=== PATIENT | male | born 1975 | race Caucasian/White ===

== ENCOUNTER 2018-01-02 08:45 | Emergency (ER) | payer MEDICAID, SELFPAY ==
[2018-01-02 08:45] VITALS: BP 126/84; PULSE 80; RESP 12; TEMP 36.2; BMI 39.4
--- NOTE | 2018-01-02 08:56 | CT_ITS ---
STUDY: CT ABDOMEN AND PELVIS WITHOUT CONTRAST REASON FOR EXAM: Male, 42 years old. Left abdomen pain. Hematuria. History of kidney stones. Surgical umbilical hernia repair. Hypertension. RADIATION DOSAGE (If Supplied By Facility): CTDIvol = ( 14.8 ) mGy, DLP = ( 766.75 ) mGycm TECHNIQUE: Transaxial images were obtained from the dome of the diaphragm to the symphysis pubis without oral contrast, and without intravenous contrast. Sagittal and coronal images were reconstructed. Individualized dose optimization techniques were used for this CT. COMPARISON: August 13, 2017. FINDINGS: The visualized lung bases demonstrate minimal, scattered, small foci of subsegmental atelectasis only. The visualized portions of the heart are within normal limits. Normal liver. Normal gallbladder and extrahepatic biliary system. Normal spleen. Normal pancreas. Normal bilateral adrenal glands. Normal right kidney. There is a 4.3 x 3.0 mm partially obstructing calculi within the left UPJ seen best currently on sequence 1002, image 76. There is mild upstream/proximal hydroureter. There is no hydronephrosis. Normal visualized stomach. Normal small intestine. Normal colon. The appendix is visualized and appears normal. There is no free fluid. There is no free air. Normal abdominal aorta. Normal inferior vena cava. Normal retroperitoneum. Normal urinary bladder. Again seen is a ill-defined, intraperitoneal/mesenteric nodular density in the retroumbilical region. This finding may represent sequela from prior surgery/fibrosis. There is a stable 4.1 cm bony excrescence posterolaterally to the left iliac bone. This finding again most likely represents an osteochondroma. CT/Abdomen/Pelvis without Cont IMPRESSION: Partially obstructing, 4.3 mm x 3.0 mm calculi within the left UPJ. Additional stable findings as above. Electronically Signed: Dimitry Harrington MD at 11:14 EDT , Service support ,
[2018-01-02 09:14] LABS: Mucous, Urine 0 SEEN /hpf (<or=2+); White Blood Cells 0 SEEN /hpf (0-5)
[2018-01-02 09:22] LABS: Color, Urine Yellow (Yellow); Glucose, Dipstick Normal (Normal); Ketone-Dipstick Negative (Negative); Leukocyte Esterase-Dipstick Negative /ul (Negative); Nitrite-Dipstick Negative (Negative); Occult Blood-Urine 250 /ul (Negative); Protein-Dipstick 15 mg/dl (Negative); Specific Gravity, Urine 1.025 (1.002-1.030); Urine Bilirubin Dipstick Negative (Negative); Urine Clarity Sl. Cloudy (Clear); Urine Urobilinogen 1 mg/dl (Normal)
[2018-01-02 09:27] LABS: Bacteria 1+ /hpf (None Seen); Red Blood Cells-Urine 25-50 SEEN /hpf (0-5); Squamous Epithelial Cells - UA 0-5 SEEN /hpf (0-5)
[2018-01-02] MEDS: 0.9% Normal Saline 1,000 ML 125 ML IV (09:47)
[2018-01-02] MEDS: Morphine 4 MG/ML Syringe IV (09:47)
[2018-01-02] MEDS: Ketorolac 30 MG/ML Syringe IV (09:47)
[2018-01-02] MEDS: Ondansetron 4 MG/2 ML Vial IV (09:48)
[2018-01-02 09:52] LABS: Absolute Neutrophil Count 8.4 X10^3/uL (2.0-7.7); Basophil# 0.06 X10^3/uL; Basophil% 0.6 % (0-1); Eosinophil# 0.13 X10^3/uL; Eosinophils% 1.3 % (0-5); Hemoglobin 15.1 g/dl (13.0-16.5); Lymphocyte % 10.6 % (19-41); Mean Corp Hgb Conc 35.1 g/gl (32-36); Mean Corpuscular Hgb 30.4 pg (27.0-32.0); Mean Corpuscular Volume 86.7 fL (80-94); Mean Platelet Vol. 9.5 fl (6.2-12.0); Monocyte# 0.72 X10^3/uL; Monocyte% 6.9 % (0-10); Neutrophil # 8.35 X10^3/uL (2.7-7.7); Neutrophil % 80.3 % (47-70); Platelet Count 248 K/mm3 (150-450); RBC Distribution Width CV 13.5 % (11.6-14.6); RBC Distribution Width SD 41.3 fl (35.1-43.9); Red Blood Count 4.96 M/mm3 (4.6-6.2); White Blood Count 10.4 K/mm3 (4.4-11.0)
[2018-01-02 09:55] LABS: POSITIVE COUNT NO; POSITIVE DIFFERENTIAL NO; POSITIVE MORPHOLOGY NO
[2018-01-02 09:58] LABS: BUN 12 mg/dL (7-18); Creatinine, Serum 1.16 mg/dL (0.70-1.30); Glucose 103 mg/dL (74-106)
[2018-01-02 09:59] LABS: Anion Gap 3 (5-15); BUN/Creat Ratio 10.3 RATIO (10-20); Calcium,Total 8.7 mg/dL (8.5-10.1); Chloride 110 mmol/L (98-107); EST Glomerular Filtration Rate 74 mL/min (>60); Est Glom Filt Rate - Afr Amer 89 mL/min (>60); Estimated Creatinine Clearance 98.42 ml/min; Potassium 3.9 mmol/L (3.5-5.1); Sodium Level 140 mmol/L (136-145)
--- NOTE | 2018-01-02 11:24 | ED.VISSUMM ---
- ER Visit Summary Date of Service: 01/02/18 Chief Complaint: [Left flank pain] History of Present Illness: The patient is a 42 M [presents the emergency department with left flank pain that started suddenly around 7:30 AM. Patient rates his pain as a 6 out of 10 currently. Patient has had nausea but no vomiting. Patient states initially the pain started after urinating. Patient has had a history of kidney stones in the past. Patient denies any fever.] Physical Examination: [HEENT-PERRLA, EOMI. Cranial nerves II through XII grossly intact. TMs clear. Mucous membranes moist. No adenopathy. Cardiovascular-regular rate and rhythm without murmur or ectopy Lungs-clear to auscultation, chest wall stable without crepitus or subcu emphysema Abdomen-normoactive bowel sounds, soft. Patient has tenderness over left lower quadrant with some guarding. There is no rebound, rigidity, or perineal signs. Patient has no CVA tenderness on palpation. Extremities-intact ?4, normal range of motion, normal pulses, atraumatic] Test Results: [CBC with differential showed a white count of 10.4, hemoglobin 15, hematocrit 43, platelets 248. Chemistries unremarkable. BUN was 12 and creatinine was 1.16. Urinalysis showed 25-50 RBCs without signs of infection. CT flank showed a 4.3 mm left UVJ stone with proximal hydroureter ureter and hydronephrosis.] Emergency Department Course and Treatment: [Patient was medicated with Toradol, morphine, and Zofran and his pain resolved. Patient currently pain-free. Given the size of the stone he understands that he has an 8090% chance of passing the stone.] Treatment Plan: [Patient will be given urine strainers and [place] as well as Naprosyn for home.] Disposition: Discharged to home in stable condition. Patient advised to return if worsening pain, fever, or condition should worsen in any way. 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 [] Impression: [Kidney stone with colic] This note was generated with [employer] dictation software. It may contain incorrect words, spelling, and punctuation that were not noted in review of the chart prior to signing ED Disposition - Plan for ED Patient: Chief Complaint: Flank Pain Referrals: Stone Castillo DO [Primary Care Provider] -
--- NOTE | 2018-01-02 11:28 | DCINST.ED_ITS ---
ED Disposition - Plan for ED Patient: Chief Complaint: Flank Pain Instructions: ED Stone Renal W Colic Prescriptions: Hydrocodone Bitart/Apap 5-325 [[place] 5/325] 1 - 2 tab PO Q4H PRN PRN 5 Days #20 tab PRN Reason: Pain Naproxen [Naprosyn] 500 mg PO BID PRN #20 tab Referrals: Stone Castillo DO [Primary Care Provider] - Boris Venegas MD [STAFF PHYSICIAN] - 3-5 Days
[2018-01-02 11:47] VITALS: BP 134/70; PULSE 88; RESP 16; O2SAT 97
== END 2018-01-02 11:49 | disposition home or self-care (01) ==
PROVIDERS: Emergency Provider Emergency Medicine; Family Provider Student in an Organized Health Care Education/Training Program; PCP Student in an Organized Health Care Education/Training Program
DX: N13.2 Hydronephrosis with renal and ureteral calculous obstruction (principal); R10.84 Generalized abdominal pain; Z87.442 Personal history of urinary calculi
CPT/HCPCS: 36415; 74176; 80048; 81001; 85025; 96361; 96374; 96375; 99283; J7030; A4216

== ENCOUNTER 2019-04-18 17:22 | Emergency (ER) | payer MEDICAID, SELFPAY ==
[2019-04-18 17:24] VITALS: BP 132/76; PULSE 86; RESP 19; TEMP 37.2; O2SAT 99; BMI 39.5
--- NOTE | 2019-04-18 17:34 | CT_ITS ---
STUDY: CT ABDOMEN AND PELVIS WITHOUT CONTRAST REASON FOR EXAM: Male, 44 years old. Left lower quadrant pain. RADIATION DOSAGE (If Supplied By Facility): CTDIvol = ( 23.64 ) mGy, DLP = ( 1204.93 ) mGycm TECHNIQUE: Transaxial images were obtained from the dome of the diaphragm to the symphysis pubis without oral contrast, and without intravenous contrast. Sagittal and coronal images were reconstructed. Individualized dose optimization techniques were used for this CT. COMPARISON: 01/02/2018. FINDINGS: Lung bases are clear. Visualized heart is normal. Diffuse fatty infiltration of the liver. No focal lesion is seen. The gallbladder is unremarkable. The spleen and pancreas are unremarkable. The adrenal glands are normal. The kidneys are unremarkable. No stones or hydronephrosis. The aorta is normal in caliber. There is no free fluid, free air, or organized collection. There is mild stranding in the anterior mesentery, deep to the umbilicus. No bowel obstruction or inflammatory change. Normal appendix. Urinary bladder is unremarkable. Normal abdominal wall. No acute osseous abnormality. Old healed trauma versus large osteochondroma of the left iliac bone. CT/Abdomen/Pelvis without Cont IMPRESSION: 1. Mild mesenteric stranding at the umbilical level. Question panniculitis. 2. Hepatic steatosis. 3. Healed left iliac trauma versus large osteochondroma. Electronically Signed: Kierra Soriano MD at 18:39 EDT Tel , Service support ,
[2019-04-18 17:58] LABS: Absolute Lymphocyte Count 2.44 X10^3/uL (0.83-4.51); Absolute Neutrophil Count 8.3 X10^3/uL (2.0-7.7); Basophil# 0.08 X10^3/uL; Basophil% 0.7 % (0-1); Eosinophil# 0.37 X10^3/uL; Hematocrit 42.4 % (40-54); Hemoglobin 14.3 g/dL (13.0-16.5); Lymphocyte # 2.44 X10^3/ul (4.0); Mean Corp Hgb Conc 33.7 g/dL (32-36); Mean Corpuscular Hgb 30.6 pg (27.0-32.0); Mean Corpuscular Volume 90.8 fL (80-94); Mean Platelet Vol. 9.1 fl (6.2-12.0); Monocyte% 7.4 % (0-10); NRBC Flagged by Analyzer 0 % (0-5); Neutrophil # 8.34 X10^3/uL (2.7-7.7); Neutrophil % 68.5 % (47-70); Platelet Count 291 K/mm3 (150-450); RBC Distribution Width CV 13.3 % (11.6-14.6); RBC Distribution Width SD 44.3 fl (35.1-43.9); Red Blood Count 4.67 M/mm3 (4.6-6.2); White Blood Count 12.2 K/mm3 (4.4-11.0)
[2019-04-18 18:03] VITALS: BP 113/76; BP 124/86; BP 98/71; PULSE 78; PULSE 80; PULSE 86
[2019-04-18 18:19] LABS: Anion Gap 3 (5-15); BUN 12 mg/dL (7-18); BUN/Creat Ratio 11.8 RATIO (10-20); Calcium,Total 8.5 mg/dL (8.5-10.1); Chloride 110 mmol/L (98-107); Creatinine, Serum 1.02 mg/dL (0.70-1.30); EST Glomerular Filtration Rate 85 mL/min (>60); Est Glom Filt Rate - Afr Amer 103 mL/min (>60); Estimated Creatinine Clearance 109.69 ml/min; Glucose 93 mg/dL (74-106); Potassium 3.7 mmol/L (3.5-5.1); Sodium Level 142 mmol/L (136-145)
[2019-04-18] MEDS: 0.9% Normal Saline 1,000 ML 125 ML IV (18:30)
--- NOTE | 2019-04-18 18:52 | ED.VISSUMM ---
- ER Visit Summary Date of Service: 04/18/19 Chief Complaint: [Rectal bleeding] History of Present Illness: The patient is a 44 M [presents to the emergency department with complaint of rectal bleeding x1 today. Patient states that he had use the restroom had a normal bowel movement and when he looked down noticed blood in the toilet bowl. Patient had some mild nausea today and some mild lower abdominal discomfort since this morning. He denies any fevers. He denies any vomiting. Patient has not had problems with hemorrhoids or rectal bleeding in the past. There is no family history of inflammatory bowel disease. Patient is not on any blood thinners. He does have a history of hypertension.] Physical Examination: [HEENT-PERRLA, EOMI. Cranial nerves II through XII grossly intact. TMs clear. Mucous membranes moist. No adenopathy. Cardiovascular-regular rate and rhythm without murmur or ectopy Lungs-clear to auscultation, chest wall stable without crepitus or subcu emphysema Abdomen-normoactive bowel sounds, soft. Patient has some mild suprapubic tenderness to palpation as well as left lower quadrant tenderness on palpation. Rectal exam-patient has a small skin tear at approximately the 10 o'clock position on the rectum with small amount of blood oozing from it. Extremities-intact ?4, normal range of motion, normal pulses, atraumatic] Test Results: [Orthostatic vital signs were negative. CBC with differential is normal. Chemistries were unremarkable. CT scan of the abdomen pelvis without contrast showed mild mesenteric stranding umbilically which may be consistent with panniculitis. Nothing else acute otherwise.] Emergency Department Course and Treatment: [] Treatment Plan: Patient will be referred to general surgery for follow-up. If bleeding persists he may require further evaluation such as possibly colonoscopy although I suspect the bleeding is coming from skin tear.] Disposition: [Discharged home stable condition.] Impression: [Rectal fissure Rectal bleeding-stable] This note was generated with [employer] dictation software. It may contain incorrect words, spelling, and punctuation that were not noted in review of the chart prior to signing ED Disposition - Plan for ED Patient: Referrals: Stone Castillo DO [Primary Care Provider] -
--- NOTE | 2019-04-18 18:55 | ED.DEP ---
ED Disposition - Plan for ED Patient: Instructions: RECTAL BLEED, Stable Referrals: Stone Castillo DO [Primary Care Provider] - Patricio Connolly MD [STAFF PHYSICIAN] - 3-5 Days
[2019-04-18 19:11] VITALS: BP 115/77; PULSE 78; RESP 18; O2SAT 98
== END 2019-04-18 19:12 | disposition short-term general hospital (02) ==
LOC: ED 18:00
PROVIDERS: Emergency Provider Emergency Medicine; Family Provider Student in an Organized Health Care Education/Training Program; PCP Student in an Organized Health Care Education/Training Program
DX: K60.2 Anal fissure, unspecified (principal); K62.5 Hemorrhage of anus and rectum; R11.0 Nausea; I10 Essential (primary) hypertension; Z79.899 Other long term (current) drug therapy
CPT/HCPCS: 74176; 80048; 85025; 96360; 99284; J7030; A4216

== ENCOUNTER → 2020-01-06 08:51 | Outpatient (CLI) | payer MEDICAID, SELFPAY ==
[2019-12-31 15:32] VITALS: BMI 41.6
--- NOTE | 2020-01-06 08:53 | RAD_ITS ---
STUDY: X-RAY CHEST REASON FOR EXAM: Male, 44 years old. AV stenosis, thoracic aortic aneurysm, syncope TECHNIQUE: PA and lateral views of the chest. COMPARISON: Comparison is made with prior study dated October 09, 2016. FINDINGS: The lungs are clear and expanded. There is no demonstrated pleural abnormality. Normal size heart. A loop recording device is seen overlying the left heart border. Normal mediastinum and [place]. Normal visualized pulmonary arteries. There is atherosclerotic tortuosity of the aortic arch and descending thoracic aorta. Normal visualized thoracic spine. Normal visualized ribs, clavicles, and shoulders. There is no demonstrated abnormality of the visualized soft tissue structures of the upper abdomen. RAD/Chest PA and Lateral IMPRESSION: No acute abnormality is seen. Electronically Signed: Kalen Bess, at 12:44 EDT , Service support ,
--- NOTE | 2020-01-06 08:53 | ECHOCS_ITS ---
Reason For Study: SYNCOPE Procedure This was a 2D Doppler, Color Flow transthoracic echocardiogram. The study was technically difficult. Contrast injection was performed. Exam performed in department. Left Ventricle Normal LV size. Moderate concentric left ventricular hypertrophy. Left ventricular systolic function is normal. The estimated ejection fraction is 65 %. Diastolic function is indeterminate. No regional wall motion abnormalities noted. Right Ventricle Normal RV size. Normal systolic function. Atria Normal left atrium. Normal right atrium. No doppler evidence for ASD. Mitral Valve There is no mitral annular calcification. Normal mitral valve. Mild (1+) mitral valve insufficiency. Tricuspid Valve Normal tricuspid valve. Trivial tricuspid valve insufficiency. Right ventricular systolic pressure estimated to be 28 mmHg. Aortic Valve Bicuspid aortic valve. Severe focal aortic valve calcification. Severe aortic stenosis. Pulmonic Valve The pulmonic valve is not well visualized. Trivial pulmonic valve insufficiency. Great Vessels Moderately dilated aortic root. Pericardium/Pleural No pericardial effusion. Medication 22 gauge I.V. with prn adaptor inserted into right arm. Diluted definity 5.0ml given slow IV push to enhance endocardial definition. MMode/2D Measurements & Calculations LVIDd: 4.3 cm IVSd: 1.7 cm LVOT diam: 2.2 cm LVIDs: 3.0 cm LVPWd: 1.5 cm RVDd: 3.2 cm FS: 29.2 % LVOT area: 3.9 cm2 Ao root diam: 4.5 cm LAV(MOD-bp): 54.5 ml LA A4 area: 18.2 cm2 LAV(MOD-bp) Indexed: 20.2 ml/m2 LAV(MOD-sp2): 58.2 ml LAV(MOD-sp4): 50.2 ml LA dimension(2D): 4.1 cm RA A4 area: 11.3 cm2 Time Measurements MV dec time: 0.20 sec Doppler Measurements & Calculations MV E max hugh: 111.2 cm/sec Lat Peak E' Hugh: 9.7 cm/sec Med Peak E' Hugh: 6.3 cm/sec MV A max hugh: 73.9 cm/sec E/E' lat: 11.5 E/E' med: 17.8 MV E/A: 1.5 Ao V2 max: 464.6 cm/sec LV V1 max: 95.3 cm/sec SV(LVOT): 91.3 ml Ao max P.4 mmHg LV V1 max P.6 mmHg Ao V2 mean: 353.6 cm/sec LV V1 mean P.2 mmHg Ao mean P.8 mmHg LV V1 mean: 71.7 cm/sec Ao V2 VTI: 119.1 cm LV V1 VTI: 23.3 cm HEATHER(I,D): 0.77 cm2 HEATHER(V,D): 0.80 cm2 PA V2 max: 106.3 cm/sec PI end-d hugh: 135.1 cm/sec TR max hugh: 249.5 cm/sec TR max P.9 mmHg Interpretation Summary The study was technically difficult. Contrast injection was performed. Left ventricular systolic function is normal. The estimated ejection fraction is 65 %. Moderate concentric left ventricular hypertrophy. Mild (1+) mitral valve insufficiency. Trivial tricuspid valve insufficiency. Bicuspid aortic valve. Severe aortic stenosis. Trivial pulmonic valve insufficiency. Moderately dilated aortic root. Right ventricular systolic pressure estimated to be 28 mmHg. Diastolic function is indeterminate. Ordering Physician: Wilmer Rodríguez Referring Physician: AMADEO DO Performed By: Mary Hein, RDCS, RVT
[2020-01-06 11:23] LABS: Absolute Lymphocyte Count 1.79 X10^3/uL (0.83-4.51); Absolute Neutrophil Count 5.8 X10^3/uL (2.0-7.7); Basophil# 0.07 X10^3/uL; Basophil% 0.8 % (0-1); Eosinophil# 0.28 X10^3/uL; Eosinophils% 3.2 % (0-5); Hemoglobin 13.9 g/dL (13.0-16.5); Lymphocyte # 1.79 X10^3/ul (4.0); Lymphocyte % 20.6 % (19-41); Mean Corp Hgb Conc 33.1 g/dL (32-36); Mean Corpuscular Hgb 29.2 pg (27.0-32.0); Mean Corpuscular Volume 88.2 fL (80-94); Mean Platelet Vol. 9.4 fl (6.2-12.0); Monocyte# 0.63 X10^3/uL; Monocyte% 7.3 % (0-10); NRBC Flagged by Analyzer 0 % (0-5); Neutrophil # 5.84 X10^3/uL (2.7-7.7); Neutrophil % 67.3 % (47-70); Platelet Count 255 K/mm3 (150-450); RBC Distribution Width CV 13.4 % (11.6-14.6); RBC Distribution Width SD 43.1 fl (35.1-43.9); Red Blood Count 4.76 M/mm3 (4.6-6.2); White Blood Count 8.7 K/mm3 (4.4-11.0)
[2020-01-06 11:32] LABS: Partial Thromboplast Time 29.1 Seconds (24.1-36.2)
[2020-01-06 11:55] LABS: AST(SGOT) 35 U/L (15-37); Alanine Aminotransfer ALT/SGPT 47 U/L (16-61); Albumin, Serum 3.4 g/dL (3.2-5.0); Alkaline Phosphatase 63 U/L (45-117); Anion Gap 6 (5-15); BUN 12 mg/dL (7-18); BUN/Creat Ratio 13.1 RATIO (10-20); Calcium,Total 8.8 mg/dL (8.5-10.1); Chloride 109 mmol/L (98-107); Cholesterol 137 mg/dL (200); Creatinine, Serum 0.91 mg/dL (0.70-1.30); EST Glomerular Filtration Rate 96 mL/min (>60); Est Glom Filt Rate - Afr Amer 117 mL/min (>60); Globulin 3.9 g/dL (2.2-4.2); Glucose 88 mg/dL (74-106); High Density Lipoprotein 41 mg/dL; Potassium 3.8 mmol/L (3.5-5.1); Protein, Total 7.3 g/dL (6.4-8.2); Sodium Level 142 mmol/L (136-145); Triglycerides 74 mg/dL; Very Low Density Lipoprotein 15 mg/dL (5-40)
== END ==
PROVIDERS: PCP Student in an Organized Health Care Education/Training Program; Referring Provider Internal Medicine Cardiovascular Disease; Visit Provider Internal Medicine Cardiovascular Disease
DX: Q23.1 Congenital insufficiency of aortic valve (principal); I71.2 Thoracic aortic aneurysm, without rupture; R55 Syncope and collapse; Z95.818 Presence of other cardiac implants and grafts; E78.5 Hyperlipidemia, unspecified; I10 Essential (primary) hypertension
CPT/HCPCS: 36415; 71046; 80048; 80061; 80076; 85025; 85610; 85730; 93306; Q9957; A4216; C8929

== ENCOUNTER 2020-01-07 07:47 | Day surgery (SDC) | payer MEDICAID, SELFPAY ==
[2019-12-31 15:32] VITALS: BMI 41.6
[2020-01-06 10:10] VITALS: BMI 41.5
--- NOTE | 2020-01-07 07:50 | PCM.HP.BLA ---
Problem List (1) Syncope Status: Acute Qualifiers: (2) Status post placement of implantable loop recorder Status: Chronic Comment: Implant 10/23/16 (3) Bicuspid aortic valve Status: Chronic (4) Nonrheumatic aortic (valve) stenosis Status: Chronic (5) Thoracic aortic aneurysm without rupture Status: Chronic Comment: 4.4cm per Chest CT 12/27/16 (6) Dyslipidemia Status: Chronic (7) Essential hypertension Status: Chronic History and Physical Date of Admission: 01/07/20 [facility] [address] [place] [address] OFFICE VISIT Date of Service: 12/31/19 MR#: [id number] Acct: [id number] Patient: ERLINDA DE LEÓN Rep #: [id number] : 1975 Provider: Wilmer Rodríguez MD Age/Sex: 44/M [place] [facility] [place] Status: Signed Intake Vital Signs 12/31/19 Height 6 ft 2 in 12/31/19 Weight: 324 lb 6 oz 12/31/19 BMI 41.6 12/31/19 BP 108/74 12/31/19 Pulse 80 12/31/19 Comment Vital Signs obtained per patient Intake Visit Reasons: Establish care/Self ref. /PHONE Chief Complaint: Bicuspid AV; AV Stenosis; Ascending Aortic Anuerysm; Syncope Allergies adhesive Allergy (Severe, Verified 12/31/19 15:36) Rash sertraline [From Zoloft] Allergy (Severe, Verified 12/31/19 15:36) Itching fluoxetine [From Prozac] Adverse Reaction (Severe, Verified 12/31/19 15:36) Heart Racing, SOB Medications Metoprolol(XL)Succ [Toprol Xl (Beta Melany)] 25 mg PO DAILY 10/30/15 [History Confirmed 12/31/19] [place]-3 Fatty Acids/Fish Oil [Fish Oil 1,000 mg Capsule] 1 ea PO DAILY 01/02/18 [History Confirmed 12/31/19] Omeprazole 20 mg PO DAILY 01/02/18 [History Confirmed 12/31/19] ascorbic acid (vitamin C) 500 mg tablet 500 mg PO DAILY 12/29/19 [History Confirmed 12/31/19] cholecalciferol (vitamin D3) 50 mcg (2,000 unit) capsule 50 mcg PO DAILY 12/29/19 [History Confirmed 12/31/19] furosemide 20 mg tablet 20 mg PO DAILY 12/29/19 [History Confirmed 12/31/19] risperidone 2 mg tablet 2 mg PO DAILY 12/29/19 [History Confirmed 12/31/19] aspirin 81 mg tablet,delayed release 81 mg PO DAILY #1 tab 12/31/19 [Rx Confirmed 12/31/19] lamotrigine 25 mg tablet 50 mg PO DAILY tab 12/31/19 [History Confirmed 12/31/19] multivitamin 1 tab PO DAILY 12/31/19 [History Confirmed 12/31/19] [facility] Medical History (Updated 12/31/19 @ 16:[address] Wilmer Rodríguez MD) Status post placement of implantable loop recorder (Chronic ~10/23/16) Syncope (Acute) Essential hypertension (Chronic) Dyslipidemia (Chronic) LBBB (left bundle branch block) (Acute) Thoracic aortic aneurysm without rupture (Chronic) Nonrheumatic aortic (valve) stenosis (Chronic) Bicuspid aortic valve (Chronic) Cerebral edema (Acute) Surgical History (Updated 12/29/19 @ 09:09 by Gail Maier) History of carpal tunnel surgery (Chronic) Brain tumor (Resolved) History of umbilical hernia repair (Resolved) Family History (Updated 12/31/19 @ 15:42 by Gail Maier) Mother Hypertension Father Cardiac murmur Social History (Updated 12/31/19 @ 17:[address] Wilmer Rodríguez MD) Smoking Status: Former smoker alcohol intake: never substance use type: does not use caffeine: Yes Type: carbonated beverages Number of servings: 2 HPI HPI Chief Complaint: Bicuspid AV; AV Stenosis; Ascending Aortic Anuerysm; Syncope Details: Patient was informed that this visit will be billed to patient. This visit was conducted during COVID-19 pandemic. ERLINDA DE LEÓN, is a 44-year-old white male who presents via telephone visit, based upon the ongoing coronavirus pandemic for a new patient consult based upon concerns of a bicuspid aortic valve with severe aortic valve stenosis and thoracic aortic root dilatation and syncope. He has been previously followed by [facility] cardiology. He has undergone noninvasive and invasive evaluation in the past. Based upon medical records available for review it appears that he had a transthoracic echocardiogram performed in October 2016 through the [facility] system. At that time the left ventricle was thought to be normal with an LVEF of 55%. There was trivial MR and trivial TR and trivial to mild LA. The aortic valve was described as bicuspid and severely stenotic with a mean gradient of 42 mmHg and an aortic valve area of 0.7 cm?. The distal ascending aorta was reported at 3.9 cm. He also underwent in October 2016 a pharmacologic stress nuclear imaging study. Per the report the perfusion was considered normal. There was no evidence of scarred myocardium. There was no evidence of inducible myocardial ischemia. The patient underwent additional evaluation through the [facility] system. This included in November 2016 a diagnostic cardiac catheterization. At that time his coronary arteries were reported as angiographically normal. There was notation that his right coronary artery was best engaged with a JR 5 from the right radial access. There was recommendation at that time to proceed with aortic valve replacement based upon the history of severe aortic valve stenosis. It appears that he also underwent in December [address] scan through the [facility] system. Based upon the report it stated he had moderate ectasia of the mid and distal ascending aorta with dimensions of 4.4 cm. There was no acute aortic pathology. There was a comment he had at least a bicuspid if not a unicuspid aortic valve. There was report of moderate calcification of the leaflets extending into the LV outflow tract. He elected to postpone his surgery at the time. He stated he was anxious about waking up with a tube in my throat . He states that he has been having evidence of exertional shortness of breath and dyspnea. As he did in 2016 he still has episodes of syncope. He states these episodes occur without any warning. He states he has been evaluated for these episodes for any potential seizure activity. Apparently this is been a negative evaluation. He also has an implantable loop recorder in place based upon his syncopal events. It appears that he had a report in November of this year. According to the report there was 1 patient symptomatic activation although he does not recall having a symptomatic event. There were pauses reported although there was a comment that there was demonstration of under sensing. The recommendation was for continued 1 month remote transmission follow-up. He has been evaluated by his PCP. He has been referred for a second opinion. He denies ongoing chest discomfort. He has had no orthopnea or PND. He states he has chronic lower extremity peripheral pitting edema for which he takes diuretics. He states that this point in time he is ready to proceed with reevaluation for aortic valve replacement. He states he was told by his previous [facility] resident care spec in the fall 2018 that he would require repeat evaluation including repeat diagnostic cardiac catheterization as it has been quite some time since his last procedure as part of his preparation for aortic valve replacement. He is hopeful his aortic valve replacement could be performed percutaneously. However he is aware that he may not be a candidate for such and it may have to be performed surgically. He states he would like to be evaluated at [facility] for such a procedure if possible as opposed to returning to the [facility] Main campus. ROS Const Constitutional: Positive for fatigue (increased); no anorexia, body ache, chills, excessive sweating, fever(s), frequent falls, headache(s), decreased energy, malaise, night sweats, snoring, weakness, weight change, sleep problems, abnormal sleep pattern, change in appetite or other Eyes Eyes: No visual disturbances ENT ENT: No abnormal hearing, headache(s) or neck pain Resp Respiratory: Positive for cough (occasional) and shortness of breath sob: SOB with activity (increased), SOB at rest, orthopnea\SOB lying down (sleeps with 3 pillows propped); no change in phlegm color, chest congestion, excessive phlegm production, hemoptysis, pain on inspiration, pain with cough, snoring, stridor, wheezing or other Cardio Cardiology: Positive for chest pain with exertion (Lt side) Symptoms: Stabbing, Heaviness and generalized swelling (swelling to bilat LE, wears compression socks PRN); no chest pain at rest, leg pain with exertion, excessive sweating, shortness of breath, dyspnea on exertion, irregular heart rhythm, lightheadedness, orthopnea, radiating jaw, neck or arm pain, fast heart rate, slow heart rate, palpitations or other Musc Musculoskeletal: No abnormal walking, joint pain, back pain, deformity, joint swelling, limited range of motion, loss of height, muscle cramps, muscle weakness, decreased muscle mass, body aches, neck pain, numbness, radiating pain into limb, stiffness, tingling or other Neuro Neurology: Positive for unsteady gait/balance (slight with ambulation), dizziness (continues) and fainting; no abnormal walking, abnormal hearing, abnormal movements, abnormal speech, behavioral changes, confusion, weakness, frequent falls, headache(s), lack of coordination, loss of vision, memory loss, numbness, tingling, visual disturbances, restless legs, tremor(s) or other Psych Psychiatric: No abnormal sleep pattern, No behavioral changes, No change in appetite, No confusion, No memory loss Endo Endocrine: Positive for fatigue (increased); no excessive sweating Aller/Imm Allergy/Immunologic: No wheezing Exam Const Other: Examination not performed secondary to telephone visit secondary to COVID-19. [facility] Musculoskeletal: No muscle weakness Details: Details:: Exam was limited due to phone visit with no video. Quality Reporting Medication Reconciliation (CMS 68) ascorbic acid (vitamin C) 500 mg PO DAILY aspirin 81 mg PO DAILY cholecalciferol (vitamin D3) 50 mcg PO DAILY furosemide 20 mg PO DAILY lamotrigine (Lamictal) 50 mg PO DAILY metoprolol succinate ER 25 mg PO DAILY multivitamin 1 tab PO DAILY omega-3 fatty acids-fish oil 340-1,000 mg 1 ea PO DAILY omeprazole 20 mg PO DAILY risperidone 2 mg PO DAILY BMI Screening (CMS 69) Body Mass Index (BMI): 39.5 Tobacco Screening (CMS 138) Smoking Status: Former smoker Assessment & Plan 1. Syncope, unspecified syncope type R55 Plan His case was reviewed and discussed with him. There is concern, as there is been no other definitive etiology, that his syncope can be related to his report of severe aortic valve stenosis. He was informed that unfortunately his aortic valve issue, based upon the natural history, will only worsen and he will only become more symptomatic if he does not proceed with additional evaluation and care of his aortic valve. At the present time he is going to continue medical management. He does want a proceed with further evaluation and care. This would include reevaluation of his aortic valve, left ventricle, and his coronary anatomy. This would be a combination of a transthoracic echocardiogram and a diagnostic cardiac catheterization to reassess his coronary anatomy. The procedure and risks were discussed with him. He was agreeable to this approach. Orders Orders: 12 Lead EKG performed by [facility] Today Left Heart Cath/COR/LV Percut Today Echo Complete Today Basic Metabolic Profile (BMP) Today Partial Thromboplast Time Today Prothrombin Time w/INR Today CBC W/Diff, Automated Today Chest PA and Lateral Today 2. Bicuspid aortic valve Q23.1 Plan According to his [facility] reports there is a comment that he has a bicuspid aortic valve and potentially a unicuspid aortic valve. The report suggest it is severe as of 2017. At the present time he can be reassessed noninvasively. He is willing to proceed with further evaluation in anticipation of either a percutaneous or a surgical based aortic valve replacement. Orders Orders: 12 Lead EKG performed by [facility] Today Left Heart Cath/COR/LV Percut Today Echo Complete Today Basic Metabolic Profile (BMP) Today Partial Thromboplast Time Today Prothrombin Time w/INR Today CBC W/Diff, Automated Today Chest PA and Lateral Today 3. Nonrheumatic aortic (valve) stenosis I35.0 Plan Again he has a report of severe aortic valve stenosis. This is been discussed with him as noted above. He will continue evaluation and care as noted. Orders Orders: 12 Lead EKG performed by [facility] Today Left Heart Cath/COR/LV Percut Today Echo Complete Today Basic Metabolic Profile (BMP) Today Partial Thromboplast Time Today Prothrombin Time w/INR Today CBC W/Diff, Automated Today Chest PA and Lateral Today 4. Thoracic aortic aneurysm without rupture I71.2 4.[address] 12/27/16 Plan He has a history of a thoracic aortic root aneurysm. His previous [facility] CT scan was reviewed. He will proceed with his aforementioned studies. He may also need a follow-up chest CT scan as part of his evaluation. Orders Orders: 12 Lead EKG performed by [facility] Today Left Heart Cath/COR/LV Percut Today Echo Complete Today Basic Metabolic Profile (BMP) Today Partial Thromboplast Time Today Prothrombin Time w/INR Today CBC W/Diff, Automated Today Chest PA and Lateral Today Chest WITH Contrast Today 5. Status post placement of implantable loop recorder Z95.818 Implant 10/23/16 Plan He does have an implantable loop recorder in place. This is being followed at the present time by his [facility] resident care spec. If he elects to continue care locally then his loop recorder follow-ups can be transitioned to this office. Orders Orders: 12 Lead EKG performed by [facility] Today Left Heart Cath/COR/LV Percut Today Echo Complete Today Basic Metabolic Profile (BMP) Today Partial Thromboplast Time Today Prothrombin Time w/INR Today CBC W/Diff, Automated Today Chest PA and Lateral Today 6. LBBB (left bundle branch block) I44.7 Plan He has a report of a left bundle branch block. He will be in need of a future electrocardiogram in preparation for his upcoming studies. 7. Dyslipidemia E78.5 Plan There is a comment in his reports of a history of dyslipidemia. It would be reasonable to follow-up with his lipid labs to further assess his cardiovascular risks. Orders Orders: 12 Lead EKG performed by [facility] Today Left Heart Cath/COR/LV Percut Today Echo Complete Today Basic Metabolic Profile (BMP) Today Partial Thromboplast Time Today Prothrombin Time w/INR Today CBC W/Diff, Automated Today Chest PA and Lateral Today 8. Essential hypertension I10 Plan His blood pressure appears to be reasonably well controlled today. He will continue his current medical management. Orders Orders: 12 Lead EKG performed by [facility] Today Left Heart Cath/COR/LV Percut Today Echo Complete Today Basic Metabolic Profile (BMP) Today Partial Thromboplast Time Today Prothrombin Time w/INR Today CBC W/Diff, Automated Today Chest PA and Lateral Today Plan Detail Other Orders Orders: Lipid Profile Today E78.00 Liver Profile Today E78.00 Other Medications New: aspirin 81 mg PO DAILY 1 tab 0RF Additional Comments The above was discussed with the patient and his fianc?e via telephone at great length. They were agreeable to the aforementioned evaluation and care plan. Thank you for allowing me to participate in the care of your patient. Please don't hesitate to call if any issues arise. This note was generated using a voice recognition system and there may be incorrect words, spelling or punctuation that were not noted when reviewing the office note prior to saving. Time spent in the patients evaluation / care / medical decision making process: 23 minutes Follow Up 6 Weeks (with PFM) 12/31/19 [id number] <Electronically signed by Wilmer Rodríguez MD> Date Wilmer Rodríguez MD Cosigner Signature: Date (if applicable) CC: Stone Emery, DO ~ I have examined the patient the following changes are noted: The patient's initial outpatient cardiovascular visit was a telephone visit. The patient was evaluated and examined in person this day. On examination the patient appears to be awake and alert and in no acute distress. HEENT demonstrates pupils to be equal round and reactive to light and extraocular muscles appear to be intact Neck is supple with good range of motion Lungs are clear to auscultation and percussion bilaterally Cardiovascular exam demonstrates a regular rhythm with a normal S1, diminished S2, positive ejection click, and a +3/6 harsh systolic murmur at the lower left sternal border rating to the LV outflow tract, sternal notch, and the bilateral carotid artery distribution Abdomen demonstrates positive bowel sounds, soft, nontender Lower extremities demonstrate no obvious peripheral pitting edema Neurologic evaluation demonstrates no obvious focal motor or sensory defects The patient underwent further evaluation with transthoracic echocardiogram. The results are as noted below. Interpretation Summary The study was technically difficult. Contrast injection was performed. Left ventricular systolic function is normal. The estimated ejection fraction is 65 %. Moderate concentric left ventricular hypertrophy. Mild (1+) mitral valve insufficiency. Trivial tricuspid valve insufficiency. Bicuspid aortic valve. Severe aortic stenosis. Trivial pulmonic valve insufficiency. Moderately dilated aortic root. Right ventricular systolic pressure estimated to be 28 mmHg. Diastolic function is indeterminate. The patient is scheduled for further evaluation with diagnostic cardiac catheterization to be performed this day at [facility]. The procedure and risks have been discussed with the patient. He is agreeable to proceed with the aforementioned evaluation. This note was generated using a voice recognition system and there may be incorrect words, spelling or punctuation that were not noted when reviewing the office note prior to saving. Essential Procedure Criteria Procedure Essential: Yes Criteria Note: On 11/23/2019 the [place] Department of Health ([facility]) Public Order signed by [facility] Director Nena Jean M.D., regarding the Management of Non-Essential Surgeries and Procedures for the purpose of preserving Personal Protective Equipment (PPE) and critical hospital capacity and resources within [place] went into effect as of 11/24/2019 at 5:00PM. According to the [facility] Public Order: This action will remain in full force and effect until the State of Emergency declared by the Governor no longer exists or the Director of the [facility] rescinds or modifies this Order.. This [facility] order stated all non-essential or elective surgeries and procedures that utilize PPE should be delayed unless there is undue risk to the current or future health of a patient. After reviewing the aforementioned [facility] Public Order and the patients clinical case, I have determined that the scheduled procedure meets the criteria to go forward. Risk to Patient if Procedure Delayed: Risk of rapidly worsening to severe symptoms if delayed - Severe aortic valve stenosis
--- NOTE | 2020-01-07 10:04 | CL.D_ITS ---
Patient Name: ERLINDA DE LEÓN Study Date: 01/07/2020 Performing: Wilmer Rodríguez MD Ht: 74.01 inches 188 cm : 1975 Wt: 324.08 lbs 147 kg Age: 44 Gender: male BSA: 2.67 PROCEDURE(S) PERFORMED DC11-AO ROOT ANGIO WITH HEART CATH [id number] CLINICAL PROFILE AND INDICATIONS Indications: Syncope, Valvular Disease, Pre-Operative Evaluation Heart Failure: None Stress/Imaging Stress/Image Study Performed: No Angina Classification Anginal Classification w/in 2 Weeks: No symptoms CAD Presentations: Other: syncope CONCLUSIONS Normal coronary arteries Aortic Valve Calcification- Severe Aortic Root dilated RECOMMENDATIONS Risk factor modification Medical therapy Surgery consult for valvular disease DESCRIPTION OF PROCEDURE The patient arrived to the procedure lab. The risks and benefits of the procedure as well as a full d escription of our services here and current unavailability of surgical backup were fully explained to the patient and/or their significant other prior to the catheterization. The Timeout was completed, verifying the correct patient and procedure. The patient's procedural site was prepped and draped in the usual fashion. Local anesthetic was given subcutaneously to right radial region with Lidocaine 2% . Using a modified Seldinger technique, arterial access was obtained via the right radial artery, a 6 Fr sheath was inserted. Left Coronary Artery selective angiography was performed in multiple views u sing a 5 Fr. 4.0 [place] catheter. Right Coronary Artery selective angiography was then performed in mu ltiple views using a 5 Fr. JR 5 catheter. Ascending (root) aorta selective angiography was then perfo rmed in single view. Ascending (root) aorta selective angiography was then performed in single view.The arterial sheath was pulled and a TR Band was applied for hemostasis-11 [facility] CORONARY ANGIOGRAPHY DOMINANCE: Right Dominant LEFT HEART ASSESSMENT Left Ventricular Ejection Fraction: Not assessed LEFT MAIN: Angiographically normal LEFT ANTERIOR DESCENDING ARTERY: Angiographically normal CIRCUMFLEX ARTERY: Angiographically normal RIGHT CORONARY ARTERY: Angiographically normal VALVE FINDINGS: Aortic Valve Calcification - severe AORTIC ROOT: Dilated COMPLICATIONS No Complications PROCEDURE MEDICATIONS Fentanyl 50 mcg IV Versed 1 mg IV Baby Aspirin (81mg) 1 Tabs PO @ 01/07/2020 08:47:00 Heparin diluted in 23cc Heparinized saline. Patient given 10cc IA of this solution. 01/07/2020 09:20:4 0 Verapamil 2.5mg, Ntg 100mcgs, 2000 units of Heparin diluted in 23cc Heparinized saline. Patient give n 10cc IA of this solution. 01/07/2020 09:20:40 SUMMARY OF HEMODYNAMIC DATA Time AIR REST ECG 08:28:35 AO 91/77 (84) SA 09:24:38 Signed By Wilmer Rodríguez MD On 01/07/2020 10:03:16 AM Wilmer Rodríguez MD
== END 2020-01-07 11:20 | disposition home or self-care (01) ==
PROVIDERS: PCP Student in an Organized Health Care Education/Training Program; Referring Provider Internal Medicine Cardiovascular Disease; Visit Provider Internal Medicine Cardiovascular Disease
DX: I77.810 Thoracic aortic ectasia (principal); Q23.1 Congenital insufficiency of aortic valve; I10 Essential (primary) hypertension; I44.7 Left bundle-branch block, unspecified; E78.5 Hyperlipidemia, unspecified; Z95.818 Presence of other cardiac implants and grafts; Z79.82 Long term (current) use of aspirin; Z79.899 Other long term (current) drug therapy; Z87.891 Personal history of nicotine dependence
CPT/HCPCS: 93454; 93567; 99152; 99153; J7040; C1769; C1894; Q9967

== ENCOUNTER → 2020-03-01 10:53 | Outpatient (CLI) | payer MEDICAID, SELFPAY ==
[2020-01-06 10:10] VITALS: BMI 41.5
--- NOTE | 2020-03-01 11:15 | ECHOLCONC_ITS ---
Reason For Study: Cardiomyopathy Procedure This was a limited 2D transthoracic echocardiogram. Myocardial strain analysis was performed in this exam to aid in the assessment of cardiac function. Technically difficult study. STRAIN requested by ordering physician, two techs attempted and may not be accurate due to technical difficulty. The study was technically difficult. Limited views were obtained. Left Ventricle Normal LV size. Moderate concentric left ventricular hypertrophy. Left ventricular systolic function is normal. The estimated ejection fraction is 60 %. The global longitudinal strain = -16% (abnormal). Unable to assess diastolic dysfunction. No regional wall motion abnormalities noted. Right Ventricle Normal RV size. Normal systolic function. Atria Normal left atrium. Normal right atrium. Mitral Valve There is no mitral annular calcification. Normal mitral valve. Tricuspid Valve Normal tricuspid valve. Aortic Valve Bicuspid aortic valve. Severe focal aortic valve calcification. Moderate to severe aortic valve stenosis. Pulmonic Valve The pulmonic valve is not well visualized. Mild (1+) pulmonic valve insufficiency. Great Vessels Normal sized aortic root. The ascending aorta is not well visualized. Pericardium/Pleural No pericardial effusion. MMode/2D Measurements & Calculations LVIDd: 4.2 cm IVSd: 2.0 cm LVOT diam: 2.2 cm LVIDs: 3.2 cm LVPWd: 1.3 cm LVOT area: 3.8 cm2 FS: 24.9 % Ao root diam: 3.5 cm Doppler Measurements & Calculations Ao V2 max: 369.3 cm/sec LV V1 max: 77.5 cm/sec SV(LVOT): 61.5 ml Ao max P.6 mmHg LV V1 max P.4 mmHg Ao V2 mean: 218.8 cm/sec LV V1 mean P.3 mmHg Ao mean P.6 mmHg LV V1 mean: 52.5 cm/sec Ao V2 VTI: 78.5 cm LV V1 VTI: 16.2 cm HEATHER(I,D): 0.78 cm2 HEATHER(V,D): 0.80 cm2 Interpretation Summary The study was technically difficult. Limited views were obtained. Left ventricular systolic function is normal. The estimated ejection fraction is 60 %. Moderate concentric left ventricular hypertrophy. The global longitudinal strain = -16% (abnormal). Bicuspid aortic valve. Moderate to severe aortic valve stenosis. Mild (1+) pulmonic valve insufficiency. The ascending aorta is not well visualized. Unable to assess diastolic dysfunction. Ordering Physician: GLORIA ENCISO Referring Physician: Stone Castillo Performed By: Reynold Phelps RCS
== END ==
PROVIDERS: PCP Student in an Organized Health Care Education/Training Program
DX: Q23.1 Congenital insufficiency of aortic valve (principal); R55 Syncope and collapse; I51.7 Cardiomegaly
CPT/HCPCS: 93308; 93356; C8924

== ENCOUNTER → 2020-04-28 12:53 | Outpatient (CLI) | payer MEDICAID, SELFPAY ==
[2020-01-06 10:10] VITALS: BMI 41.5
--- NOTE | 2020-04-28 13:03 | PCM.CR.HP2 ---
CR - History & Physical - General Arrival date:: 04/28/20 Arrival time:: 13:04 Date of Referral:: 04/14/20 Date of CR Evaluation:: 04/28/20 Referring Physician: Dr. Gopal Bullard Primary Diagnosis: Z95.2 Arotic Valve Replacement - History of Present Cardiac Event Onset Date: Enter Onset Date of cardiac illnesses in Comment field below Heart valve replacement or repair:: Yes - 04/04/2020 Were there any complications?: allergic reaction to meds with swelling - Medications Home Medications: Ambulatory Orders Medication Instructions Recorded Omeprazole 20 mg PO DAILY 01/02/18 ascorbic acid (vitamin C) 500 mg 500 mg PO DAILY 12/29/19 tablet cholecalciferol (vitamin D3) 50 50 mcg PO DAILY 12/29/19 mcg (2,000 unit) capsule furosemide 20 mg tablet 20 mg PO DAILY 12/29/19 risperidone 2 mg tablet 2 mg PO DAILY 12/29/19 lamotrigine 25 mg tablet 50 mg PO DAILY tab 12/31/19 multivitamin 1 tab PO DAILY 12/31/19 acetaminophen 500 mg tablet 1,000 mg PO Q6H PRN tab 04/14/20 gabapentin 100 mg tablet 200 mg PO BID tab 04/14/20 magnesium oxide 400 mg (241.3 mg 400 mg PO DAILY 04/14/20 magnesium) tablet metoprolol tartrate 25 mg tablet 12.5 mg PO BID tab 04/14/20 oxycodone 5 mg tablet 5 mg PO Q6H PRN 04/14/20 polyethylene glycol 3350 17 17 g PO DAILY 04/14/20 gram/dose oral powder sennosides 8.6 mg capsule 8.6 mg PO BID PRN 04/14/20 aspirin 81 mg tablet,delayed 162 mg PO DAILY #1 tab 04/19/20 release - Allergies Allergies/Adverse Reactions: Allergies adhesive Allergy (Severe, Verified 12/31/19 15:36) Rash cefazolin [From Ancef] Allergy (Severe, Verified 04/14/20 11:43) Anaphylaxis, Angioedema sertraline [From Zoloft] Allergy (Severe, Verified 12/31/19 15:36) Itching fluoxetine [From Prozac] Adverse Reaction (Severe, Verified 12/31/19 15:36) Heart Racing, SOB - Sleep Disorder Evaluation Hx of Sleep Apnea: No Do you snore loudly (louder than talking or can be heard through closed doors)?: Yes Do you often feel tired/ fatigued/ sleepy during daytime?: Yes Has anyone observed you stop breathing during sleep?: No History of Hypertension (for STOP score): Yes STOP Results: Positive Advanced Directives - Advanced Directives Power of Short Piece Handler: No Living Will: No Advance Directives Information Provided: No Advance Directives on File: No DNR Order?:: No Past Medical History - Covid-19 Screening Fever: No Unexplained muscle aches: No Current respiratory symptoms: No Upper respiratory infections symptoms: No Gastro-intestinal symptoms: No Mob-[id number]-[id number] symptoms: No Has tested positive for COVID-19 in last 30 days: No Had contact w/person w/symptoms or Covid-19 (+) last 14 days: No Has High Risk Exposures ID'd by Health dept/Inf Control team: No 65 years or older:: No Lives in Assisted Living facility:: No Has a chronic lung disease or moderate to severe asthma:: No Has a serious heart condition:: Yes Immunocompromised:: No Severely obese (Body Mass Index of 40 or higher):: Yes Diabetic:: No Has chronic kidney disease undergoing dialysis:: No Has liver disease:: No - Past Medical Illness Medical History: Past Medical History (Last Updated 04/14/20 @ 11:42 by aGil Maier) AV block, 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 Presence of permanent cardiac pacemaker (Chronic) Onset Date: ~04/07/20 Z95.0 Status post placement of implantable loop recorder (Chronic) Onset Date: ~10/23/16 Z95.818 Implant 10/23/16 Syncope (Acute) R55 Essential hypertension (Chronic) I10 Dyslipidemia (Chronic) E78.5 LBBB (left bundle branch block) (Acute) I44.7 Thoracic aortic aneurysm without rupture (Chronic) I71.2 4.[address] per [address] CT 12/27/16 Nonrheumatic aortic (valve) stenosis (Chronic) I35.0 Bicuspid aortic valve (Chronic) Q23.1 Cerebral edema G93.6 - Past Surgical History Surgical History: Past Surgical History (Last Updated 04/14/20 @ 11:42 by Gail Maier) History of aortic valve replacement with bioprosthetic valve (Chronic) Onset Date: ~04/04/20 Z95.3 23mm Inspiris Bioprosthesis @ [facility] by Dr. Bullard 04/04/20 History of left heart catheterization (Chronic) Onset Date: 01/07/20 Z98.890 Normal coronary arteries. Aortic Valve Calcification- Severe. Aortic Root dilated. Risk factor modification. Surgery consult for valvular disease. 01/07/[address] @ [facility] History of carpal tunnel surgery Z98.890 Brain tumor D49.6 Excision of brain tumor History of umbilical hernia repair Z98.890, Z87.19 - Family History Summary Family History: Family History (Last Updated 12/31/19 @ 15:42 by Gail Maier) Mother Hypertension Father Cardiac murmur Social History - Smoking History Smoking Status: Former smoker Years Smokin Packs Smoked per Day: 1 Hx Smoking Cessation Date: 09/08/16 Hx Tobacco Use: Yes Hx Smoking Exposure: Yes - Alcohol Use Alcohol Usage: No - stopped - Substance Abuse Hx Substance Use: No - Occupation Occupation (List type of work in comments):: Unemployed - Hobbies, Recreation, Social Activities Hobbies: Other - Arrayent cars Recreational Activities: I am able to engage in all my recreational activities Social Environment - Status Marital Status: Single - engaged - Current Living Arrangements Living Environment:: Family - Children How many children do you have?: 2 Do any of your children live nearby?: Yes - Safety Do you feel safe in your surroundings?: Yes - Assistance Do you need any assistance at home?: none Review of Systems - Review of Systems Hints: Right click = Denies ([place]). Left click = Reports ([place]) Review of Present Symptoms: Reports: Shortness of Breath with Exertion, Operative Discomfort, Angina, Dizziness/Lightheadedness, Appetite - Normal, Appetite - Special Diet - low salt diet, Sleep - Normal. Denies: Shortness of Breath at Rest, PVD, Wound Healing, Fatigue, Heart Arrhythmia/Irregularities, Sexual Changes - Pain Is Patient Pain Free?: No Pain Location: chest - incisional pain Pain Level: 5/10 Risk Factor Assessment - Vital Signs Pulse Ox: 97 Blood Pressure: 96/70 - Pulse Pulse Rate: 87 Pulse Rhythm: Regular - Hypertension How long have you been treated?: 15 - Stress Stress: Home/Family - Diabetes Nutrition Referral for Diabetes: No - Obesity Height: 6 ft 2 in Weight:: 147.134 kg Weight in Pounds: 324.4 lbs Body Mass Index (BMI): 41.6 Nutritional Referral for Obesity: Yes - Physical Inactivity Physical Inactivity: Reg Exercise 30 min/day - walking - Risk Stratification Risk Guidelines: Moderate Risk: Risk Factor for Smoking, Risk Factor for Dyslipidemia, Risk Factor for Diabetes, Risk Factor for Obesity, Risk Factor for Hypertension, Risk Factor for Sedentary Lifestyle, Risk Factor for Depression - For Smoking Smoking Risk Guidelines: Smoking Low Risk: None or quit greater than 6 months ago. Smoking Moderate Risk: Smoker or quit 6 months or less ago. Smoking High Risk: Smoker - For Dyslipidemia Dyslipidemia Risk Guidelines: Low Risk: Moderate Risk: High Risk: 15-25% fat 25.1-29% fat >/= 30% fat. <7% sat fat 7-9% sat fat >9% sat fat. <150 mg chol 150-299 mg chol >/= 300 mg chol. LDL <100 LDL 100-129 LDL >/= 130. Chol/HDL ratio <5.0 Chol/HDL ratio 5.0-6.0 Chol/HDL ratio >6.0. Triglycerides <100 Triglycerides 100-149 Triglycerides >/= 150 - For Diabetes Mellitus Diabetes Risk Guidelines: Diabetes Low Risk: HgA1c <6.5% and/or FBG <120. Diabetes Moderate Risk: HgA1c 6.6-7.9% and/or FBG 120-180. Diabetes High Risk: HgA1c >/= 8% and/or FBG >180 - For Obesity/Overweight Obesity/Overweight Risk Guidelines: Obesity Low Risk: BMI <25.0. Obesity Moderate Risk: BMI 25-29.9. Obesity High Risk: BMI >/= 30.0 - For Hypertension Hypertension Risk Guidelines: Hypertension Low Risk: Systolic <120 and Diastolic <80. Hypertension Moderate Risk: Systolic 120-139 and Diastolic 80-89. Hypertension High Risk: Systolic >/= 140 and Diastolic >/= 90 - For Sedentary Lifestyle Sedentary Lifestyle Risk Guidelines: Sedentary Lifestyle Low Risk: >/= 1,500 kcal/week. Sedentary Lifestyle Moderate Risk: 700-1,499 kcal/week. Sedentary Lifestyle High Risk: < 700 kcal/week - For Depression Depression Risk Guidelines: Depression Low Risk: Not clinically depressed. Depression Moderate Risk: Mildly depressed. Depression High Risk: Clinically depressed - Family History Family History: Family History (Last Updated 12/31/19 @ 15:42 by Gail Maier) Mother Hypertension Father Cardiac murmur Motivation - Motivation to Participate On a scale of 1 to 10, how prepared are you to commit to attending program?: 10 What do you see as barriers to successfully being able to complete the program?: none What do you see as the benefits of succesfully completing the program? In other words, what do you hope to get out of participating in the program?: improved health Are there issues you are dealing with that will interfere with completing the program?: none Do you have a spouse or signficant other, family or friends who will help support you to complete the program?: family
--- NOTE | 2020-04-28 13:04 | PCM.CR.ITP ---
Diagnosis - General Information Admitting Diagnosis: Aortic valve replacement Personal Learning Style:: Audio/Visual Barriers to Learning: Low Literacy, Vision Impairment Stage of change r/t lifestyle modifications:: Contemplation Gave educational material for:: Treating Heart Disease, Emotions & Heart Disease, Stress Management & Relaxation, Sleep Disorders & Heart Disease, How The Heart Works, What it means to have Heart Disease, How Coronary Artery Disease is Diagnosed, Heart Procedures, What Heart Medications Do, Risk Factors & Modifications, Living an Active Life, Nutrition - Education/Goals Cardiac Rehabilitation Goals: 1. Maintain the individual as the primary focus of care. 2. To improve the patient's quality of life. 3. Identification of cardiac risk factors and provide cardiac risk factor management. 4. Enhance the psychosocial status of the patient. 5. Reconditioning enough to allow the patient to resume customary activities. 6. Control symptoms of cardiac disease Scale for measuring improvement of personal goals: Enter appropriate number in Comments. 2 = Unchanged. 3 = Slightly Better. 4 = Moderate Improvement. 5 = Met my Goal - Diagnosis & Disease Process 30 day Reassessments:: Not Met 30 day Reassessments:: Not Met 30 day Reassessments:: Not Met 30 day Reassessments:: Not Met Final Reassessments:: Not Met - Safety Referral to Physical Therapy: No Referral to [facility] Case Management: No Fall Risk Assessed:: Yes Assistive Devices:: None Exercise - Initial Assessment - Visit Date of Eval: 04/28/20 - initial eval Mets: Pre-: >7 METS for 30 minutes by discharge - Physician Prescribed Exercise Modalities: Treadmill, Airdyne, NuStep, SciFit Frequency: 3x/week for 12 weeks [36 sessions] Intensity: 60-80% of age predicted maximum heart rate reserve Current METSs:: 3.0 Target Heart Rate:: 115-150 Resting Blood Pressure: 96/70 - Outcomes & Goals Goals:: Verbalizes understanding of THR, RPE & goal METS by session 6, Documents in home exercise log/reports 30 min aerobic 5 day/wk by DC, Demonstrates accurate pulse taking by DC, Other additional outcome/goals: see below - Intervention & Plan Exercise Program Goals: Instruct on personal THR & RPE, Instruct on MET level & personal MET goal, Show patient to take own pulse /validate performance until accurate, Instruct on home exercise, Other additional plan/int - Physical Activity Home Exercise Physical Activity - Home Exercise: Safe Exercise, Warm-up, Self-monitoring, Cool-Down, Home Exercise > 30 min Daily, Sitting Time <3 hours/daily - Outcomes & Goals Outcomes/Goals: Demonstrates correct Warm-up/exercise Cool-Down (S3) if = 2.5 METs, Verbalizes symptoms of exercise intolerance by Session 3 (S3), Demonstrate safe equipment use (S3) & follows exercise prescrition (6), Other: See below - Intervention & Plan Plan/Intervention: Instruct warm-up & cool-down if exercising at > 2 METs, Instruct on symptoms of exercise intolerance & actions to take, Instruct & monitor on saf, Assess intial functional capacity & safety risk, Other See below Nutrition - Initial Assessment - Program Goals Nutrition Program Goals: LDL <100 optimal. 100 - 129 Near optimal. 130 - 159 Borderline High. 160 - 189 High. Total Cholesterol <200 desirable. 200 - 239 Borderline High. >/= 240 High. HDL < 40 Low >/=60 High. Triglycerides <150 desirable. <199 optimal. VlDL 5 - 40. HgbA1C <7%. BMI <25 Patient has diagnosis of Hyperlipidemia (ICD E78)?: Yes - Visit Date of Assessment:: 04/28/20 - initial eval - Cholesterol/Lipids Determine presence & major risk factors that modify LDL goal: Hypertension or hypertensive medication, Low HDL cholesterol <40 mg/dL*, Family history of premature CHD in Male < 55 years: female <65 yearsFa, Age men > 45 years; women >/= 55 years Outcomes/Goals: Pt IDs own risk factors & lifestyle modifications by Session 10, Verbalizes symptoms of angina & response by session 3., Pt independently manages, Other Additional Outcomes/Goals: Intervention/Plan: Advocate for lipid panel cholesterol medication if applicable, Instruct on personal lipid levels & lipid goals/NCEP guidelines, Instruct on cholesterol, Other additional plan/int - Diabetes (Other Core Measures) Diabetes Type: Not Applicable - Weight Mgt (Other Care) Height: 6 ft 2 in Weight:: 147.134 kg BMI: 41.6 Diagnosis High BMI/Morbid Obesity BMI> 35% ICD-10 Z68: Yes Outcomes/Goals: Pt sets, maintains & shows weight loss goal & trend during rehab, Other additional outcomes/goals Intervention/Plan: Instruct on ideal BMI & set weight loss goal w/patient, Assist pt to ID & incorporate diet changes for weight loss by S9, Refer to Structured Weight Loss program as appropriate, Encourage goal of using 250-300dcal per session for weight loss, Other additional plan/interventions - Healthy Eating Habits Will attend diet classes:: Yes Outcomes/Goals:: Consume diet rich in vegs,fruits,whole grain/high fiber,fish,lean meat, Limit sat/trans fats,cholesterol & added salts & sugars, Other additional outcome/goals: Intervention/Plan:: Assess current eating habits, Other Additional plan/interventions - Education Gave educational materials for:: Signs & symptoms of hypoglycemia, Signs & symptoms of hyperglycemia, Relate diabetes to coronary artery disease, Healthy eating Medical - Initial Assessment - Visit Date of Eval: 04/28/20 - initial eval - Medication Compliance Preventative Medication(s):: Aspirin, Beta radha, Warfarin/Coumadin Doesn?t believe in the benefits of treatment?: No Believes medications are unnecessary or harmful?: No Has a concern about medication side effects?: No Expresses concern over the cost of medications?: No Outcomes/Goals: Verbalizes medications,desired effect & common side effects @ DC, Pt self-reports following medication regimen, Keeps card in wallet w/medications listed by DC, Other additional outcome/goals: Interventions/plans: Instruct on medication effects & side effects, Review medication list w/patient every two weeks, Instruct importance of taking meds as ordered & assist problem solving, Other additional - Tobacco Use Tobacco Use: Non-smoker How long ago did you quit using tobacco products?: Greater than or equal to 6 months ago Do you use smokeless tobacco?: No - Hypertension Hypertension Diagnosis:: Hypertension ICD-10 I10 [place] [employer] Hypertension Guidelines: [place] [employer] Hypertension Guidelines. Normal BP Less than 120/80. Elevated BP 120/80. Hypertension Stage 1: BP 130-139/80-89. Hypertesnion Stage 2: BP 140 or higher/90 or higher. Hypertension Crisis: BP higher than 180/120 Outcomes/Goals: Able to verbalize/achieve optimal blood pressure <130/80, Incorporates diet changes & exercise for blood pressure control by DC, Other additional outcomes/goals Interventions/plan: Instruct on optimal blood pressure, hypertension & medications, Instruct on effects of sodium, alcohol, stress, exercise &hypertension, Other additional plan/interventions - Tobacco Cessation Referral Smoking Cessation Referral:: No Individual Education/Counseling:: No Education Schedule Given:: Yes Psychosocial - Initial Assess - VIsit Date of Eval: 04/28/20 - initial eval Self-reported stressors: Family - Target Goals Target Goals: Assess presence or absence of depression. Using a valid screening tool, maximizes coping skills. Positive support system - Psychosocial Test Tool Used:: Margie Call QOL Cardiac, PHQ-9 Questionnaire phq-9 Severity: Severity. 1-4 Minimal Depression. 5-9 Mild Depression. 10-14 Moderate Depression. 15-19 Moderately Sever Depression. 20-27 Severe Depression. Rule: - Referral to Behavioral Health PS - Interventions: Yes Referral to Behavioral Health if PHQ-9 score >9:, Yes Referral to Physician if PHQ-9 if score is 5-9:, Yes Attend Stress Management Classes, No Referral to [facility] - Outcomes/Goals: See list Psychosocial Outcomes/Goals:: ID's personal stressors & 2 strategies to manage stress by discharge, Other Additional outcome/goals: - Intervention/Plan: See List Interventions/Plan:: Assess stressors,coping strategies & signs of derpression on admission, Instruct/assist pt to develop coping & personal stress Mgt strategies, Refer to Behavioral Health if appropriate, Refer to Physician if appropriate, Instruct patient to recognize signs & symptoms of depression, Instruct patient to recog, Other additional plan/intervention Patient Health Questionnaire Initial Assessment 1. Little interest or pleasure in doing things: Not at all 2. Feeling down, depressed, or hopeless: Not at all 3. Trouble falling or staying asleep, or sleeping too much: Several days 4. Feeling tired or having little energy: Several days 5. Poor appetite or overeating: Nearly every day 6. Feeling bad about yourself -- or that you are a failure or have let yourself or your family down: Not at all 7. Trouble concentrating on things, such as reading the newspaper or watching television: Not at all 8. Moving or speaking so slowly that other people could have noticed. Or the opposite - being so fidgety or restless that you have been moving around a lot more than usual: Not at all 9. Thoughts that you would be better off , or of hurting yourself in some way: Not at all How difficult have these problems made it for you to do your work, take care of things at home, or get along with other people?: Not difficult at all Total Score: 5 JOSE-Q SV Test - Statements CAD is a disease of the arteries in the heart: I Don't Know Examples of risk factors for heart disease: I Don't Know Angina is chest pain or discomfort: I Don't Know The benefits of resistance training include: I Don't Know Eating more meat and dairy products: I Don't Know Anti-platelet medications such as aspirin are important: I Don't Know The only effective way to manage stress: I Don't Know An exercise warm-up slowly increases heart rate: I Don't Know Prepared, processed foods usually have high sodium: I Don't Know Depression is common after a heart attack: I Don't Know The statin medications lower cholesterol: I Don't Know To control blood pressure, lower the amount of sodium: I Don't Know If someone gets chest discomfort during walking: I Don't Know Transfats are partially hydrogenated vegetable oils: I Don't Know Sleep apnea that is not treated increases the risk: I Don't Know To control cholesterol, one should become a vegetarian: I Don't Know Someone knows if he/she is exercising at the right level: I Don't Know Diabetes cannot be prevented with exercise & health eating: I Don't Know Stress is a large risk for heart attack: I Don't Know A diet that can help lower blood pressure is rich in: I Don't Know - Total Score Total Correct Responses: 0 Self-Efficacy Initial Assessment We would like to know how confident you are in doing certain activities. Please select your confidence level for:: Select your confidence level for the following using the scale 1-10 where 1 is not at all confident and 10 is totally confident. Your score is the average of all 6 responses. Fatigue: How confident are you that you can keep the fatigue caused by your disease from interfering with the things you want to do? Select Number: 2 Physical Discomfort or Pain: How confident are you that you can keep the physical discomfort or pain of your disease from interfering with the things you want to do? Select Number: 2 Emotional Distress: How confident are you that you can keep the emotional distress caused by your disease from interfering with the things you want to do? Select Number: 2 Other Symptoms or Health Problems: How confident are you that you can keep other symptoms or health problems from interfering with the things you want to do? Select Number: 2 Different Tasks and Activities: How confident are you that you can do the different tasks and activities needed to manage your health condition so as to reduce your need to see a doctor? Select Number: 2 Medication: How confident are you that you can do things other than just taking medication to reduce how much your illness affects your everyday life? Select Number: 2 Total Score:: 2 Nutrition Survey - Nutrition Survey Instructions Scoring Instructions: Scoring is as follows: Yes = 1 points. No = 0 point. Patient score that is >/=12 is considered to be at potential nutritional risk and could benefit from a referral to a registered dietitian. - Nutrition Survey Initial Have you lost >10 lbs over the past 2 months without trying?: No Are you following a special diet at home for diabetes, low fat, or low salt?: No Are you interested in meeting with a dietitian for help understanding your diet?: Yes Do you eat less than 3 meals a day?: Yes Do you eat fatty meats (mooney, sausage, ribs, etc), fried foods, desserts, large amounts of salad dressings, margarine, butter, or cheese most days?: Yes Do you have food allergies? [Enter types in comment field]: No Do you eat in restaurants more than 3 times a week?: No Do you season food with salt, seasoning salt, or garlic salt?: Yes Do you used canned, boxed, frozen meals, or soups, seasoning packets?: Yes Total Score:: 5
[2020-04-28 13:56] VITALS: BP 96/70; PULSE 87; O2SAT 97; BMI 41.6
[2020-04-28 14:06] VITALS: BP 96/70; BMI 41.6
== END ==
PROVIDERS: PCP Student in an Organized Health Care Education/Training Program; Referring Provider Thoracic Surgery (Cardiothoracic Vascular Surgery); Visit Provider Thoracic Surgery (Cardiothoracic Vascular Surgery)
DX: I44.2 Atrioventricular block, complete (principal); Z95.818 Presence of other cardiac implants and grafts; I10 Essential (primary) hypertension; E78.5 Hyperlipidemia, unspecified; I44.7 Left bundle-branch block, unspecified; I71.2 Thoracic aortic aneurysm, without rupture; Q23.1 Congenital insufficiency of aortic valve; G93.6 Cerebral edema; Z95.2 Presence of prosthetic heart valve; Z79.82 Long term (current) use of aspirin; Z79.899 Other long term (current) drug therapy; Z87.891 Personal history of nicotine dependence

== ENCOUNTER → 2020-05-05 10:00 | Outpatient (CLI) | payer MEDICAID, SELFPAY ==
[2020-01-06 10:10] VITALS: BMI 41.5
[2020-04-28 13:56] VITALS: BMI 41.6
[2020-04-28 14:06] VITALS: BMI 41.6
--- NOTE | 2020-05-05 13:46 | STRESSREP_ITS ---
Stress Test Report Date: 05-05-2020 Procedure: Exercise tolerance test Indications: Status post TAVR; cardiac dysrhythmia; status post PPM Consent: Per the patient Procedure: The patient exercised on a Jj protocol for 3 minutes and 21 seconds completing Stage I and 21 seconds of Stage II achieving a peak heart rate of 131 bpm (74 % predicted maximal heart rate) with a peak blood pressure 160/72 mmHg and a peak MET capacity of approximately mET's. The baseline ECG demonstrated AV synchronous pacing. The peak exercise ECG demonstrated no obvious ECG changes. There were no cardiac dysrhythmias pretest, during exercise, or recovery. The functional capacity was considered decreased. The patient had no complaint of chest discomfort during exercise or recovery. The examination was discontinued secondary to dyspnea. Impression: 1. Technically adequate (percent predicted maximal heart rate greater than 85%) exercise tolerance test 2. Peak exercise ECG with continued AV synchronous pacing with no obvious ECG changes 3. There were no cardiac dysrhythmias during exercise or recovery This note was generated with [facility] software. It may contain incorrect words, spelling, and punctuation that were not noted in checking the note before signing.
== END ==
PROVIDERS: PCP Student in an Organized Health Care Education/Training Program
DX: I35.0 Nonrheumatic aortic (valve) stenosis (principal); I44.2 Atrioventricular block, complete; I77.810 Thoracic aortic ectasia
CPT/HCPCS: 93017

== ENCOUNTER 2020-05-22 13:55 | Outpatient (RCR) | payer MEDICAID, SELFPAY ==
[2020-04-28 13:56] VITALS: BMI 41.6
[2020-04-28 14:06] VITALS: BMI 41.6
[2020-05-17 09:22] VITALS: BMI 41.1
== END 2020-06-07 23:59 ==
LOC: NS 13:55
PROVIDERS: PCP Student in an Organized Health Care Education/Training Program; Visit Provider Student in an Organized Health Care Education/Training Program
DX: Z71.3 Dietary counseling and surveillance (principal); E66.01 Morbid (severe) obesity due to excess calories
CPT/HCPCS: 97802

== ENCOUNTER 2020-06-05 15:15 | Outpatient (RCR) | payer MEDICAID, SELFPAY ==
[2020-04-28 13:56] VITALS: BMI 41.6
[2020-04-28 14:06] VITALS: BMI 41.6
--- NOTE | 2020-05-29 06:36 | CR.ITP_ITS ---
Exercise - 30-day Assessment - Visit Date of Eval: 05/29/20 Session #:: 7 - Physician Prescribed Exercise Modalities: Treadmill, Airdyne, NuStep Frequency: 3x/week for 12 weeks [36 sessions] Intensity: 60-80% of age predicted maximum heart rate reserve Current METSs:: 3.0 Target Heart Rate:: 115-150 Current RPE:: 11 Maximum Excercise HR:: 125 Resting Blood Pressure: 104/60 Maximum Exercise Blood Pressure: 122/82 EKG Type: Pace rhythm. - Outcomes & Goals Goals:: Verbalizes understanding of THR, RPE & goal METS by session 6, Documents in home exercise log/reports 30 min aerobic 5 day/wk by DC, Demonstrates accurate pulse taking by DC - Intervention & Plan Exercise Program Goals: Instruct on personal THR & RPE, Instruct on MET level & personal MET goal, Show patient to take own pulse /validate performance until accurate - 30-day Reassessments 30 day Reassessments:: Progressing - Physical Activity Home Exercise Physical Activity - Home Exercise: Safe Exercise, Warm-up, Self-monitoring, Cool-Down, Home Exercise > 30 min Daily, Sitting Time <3 hours/daily - Outcomes & Goals Outcomes/Goals: Demonstrates correct Warm-up/exercise Cool-Down (S3) if = 2.5 METs, Verbalizes symptoms of exercise intolerance by Session 3 (S3), Demonstrate safe equipment use (S3) & follows exercise prescrition (6) - Intervention & Plan Plan/Intervention: Instruct warm-up & cool-down if exercising at > 2 METs, Instruct on symptoms of exercise intolerance & actions to take, Instruct & monitor on saf, Assess intial functional capacity & safety risk - 30-day Reassessments 30 day Reassessments:: Progressing Nutrition - 30-Day Assessment - Program Goals Nutrition Program Goals: LDL <100 optimal. 100 - 129 Near optimal. 130 - 159 Borderline High. 160 - 189 High. Total Cholesterol <200 desirable. 200 - 239 Borderline High. >/= 240 High. HDL < 40 Low >/=60 High. Triglycerides <150 desirable. <199 optimal. VlDL 5 - 40. HgbA1C <7%. BMI <25 Patient has diagnosis of Hyperlipidemia (ICD E78)?: Yes - Visit Date of Assessment:: 05/29/20 Session #:: 7 - no updated labs available - Cholesterol/Lipids Determine presence & major risk factors that modify LDL goal: Hypertension or hypertensive medication Outcomes/Goals: Pt IDs own risk factors & lifestyle modifications by Session 10, Verbalizes symptoms of angina & response by session 3., Pt independently manages Intervention/Plan: Instruct on personal lipid levels & lipid goals/NCEP guidelines, Instruct on cholesterol Referral to dietitian:: Yes 30-day Reassessments:: Progressing - Diabetes (Other Core Measures) Diabetes Type: Not Applicable - Weight Mgt (Other Care) Not Applicable: No Height: 6 ft 2 in Weight:: 321 lb BMI: 41.2 Diagnosis Overweight/Obesity BMI> 30% ICD-10 E66: Yes Diagnosis High BMI/Morbid Obesity BMI> 35% ICD-10 Z68: Yes Outcomes/Goals: Pt sets, maintains & shows weight loss goal & trend during rehab Intervention/Plan: Instruct on ideal BMI & set weight loss goal w/patient, Assist pt to ID & incorporate diet changes for weight loss by S9, Refer to Structured Weight Loss program as appropriate, Encourage goal of using 250- 300dcal per session for weight loss 30 day Reassessments:: Progressing - Healthy Eating Habits Will attend diet classes:: Yes Outcomes/Goals:: Consume diet rich in vegs,fruits,whole grain/high fiber,fish,lean meat, Limit sat/trans fats,cholesterol & added salts & sugars Intervention/Plan:: Assess current eating habits 30-day Reassessments:: Progressing - Education Gave educational materials for:: Healthy eating Medical- 30-Day Assessment - Visit Date of Eval: 05/29/20 - Medication Compliance Preventative Medication(s):: Aspirin, Statin/lipid, Beta radha H/O mental health issues: depression, anxiety, or addiction?: No Doesn?t believe in the benefits of treatment?: No Believes medications are unnecessary or harmful?: No Has a concern about medication side effects?: No Expresses concern over the cost of medications?: No Outcomes/Goals: Verbalizes medications,desired effect & common side effects @ DC, Pt self-reports following medication regimen, Keeps card in wallet w/medications listed by DC Interventions/plans: Instruct on medication effects & side effects, Review medication list w/patient every two weeks, Instruct importance of taking meds as ordered & assist problem solving 30-day Reassessments:: Progressing - Tobacco Use Tobacco Use: Non-smoker - Hypertension Hypertension Diagnosis:: Hypertension ICD-10 I10 Resting Blood Pressure:: 104/60 - controlled on medication [place] [employer] Hypertension Guidelines: [place] [employer] Hypertension Guidelines. Normal BP Less than 120/80. Elevated BP 120/80. Hypertension Stage 1: BP 130-139/80-89. Hypertesnion Stage 2: BP 140 or higher/90 or higher. Hypertension Crisis: BP higher than 180/120 Peak Exercise Blood Pressure:: 122/82 Outcomes/Goals: Able to verbalize/achieve optimal blood pressure <130/80, Incorporates diet changes & exercise for blood pressure control by DC Interventions/plan: Instruct on optimal blood pressure, hypertension & medications, Instruct on effects of sodium, alcohol, stress, exercise &hyperten bryan 30 day Reassessments:: Progressing - Tobacco Cessation Referral Smoking Cessation Referral:: No Individual Education/Counseling:: No Education Schedule Given:: Yes Psychosocial - 30-Day Assess - VIsit Date of Eval: 05/29/20 Session #:: 7 Not Applicable: Yes History of previous Mental disease:: No - Target Goals Target Goals: Assess presence or absence of depression. Using a valid screening tool, maximizes coping skills. Positive support system - Psychosocial Test Tool Used:: PHQ-9 Questionnaire phq-9 Severity: Severity. 1-4 Minimal Depression. 5-9 Mild Depression. 10-14 Moderate Depression. 15-19 Moderately Sever Depression. 20-27 Severe Depression. Rule: - Referral to Behavioral Health PS - Interventions: Yes Attend Stress Management Classes, No Referral to Behavioral Health if PHQ-9 score >9:, No Referral to [facility], No Referral to Physician if PHQ-9 if score is 5-9: - Outcomes/Goals: See list Psychosocial Outcomes/Goals:: ID's personal stressors & 2 strategies to manage stress by discharge - Intervention/Plan: See List Interventions/Plan:: Assess stressors,coping strategies & signs of derpression on admission, Instruct/assist pt to develop coping & personal stress Mgt strategies, Instruct patient to recognize signs & symptoms of depression, Instruct patient to recog - 30-day Reassessments: 30 day Reassessments:: Progressing Patient Health Questionnaire 30-Day Re-eval Assessment 1. Little interest or pleasure in doing things: Not at all 2. Feeling down, depressed, or hopeless: Not at all 3. Trouble falling or staying asleep, or sleeping too much: Several days 4. Feeling tired or having little energy: Not at all 5. Poor appetite or overeating: Several days 6. Feeling bad about yourself -- or that you are a failure or have let yourself or your family down: Not at all 7. Trouble concentrating on things, such as reading the newspaper or watching television: Not at all 8. Moving or speaking so slowly that other people could have noticed. Or the opposite - being so fidgety or restless that you have been moving around a lot more than usual: Not at all 9. Thoughts that you would be better off , or of hurting yourself in some way: Not at all How difficult have these problems made it for you to do your work, take care of things at home, or get along with other people?: Not difficult at all Total Score: 2 Self-Efficacy 30-Day Re-eval Assessment We would like to know how confident you are in doing certain activities. Please select your confidence level for:: Select your confidence level for the following using the scale 1-10 where 1 is not at all confident and 10 is totally confident. Your score is the average of all 6 responses. Fatigue: How confident are you that you can keep the fatigue caused by your disease from interfering with the things you want to do? Select Number: 6 Physical Discomfort or Pain: How confident are you that you can keep the physical discomfort or pain of your disease from interfering with the things you want to do? Select Number: 6 Emotional Distress: How confident are you that you can keep the emotional distress caused by your disease from interfering with the things you want to do? Select Number: 6 Other Symptoms or Health Problems: How confident are you that you can keep other symptoms or health problems from interfering with the things you want to do? Select Number: 6 Different Tasks and Activities: How confident are you that you can do the different tasks and activities needed to manage your health condition so as to reduce your need to see a doctor? Select Number: 6 Medication: How confident are you that you can do things other than just taking medication to reduce how much your illness affects your everyday life? Select Number: 6 Total Score:: 6
[2020-05-29 06:42] VITALS: BP 104/60; BP 122/82; BMI 41.2
== END 2020-06-07 23:59 ==
LOC: CR 15:15
PROVIDERS: PCP Student in an Organized Health Care Education/Training Program; Referring Provider Thoracic Surgery (Cardiothoracic Vascular Surgery); Visit Provider Thoracic Surgery (Cardiothoracic Vascular Surgery)
DX: I10 Essential (primary) hypertension (principal); Z95.3 Presence of xenogenic heart valve; E78.5 Hyperlipidemia, unspecified; Z68.41 Body mass index [BMI] 40.0-44.9, adult
CPT/HCPCS: 93798

== ENCOUNTER 2020-06-20 13:56 | Emergency (ER) | payer MEDICAID, SELFPAY ==
[2020-05-17 09:22] VITALS: BMI 41.1
[2020-05-29 06:42] VITALS: BMI 41.2
[2020-06-20 13:57] VITALS: BP 138/94; PULSE 87; RESP 16; TEMP 36.5; O2SAT 98; BMI 41.1
--- NOTE | 2020-06-20 14:04 | EKG12_ITS ---
Test Reason : Blood Pressure : / mmHG Vent. Rate : 081 BPM Atrial Rate : 081 BPM P-R Int : 154 ms QRS Dur : 176 ms QT Int : 430 ms P-R-T Axes : 056 -73 094 degrees QTc Int : 499 ms Atrial-sensed ventricular-paced rhythm Abnormal ECG Confirmed by LIDIA ZABALA, LESLY ([id number]), digital editor MARCELINA ARIZA ([id number]) on 06/26/2020 8:48:30 A M Referred By: Confirmed By:JUNI MURILLO MD
--- NOTE | 2020-06-20 14:20 | ED.DCSUM_ITS ---
History of Present Illness Chief Complaint: Chest Pain Informant: Patient Onset: Today Context: Gradual Onset Timing: Continuous Current Severity: Moderate Maximum Severity: Moderate Narrative: The patient is a 45-year-old male with medical history significant for hypertension and aortic valve replacement who presents to the emergency department chest pain. The patient states his symptoms began today. Describes a dull ache over his chest. Does not radiate. He denies any cough. He does admit to some mild shortness of breath and abdominal swelling. He is also had some mild nausea. He does not have history of coronary vascular disease. He does have cardiomyopathy from underlying aortic valve disease and is status post pacemaker defibrillator placement. He states he is otherwise been in his normal state of health. He does follow with Dr. Rodríguez. Prior similar symptoms: Yes Recent Illness/Hospitalization: Yes Past Medical History - Allergies and Home Meds Allergies/Adverse Reactions: Allergies adhesive Allergy (Severe, Verified 06/20/20 13:59) Rash cefazolin [From Ancef] Allergy (Severe, Verified 06/20/20 13:59) Anaphylaxis, Angioedema sertraline [From Zoloft] Allergy (Severe, Verified 06/20/20 13:59) Itching fluoxetine [From Prozac] Adverse Reaction (Severe, Verified 06/20/20 13:59) Heart Racing, SOB Primary Care Physician: Stone Castillo DO [Primary Care Provider] - Prior records reviewed: Yes Past Medical History: - - Hypertension, GERD, anxiety Surgical History: - - Aortic valve replacement Smoking Status: Former smoker Review of Systems General: Denies: Chills, Fever, Sweats Eyes: Denies: Visual changes - bilaterally, Diplopia ENT: Denies: Rhinorrhea, Sore throat Cardiovascular: Reports: Chest pain. Denies: Palpitations Respiratory: Reports: Dyspnea on exertion. Denies: Dyspnea, Cough Gastrointestinal: Denies: Abdominal pain, Nausea, Vomiting, Diarrhea, Melena, Hematochezia Genitourinary: Denies: Dysuria, Hematuria, Frequency Musculoskeletal: Denies: Back pain, Extremity Pain Skin: Denies: Rash, Wounds Neurological: Denies: Headache, Weakness, Numbness Physical Exam Vital Signs/Narrative: Vital Signs Temp Pulse Resp BP Pulse Ox 06/20/20 13:57 97.7 F L 87 16 138/94 H 98 Inital Vital Signs reviewed: Yes General: Well nourished, Well developed, No Acute Distress Head: Normocephalic, Atraumatic Eyes: Perrl, EOMI ENT: Moist mucous membranes, No rhinorrhea Neck: Supple, Nontender Cardiovascular: Regular rate, Regular rhythm, No murmurs Respiratory: No distress, CTA bilaterally, Chest nontender Abdomen: Soft, Nontender, Nondistended, Normal bowel sounds Back: Nontender, Normal Inspection Extremities: Nontender, No edema Skin: Normal color, No rash Neurological: Alert, Oriented x3, Cranial nerves II-XII grossly intact, Normal Strength, Normal Sensation Psychological: Normal affect, Normal Mood Diagnostic/Tx/Re-eval Clinical Impression(s) from Imaging Studies Chest X-Ray 06/20/20 15:10 IMPRESSION: Status post aortic valve replacement. The lungs are clear. Electronically Signed: Kalen Bess, at 15:47 EDT , Service support , Chest CTA 06/20/20 15:25 IMPRESSION: No evidence of abdominal aortic aneurysm or dissection. Electronically Signed: Kalen Bess, at 15:56 EDT , Service support , Abdomen CTA 06/20/20 15:26 IMPRESSION: No evidence of abdominal aortic aneurysm or dissection. Electronically Signed: Kalen Bess, at 15:56 EDT , Service support , Abnormal Lab Results 06/20/20 06/20/20 06/20/20 14:20 14:20 14:20 WBC 8.6 RBC 5.09 Hgb 14.4 Hct 45.1 MCV 88.6 MCH 28.3 MCHC 31.9 L RDW Std Deviation 41.6 RDW Coeff of Christopher 12.9 Plt Count 289 MPV 8.6 Immature Gran % (Auto) 0.600 Neut % (Auto) 71.5 H Lymph % (Auto) 18.3 L [place] % (Auto) 5.8 Eos % (Auto) 3.1 Baso % (Auto) 0.7 Absolute Neuts (auto) 6.1 Absolute Lymphs (auto) 1.57 Nucleated RBC % 0 Sodium 142 Potassium 3.6 Chloride 109 H Carbon Dioxide 32.0 Anion Gap 1 L BUN 14 Creatinine 1.08 Estim Creat Clear Calc 102.54 Est GFR (MDRD) Af Amer 96 Est GFR (MDRD) Non-Af 79 BUN/Creatinine Ratio 13.0 Glucose 109 H Calcium 9.3 Troponin I < 0.015 B-Natriuretic Peptide 48.7 - Rhythm Strip Rhythm Strip: Paced Rate: 70 - EKG Initial EKG Interpretation: Paced Prior: Unchanged - Medical Decision Making The patient presents with chest pain. He does have history of aortic valve disease and underlying atrial conduction disorder. He is status post aortic valve replacement with bioprosthetic valve 3 months ago and AICD pacemaker placement. EKG was obtained which demonstrates a paced rhythm. It was unchanged from prior. IV was established. Screening labs were obtained. Labs are unremarkable. Cardiac enzymes were negative. The patient does have history of thoracic aortic aneurysm. With his chest pain, I did want to rule out dissection, pulmonary embolus, or other dangerous process. Patient underwent CTA of the chest and abdomen. This is unremarkable for acute process. I did discuss his case with Dr. 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 He did agree with plan for 3-hour troponin as his EKG is unable to be definitively processed. The patient has had negative heart cath 5 months ago. He had a negative stress test 2 months ago. I do feel as long as this is negative, the patient could be discharged. He and his are comfortable with this plan of care . Impression 1. Chest pain 2. History of aortic valve replacement ED Disposition - Plan for ED Patient: Instructions: ED Chest Pain Atypical Unkn Cause Referrals: Stone Castillo DO [Primary Care Provider] -
[2020-06-20 14:30] LABS: Absolute Lymphocyte Count 1.57 X10^3/uL (0.83-4.51); Absolute Neutrophil Count 6.1 X10^3/uL (2.0-7.7); Basophil# 0.06 X10^3/uL; Basophil% 0.7 % (0-1); Eosinophil# 0.27 X10^3/uL; Eosinophils% 3.1 % (0-5); Hematocrit 45.1 % (40-54); Hemoglobin 14.4 g/dL (13.0-16.5); Lymphocyte # 1.57 X10^3/ul (4.0); Lymphocyte % 18.3 % (19-41); Mean Corp Hgb Conc 31.9 g/dL (32-36); Mean Corpuscular Hgb 28.3 pg (27.0-32.0); Mean Corpuscular Volume 88.6 fL (80-94); Mean Platelet Vol. 8.6 fl (6.2-12.0); Monocyte% 5.8 % (0-10); NRBC Flagged by Analyzer 0 % (0-5); Neutrophil # 6.13 X10^3/uL (2.7-7.7); Neutrophil % 71.5 % (47-70); Platelet Count 289 K/mm3 (150-450); RBC Distribution Width CV 12.9 % (11.6-14.6); RBC Distribution Width SD 41.6 fl (35.1-43.9); Red Blood Count 5.09 M/mm3 (4.6-6.2); White Blood Count 8.6 K/mm3 (4.4-11.0)
[2020-06-20 14:48] LABS: Anion Gap 1 (5-15); BUN 14 mg/dL (7-18); Calcium,Total 9.3 mg/dL (8.5-10.1); Chloride 109 mmol/L (98-107); Creatinine, Serum 1.08 mg/dL (0.70-1.30); EST Glomerular Filtration Rate 79 mL/min (>60); Est Glom Filt Rate - Afr Amer 96 mL/min (>60); Estimated Creatinine Clearance 102.54 ml/min; Glucose 109 mg/dL (74-106); Potassium 3.6 mmol/L (3.5-5.1); Sodium Level 142 mmol/L (136-145)
--- NOTE | 2020-06-20 15:10 | RAD_ITS ---
STUDY: X-RAY CHEST REASON FOR EXAM: Male, 45 years old. CP TODAY. AORTIC VALVE REPLACED 03/2020 TECHNIQUE: Single AP portable view of the chest. COMPARISON: Comparison is made with prior study dated 01/06/2020. FINDINGS: EKG electrodes are seen. The lungs are clear and expanded. There is no demonstrated pleural abnormality. Sternal cerclage wires are present from a prior sternotomy. Prior aortic valve replacement. A left-sided dual-chamber pacemaker is seen. Normal mediastinum and siomara. Normal visualized pulmonary arteries. Normal visualized aortic arch and descending thoracic aorta. Normal visualized thoracic spine. Normal visualized ribs, clavicles, and shoulders. There is no demonstrated abnormality of the visualized soft tissue structures of the upper abdomen. RAD/Chest 1 View (Portable) IMPRESSION: Status post aortic valve replacement. The lungs are clear. Electronically Signed: Kalen Bess, at 15:47 EDT , Service support ,
--- NOTE | 2020-06-20 15:25 | CT_ITS ---
STUDY: CTA CHEST REASON FOR EXAM: Male, 45 years old. CHEST PAIN SINCE THIS MORNING. HX OF TAA, AORTIC VALVE REPLACEMENT, UMBILICAL HERNIA REPAIR, LOOP RECORDER AND HTN. RADIATION DOSAGE (If Supplied By Facility): CTDIvol = ( 15.95 ) mGy, DLP = ( 1235.71 ) mGycm TECHNIQUE: The examination was performed with the intravenous administration of IV 100mL Isovue-370. Post-processing of the angiographic images was performed, with multiplanar reformation and 3D reconstruction. Individualized dose optimization techniques were used for this CT. COMPARISON: None. FINDINGS: A left-sided dual-chamber pacemaker is seen. Small bilateral axillary lymph nodes. Normal enhancement of the main pulmonary artery and right and left pulmonary arteries. Normal enhancement of the bilateral peripheral pulmonary arteries. There is no demonstrated pulmonary embolism. Normal thoracic aorta and visualized great vessels. There is no demonstrated aortic dissection. Sternal cerclage wires are present from a prior sternotomy. Status post aortic valve replacement. Normal mediastinum. Normal hilar regions. Normal visualized trachea and bronchi. The lungs are well expanded. Small bilateral pleural effusions with mild increased markings at the lung bases. Normal chest wall structures. Normal osseous structures. Diffuse fatty infiltration of the liver. IMPRESSION: Status post aortic valve replacement. Small bilateral pleural effusions with mild bibasilar atelectasis. Electronically Signed: Kalen Bess, at 15:53 EDT , Service support , STUDY: CTA OF THE ABDOMINAL AORTA. EXTREMITIES REASON FOR EXAM: Male, 45 years old. CHEST PAIN SINCE THIS MORNING. HX OF TAA, AORTIC VALVE REPLACEMENT, UMBILICAL HERNIA REPAIR, LOOP RECORDER AND HTN. RADIATION DOSAGE (If Supplied By Facility): CTDIvol = ( 20.51 ) mGy, DLP = ( 1235.71 ) mGycm TECHNIQUE: Axial CT angiography multi-detector data acquisition was obtained from the dome of the liver to the iliac crests following intravenous administration of IV 100mL Isovue-370. Axial images and MIP images were reconstructed from the axial data set. Post-processing of the angiographic images was performed, with multiplanar reformation and 3D reconstruction. Individualized dose optimization techniques were used for this CT. TECHNICAL QUALITY: Good COMPARISON: None. Descriptors of Narrowing: None (0%) Mild (< 50%) Moderate (50-70%) Severe (70-90%) Subtotal/Total Occlusion (90-100%) Non-Evaluable (technically non-diagnostic FINDINGS: Fatty infiltration of the liver. History of prior umbilical hernia repair with postoperative scarring. Scattered sigmoid diverticula. 2.2 cm x 3.7 cm bony protrusion along the posterior left iliac Abdominal aorta: No demonstrated narrowing. Celiac and superior mesenteric arteries: No demonstrated narrowing. Inferior mesenteric artery: No demonstrated narrowing. Right renal artery(arteries): No demonstrated narrowing. Left renal artery(arteries): No demonstrated narrowing. Right common iliac artery: No demonstrated narrowing. Right external iliac artery: No demonstrated narrowing. Right internal iliac artery: No demonstrated narrowing. Left common iliac artery: No demonstrated narrowing. Left external iliac artery: No demonstrated narrowing. Left internal iliac artery: No demonstrated narrowing. CT/CTA Chest W/WO Contrast IMPRESSION: No evidence of abdominal aortic aneurysm or dissection. Electronically Signed: Kalen Bess, at 15:56 EDT , Service support ,
[2020-06-20 15:26] LABS: BNP,B-Type NATRIURETIC PEPTIDE 48.7 pg/mL (0-100)
--- NOTE | 2020-06-20 15:26 | CT_ITS ---
STUDY: CTA CHEST REASON FOR EXAM: Male, 45 years old. CHEST PAIN SINCE THIS MORNING. HX OF TAA, AORTIC VALVE REPLACEMENT, UMBILICAL HERNIA REPAIR, LOOP RECORDER AND HTN. RADIATION DOSAGE (If Supplied By Facility): CTDIvol = ( 15.95 ) mGy, DLP = ( 1235.71 ) mGycm TECHNIQUE: The examination was performed with the intravenous administration of IV 100mL Isovue-370. Post-processing of the angiographic images was performed, with multiplanar reformation and 3D reconstruction. Individualized dose optimization techniques were used for this CT. COMPARISON: None. FINDINGS: A left-sided dual-chamber pacemaker is seen. Small bilateral axillary lymph nodes. Normal enhancement of the main pulmonary artery and right and left pulmonary arteries. Normal enhancement of the bilateral peripheral pulmonary arteries. There is no demonstrated pulmonary embolism. Normal thoracic aorta and visualized great vessels. There is no demonstrated aortic dissection. Sternal cerclage wires are present from a prior sternotomy. Status post aortic valve replacement. Normal mediastinum. Normal hilar regions. Normal visualized trachea and bronchi. The lungs are well expanded. Small bilateral pleural effusions with mild increased markings at the lung bases. Normal chest wall structures. Normal osseous structures. Diffuse fatty infiltration of the liver. IMPRESSION: Status post aortic valve replacement. Small bilateral pleural effusions with mild bibasilar atelectasis. Electronically Signed: Kalen Bess, at 15:53 EDT , Service support , STUDY: CTA OF THE ABDOMINAL AORTA. EXTREMITIES REASON FOR EXAM: Male, 45 years old. CHEST PAIN SINCE THIS MORNING. HX OF TAA, AORTIC VALVE REPLACEMENT, UMBILICAL HERNIA REPAIR, LOOP RECORDER AND HTN. RADIATION DOSAGE (If Supplied By Facility): CTDIvol = ( 20.51 ) mGy, DLP = ( 1235.71 ) mGycm TECHNIQUE: Axial CT angiography multi-detector data acquisition was obtained from the dome of the liver to the iliac crests following intravenous administration of IV 100mL Isovue-370. Axial images and MIP images were reconstructed from the axial data set. Post-processing of the angiographic images was performed, with multiplanar reformation and 3D reconstruction. Individualized dose optimization techniques were used for this CT. TECHNICAL QUALITY: Good COMPARISON: None. Descriptors of Narrowing: None (0%) Mild (< 50%) Moderate (50-70%) Severe (70-90%) Subtotal/Total Occlusion (90-100%) Non-Evaluable (technically non-diagnostic FINDINGS: Fatty infiltration of the liver. History of prior umbilical hernia repair with postoperative scarring. Scattered sigmoid diverticula. 2.2 cm x 3.7 cm bony protrusion along the posterior left iliac Abdominal aorta: No demonstrated narrowing. Celiac and superior mesenteric arteries: No demonstrated narrowing. Inferior mesenteric artery: No demonstrated narrowing. Right renal artery(arteries): No demonstrated narrowing. Left renal artery(arteries): No demonstrated narrowing. Right common iliac artery: No demonstrated narrowing. Right external iliac artery: No demonstrated narrowing. Right internal iliac artery: No demonstrated narrowing. Left common iliac artery: No demonstrated narrowing. Left external iliac artery: No demonstrated narrowing. Left internal iliac artery: No demonstrated narrowing. CT/CTA Abdomen W/WO Contrast IMPRESSION: No evidence of abdominal aortic aneurysm or dissection. Electronically Signed: Kalen Bess, at 15:56 EDT , Service support ,
--- NOTE | 2020-06-20 15:51 | NURSING ---
DR CARDONA PAGED
[2020-06-20 16:08] VITALS: BP 124/81; PULSE 74; RESP 18; O2SAT 96; O2SAT 97
[2020-06-20 18:09] VITALS: BP 124/81; PULSE 75; RESP 16; O2SAT 96
== END 2020-06-20 18:17 | disposition home or self-care (01) ==
LOC: ED 14:36
PROVIDERS: Emergency Provider Emergency Medicine; PCP Student in an Organized Health Care Education/Training Program
DX: R07.89 Other chest pain (principal); R06.09 Other forms of dyspnea; Z95.2 Presence of prosthetic heart valve; Z95.3 Presence of xenogenic heart valve; I10 Essential (primary) hypertension; I71.2 Thoracic aortic aneurysm, without rupture; I42.9 Cardiomyopathy, unspecified; I45.9 Conduction disorder, unspecified; F41.9 Anxiety disorder, unspecified; K21.9 Gastro-esophageal reflux disease without esophagitis; Z95.810 Presence of automatic (implantable) cardiac defibrillator; Z79.82 Long term (current) use of aspirin; Z79.899 Other long term (current) drug therapy; Z87.891 Personal history of nicotine dependence
CPT/HCPCS: 71045; 71275; 74175; 80048; 83880; 84484; 85025; 93005; 99281; Q9967; A4216

== ENCOUNTER 2020-06-23 15:15 | Outpatient (RCR) | payer MEDICAID, SELFPAY ==
[2020-05-17 09:22] VITALS: BMI 41.1
[2020-05-29 06:42] VITALS: BMI 41.2
[2020-06-08 00:16] VITALS: BP 104/60; BP 122/82
--- NOTE | 2020-06-26 07:18 | CR.ITP_ITS ---
Exercise - 60-day Assessment - Visit Date of Eval: 06/26/20 Session #:: 20 - Physician Prescribed Exercise Modalities: Treadmill, Airdyne, NuStep Frequency: 3x/week for 12 weeks [36 sessions] Intensity: 60-80% of age predicted maximum heart rate reserve Current METSs:: 4.0 Target Heart Rate:: 131-150 Current RPE:: 11-12 Maximum Excercise HR:: 143 Resting Blood Pressure: 112/72 Maximum Exercise Blood Pressure: 150/80 EKG Type: PACED WITH RARE PVC. 06/23 RUNS OF V-TACH REPORTED TO DR. CARDONA - Outcomes & Goals Goals:: Verbalizes understanding of THR, RPE & goal METS by session 6, Documents in home exercise log/reports 30 min aerobic 5 day/wk by DC, Demonstrates accurate pulse taking by DC - Intervention & Plan Exercise Program Goals: Instruct on personal THR & RPE, Instruct on MET level & personal MET goal, Show patient to take own pulse /validate performance until accurate, Instruct on home exercise - 30-day Reassessments 30 day Reassessments:: Progressing - Physical Activity Home Exercise Physical Activity - Home Exercise: Safe Exercise, Warm-up, Self-monitoring, Cool-Down, Home Exercise > 30 min Daily, Sitting Time <3 hours/daily - Outcomes & Goals Outcomes/Goals: Demonstrates correct Warm-up/exercise Cool-Down (S3) if = 2.5 METs, Verbalizes symptoms of exercise intolerance by Session 3 (S3), Demonstrate safe equipment use (S3) & follows exercise prescrition (6) - Intervention & Plan Plan/Intervention: Instruct warm-up & cool-down if exercising at > 2 METs, Instruct on symptoms of exercise intolerance & actions to take, Instruct & monitor on saf, Assess intial functional capacity & safety risk - 30-day Reassessments 30 day Reassessments:: Progressing - pT PLACED ON 48-HOUR HOLTER MONITOR, LABS ORDERED, STARTED ON POTASSIUM CHLORIDE PER DR. CARDONA Nutrition - 60-Day Assessment - Program Goals Nutrition Program Goals: LDL <100 optimal. 100 - 129 Near optimal. 130 - 159 Borderline High. 160 - 189 High. Total Cholesterol <200 desirable. 200 - 239 Borderline High. >/= 240 High. HDL < 40 Low >/=60 High. Triglycerides <150 desirable. <199 optimal. VlDL 5 - 40. HgbA1C <7%. BMI <25 Patient has diagnosis of Hyperlipidemia (ICD E78)?: Yes - Visit Date of Assessment:: 06/26/20 Session #:: 20 - PENDING - Cholesterol/Lipids Determine presence & major risk factors that modify LDL goal: Hypertension or hypertensive medication, Age men > 45 years; women >/= 55 years Outcomes/Goals: Pt IDs own risk factors & lifestyle modifications by Session 10, Verbalizes symptoms of angina & response by session 3., Pt independently manages Intervention/Plan: Instruct on personal lipid levels & lipid goals/NCEP guidelines, Instruct on cholesterol Referral to dietitian:: Yes - SCHEDULED FOR 05/22/2020 2:00 PM 30-day Reassessments:: Progressing - Diabetes (Other Core Measures) Diabetes Type: Not Applicable - Weight Mgt (Other Care) Not Applicable: No Height: 6 ft 2 in Weight:: 320 lb BMI: 41.1 Diagnosis Overweight/Obesity BMI> 30% ICD-10 E66: Yes Diagnosis High BMI/Morbid Obesity BMI> 35% ICD-10 Z68: Yes Outcomes/Goals: Pt sets, maintains & shows weight loss goal & trend during rehab Intervention/Plan: Instruct on ideal BMI & set weight loss goal w/patient, Assist pt to ID & incorporate diet changes for weight loss by S9, Encourage goal of using 250-300dcal per session for weight loss 30 day Reassessments:: Progressing Reassessment Notes & Comments:: 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 - Healthy Eating Habits Will attend diet classes:: Yes Outcomes/Goals:: Consume diet rich in vegs,fruits,whole grain/high fiber,fish,lean meat, Limit sat/trans fats,cholesterol & added salts & sugars Intervention/Plan:: Assess current eating habits 30-day Reassessments:: Progressing - Education Gave educational materials for:: Healthy eating Medical- 60-Day Assessment - Visit Date of Eval: 06/26/20 Session #:: 20 - Medication Compliance Preventative Medication(s):: Aspirin, Statin/lipid, Beta radha H/O mental health issues: depression, anxiety, or addiction?: No Doesn?t believe in the benefits of treatment?: No Believes medications are unnecessary or harmful?: No Has a concern about medication side effects?: No Expresses concern over the cost of medications?: No Outcomes/Goals: Verbalizes medications,desired effect & common side effects @ DC, Pt self-reports following medication regimen, Keeps card in wallet w/medications listed by DC Interventions/plans: Instruct on medication effects & side effects, Review medication list w/patient every two weeks, Instruct importance of taking meds as ordered & assist problem solving 30-day Reassessments:: Progressing - Tobacco Use Tobacco Use: Non-smoker - Hypertension Hypertension Diagnosis:: Hypertension ICD-10 I10 Resting Blood Pressure:: 112/72 [place] [employer] Hypertension Guidelines: [place] [employer] Hypertension Guidelines. Normal BP Less than 120/80. Elevated BP 120/80. H ypertension Stage 1: BP 130-139/80-89. Hypertesnion Stage 2: BP 140 or higher/90 or higher. Hypertension Crisis: BP higher than 180/120 Peak Exercise Blood Pressure:: 150/80 Outcomes/Goals: Able to verbalize/achieve optimal blood pressure <130/80, Incorporates diet changes & exercise for blood pressure control by DC Interventions/plan: Instruct on optimal blood pressure, hypertension & medications, Instruct on effects of sodium, alcohol, stress, exercise &hypertension 30 day Reassessments:: Progressing - Tobacco Cessation Referral Smoking Cessation Referral:: No Individual Education/Counseling:: No Education Schedule Given:: Yes Psychosocial - 60-Day Assess - VIsit Date of Eval: 06/26/20 Session #:: 20 Not Applicable: Yes History of previous Mental disease:: No - Target Goals Target Goals: Assess presence or absence of depression. Using a valid screening tool, maximizes coping skills. Positive support system - Psychosocial Test Tool Used:: PHQ-9 Questionnaire phq-9 Severity: Severity. 1-4 Minimal Depression. 5-9 Mild Depression. 10-14 Moderate Depression. 15-19 Moderately Sever Depression. 20-27 Severe Depression. Rule: - Referral to Behavioral Health PS - Interventions: Yes Attend Stress Management Classes, No Referral to Behavioral Health if PHQ-9 score >9:, No Referral to [facility], No Referral to Physician if PHQ-9 if score is 5-9: - Outcomes/Goals: See list Psychosocial Outcomes/Goals:: ID's personal stressors & 2 strategies to manage stress by discharge - Intervention/Plan: See List Interventions/Plan:: Assess stressors,coping strategies & signs of derpression on admission, Instruct/assist pt to develop coping & personal stress Mgt strategies, Instruct patient to recognize signs & symptoms of depression, Instruct patient to recog - 30-day Reassessments: 30 day Reassessments:: Progressing Patient Health Questionnaire 60-Day Re-eval Assessment 1. Little interest or pleasure in doing things: Not at all 2. Feeling down, depressed, or hopeless: Not at all 3. Trouble falling or staying asleep, or sleeping too much: Not at all 4. Feeling tired or having little energy: Several days 5. Poor appetite or overeating: Several days 6. Feeling bad about yourself -- or that you are a failure or have let yourself or your family down: Not at all 7. Trouble concentrating on things, such as reading the newspaper or watching television: Not at all 8. Moving or speaking so slowly that other people could have noticed. Or the opposite - being so fidgety or restless that you have been moving around a lot more than usual: Not at all 9. Thoughts that you would be better off , or of hurting yourself in some way: Not at all How difficult have these problems made it for you to do your work, take care of things at home, or get along with other people?: Not difficult at all Total Score: 2 Self-Efficacy 60-Day Re-eval Assessment We would like to know how confident you are in doing certain activities. Please select your confidence level for:: Select your confidence level for the following using the scale 1-10 where 1 is not at all confident and 10 is totally confident. Your score is the average of all 6 responses. Fatigue: How confident are you that you can keep the fatigue caused by your disease from interfering with the things you want to do? Select Number: 7 Physical Discomfort or Pain: How confident are you that you can keep the physical discomfort or pain of your disease from interfering with the things you want to do? Select Number: 7 Emotional Distress: How confident are you that you can keep the emotional distress caused by your disease from interfering with the things you want to do? Select Number: 8 Other Symptoms or Health Problems: How confident are you that you can keep other symptoms or health problems from interfering with the things you want to do? Select Number: 7 Different Tasks and Activities: How confident are you that you can do the different tasks and activities needed to manage your health condition so as to reduce your need to see a doctor? Select Number: 8 Medication: How confident are you that you can do things other than just taking medication to reduce how much your illness affects your everyday life? Select Number: 9 Total Score:: 7
[2020-06-26 07:28] VITALS: BP 112/72; BP 150/80; BMI 41.1
== END 2020-07-08 23:59 ==
LOC: CR 15:15
PROVIDERS: PCP Student in an Organized Health Care Education/Training Program; Referring Provider Thoracic Surgery (Cardiothoracic Vascular Surgery); Visit Provider Thoracic Surgery (Cardiothoracic Vascular Surgery)
DX: Z95.2 Presence of prosthetic heart valve (principal)
CPT/HCPCS: 93798

== ENCOUNTER → 2020-06-26 14:05 | Outpatient (CLI) | payer MEDICAID, SELFPAY ==
[2020-06-20 13:57] VITALS: BMI 41.1
[2020-06-26 07:28] VITALS: BMI 41.1
[2020-06-26 15:05] LABS: Anion Gap 6 (5-15); BUN 11 mg/dL (7-18); BUN/Creat Ratio 10.9 RATIO (10-20); Calcium,Total 9.1 mg/dL (8.5-10.1); Chloride 104 mmol/L (98-107); Creatinine, Serum 1.01 mg/dL (0.70-1.30); EST Glomerular Filtration Rate 86 mL/min (>60); Est Glom Filt Rate - Afr Amer 104 mL/min (>60); Glucose 102 mg/dL (74-106); Potassium 3.8 mmol/L (3.5-5.1); Sodium Level 140 mmol/L (136-145)
[2020-06-27 13:38] LABS: T4 Total, Thyroxin 9.5 ug/dL (4.5-12.1); Thyroid Stim Hormone (TSH) 2.79 uIU/mL (0.358-3.74)
== END ==
PROVIDERS: PCP Student in an Organized Health Care Education/Training Program; Referring Provider Internal Medicine Cardiovascular Disease; Visit Provider Internal Medicine Cardiovascular Disease
DX: I44.2 Atrioventricular block, complete (principal); Z95.0 Presence of cardiac pacemaker; Z95.3 Presence of xenogenic heart valve; I10 Essential (primary) hypertension; I35.0 Nonrheumatic aortic (valve) stenosis; I44.7 Left bundle-branch block, unspecified; Z71.3 Dietary counseling and surveillance; E66.01 Morbid (severe) obesity due to excess calories
CPT/HCPCS: 36415; 80048; 84436; 84443; 97803

== ENCOUNTER 2020-06-26 14:30 | Outpatient (RCR) | payer MEDICAID, SELFPAY ==
[2020-05-17 09:22] VITALS: BMI 41.1
[2020-05-29 06:42] VITALS: BMI 41.2
== END 2020-07-10 23:59 | disposition home or self-care (01) ==
LOC: NS 14:30
PROVIDERS: PCP Student in an Organized Health Care Education/Training Program; Visit Provider Student in an Organized Health Care Education/Training Program
DX: Z71.3 Dietary counseling and surveillance (principal); E66.01 Morbid (severe) obesity due to excess calories
CPT/HCPCS: 97803

== ENCOUNTER 2020-07-10 06:20 | Outpatient (RCR) | payer MEDICAID, SELFPAY ==
[2020-07-09 00:10] VITALS: BP 112/72; BP 150/80
== END 2020-08-07 23:59 ==
LOC: CR 06:20
PROVIDERS: PCP Student in an Organized Health Care Education/Training Program; Referring Provider Thoracic Surgery (Cardiothoracic Vascular Surgery); Visit Provider Thoracic Surgery (Cardiothoracic Vascular Surgery)
DX: Z95.2 Presence of prosthetic heart valve (principal)
CPT/HCPCS: 93798

== ENCOUNTER 2020-07-10 14:01 | Outpatient (RCR) | payer MEDICAID, SELFPAY | END 2020-08-07 23:59 | LOC: NS 14:01 | PROVIDERS: PCP Student in an Organized Health Care Education/Training Program; Visit Provider Student in an Organized Health Care Education/Training Program | DX: Z71.3 Dietary counseling and surveillance (principal); E66.01 Morbid (severe) obesity due to excess calories | CPT/HCPCS: 97803 ==

== ENCOUNTER 2020-10-04 15:15 | Outpatient (RCR) | payer MEDICAID, SELFPAY ==
[2020-08-17 15:45] VITALS: BMI 41.4
== END 2020-10-08 23:59 ==
LOC: CR 15:15
PROVIDERS: PCP Student in an Organized Health Care Education/Training Program; Referring Provider Internal Medicine Cardiovascular Disease; Visit Provider Internal Medicine Cardiovascular Disease
DX: Z95.2 Presence of prosthetic heart valve (principal)
CPT/HCPCS: 93798

== ENCOUNTER 2020-11-03 15:15 | Outpatient (RCR) | payer MEDICAID, SELFPAY ==
[2020-08-17 15:45] VITALS: BMI 41.4
[2020-09-22 08:22] VITALS: BMI 41.1
--- NOTE | 2020-10-25 13:54 | PCM.CR.ITP ---
Exercise - 90-day Assessment - Visit Date of Eval: 10/25/20 Session #:: 28 - Physician Prescribed Exercise Modalities: Treadmill, Airdyne, NuStep Frequency: 3x/week for 12 weeks [36 sessions] Intensity: 60-80% of age predicted maximum heart rate reserve Current METSs:: 5 Target Heart Rate:: 131-150 Current RPE:: 12-13 Maximum Excercise HR:: 99 Resting Blood Pressure: 122/78 Maximum Exercise Blood Pressure: 130/70 EKG Type: Vemtricular paced rhythm with rare PASC's - Outcomes & Goals Goals:: Verbalizes understanding of THR, RPE & goal METS by session 6, Documents in home exercise log/reports 30 min aerobic 5 day/wk by DC, Demonstrates accurate pulse taking by DC, Other additional outcome/goals: see below - Intervention & Plan Exercise Program Goals: Instruct on personal THR & RPE, Instruct on MET level & personal MET goal, Show patient to take own pulse /validate performance until accurate, Instruct on home exercise, Other additional plan/int - 30-day Reassessments 30 day Reassessments:: Progressing - Physical Activity Home Exercise Physical Activity - Home Exercise: Safe Exercise, Warm-up, Self-monitoring, Cool-Down, Home Exercise > 30 min Daily, Sitting Time <3 hours/daily - Outcomes & Goals Outcomes/Goals: Demonstrates correct Warm-up/exercise Cool-Down (S3) if = 2.5 METs, Verbalizes symptoms of exercise intolerance by Session 3 (S3), Demonstrate safe equipment use (S3) & follows exercise prescrition (6), Other: See below - Intervention & Plan Plan/Intervention: Instruct warm-up & cool-down if exercising at > 2 METs, Instruct on symptoms of exercise intolerance & actions to take, Instruct & monitor on saf, Assess intial functional capacity & safety risk, Other See below - 30-day Reassessments 30 day Reassessments:: Progressing Nutrition - 90-Day Assessment - Program Goals Nutrition Program Goals: LDL <100 optimal. 100 - 129 Near optimal. 130 - 159 Borderline High. 160 - 189 High. Total Cholesterol <200 desirable. 200 - 239 Borderline High. >/= 240 High. HDL < 40 Low >/=60 High. Triglycerides <150 desirable. <199 optimal. VlDL 5 - 40. HgbA1C <7%. BMI <25 Patient has diagnosis of Hyperlipidemia (ICD E78)?: Yes - Visit Date of Assessment:: 10/25/20 Session #:: 28 - Cholesterol/Lipids Determine presence & major risk factors that modify LDL goal: Hypertension or hypertensive medication, Low HDL cholesterol <40 mg/dL*, Family history of premature CHD in Male < 55 years: female <65 yearsFa, Age men > 45 years; women >/= 55 years Outcomes/Goals: Pt IDs own risk factors & lifestyle modifications by Session 10, Verbalizes symptoms of angina & response by session 3., Pt independently manages, Other Additional Outcomes/Goals: Intervention/Plan: Advocate for lipid panel cholesterol medication if applicable, Instruct on personal lipid levels & lipid goals/NCEP guidelines, Instruct on cholesterol, Other additional plan/int Referral to dietitian:: Yes 30-day Reassessments:: Progressing - Diabetes (Other Core Measures) Diabetes Type: Not Applicable - Weight Mgt (Other Care) Height: 6 ft 2 in Weight:: 148.778 kg BMI: 42.0 Diagnosis Overweight/Obesity BMI> 30% ICD-10 E66: Yes Diagnosis High BMI/Morbid Obesity BMI> 35% ICD-10 Z68: Yes Outcomes/Goals: Pt sets, maintains & shows weight loss goal & trend during rehab, Other additional outcomes/goals Intervention/Plan: Instruct on ideal BMI & set weight loss goal w/patient, Assist pt to ID & incorporate diet changes for weight loss by S9, Refer to Structured Weight Loss program as appropriate, Encourage goal of using 250-300dcal per session for weight loss, Other additional plan/interventions 30 day Reassessments:: Progressing - Healthy Eating Habits Will attend diet classes:: Yes Outcomes/Goals:: Consume diet rich in vegs,fruits,whole grain/high fiber,fish,lean meat, Limit sat/trans fats,cholesterol & added salts & sugars, Other additional outcome/goals: Intervention/Plan:: Assess current eating habits, Other Additional plan/interventions 30-day Reassessments:: Progressing - Education Gave educational materials for:: Signs & symptoms of hypoglycemia, Signs & symptoms of hyperglycemia, Relate diabetes to coronary artery disease, Healthy eating Medical- 90-Day Assessment - Visit Date of Eval: 10/25/20 Session #:: 28 - Medication Compliance Preventative Medication(s):: Aspirin, CHRIST inhibitor, Statin/lipid, Beta radha H/O mental health issues: depression, anxiety, or addiction?: No Doesn?t believe in the benefits of treatment?: No Believes medications are unnecessary or harmful?: No Has a concern about medication side effects?: No Expresses concern over the cost of medications?: No Outcomes/Goals: Verbalizes medications,desired effect & common side effects @ DC, Pt self-reports following medication regimen, Keeps card in wallet w/medications listed by DC, Other additional outcome/goals: Interventions/plans: Instruct on medication effects & side effects, Review medication list w/patient every two weeks, Instruct importance of taking meds as ordered & assist problem solving, Other additional 30-day Reassessments:: Progressing - Tobacco Use Tobacco Use: Non-smoker - Hypertension Hypertension Diagnosis:: Hypertension ICD-10 I10 Resting Blood Pressure:: 122/78 [place] [employer] Hypertension Guidelines: [place] [employer] Hypertension Guidelines. Normal BP Less than 120/80. Elevated BP 120/80. Hypertension Stage 1: BP 130-139/80-89. Hypertesnion Stage 2: BP 140 or higher/90 or higher. Hypertension Crisis: BP higher than 180/120 Peak Exercise Blood Pressure:: 130/70 Outcomes/Goals: Able to verbalize/achieve optimal blood pressure <130/80, Incorporates diet changes & exercise for blood pressure control by DC, Other additional outcomes/goals Interventions/plan: Instruct on optimal blood pressure, hypertension & medications, Instruct on effects of sodium, alcohol, stress, exercise &hypertension, Other additional plan/interventions 30 day Reassessments:: Progressing - Tobacco Cessation Referral Smoking Cessation Referral:: No Individual Education/Counseling:: No Education Schedule Given:: Yes Psychosocial - 90-Day Assess - VIsit Date of Eval: 10/25/20 Session #:: 28 History of previous Mental disease:: No - Target Goals Target Goals: Assess presence or absence of depression. Using a valid screening tool, maximizes coping skills. Positive support system - Psychosocial Test phq-9 Severity: Severity. 1-4 Minimal Depression. 5-9 Mild Depression. 10-14 Moderate Depression. 15-19 Moderately Sever Depression. 20-27 Severe Depression. Rule: - Outcomes/Goals: See list Psychosocial Outcomes/Goals:: ID's personal stressors & 2 strategies to manage stress by discharge, Other Additional outcome/goals: - Intervention/Plan: See List Interventions/Plan:: Assess stressors,coping strategies & signs of derpression on admission, Instruct/assist pt to develop coping & personal stress Mgt strategies, Refer to Behavioral Health if appropriate, Refer to Physician if appropriate, Instruct patient to recognize signs & symptoms of depression, Instruct patient to recog, Other additional plan/intervention - 30-day Reassessments: 30 day Reassessments:: Progressing Patient Health Questionnaire 90-Day Re-eval Assessment 1. Little interest or pleasure in doing things: Several days 2. Feeling down, depressed, or hopeless: More than half the days 3. Trouble falling or staying asleep, or sleeping too much: Several days 4. Feeling tired or having little energy: Several days 5. Poor appetite or overeating: Nearly every day 6. Feeling bad about yourself -- or that you are a failure or have let yourself or your family down: Not at all 7. Trouble concentrating on things, such as reading the newspaper or watching television: Not at all 8. Moving or speaking so slowly that other people could have noticed. Or the opposite - being so fidgety or restless that you have been moving around a lot more than usual: Not at all 9. Thoughts that you would be better off , or of hurting yourself in some way: Not at all How difficult have these problems made it for you to do your work, take care of things at home, or get along with other people?: Somewhat difficult Total Score: 8 Self-Efficacy 90-Day Re-eval Assessment We would like to know how confident you are in doing certain activities. Please select your confidence level for:: Select your confidence level for the following using the scale 1-10 where 1 is not at all confident and 10 is totally confident. Your score is the average of all 6 responses. Fatigue: How confident are you that you can keep the fatigue caused by your disease from interfering with the things you want to do? Select Number: 2 Physical Discomfort or Pain: How confident are you that you can keep the physical discomfort or pain of your disease from interfering with the things you want to do? Select Number: 2 Emotional Distress: How confident are you that you can keep the emotional distress caused by your disease from interfering with the things you want to do? Select Number: 2 Other Symptoms or Health Problems: How confident are you that you can keep other symptoms or health problems from interfering with the things you want to do? Select Number: 2 Different Tasks and Activities: How confident are you that you can do the different tasks and activities needed to manage your health condition so as to reduce your need to see a doctor? Select Number: 2 Medication: How confident are you that you can do things other than just taking medication to reduce how much your illness affects your everyday life? Select Number: 2 Total Score:: 2
[2020-10-25 14:04] VITALS: BP 122/78; BP 130/70; BMI 42.0
== END 2020-11-05 23:59 ==
LOC: CR 15:15
PROVIDERS: PCP Student in an Organized Health Care Education/Training Program; Referring Provider Internal Medicine Cardiovascular Disease; Visit Provider Internal Medicine Cardiovascular Disease
DX: Z95.3 Presence of xenogenic heart valve (principal); Z95.0 Presence of cardiac pacemaker
CPT/HCPCS: 93798

== ENCOUNTER 2020-11-13 15:15 | Outpatient (RCR) | payer MEDICAID, SELFPAY ==
[2020-08-17 15:45] VITALS: BMI 41.4
[2020-10-25 14:04] VITALS: BMI 42.0
[2020-11-06 00:32] VITALS: BP 122/78; BP 130/70
--- NOTE | 2020-11-22 13:04 | CR.ITP_ITS ---
Exercise - Final/Discharge - Visit Date of Eval: 11/22/20 Session #:: 36 - Physician Prescribed Exercise Modalities: Treadmill, Airdyne, NuStep Frequency: 3x/week for 12 weeks [36 sessions] Intensity: 60-80% of age predicted maximum heart rate reserve Current METSs:: 6 Target Heart Rate:: 131-150 Current RPE:: 12-13 Maximum Excercise HR:: 131 Resting Blood Pressure: 120/76 Maximum Exercise Blood Pressure: 120/80 EKG Type: Paced rhythm - Outcomes & Goals Goals:: Verbalizes understanding of THR, RPE & goal METS by session 6, Documents in home exercise log/reports 30 min aerobic 5 day/wk by DC, Demonstrates accurate pulse taking by DC, Other additional outcome/goals: see below - Intervention & Plan Exercise Program Goals: Instruct on personal THR & RPE, Instruct on MET level & personal MET goal, Show patient to take own pulse /validate performance until accurate, Instruct on home exercise, Other additional plan/int - 30-day Reassessments 30 day Reassessments:: Met - Physical Activity Home Exercise Physical Activity - Home Exercise: Safe Exercise, Warm-up, Self-monitoring, Cool-Down, Home Exercise > 30 min Daily, Sitting Time <3 hours/daily - Outcomes & Goals Outcomes/Goals: Demonstrates correct Warm-up/exercise Cool-Down (S3) if = 2.5 METs, Verbalizes symptoms of exercise intolerance by Session 3 (S3), Demonstrate safe equipment use (S3) & follows exercise prescrition (6), Other: See below - Intervention & Plan Plan/Intervention: Instruct warm-up & cool-down if exercising at > 2 METs, Instruct on symptoms of exercise intolerance & actions to take, Instruct & monitor on saf, Assess intial functional capacity & safety risk, Other See below - 30-day Reassessments 30 day Reassessments:: Met Nutrition - Final Assessment - Program Goals Nutrition Program Goals: LDL <100 optimal. 100 - 129 Near optimal. 130 - 159 Borderline High. 160 - 189 High. Total Cholesterol <200 desirable. 200 - 239 Borderline High. >/= 240 High. HDL < 40 Low >/=60 High. Triglycerides <150 desirable. <199 optimal. VlDL 5 - 40. HgbA1C <7%. BMI <25 Patient has diagnosis of Hyperlipidemia (ICD E78)?: Yes - Visit Date of Assessment:: 11/22/20 Session #:: 36 - Cholesterol/Lipids Determine presence & major risk factors that modify LDL goal: Hypertension or hypertensive medication, Low HDL cholesterol <40 mg/dL*, Family history of premature CHD in Male < 55 years: female <65 yearsFa, Age men > 45 years; women >/= 55 years Outcomes/Goals: Pt IDs own risk factors & lifestyle modifications by Session 10, Verbalizes symptoms of angina & response by session 3., Pt independently manages, Other Additional Outcomes/Goals: Intervention/Plan: Advocate for lipid panel cholesterol medication if applicable, Instruct on personal lipid levels & lipid goals/NCEP guidelines, Instruct on cholesterol, Other additional plan/int 30-day Reassessments:: Met - Weight Mgt (Other Care) Height: 6 ft 2 in Weight:: 148.552 kg BMI: 42.0 Diagnosis Overweight/Obesity BMI> 30% ICD-10 E66: Yes Diagnosis High BMI/Morbid Obesity BMI> 35% ICD-10 Z68: Yes Outcomes/Goals: Pt sets, maintains & shows weight loss goal & trend during rehab, Other additional outcomes/goals Intervention/Plan: Instruct on ideal BMI & set weight loss goal w/patient, Assist pt to ID & incorporate diet changes for weight loss by S9, Refer to Structured Weight Loss program as appropriate, Encourage goal of using 250- 300dcal per session for weight loss, Other additional plan/interventions 30 day Reassessments:: Progressing - Healthy Eating Habits Will attend diet classes:: Yes Outcomes/Goals:: Consume diet rich in vegs,fruits,whole grain/high fiber,fish,lean meat, Limit sat/trans fats,cholesterol & added salts & sugars, Other additional outcome/goals: Intervention/Plan:: Assess current eating habits, Other Additional plan/interventions 30-day Reassessments:: Progressing - Education Gave educational materials for:: Signs & symptoms of hypoglycemia, Signs & symptoms of hyperglycemia, Relate diabetes to coronary artery disease, Healthy eating Medical - Final Assessment - Visit Date of Eval: 11/22/20 Session #:: 36 - Medication Compliance Preventative Medication(s):: Aspirin, CHRIST inhibitor, Statin/lipid, Beta radha H/O mental health issues: depression, anxiety, or addiction?: No Doesn?t believe in the benefits of treatment?: No Believes medications are unnecessary or harmful?: No Has a concern about medication side effects?: No Expresses concern over the cost of medications?: No Outcomes/Goals: Verbalizes medications,desired effect & common side effects @ DC, Pt self-reports following medication regimen, Keeps card in wallet w/medications listed by DC, Other additional outcome/goals: Interventions/plans: Instruct on medication effects & side effects, Review medication list w/patient every two weeks, Instruct importance of taking meds as ordered & assist problem solving, Other additional 30-day Reassessments:: Met - Tobacco Use Tobacco Use: Non-smoker Do you use smokeless tobacco?: No 30-day Reassessments:: Met - Hypertension Hypertension Diagnosis:: Hypertension ICD-10 I10 Resting Blood Pressure:: 120/76 [place] [employer] Hypertension Guidelines: [place] [employer] Hypertension Guidelines. Normal BP Less than 120/80. Elevated BP 120/80. Hypertension Stage 1: BP 130-139/80-89. Hypertesnion Stage 2: BP 140 or higher/90 or higher. Hypertension Crisis: BP higher than 180/120 Peak Exercise Blood Pressure:: 120/80 Outcomes/Goals: Able to verbalize/achieve optimal blood pressure <130/80, Incorporates diet changes & exercise for blood pressure control by DC, Other additional outcomes/goals Interventions/plan: Instruct on optimal blood pressure, hypertension & medications, Instruct on effects of sodium, alcohol, stress, exercise &hypertension, Other additional plan/interventions 30 day Reassessments:: Met - Tobacco Cessation Referral Smoking Cessation Referral:: No Individual Education/Counseling:: No Education Schedule Given:: Yes Psychosocial - Final Assessmen - VIsit Date of Eval: 11/22/20 Session #:: 36 History of previous Mental disease:: No - Target Goals Target Goals: Assess presence or absence of depression. Using a valid screening tool, maximizes coping skills. Positive support system - Psychosocial Test phq-9 Severity: Severity. 1-4 Minimal Depression. 5-9 Mild Depression. 10-14 Moderate Depression. 15-19 Moderately Sever Depression. 20-27 Severe Depression. Rule: - Outcomes/Goals: See list Psychosocial Outcomes/Goals:: ID's personal stressors & 2 strategies to manage stress by discharge, Other Additional outcome/goals: - Intervention/Plan: See List Interventions/Plan:: Assess stressors,coping strategies & signs of derpression on admission, Instruct/assist pt to develop coping & personal stress Mgt strategies, Refer to Behavioral Health if appropriate, Refer to Physician if appropriate, Instruct patient to recognize signs & symptoms of depression, Instruct patient to recog, Other additional plan/intervention - 30-day Reassessments: 30 day Reassessments:: Met Patient Health Questionnaire Discharge Assessment 1. Little interest or pleasure in doing things: Several days 2. Feeling down, depressed, or hopeless: More than half the days 3. Trouble falling or staying asleep, or sleeping too much: Nearly every day 4. Feeling tired or having little energy: More than half the days 5. Poor appetite or overeating: More than half the days 6. Feeling bad about yourself -- or that you are a failure or have let yourself or your family down: Not at all 7. Trouble concentrating on things, such as reading the newspaper or watching television: More than half the days 8. Moving or speaking so slowly that other people could have noticed. Or the opposite - being so fidgety or restless that you have been moving around a lot more than usual: More than half the days 9. Thoughts that you would be better off , or of hurting yourself in some way: Not at all How difficult have these problems made it for you to do your work, take care of things at home, or get along with other people?: Not difficult at all Total Score: 14 JOSE-Q SV Test - Statements CAD is a disease of the arteries in the heart: False Examples of risk factors for heart disease: True Angina is chest pain or discomfort: I Don't Know The benefits of resistance training include: True Eating more meat and dairy products: I Don't Know Anti-platelet medications such as aspirin are important: True The only effective way to manage stress: False An exercise warm-up slowly increases heart rate: True Prepared, processed foods usually have high sodium: I Don't Know Depression is common after a heart attack: I Don't Know The statin medications lower cholesterol: True To control blood pressure, lower the amount of sodium: True If someone gets chest discomfort during walking: False Transfats are partially hydrogenated vegetable oils: I Don't Know Sleep apnea that is not treated increases the risk: I Don't Know To control cholesterol, one should become a vegetarian: False Someone knows if he/she is exercising at the right level: True Diabetes cannot be prevented with exercise & health eating: I Don't Know Stress is a large risk for heart attack: True A diet that can help lower blood pressure is rich in: I Don't Know - Total Score Total Correct Responses: 12 Self-Efficacy Discharge Assessment We would like to know how confident you are in doing certain activities. Please select your confidence level for:: Select your confidence level for the following using the scale 1-10 where 1 is not at all confident and 10 is totally confident. Your score is the average of all 6 responses. Fatigue: How confident are you that you can keep the fatigue caused by your disease from interfering with the things you want to do? Select Number: 6 Physical Discomfort or Pain: How confident are you that you can keep the physical discomfort or pain of your disease from interfering with the things you want to do? Select Number: 4 Emotional Distress: How confident are you that you can keep the emotional distress caused by your disease from interfering with the things you want to do? Select Number: 6 Other Symptoms or Health Problems: How confident are you that you can keep other symptoms or health problems from interfering with the things you want to do? Select Number: 5 Different Tasks and Activities: How confident are you that you can do the different tasks and activities needed to manage your health condition so as to reduce your need to see a doctor? Select Number: 5 Medication: How confident are you that you can do things other than just taking medication to reduce how much your illness affects your everyday life? Select Number: 6 Total Score:: 5 Nutrition Survey - Nutrition Survey Instructions Scoring Instructions: Scoring is as follows: Yes = 1 points. No = 0 point. Patient score that is >/=12 is considered to be at potential nutritional risk and could benefit from a referral to a registered dietitian. - Nutrition Survey Discharge Have you lost >10 lbs over the past 2 months without trying?: No Are you following a special diet at home for diabetes, low fat, or low salt?: No Are you interested in meeting with a dietitian for help understanding your diet?: No Do you eat less than 3 meals a day?: Yes Do you eat fatty meats (mooney, sausage, ribs, etc), fried foods, desserts, large amounts of salad dressings, margarine, butter, or cheese most days?: Yes Do you have food allergies? [Enter types in comment field]: No Do you eat in restaurants more than 3 times a week?: No Do you season food with salt, seasoning salt, or garlic salt?: No Do you used canned, boxed, frozen meals, or soups, seasoning packets?: Yes Total Score:: 3
[2020-11-22 13:18] VITALS: BP 120/76; BP 120/80; BMI 42.0
== END 2020-12-06 23:59 ==
LOC: CR 15:15
PROVIDERS: PCP Student in an Organized Health Care Education/Training Program; Referring Provider Internal Medicine Cardiovascular Disease; Visit Provider Internal Medicine Cardiovascular Disease
DX: Z95.2 Presence of prosthetic heart valve (principal)
CPT/HCPCS: 93798

== ENCOUNTER → 2020-11-28 12:56 | Outpatient (CLI) | payer MEDICAID, SELFPAY ==
[2020-11-16 15:50] VITALS: BMI 42.2
[2020-11-22 13:18] VITALS: BMI 42.0
--- NOTE | 2020-11-28 13:00 | ECHOCS_ITS ---
Reason For Study: Arrhythmia Procedure This was a 2D Doppler, Color Flow transthoracic echocardiogram. The study was technically difficult. Contrast injection was performed. Exam performed in department. Left Ventricle Normal LV size. Left ventricular systolic function is normal. The estimated ejection fraction is 60 %. Post operative septal motion. No evidence for diastolic dysfunction. Mid-inferoseptal : Hypokinetic. Mid-anteroseptal : Hypokinetic. Septal [place] : Hypokinetic. Apical wall motion abnormality may reflect pacemaker activation. Right Ventricle Normal RV size. ICD or pacer leads identified within the right ventricle. Normal systolic function. Atria Normal left atrium. Normal right atrium. ICD or pacer leads identified within the right atrium. No doppler evidence for ASD. Mitral Valve There is no mitral annular calcification. Normal mitral valve. Trivial mitral valve insufficiency. Tricuspid Valve Normal tricuspid valve. Mild tricuspid valve insufficiency. Unable to estimate RV systolic pressure/pulmonary artery pressure due to technically difficult study. Aortic Valve Stable appearing bioprosthetic aortic valve apparatus. Pulmonic Valve The pulmonic valve is not well visualized. Mild (1+) pulmonic valve insufficiency. Great Vessels Normal sized aortic root. Pericardium/Pleural No pericardial effusion. Medication 22 gauge I.V. with prn adaptor inserted into right arm. Diluted definity 3ml given slow IV push to enhance endocardial definition. MMode/2D Measurements & Calculations LVIDd: 4.7 cm IVSd: 1.6 cm LVOT diam: 2.2 cm LVIDs: 2.8 cm LVPWd: 1.1 cm FS: 40.6 % LVOT area: 3.8 cm2 Ao root diam: 3.4 cm LAV(MOD-sp4): 51.8 ml LA A4 area: 18.4 cm2 LA dimension: 4.2 cm RA A4 area: 16.8 cm2 Time Measurements MV dec time: 0.21 sec Doppler Measurements & Calculations MV E max hugh: 85.1 cm/sec Lat Peak E' Hugh: 10.2 cm/sec Med Peak E' Hugh: 8.2 cm/sec MV A max hugh: 64.7 cm/sec E/E' lat: 8.3 E/E' med: 10.4 MV E/A: 1.3 MV V2 max: 133.9 cm/sec MV P1/2t max hugh: 132.9 cm/sec Ao V2 max: 243.5 cm/sec MV max P.2 mmHg MV P1/2t: 70.7 msec Ao max P.2 mmHg MV V2 mean: 62.4 cm/sec MV dec slope: 550.7 cm/sec2 Ao V2 mean: 156.7 cm/sec MV mean P.9 mmHg MVA(P1/2t): 3.1 cm2 Ao mean P.7 mmHg MV V2 VTI: 34.2 cm Ao V2 VTI: 54.0 cm MVA(VTI): 2.0 cm2 HEATHER(I,D): 1.3 cm2 HEATHER(V,D): 1.4 cm2 LV V1 max: 89.0 cm/sec SV(LVOT): 69.8 ml PA V2 max: 112.7 cm/sec LV V1 max P.2 mmHg LV V1 mean P.6 mmHg LV V1 mean: 57.0 cm/sec LV V1 VTI: 18.4 cm ECHO/Echo Complete W/ Contrast Interpretation Summary The study was technically difficult. Contrast injection was performed. Left ventricular systolic function is normal. The estimated ejection fraction is 60 %. Post operative septal motion. Apical wall motion abnormality may reflect pacemaker activation. Trivial mitral valve insufficiency. Mild tricuspid valve insufficiency. Stable appearing bioprosthetic aortic valve apparatus. Mild (1+) pulmonic valve insufficiency. Unable to estimate RV systolic pressure/pulmonary artery pressure due to techn[place] difficult study. No evidence for diastolic dysfunction. ICD or pacer leads identified within the right atrium ICD or pacer leads identified within the right ventricle. Ordering Physician: Gail Jameson Referring Physician: Stone Castillo Performed By: Reynold Phelps RCS
== END ==
PROVIDERS: PCP Student in an Organized Health Care Education/Training Program; Visit Provider Physician Assistant Medical
DX: I47.2 Ventricular tachycardia (principal); Z95.3 Presence of xenogenic heart valve; I49.9 Cardiac arrhythmia, unspecified
CPT/HCPCS: 93306; Q9957; A4216; C8929

== ENCOUNTER → 2021-03-20 12:15 | Outpatient (CLI) | payer MEDICAID, SELFPAY ==
[2021-03-20 11:35] VITALS: BMI 44.4
[2021-03-20 12:55] LABS: BNP,B-Type NATRIURETIC PEPTIDE 49.8 pg/mL (0-100)
[2021-03-20 12:57] LABS: Anion Gap 0 (5-15); BUN 9 mg/dL (7-18); BUN/Creat Ratio 8.1 RATIO (10-20); Calcium,Total 9.5 mg/dL (8.5-10.1); Chloride 104 mmol/L (98-107); Creatinine, Serum 1.11 mg/dL (0.70-1.30); EST Glomerular Filtration Rate 77 mL/min (>60); Est Glom Filt Rate - Afr Amer 93 mL/min (>60); Glucose 80 mg/dL (74-106); Potassium 3.8 mmol/L (3.5-5.1); Sodium Level 138 mmol/L (136-145)
== END ==
PROVIDERS: PCP Student in an Organized Health Care Education/Training Program; Referring Provider Nurse Practitioner Family; Visit Provider Nurse Practitioner Family
DX: R06.00 Dyspnea, unspecified (principal); Z95.3 Presence of xenogenic heart valve; Z95.0 Presence of cardiac pacemaker; I44.7 Left bundle-branch block, unspecified; I35.0 Nonrheumatic aortic (valve) stenosis
CPT/HCPCS: 36415; 80048; 83880

== ENCOUNTER 2021-03-28 14:10 | Emergency (ER) | payer MEDICAID, SELFPAY ==
[2021-03-20 11:35] VITALS: BMI 44.4
[2021-03-28 14:11] VITALS: BP 125/74; PULSE 69; RESP 16; TEMP 36.3; O2SAT 98; BMI 44.9
--- NOTE | 2021-03-28 14:32 | EKG12_ITS ---
Test Reason : CP Blood Pressure : / mmHG Vent. Rate : 070 BPM Atrial Rate : 070 BPM P-R Int : 184 ms QRS Dur : 178 ms QT Int : 454 ms P-R-T Axes : 041 -72 087 degrees QTc Int : 490 ms Atrial-sensed ventricular-paced rhythm Abnormal ECG Confirmed by DULCE ZABALA, RAMBO ([id number]), mapping editor MARCELINA ARIZA ([id number]) on 03/30/2021 10:10:35 AM Referred By: UMAIR/ARMEN Confirmed By:RAMBO CARDONA MD
--- NOTE | 2021-03-28 14:42 | ED.VIS.CHEST ---
HPI History of Present Illness Chief Complaint: Chest Pain Informant: patient and spouse/S.O. Onset/Context/Timing Onset: Days (2-3) Activity at onset: - (awoke w/ discomfort) Timing: Continuous Quality: Positive for Stabbing Location: - (mid-low sternum w/o radiation) Current Severity: Moderate Maximum Severity: Moderate Worsened By: Movement of Torso (and sitting up from lying position) and Palpation; Not Worsened By Exertion Relieved By: Remaining Still Associated Symptoms: Negative for Nausea, Vomiting, Diaphoresis, Dyspnea, Cough, Fever, Lightheadedness and Palpitations Narrative Narrative: Patient has chronic minor cough and chronic mild dyspnea with exertion, though symptoms are no different since he has had this chest discomfort for the past 2 to 3 days, constant. Feels like it is in the front of his chest and he can push on it and make it worse. Denies any other associated symptoms. About 1 year ago he had an aortic valve replacement because of a bicuspid aortic valve, and then ended up needing a pacemaker he is not exactly sure why. He had some swelling in his feet a week ago and saw cardiology here, had some blood test and was put on a diuretic which helped and now his edema is gone. He cannot remember any injury or significant heavy lifting, exertion, or other obvious reason to have overused the muscles in his chest before the pain started. [facility] Medical History (Updated 03/28/21 @ 16:[address] David Joe MD) Arrhythmia AV block, complete Bicuspid aortic valve Cerebral edema Dyslipidemia Essential hypertension LBBB (left bundle branch block) Nonrheumatic aortic (valve) stenosis Presence of permanent cardiac pacemaker (~04/07/20) Status post placement of implantable loop recorder (~10/23/16) Syncope Thoracic aortic aneurysm without rupture Home Medications omeprazole 20 mg PO DAILY 01/02/18 [History Last Taken Unknown] cholecalciferol (vitamin D3) 50 mcg (2,000 unit) capsule 50 mcg PO DAILY 12/29/19 [History Last Taken Unknown] risperidone 2 mg tablet 2 mg PO DAILY 12/29/19 [History Last Taken Unknown] multivitamin 1 tab PO DAILY 12/31/19 [History Last Taken Unknown] lamotrigine 200 mg tablet 200 mg PO DAILY 05/17/20 [History Last Taken Unknown] aspirin 81 mg tablet,delayed release 81 mg PO DAILY #90 tab 02/20/21 [Rx Last Taken Unknown] metoprolol tartrate 50 mg tablet 50 mg PO BID #180 tab 02/20/21 [Rx Last Taken Unknown] furosemide 40 mg tablet 40 mg PO DAILY #90 tab 03/19/21 [Rx Last Taken Unknown] potassium chloride 20 mEq tablet,extended release 20 meq PO DAILY #90 tab 03/19/21 [Rx Last Taken Unknown] ascorbic acid (vitamin C) 500 mg tablet 1 g PO DAILY tab 03/20/21 [History Last Taken Unknown] hydroxyzine pamoate 25 mg capsule 25 mg PO QHS PRN cap 03/20/21 [History Last Taken Unknown] omega-3 fatty acids 1,000 mg capsule 1,000 mg PO DAILY 03/20/21 [History Last Taken Unknown] Allergy/AdvReac Type Severity Reaction Status Date / Time adhesive Allergy Severe Rash Verified 03/28/21 14:14 cefazolin [From Ancef] Allergy Severe Anaphylaxis, Verified 03/28/21 14:14 Angioedema sertraline [From Zoloft] Allergy Severe Itching Verified 03/28/21 14:14 fluoxetine [From Prozac] AdvReac Severe Heart Verified 03/28/21 14:14 Racing, SOB Family History Mother Hypertension Father Cardiac murmur Surgical History Brain tumor History of aortic valve replacement with bioprosthetic valve (~04/04/20) History of carpal tunnel surgery History of left heart catheterization (01/07/20) History of umbilical hernia repair Social History Smoking Status: Former smoker how long ago did patient quit smokin + years ago alcohol intake: never substance use type: does not use caffeine: Yes Type: carbonated beverages Number of servings: 2 ROS ROS ED Constitutional Constitutional ED: Denies chills or fever(s) Eyes Eyes: Denies change in vision or diplopia ENT ENT ED: Denies rhinorrhea or sore throat Cardiovascular Cardiovascular: Reports chest pain; Denies palpitations Respiratory/Chest Respiratory/Chest: Reports as per HPI, cough and dyspnea on exertion; Denies dyspnea Gastrointestinal Gastrointestinal: Denies abdominal pain, diarrhea, nausea or vomiting Genitourinary Genitourinary ED: Denies dysuria or hematuria Musculoskeletal Musculoskeletal: Denies back pain or neck pain Integumentary Denies abscess or rash Neurologic Neurologic: Denies headache(s), paresthesias or weakness Psychiatric Psychiatric: Denies anxiety or suicidal thoughts EXAM Physical Exam Const Vital Signs: 03/28/21 14:11 03/28/21 15:10 03/28/21 15:11 Temperature 97.4 F L Temperature Source Temporal Pulse Rate 69 69 Respiratory Rate 16 16 Respiratory Effort Normal Blood Pressure 125/74 H Blood Pressure Mean 91 Pulse Ox 98 94 Oxygen Delivery Method Room Air Room Air Room Air Positive well nourished, well developed and obese General Appearance ED: well developed and NAD Nutritional Appearance: obese HEENT Reports moist mucous membranes normocephalic and atraumatic Eyes PERRL and EOMs intact bilaterally Neck full ROM and supple Chest Wall inspection of chest normal Chest: tenderness sternum (Which reproduces the patient's pain. No crepitance or deformity. Well-healed midline sternal surgical scar without any discoloration or obvious abnormality.) Resp normal respiratory effort and clear to auscultation bilaterally Cardio regular rate, regular rhythm and no murmurs GI non-tender and non-distended Auscultation: normoactive bowel sounds Palpation: soft Back/Spine no CVA tenderness General Back: other FROM Extremity normal to inspection General Extremety ED: Negative for edema, pulses abnormal or tenderness General Extremity: Negative for edema or pulses abnormal Neuro oriented x3, CN's II-XII intact bilaterally and no sensory deficits noted Sensorium / Orientation: awake and alert Motor Exam: strength 5/5 throughout Skin no rashes or lesions noted and no wounds Heart Score History: Slightly/Non-Suspicious ECG: Normal Age: </= 45 years Risk Factors: 1 or 2 Risk Factors Troponin: </= Normal Limit Score: 1 MDM MDM MDM Narrative Medical decision making narrative: Patient's labs are normal, 1 view chest x-ray my interpretation is normal radiology is in agreement. Patient was given a small dose of Toradol and had improvement afterwards. I reassured him, his exam, history, and response to anti-inflammatories all consistent with chest wall pain. I think this is unlikely to be cardiac especially with a high-sensitivity troponin of 5.8 w/ 3 days of constant pain. Advised to follow-up with his doctor if symptoms persist longer than several days to a week. Lab Data Attestation: I reviewed the patient's lab results. Labs: Laboratory Results - last 24 hr 03/28/21 03/28/21 14:30 15:05 WBC 8.9 RBC 4.83 Hgb 14.4 Hct 43.9 MCV 90.9 MCH 29.8 MCHC 32.8 RDW Std Deviation 40.9 RDW Coeff of Christopher 12.4 Plt Count 263 MPV 8.9 Immature Gran % (Auto) 0.600 Neut % (Auto) 60.8 Lymph % (Auto) 24.6 [place] % (Auto) 9.4 Eos % (Auto) 3.7 Baso % (Auto) 0.9 Absolute Neuts (auto) 5.4 Absolute Lymphs (auto) 2.18 Nucleated RBC % 0 Sodium 138 Potassium 4.2 Chloride 107 Carbon Dioxide 29.0 Anion Gap 2 L BUN 11 Creatinine 1.01 Estim Creat Clear Calc 109.65 Est GFR (MDRD) Af Amer 103 Est GFR (MDRD) Non-Af 85 BUN/Creatinine Ratio 10.9 Glucose 118 H Calcium 8.6 Troponin I High Sens 5.8 Radiography Diagnostic Testing: Radiology Impression Chest X-Ray 03/28/21 15:18 IMPRESSION: Stable examination. No acute abnormality is seen. Electronically Signed: Kalen Bess MD at 15:30 EDT , Service support , EKG Initial EKG: Attestation: I personally reviewed and interpreted this EKG as follows: Interpretation: Sinus Rhythm, No Acute Injury Pattern and Paced (vent pace & capture) Discharge Plan Triage Chief Complaint: Chest Pain ED Provider: David Joe Dx/Rx/DC Orders Clinical Impression: Acute chest wall pain Instructions: Costochondritis Prescriptions: No Action multivitamin Tablet 1 tab PO DAILY RF: 0 risperidone 2 mg tablet 2 mg PO DAILY RF: 0 cholecalciferol (vitamin D3) 50 mcg (2,000 unit) capsule 50 mcg PO DAILY RF: 0 ascorbic acid (vitamin C) 500 mg tablet 1 g PO DAILY RF: 0 lamotrigine 200 mg tablet 200 mg PO DAILY RF: 0 aspirin 81 mg tablet,delayed release (DR/EC) 81 mg PO DAILY Qty: 90 RF: 3 metoprolol tartrate 50 mg tablet 50 mg PO BID Qty: 180 RF: 3 omega-3 fatty acids [Fish Oil Concentrate] 1,000 mg capsule 1,000 mg PO DAILY RF: 0 hydroxyzine pamoate 25 mg capsule 25 mg PO QHS PRN (Reason: Anxiety) RF: 0 omeprazole 20 capsule,delayed release(DR/EC) 20 mg PO DAILY RF: 0 furosemide 40 mg tablet 40 mg PO DAILY Qty: 90 RF: 3 potassium chloride 20 mEq tablet extended release 20 meq PO DAILY Qty: 90 RF: 3 Primary Care Provider: Stone Castillo Referrals: Stone Castillo DO [Primary Care Provider] - 1 Week if not improving Activity Restrictions/Additional Instructions: Continue to take your baby aspirin daily. Taking an occasional ibuprofen is okay but do not take it regularly. Disposition Disposition: Home, Self Care
[2021-03-28 15:06] LABS: Anion Gap 2 (5-15); BUN 11 mg/dL (7-18); BUN/Creat Ratio 10.9 RATIO (10-20); Calcium,Total 8.6 mg/dL (8.5-10.1); Chloride 107 mmol/L (98-107); Creatinine, Serum 1.01 mg/dL (0.70-1.30); EST Glomerular Filtration Rate 85 mL/min (>60); Est Glom Filt Rate - Afr Amer 103 mL/min (>60); Estimated Creatinine Clearance 109.65 ml/min; Glucose 118 mg/dL (74-106); Potassium 4.2 mmol/L (3.5-5.1); Sodium Level 138 mmol/L (136-145); Troponin-I HS 5.8 pg/mL (3.0-78.5)
[2021-03-28] MEDS: Ketorolac 15 MG/ML Vial IV (15:07)
[2021-03-28 15:10] VITALS: PULSE 69; RESP 16; O2SAT 94
[2021-03-28 15:15] LABS: Absolute Lymphocyte Count 2.18 X10^3/uL (0.83-4.51); Absolute Neutrophil Count 5.4 X10^3/uL (2.0-7.7); Basophil# 0.08 X10^3/uL; Basophil% 0.9 % (0-1); Eosinophil# 0.33 X10^3/uL; Eosinophils% 3.7 % (0-5); Hematocrit 43.9 % (40-54); Hemoglobin 14.4 g/dL (13.0-16.5); Lymphocyte # 2.18 X10^3/ul (0.83-4.51); Lymphocyte % 24.6 % (19-41); Mean Corp Hgb Conc 32.8 g/dL (32-36); Mean Corpuscular Hgb 29.8 pg (27.0-32.0); Mean Corpuscular Volume 90.9 fL (80-94); Mean Platelet Vol. 8.9 fl (6.2-12.0); Monocyte# 0.83 X10^3/uL; Monocyte% 9.4 % (0-10); NRBC Flagged by Analyzer 0 % (0-5); Neutrophil # 5.38 X10^3/uL (2.7-7.7); Neutrophil % 60.8 % (47-70); Platelet Count 263 K/mm3 (150-450); RBC Distribution Width CV 12.4 % (11.6-14.6); RBC Distribution Width SD 40.9 fl (35.1-43.9); Red Blood Count 4.83 M/mm3 (4.6-6.2); White Blood Count 8.9 K/mm3 (4.4-11.0)
--- NOTE | 2021-03-28 15:18 | RAD_ITS ---
STUDY: X-RAY CHEST REASON FOR EXAM: Male, 45 years old. Chest pain TECHNIQUE: Single AP portable view of the chest. COMPARISON: Comparison is made with prior study dated 06/20/2020. FINDINGS: EKG electrodes are seen. The lungs are clear and expanded. There is no demonstrated pleural abnormality. Sternal cerclage wires and vascular clips are present from a prior sternotomy and coronary artery bypass graft procedure (CABG). A left-sided dual-chamber pacemaker is seen. Normal mediastinum and [place]. Normal visualized pulmonary arteries. Normal visualized aortic arch and descending thoracic aorta. Normal visualized thoracic spine. Normal visualized ribs, clavicles, and shoulders. There is no demonstrated abnormality of the visualized soft tissue structures of the upper abdomen. RAD/Chest 1 View (Portable) IMPRESSION: Stable examination. No acute abnormality is seen. Electronically Signed: Kalen Bess MD at 15:30 EDT , Service support ,
[2021-03-28 16:42] VITALS: PULSE 65; RESP 16; TEMP 35
== END 2021-03-28 16:48 | disposition home or self-care (01) ==
PROVIDERS: Emergency Provider Emergency Medicine; PCP Student in an Organized Health Care Education/Training Program
DX: R07.89 Other chest pain (principal); I10 Essential (primary) hypertension; E78.5 Hyperlipidemia, unspecified; I35.0 Nonrheumatic aortic (valve) stenosis; I71.2 Thoracic aortic aneurysm, without rupture; Z95.2 Presence of prosthetic heart valve; Z95.0 Presence of cardiac pacemaker; Z79.82 Long term (current) use of aspirin; Z79.899 Other long term (current) drug therapy; Z87.891 Personal history of nicotine dependence
CPT/HCPCS: 71045; 80048; 84484; 85025; 93005; 96374; 99285; J7030; A4216

== ENCOUNTER → 2021-04-04 20:00 | Outpatient (CLI) | payer MEDICAID, SELFPAY ==
[2021-03-20 11:35] VITALS: BMI 44.4
[2021-03-28 14:11] VITALS: BMI 44.9
== END ==
PROVIDERS: PCP Student in an Organized Health Care Education/Training Program; Referring Provider Nurse Practitioner Family; Visit Provider Nurse Practitioner Family
DX: G47.10 Hypersomnia, unspecified (principal)
CPT/HCPCS: 95810

== ENCOUNTER → 2021-04-25 20:00 | Outpatient (CLI) | payer MEDICAID, SELFPAY ==
[2021-04-18 07:53] VITALS: BMI 44.1
== END ==
PROVIDERS: PCP Student in an Organized Health Care Education/Training Program; Visit Provider Nurse Practitioner Acute Care
DX: G47.33 Obstructive sleep apnea (adult) (pediatric) (principal)
CPT/HCPCS: 95811

== ENCOUNTER → 2021-05-07 12:33 | Outpatient (CLI) | payer MEDICAID, SELFPAY | PROVIDERS: PCP Student in an Organized Health Care Education/Training Program; Visit Provider Nurse Practitioner Acute Care | DX: Z46.89 Encounter for fitting and adjustment of other specified devices (principal) ==

== ENCOUNTER 2021-10-09 11:18 | Outpatient (CLI) | payer MEDICAID, SELFPAY ==
[2021-10-09 13:51] LABS: AST(SGOT) 41 U/L (15-37); Alanine Aminotransfer ALT/SGPT 69 U/L (16-61); Albumin, Serum 3.5 g/dL (3.2-5.0); Alkaline Phosphatase 69 U/L (45-117); Bilirubin, Direct 0.17 mg/dL (0.00-0.30); Cholesterol 159 mg/dL (200); Globulin 4.5 g/dL (2.2-4.2); High Density Lipoprotein 36 mg/dL; Triglycerides 143 mg/dL; Very Low Density Lipoprotein 29 mg/dL (5-40)
== END 2021-10-09 23:59 | disposition short-term general hospital (02) ==
LOC: LAB 11:20
PROVIDERS: PCP Student in an Organized Health Care Education/Training Program; Referring Provider Internal Medicine Cardiovascular Disease; Visit Provider Internal Medicine Cardiovascular Disease
DX: E78.00 Pure hypercholesterolemia, unspecified (principal)
CPT/HCPCS: 36415; 80061; 80076

== ENCOUNTER 2021-11-30 12:15 | Outpatient (CLI) | payer MEDICAID, SELFPAY ==
[2021-11-30 13:53] LABS: AST(SGOT) 31 U/L (15-37); Alanine Aminotransfer ALT/SGPT 56 U/L (16-61); Albumin, Serum 3.4 g/dL (3.2-5.0); Alkaline Phosphatase 68 U/L (45-117); Bilirubin, Direct 0.18 mg/dL (0.00-0.30); Globulin 4.3 g/dL (2.2-4.2); Protein, Total 7.7 g/dL (6.4-8.2)
== END 2021-11-30 23:59 | disposition home or self-care (01) ==
LOC: LAB 12:16
PROVIDERS: PCP Student in an Organized Health Care Education/Training Program; Referring Provider Internal Medicine Cardiovascular Disease; Visit Provider Internal Medicine Cardiovascular Disease
DX: R79.89 Other specified abnormal findings of blood chemistry (principal); E78.5 Hyperlipidemia, unspecified
CPT/HCPCS: 36415; 80076

== ENCOUNTER → 2022-01-01 | Outpatient (CLI) | payer MEDICARE, MEDICAID, SELFPAY ==
--- NOTE | 2022-01-01 13:03 | ECHOCS_ITS ---
Reason For Study: valve replacement eval Procedure This was a 2D Doppler, Color Flow transthoracic echocardiogram. The study was technically difficult. Contrast injection was performed. Exam performed in department. Left Ventricle Normal LV size. Mild concentric left ventricular hypertrophy. Segmental dysfunction with preserved ejection fraction (see wall motion). The estimated ejection fraction is 65 %. Post operative septal motion. No evidence for diastolic dysfunction. Apical wall motion abnormality may reflect pacemaker activation. Right Ventricle Normal RV size. ICD or pacer leads identified within the right ventricle. Normal systolic function. Atria Normal left atrium. Normal right atrium. ICD or pacer leads identified within the right atrium. No doppler evidence for ASD. Mitral Valve There is no mitral annular calcification. Normal mitral valve. Trivial mitral valve insufficiency. Tricuspid Valve Normal tricuspid valve. Mild tricuspid valve insufficiency. Right ventricular systolic pressure estimated to be 25 mmHg. Aortic Valve Stable appearing bioprosthetic aortic valve apparatus. Pulmonic Valve The pulmonic valve is not well visualized. Mild (1+) pulmonic valve insufficiency. Great Vessels Normal sized aortic root. Pericardium/Pleural No pericardial effusion. Medication 22 gauge I.V. with prn adaptor inserted into right arm. Diluted definity 2ml given slow IV push to enhance endocardial definition. MMode/2D Measurements & Calculations LVIDd: 4.9 cm IVSd: 1.3 cm LVOT diam: 2.0 cm LVIDs: 2.4 cm LVPWd: 1.3 cm FS: 50.6 % LVOT area: 3.3 cm2 Ao root diam: 3.6 cm LVAd ap4: 34.5 cm2 SV(MOD-sp4): 89.2 ml LVLd ap4: 8.3 cm EDV(MOD-sp4): 115.8 ml EDV(sp4-el): 121.6 ml LVAs ap4: 14.7 cm2 LVLs ap4: 6.6 cm ESV(MOD-sp4): 26.7 ml ESV(sp4-el): 27.9 ml EF(MOD-sp4): 77.0 % EF(sp4-el): 77.0 % SV(sp4-el): 93.6 ml Doppler Measurements & Calculations MV E max hugh: 105.4 cm/sec Lat Peak E' Hugh: 9.9 cm/sec Med Peak E' Hugh: 8.2 cm/sec MV A max hugh: 54.0 cm/sec E/E' lat: 10.7 E/E' med: 12.9 MV E/A: 2.0 Ao V2 max: 226.7 cm/sec LV V1 max: 88.5 cm/sec SV(LVOT): 69.6 ml Ao max P.6 mmHg LV V1 max P.1 mmHg Ao V2 mean: 150.5 cm/sec LV V1 mean P.6 mmHg Ao mean P.4 mmHg LV V1 mean: 59.0 cm/sec Ao V2 VTI: 45.5 cm LV V1 VTI: 21.3 cm HEATHER(I,D): 1.5 cm2 HEATHER(V,D): 1.3 cm2 PA V2 max: 98.9 cm/sec TR max hugh: 236.4 cm/sec TR max P.3 mmHg ECHO/Echo Complete W/ Contrast Interpretation Summary The study was technically difficult. Contrast injection was performed. Segmental dysfunction with preserved ejection fraction (see wall motion). The estimated ejection fraction is 65 %. Mild concentric left ventricular hypertrophy. Post operative septal motion. Apical wall motion abnormality may reflect pacemaker activation. Trivial mitral valve insufficiency. Mild tricuspid valve insufficiency. Stable appearing bioprosthetic aortic valve apparatus. Mild (1+) pulmonic valve insufficiency. Right ventricular systolic pressure estimated to be 25 mmHg. No evidence for diastolic dysfunction. ICD or pacer leads identified within the right atrium ICD or pacer leads identified within the right ventricle. Ordering Physician: Wilmer Rodríguez Referring Physician: Wilmer Rodríguez Performed By: Michelle Rosenberg RCS
== END | disposition home or self-care (01) ==
LOC: CVS 13:02
PROVIDERS: PCP Student in an Organized Health Care Education/Training Program; Referring Provider Internal Medicine Cardiovascular Disease; Visit Provider Internal Medicine Cardiovascular Disease
DX: Z95.3 Presence of xenogenic heart valve (principal)
CPT/HCPCS: 93306; Q9957; A4216; C8929

== ENCOUNTER 2022-04-24 14:31 | Emergency (ER) | payer MEDICARE, MEDICAID, SELFPAY ==
[2022-04-24 14:31] VITALS: BP 132/79; PULSE 81; RESP 18; TEMP 37.4; O2SAT 100; BMI 45.0
--- NOTE | 2022-04-24 14:43 | ED.VIS.DYS ---
HPI History of Present Illness Chief Complaint: Shortness of Breath Informant: patient Onset/Context/Timing Onset: Yesterday Context: sudden Timing: Continuous Quality: Positive for - (Throbbing) Worsened by: Nothing Relieved by: Nothing Associated Symptoms cough, fever and chills; Negative for rhinorrhea, post nasal drip, ear pain, sore throat, clear sputum, white sputum, yellow sputum or green sputum Narrative Narrative: Patient presents with shortness of breath that began yesterday. Patient states it began rather suddenly. Patient describes his breathing as a throbbing in his chest. Patient admits to a cough. Patient states he was exposed to someone who tested positive for COVID-19 recently. Patient admits to a fever of 100.6 at home. Patient also admits to some chills. Patient admits to some pain in his chest. Patient describes it as sharp. Patient states it is worse with breathing. Patient denies any nausea or vomiting. PE Risk Factors: Negative for Cancer, OCP + Smoking + > 35, Prior DVT or PE, Recent immobilization, Recent surgery or Recent travel [facility] Medical History Arrhythmia AV block, complete Bicuspid aortic valve Cerebral edema Dyslipidemia Elevated liver function tests Essential hypertension LBBB (left bundle branch block) Nonrheumatic aortic (valve) stenosis JUANIS on CPAP Presence of permanent cardiac pacemaker (~04/07/20) Status post placement of implantable loop recorder (~10/23/16) Syncope Thoracic aortic aneurysm without rupture Home Medications omeprazole 20 mg capsule,delayed release 20 mg PO DAILY 01/02/18 [History Last Taken Unknown] cholecalciferol (vitamin D3) 50 mcg (2,000 unit) capsule 50 mcg PO DAILY 12/29/19 [History Last Taken Unknown] risperidone 2 mg tablet 2 mg PO DAILY 12/29/19 [History Last Taken Unknown] multivitamin 1 tab PO DAILY 12/31/19 [History Last Taken Unknown] lamotrigine 200 mg tablet 200 mg PO DAILY 05/17/20 [History Last Taken Unknown] aspirin 81 mg tablet,delayed release 81 mg PO DAILY #90 tabs 02/20/21 [Rx Last Taken Unknown] ascorbic acid (vitamin C) 500 mg tablet 1 g PO DAILY 03/20/21 [History Last Taken Unknown] omega-3 fatty acids 1,000 mg capsule (Fish Oil Concentrate) 1,000 mg PO DAILY 03/20/21 [History Last Taken Unknown] metoprolol tartrate 50 mg tablet 50 mg PO BID #180 tabs 04/01/22 [Rx Last Taken Unknown] furosemide 40 mg tablet 40 mg PO DAILY edema #90 tabs 04/04/22 [Rx Last Taken Unknown] hydroxyzine pamoate 25 mg capsule 50 mg PO QHS PRN Anxiety 04/04/22 [History Last Taken Unknown] potassium chloride 20 mEq tablet,extended release 20 meq PO DAILY #90 tabs 04/24/22 [Rx Last Taken Unknown] Allergy/AdvReac Type Severity Reaction Status Date / Time adhesive Allergy Severe Rash Verified 04/24/22 14:31 cefazolin [From Ancef] Allergy Severe Anaphylaxis, Verified 04/24/22 14:31 Angioedema sertraline [From Zoloft] Allergy Severe Itching Verified 04/24/22 14:31 fluoxetine [From Prozac] AdvReac Severe Heart Verified 04/24/22 14:31 Racing, SOB Family History Mother Hypertension Father Cardiac murmur Surgical History Brain tumor History of aortic valve replacement with bioprosthetic valve (~04/04/20) History of carpal tunnel surgery History of left heart catheterization (01/07/20) History of umbilical hernia repair Social History Smoking Status: Former smoker Tobacco: How many years used: 1 how long ago did patient quit smokin + years ago alcohol intake: never substance use type: does not use caffeine: Yes Type: carbonated beverages Number of servings: 2 ROS ROS ED Constitutional Constitutional ED: Reports chills and fever(s) Eyes Eyes: Reports blurry vision; Denies diplopia ENT ENT ED: Denies rhinorrhea or sore throat Cardiovascular Cardiovascular: Reports chest pain; Denies palpitations Respiratory/Chest Respiratory/Chest: Reports cough and dyspnea Gastrointestinal Gastrointestinal: Denies nausea or vomiting Genitourinary Genitourinary ED: Denies dysuria or hematuria Musculoskeletal Musculoskeletal: Denies back pain or neck pain Integumentary Denies abscess or rash Neurologic Neurologic: Denies headache(s) or weakness Allergic/Immunologic Allergic/Immunologic ED: Denies mouth swelling or urticaria EXAM Physical Exam Const Vital Signs: 04/24/22 14:31 04/24/22 15:02 04/24/22 15:20 Temperature 99.4 F H Temperature Source Temporal Pulse Rate 81 86 Respiratory Rate 18 18 Respiratory Effort Normal Respiratory Depth Normal Respiratory Pattern Normal Normal Blood Pressure 132/79 H Blood Pressure Mean 96 Pulse Ox 100 Oxygen Delivery Method Room Air Room Air 04/24/22 15:38 Temperature 99.4 F H Temperature Source Temporal Pulse Rate 86 Respiratory Rate 18 Respiratory Effort Respiratory Depth Respiratory Pattern Blood Pressure 132/79 H Blood Pressure Mean 96 Pulse Ox 100 Oxygen Delivery Method Room Air Positive well nourished, well developed and obese General Appearance ED: well developed and NAD Nutritional Appearance: obese HEENT Reports moist mucous membranes Neck supple and no JVD Resp normal respiratory effort and clear to auscultation bilaterally Cardio regular rate and regular rhythm Heart Sounds: murmur systolic II/ GI normal to inspection, nondistended, normoactive bowel sounds and non-tender Palpation: soft Extremity normal to inspection General Extremety ED: Negative for edema or tenderness General Extremity: Negative for edema Neuro oriented x3, CN's II-XII intact bilaterally and no sensory deficits noted Sensorium / Orientation: alert Motor Exam: strength 5/5 throughout Psych mental status grossly normal Skin no rashes or lesions noted MDM MDM MDM Narrative Medical decision making narrative: EKG was obtained. On my interpretation, it shows a paced rhythm with a rate of 84. There is left axis deviation at -73. QRS interval was slightly prolonged at 140. QTc interval was normal. FL interval was normal. There is a left bundle branch block pattern noted. There are no acute ST or T wave changes. COVID-19 rapid antigen was obtained and was positive. Influenza A and influenza B swabs were obtained and were negative. Portable 1 view chest x-ray was obtained. On my interpretation, lung stark show peribronchial cuffing and bilateral hilar prominence consistent with viral bronchitis. There is normal cardiac silhouette. Bony thorax is normal. Radiologist also interpreted the x-ray and agrees. CBC shows a slight anemia with a hemoglobin of 10.2 and hematocrit 32.0. Comprehensive metabolic profile was within normal limits. Patient was given a DuoNeb aerosol here. Patient is feeling better on reevaluation. Patient was advised of his findings. Patient was instructed to take Tylenol or ibuprofen as needed for fevers or aches. Patient was instructed drink plenty of fluids. Patient was instructed to follow-up with his primary care physician in 5 to 7 days. Patient understood and was agreeable with the plan. All questions were answered. Lab Data Attestation: I reviewed the patient's lab results. Labs: Laboratory Results - last 24 hr 04/24/22 04/24/22 05:03 05:03 WBC 9.8 RBC 3.74 L Hgb 10.2 L Hct 32.0 L MCV 85.6 MCH 27.3 MCHC 31.9 L RDW Std Deviation 39.5 RDW Coeff of Christopher 12.7 Plt Count 334 MPV 8.5 Immature Gran % (Auto) 0.500 Neut % (Auto) 79.8 H Lymph % (Auto) 7.5 L Bartholomew % (Auto) 7.7 Eos % (Auto) 3.8 Baso % (Auto) 0.7 Absolute Neuts (auto) 7.8 H Absolute Lymphs (auto) 0.73 L Nucleated RBC % 0 Sodium 142 Potassium 3.7 Chloride 109 H Carbon Dioxide 27.0 Anion Gap 6 BUN 10 Creatinine 1.09 Estim Creat Clear Calc 99.50 Est GFR (MDRD) Af Amer 94 Est GFR (MDRD) Non-Af 78 BUN/Creatinine Ratio 9.2 L Glucose 117 H Calcium 8.6 Total Bilirubin 0.50 AST 16 ALT 27 Alkaline Phosphatase 61 Total Protein 7.2 Albumin 3.0 L Globulin 4.2 Albumin/Globulin Ratio 0.7 L Radiography Chest X-Ray - ED: 1 View, Read by ED Physician, Read by Radiologist and - (Peribronchial cuffing and bilateral hilar prominence) Diagnostic Testing: Clinical Impression(s) from Imaging Studies Chest X-Ray 04/24/22 14:50 IMPRESSION: Peribronchial cuffing bilateral hilar prominence, recommend clinical correlation for acute bronchitis or airway disease. Electronically Signed: Paul Whitlock MD at 15:07 EDT , EKG Initial EKG: Attestation: I personally reviewed and interpreted this EKG as follows: Interpretation: Paced, LBBB and Non-Specific ST Changes Prior EKG tracings: available for review Prior: Unchanged (03/28/2021) Discharge Plan Triage Chief Complaint: Shortness of Breath ED Provider: Tulio Kemp Dx/Rx/DC Orders Clinical Impression: COVID-19, BMI greater than 40, Essential hypertension Instructions: Coronavirus Disease 2019 (COVID-19): Caring for Yourself or Others Prescriptions: No Action multivitamin Tablet 1 tab PO DAILY risperidone 2 mg tablet 2 mg PO DAILY cholecalciferol (vitamin D3) 50 mcg (2,000 unit) capsule 50 mcg PO DAILY ascorbic acid (vitamin C) 500 mg tablet 1 g PO DAILY lamotrigine 200 mg tablet 200 mg PO DAILY aspirin 81 mg tablet,delayed release (DR/EC) 81 mg PO DAILY Qty: 90 3RF omega-3 fatty acids [Fish Oil Concentrate] 1,000 mg capsule 1,000 mg PO DAILY hydroxyzine pamoate 25 mg capsule 50 mg PO QHS PRN (Reason: Anxiety) furosemide 40 mg tablet 40 mg PO DAILY Qty: 90 3RF Rx Instructions: May take 1 tab PRN for edema and SOB; omeprazole 20 capsule,delayed release(DR/EC) 20 mg PO DAILY Label Comments: metoprolol tartrate 50 mg tablet 50 mg PO BID Qty: 180 3RF potassium chloride 20 mEq tablet extended release 20 meq PO DAILY Qty: 90 3RF Primary Care Provider: Stone Castillo Referrals: Stone Castillo DO [Primary Care Provider] - 5-7 Days Disposition Disposition: Home, Self Care
--- NOTE | 2022-04-24 14:46 | EKG12_ITS ---
Test Reason : sob/chest tightness Blood Pressure : / mmHG Vent. Rate : 084 BPM Atrial Rate : 084 BPM P-R Int : 192 ms QRS Dur : 140 ms QT Int : 384 ms P-R-T Axes : 036 -73 099 degrees QTc Int : 453 ms Atrial-sensed ventricular-paced rhythm Abnormal ECG Confirmed by DULCE ZABALA, RAMBO ([id number]), editorial project manager MARCELINA ARIZA ([id number]) on 04/26/2022 9:36:52 AM Referred By: Eva Confirmed By:RAMBO CARDONA MD
--- NOTE | 2022-04-24 14:50 | RAD_ITS ---
INDICATION: Cough EXAMINATION/TECHNIQUE: X-RAY - XR Chest 1 View COMPARISON: 03/28/2021. FINDINGS: Poor inspiratory effort limits evaluation. LINES/DEVICES: AICD visualized in the left chest with 2 leads in the heart Sternal wires are seen in position. LUNGS: Peribronchial cuffing bilateral hilar prominence, mild bronchovascular prominence and trace no significant change in comparison to the prior studies. The costophrenic angles are clear bilaterally. No consolidation, edema or effusion. No pneumothorax. MEDIASTINUM AND CARDIOVASCULAR STRUCTURES: Cardiac silhouette not enlarged. BONES AND SOFT TISSUES: Unremarkable. RAD/Chest 1 View (Portable) IMPRESSION: Peribronchial cuffing bilateral hilar prominence, recommend clinical correlation for acute bronchitis or airway disease. Electronically Signed: Paul Whitlock MD at 15:07 EDT ,
[2022-04-24] MEDS: Ipratropium/Albuterol Sulfate 3 ML AMPUL.NEB INHALATION (15:00)
[2022-04-24 15:02] VITALS: PULSE 86; RESP 18
[2022-04-24 15:10] LABS: Absolute Lymphocyte Count 0.73 X10^3/uL (0.83-4.51); Absolute Neutrophil Count 7.8 X10^3/uL (2.0-7.7); Basophil# 0.07 X10^3/uL; Basophil% 0.7 % (0-1); Eosinophil# 0.37 X10^3/uL; Eosinophils% 3.8 % (0-5); Hemoglobin 10.2 g/dL (13.0-16.5); Lymphocyte # 0.73 X10^3/ul (0.83-4.51); Lymphocyte % 7.5 % (19-41); Mean Corp Hgb Conc 31.9 g/dL (32-36); Mean Corpuscular Hgb 27.3 pg (27.0-32.0); Mean Corpuscular Volume 85.6 fL (80-94); Mean Platelet Vol. 8.5 fl (6.2-12.0); Monocyte# 0.75 X10^3/uL; Monocyte% 7.7 % (0-10); NRBC Flagged by Analyzer 0 % (0-5); Neutrophil # 7.79 X10^3/uL (2.7-7.7); Neutrophil % 79.8 % (47-70); Platelet Count 334 K/mm3 (150-450); RBC Distribution Width CV 12.7 % (11.6-14.6); RBC Distribution Width SD 39.5 fl (35.1-43.9); Red Blood Count 3.74 M/mm3 (4.6-6.2); White Blood Count 9.8 K/mm3 (4.4-11.0)
[2022-04-24 15:20] VITALS: O2SAT 99
[2022-04-24 15:25] LABS: ALB/GLOB Ratio 0.7 RATIO (0.9-2.4); AST(SGOT) 16 U/L (15-37); Alanine Aminotransfer ALT/SGPT 27 U/L (16-61); Alkaline Phosphatase 61 U/L (45-117); Anion Gap 6 (5-15); BUN 10 mg/dL (7-18); BUN/Creat Ratio 9.2 RATIO (10-20); Calcium,Total 8.6 mg/dL (8.5-10.1); Chloride 109 mmol/L (98-107); Creatinine, Serum 1.09 mg/dL (0.70-1.30); EST Glomerular Filtration Rate 78 mL/min (>60); Est Glom Filt Rate - Afr Amer 94 mL/min (>60); Globulin 4.2 g/dL (2.2-4.2); Glucose 117 mg/dL (74-106); Potassium 3.7 mmol/L (3.5-5.1); Protein, Total 7.2 g/dL (6.4-8.2); Sodium Level 142 mmol/L (136-145)
[2022-04-24 15:38] VITALS: BP 132/79; PULSE 86; RESP 18; TEMP 37.4; O2SAT 100
[2022-04-24 16:14] VITALS: PULSE 98; O2SAT 99
== END 2022-04-24 16:20 | disposition home or self-care (01) ==
PROVIDERS: Emergency Provider Emergency Medicine; PCP Student in an Organized Health Care Education/Training Program; Visit Provider Emergency Medicine
DX: U07.1 COVID-19 (principal); I71.2 Thoracic aortic aneurysm, without rupture; Z68.42 Body mass index [BMI] 45.0-49.9, adult; Z87.891 Personal history of nicotine dependence; E78.5 Hyperlipidemia, unspecified; I44.7 Left bundle-branch block, unspecified; I10 Essential (primary) hypertension; D64.9 Anemia, unspecified; G47.33 Obstructive sleep apnea (adult) (pediatric); Z95.818 Presence of other cardiac implants and grafts; Z79.82 Long term (current) use of aspirin; Z79.899 Other long term (current) drug therapy; Z95.2 Presence of prosthetic heart valve; E66.9 Obesity, unspecified; Q23.1 Congenital insufficiency of aortic valve
CPT/HCPCS: 71045; 80053; 85025; 87428; 93005; 94640; 99283; A4216

== ENCOUNTER → 2022-05-16 | Outpatient (CLI) | payer MEDICARE, MEDICAID, SELFPAY ==
[2022-05-16 12:38] LABS: Ferritin 19 ng/mL (26-388); Iron 18 ug/dL (65-175); Iron Binding Capacity,Total 372 ug/dL (250-450)
== END | disposition home or self-care (01) ==
PROVIDERS: PCP Student in an Organized Health Care Education/Training Program; Referring Provider Student in an Organized Health Care Education/Training Program; Visit Provider Student in an Organized Health Care Education/Training Program
DX: D64.9 Anemia, unspecified (principal)
CPT/HCPCS: 82728; 83540; 83550

== ENCOUNTER → 2022-06-07 | Outpatient (CLI) | payer MEDICARE, MEDICAID, SELFPAY ==
[2022-06-07] VITALS (7 sets, daily range): BP systolic 99–122; BP diastolic 46–73; PULSE 68–80; RESP 16; TEMP 36.1–36.4; O2SAT 97–100; BMI 41.1
== END | disposition home or self-care (01) ==
LOC: MEDOUTP 08:34
PROVIDERS: PCP Student in an Organized Health Care Education/Training Program; Referring Provider Student in an Organized Health Care Education/Training Program; Visit Provider Student in an Organized Health Care Education/Training Program
DX: D64.9 Anemia, unspecified (principal); R42 Dizziness and giddiness; R53.83 Other fatigue
CPT/HCPCS: 36415; 36430; 86850; 86900; 86901; 86920; 86922; J7040; P9016; A4216

== ENCOUNTER → 2024-05-03 | Outpatient (CLI) | payer MEDICARE, MEDICAID, SELFPAY ==
--- NOTE | 2024-05-03 10:56 | ECHOD_ITS ---
Reason For Study: ENSURE AORTA IS STABLE Procedure This was a 2D Doppler, Color Flow transthoracic echocardiogram. The study was technically difficult. Definity deferred due to patient allergy. Exam performed in department. Left Ventricle Normal LV size. Moderate to severe LV concentric hypertrophy. The left ventricular ejection fraction is 65 %. Unable to assess diastolic function based on available data. Right Ventricle The right ventricle is not well visualized. Atria Normal left atrium. The right atrium is not well visualized. Mitral Valve Normal mitral valve. Tricuspid Valve The tricuspid valve is not well visualized. Aortic Valve The aortic valve is not well visualized in the short axis view. Bioprosthetic aortic valve mean peak gradient 13 mmHg which is only minimally elevated from previous study on 01/01/2022 when it was noted to be 10 mmHg. Pulmonic Valve The pulmonic valve is not well visualized. Great Vessels Aortic root normal in size. Ascending aorta not well-visualized. Recommend CT chest for further evaluation if clinically indicated. Pericardium/Pleural No pericardial effusion. MMode/2D Measurements & Calculations LVIDd: 3.9 cm IVSd: 1.6 cm LVOT diam: 1.7 cm LVPWd: 1.7 cm LVOT area: 2.1 cm2 Ao root diam: 3.6 cm LAV(MOD-sp4): 36.2 ml LA A4 area: 15.5 cm2 LA dimension(2D): 3.1 cm Time Measurements MV dec time: 0.10 sec Doppler Measurements & Calculations MV E max mickey: 73.6 cm/sec MV V2 max: 82.4 cm/sec MV dec slope: 710.8 cm/sec2 MV A max mickey: 85.1 cm/sec MV max P.7 mmHg MV E/A: 0.86 MV V2 mean: 58.9 cm/sec MV mean P.5 mmHg MV V2 VTI: 19.5 cm MVA(VTI): 3.0 cm2 Ao V2 max: 276.6 cm/sec LV V1 max: 136.9 cm/sec SV(LVOT): 57.7 ml Ao max P.6 mmHg LV V1 max P.5 mmHg Ao V2 mean: 161.7 cm/sec LV V1 mean P.1 mmHg Ao mean P.1 mmHg LV V1 mean: 92.0 cm/sec Ao V2 VTI: 57.2 cm LV V1 VTI: 27.0 cm AV (velocity ratio): 0.47 HEATHER(I,D): 1.0 cm2 HEATHER(V,D): 1.1 cm2 ECHO/Echo Complete Interpretation Summary The study was technically difficult. Moderate to severe LV concentric hypertrophy. The left ventricular ejection fraction is 65 %. Bioprosthetic aortic valve mean peak gradient 13 mmHg which is only minimally e levated from previous study on 01/01/2022 when it was noted to be 10 mmHg. Aortic root normal in size. Ascending aorta not well-visualized. Recommend CT c hest for further evaluation if clinically indicated. Ordering Physician: Vin Cazares Referring Physician: Vin Cazares Performed By: Michelle Rosenberg RCS
== END | disposition home or self-care (01) ==
PROVIDERS: PCP Student in an Organized Health Care Education/Training Program; Referring Provider Nurse Practitioner Family; Visit Provider Nurse Practitioner Family
DX: Z95.3 Presence of xenogenic heart valve (principal); Z95.0 Presence of cardiac pacemaker; I71.20 Thoracic aortic aneurysm, without rupture, unspecified; E78.5 Hyperlipidemia, unspecified; I44.7 Left bundle-branch block, unspecified
CPT/HCPCS: 93306

== ENCOUNTER → 2024-05-26 | Outpatient (CLI) | payer MEDICARE, MEDICAID, SELFPAY ==
--- NOTE | 2024-05-26 12:44 | CT_ITS ---
STUDY: CTA CHEST REASON FOR EXAM: Male, 49 years old. Dilated Aorta RADIATION DOSAGE (If Supplied By Facility): CTDIvol = ( 20.97 ) mGy, DLP = ( 575.47 ) mGycm TECHNIQUE: The examination was performed with the intravenous administration of 100 CC ISOVUE 370. Post-processing of the angiographic images was performed, with multiplanar reformation and 3D reconstruction. Individualized dose optimization techniques were used for this CT. COMPARISON: Comparison is made with prior study June 20, 2020. FINDINGS: Normal enhancement of the main pulmonary artery and right and left pulmonary arteries. Normal enhancement of the bilateral peripheral pulmonary arteries. There is no demonstrated pulmonary embolism. Normal thoracic aorta and visualized great vessels. The root of the ascending thoracic aorta measures 30.7 mm. The ascending aorta at the junction with the aortic arch measures 3.9 cm. There is no demonstrated aortic dissection. Sternal cerclage wires and vascular clips are present from a prior sternotomy and coronary artery bypass graft procedure (CABG). Prior aortic valve replacement. Normal mediastinum. Normal hilar regions. Normal visualized trachea and bronchi. The lungs are well expanded. Normal pulmonary parenchyma. Normal pleura. Normal chest wall structures. Normal osseous structures. Normal visualized upper abdomen. CT/CTA Chest W/WO Contrast IMPRESSION: Stable examination. Electronically Signed: Kalen Bess MD at 14:15 EDT ,
== END | disposition home or self-care (01) ==
LOC: CT 12:44
PROVIDERS: PCP Student in an Organized Health Care Education/Training Program; Referring Provider Nurse Practitioner Family; Visit Provider Nurse Practitioner Family
DX: I71.20 Thoracic aortic aneurysm, without rupture, unspecified (principal); Z95.3 Presence of xenogenic heart valve; Z95.0 Presence of cardiac pacemaker; Z98.890 Other specified postprocedural states
CPT/HCPCS: 71275; Q9967

== ENCOUNTER → 2025-04-05 | Outpatient (CLI) | payer MEDICARE, MEDICAID, SELFPAY ==
--- OUTSIDE RECORDS SUMMARY | 2025-04-05 06:50 | XMS RPT_ITS | CCD ---
Author Organization [facility] Care Team Providers Care Glass Driller Name Role Phone DAVID LESTER Unavailable Unavailable DAVID LESTER Unavailable Unavailable Stone Castillo Unavailable Stone Castillo Primary Care Provider MIGUEL ANGEL WATT Attending Unavailable MIGUEL ANGEL WATT Referring Unavailable MIGUEL ANGEL WATT Attending Unavailable MIGUEL ANGEL WATT Referring Unavailable MIGUEL ANGEL WATT Attending Unavailable SELF, SELF Referring Unavailable Stone Castillo Primary Care Provider Dr. Stone Castillo Primary Care Provider Dr. Stone Castillo Referring Provider Dr. Jj Zabala Attending Provider Dr. Wilmer Rodríguez Attending Provider Dr. Wilmer Rodríguez Referring Provider Stone Castillo DO Primary Care Provider Wilmer Rodríguez Unavailable Gopal Bullard MD Unavailable Kasey MAHANN.PRADIP, Weina Unavailable Dr. Stone Castillo Primary Care Provider Dr. Stone Castillo Referring Provider Katerine Whelan Attending Provider Unavailable Stone Castillo DO Primary Care Provider Wilmer Rodríguez Unavailable Gopal Bullard MD Unavailable Kasey MAHANN.PIPE FITTINGS MOLDER, Weina Unavailable Dr. Stone Castillo Primary Care Provider Dr. Stone Castillo Referring Provider Dr. Wilmer Rodríguez Attending Provider Sage ADDING MACHINE OPERATOR, NATALIYA-Pauline Manrique Attending Provider Stone Castilol DO Primary Care Provider Wilmer Rodríguez Unavailable Gopal Bullard MD Unavailable Stone Castillo DO Primary Care Provider Wilmer Rodríguez Unavailable Gopal Bullard MD Unavailable Kasey BONE COOKING OPERATOR.PIPE FITTINGS MOLDER, Weina Unavailable YANNA GONZAELZ Attending Unavailable STONE CASTILLO Primary Care Unavailable Wilmer Rodríguez Unavailable Wilmer Rodríguez MD Unavailable Stone Castillo DO Primary Care Provider Wilmer Rodríguez MD Unavailable Thanh BONE COOKING OPERATOR.PIPE FITTINGS MOLDERAntonella Unavailable Marga BONE COOKING OPERATOR.Reece MOSELEY Unavailable Kasey BONE COOKING OPERATOR.Christine MOSELEY Unavailable REECE MENDEZ Attending Unavailable SELF Referring Unavailable STONE CASTILLO Primary Care Unavailable Dr. Stone Castillo DO Primary Care Provider Dr. Manny Kemp MD Attending Provider Dr. Stone Castillo DO Referring Provider Katerine Whelan Attending Provider Unavailable Lester Denny Attending Provider Manny Kemp Attending Unavailable Stone Castillo Primary Care Unavailable Ross Kenney Attending Unavailable Stone Castillo Primary Care Unavailable Vin Cazares NP Attending Unavailable Stone Castillo Primary Care Unavailable Lester Larios Attending Unavailable Castillo, Stone Referring Unavailable Castillo, Stone Primary Care Unavailable Roof ADDING MACHINE OPERATOR, Vin H Attending Unavailable Roof ADDING MACHINE OPERATOR, Vin H Referring Unavailable Castillo, Stone Primary Care Unavailable Demiter, Lester Attending Unavailable Demiter, Lester Referring Unavailable Castillo, Stone Primary Care Unavailable Roof ADDING MACHINE OPERATOR, Vin H Attending Unavailable Roof ADDING MACHINE OPERATOR, Vin H Referring Unavailable Castillo, Stone Primary Care Unavailable Mak ADDING MACHINE OPERATOR, Julee Attending Unavailable Castillo, Stone Referring Unavailable Castillo, Stone Primary Care Unavailable Ross Kenney Attending Unavailable Castillo, Stone Referring Unavailable Castillo, Stone Primary Care Unavailable Viridiana, Cleveland Attending Unavailable Castillo, Stone Primary Care Unavailable Castillo, Stone Referring Unavailable Castillo, Stone Primary Care Unavailable Viridiana, Manny Attending Unavailable Demiter, Lester Attending Unavailable Castillo, Stone Referring Unavailable Castillo, Stone Primary Care Unavailable Viridiana, Cleveland Attending Unavailable Castillo, Stone Primary Care Unavailable Allergies Allergy Classification Reported Allergen(s) Allergy Type Date of Onset Reaction(s) Facility (20 sources) Adhesive agent; Translations: [ADHESIVE] Propensity to adverse reactions to drug (disorder) 6 Rash, Itching [facility] Other [facility] (8 sources) *ADHESIVE TAPE Propensity to adverse reactions 6 Itching, Rash [facility] Work Phone: (20 sources) ceFAZolin; Translations: [CEFAZOLIN] Drug Allergy 0 Anaphylaxis, Angioedema [facility] Work Phone: (20 sources) FLUoxetine; Translations: [FLUOXETINE] Drug Allergy 9 Other: See Comments [facility] Work Phone: (20 sources) Sertraline; Translations: [SERTRALINE] Drug Allergy 9 Rash [facility] Work Phone: (1 source) ceFAZolin Drug Allergy 5 [facility] Repository (1 source) FLUoxetine Drug Allergy 5 [facility] Repository (1 source) Sertraline Drug Allergy 5 [facility] Repository Medications Current Medications Medication Drug Class(es) Dates Sig (Normalized) Sig (Original) ascorbic acid 500 mg oral tablet (20 sources) Vitamin C Start: 03-20-2021 take 1 g by mouth once daily Ascorbic Acid (Vitamin C) Active 1 GM PO DAILY March 20, 2021 11:39am Start: 12-29-2019 End: 03-20-2021 take 1 g by mouth once daily Ascorbic Acid (Vitamin C) 500 mg tablet Active 1 g PO DAILY March 20, 2021 11:39am take 1 tablet by mouth once darian y Ascorbic Acid 1,000 mg tablet Take 1,000 mg by mouth once daily. Active Comment on above: Take 1,000 mg by dunia th once daily. docosahexaenoic acid 1000 mg / omega-3 acid ethyl esters (mcfp) 300 mg delayed release oral capsule (6 sources) Fish Oil [address] (2 sources) furosemide 20 mg oral tablet (20 sources) Loop Diuretic Start: take 1 tablet by mouth once daily as needed for edema Furosemide 20 mg tablet Active 20 mg PO DAILY 90 March 23, 2025 2:14pm edema May take addition 20mg PRN for edema and SOB; Start: 03-19-2021 End: 03-23-2025 take 1 tablet by mouth once daily as needed for edema Furosemide 40 mg tablet Discontinued 40 mg PO DAILY 90 October 22, 2024 4:49pm March 23, 2025 2:15pm edema May take 1 tab PRN for edema and SOB; Comment on above: Take 40 mg by mouth once daily. for swelling or SOB as needed hydrOXYzine hydrochloride 50 mg oral tablet (20 sources) Antihistamine Start: 05-07-20 take 1 tablet by mouth once daily hydrOXYzine HCl (ATARAX) 50 mg tablet Take 1 tablet by mouth once daily. 05/07/2023 Active Start: 04-04-2022 Hydroxyzine Pa moate 25 mg capsule Active 50 mg PO AT BEDTIME as needed for Anxiety April 04, 2022 2:28pm Start: 04-04-2022 take 50 mg by mouth at bedtime Hydroxyzine Pamoate Active 50 MG PO AT BEDTIME April 04, 2022 2:28pm Start: 03-20-2021 End: 04-04-2022 take 1 capsule by mouth at bedtime as needed for anxiety Hydroxyzine Pamoate 25 mg capsule Discontinued 25 mg PO AT BEDTIME as needed for Anxiety March 20, 2021 12:00am April 04, 2022 2:28pm Comment on above: Take 25 mg by mouth three times daily as needed. Take 50 mg by mouth three times daily as needed. Take 1 tablet by dunia th once daily. lamoTRIgine 200 mg oral tablet (20 sources) Mood Stabilizer, Anti-epileptic Agent Start: 05-17-2020 take 1 tablet by mouth once daily Lamotrigine 200 mg tablet Active 200 mg PO DAILY May 17, 2020 12:00am Start: 12-31-2019 End: 05-17-2020 take 2 tablets by mouth once daily Lamotrigine (Lamictal) 25 mg tablet Discontinued 50 mg PO DAILY December 31, 2019 12:00am May 17, 2020 9:28am Comment on above: Take 200 mg by mouth daily at bedtime. meloxicam 15 mg oral tablet (1 source) Nonsteroidal Anti-inflammatory Drug Start: 3 End: 3 take 1 tablet by mouth once daily meloxicam (MOBIC) 15 mg tablet Take 1 tablet by mouth once daily. 30 tablet 0 06/02/2023 07/02/2023 Active Comment on above: Take 1 tablet by dunia th once daily. Multivitamin preparation (4 sources) Start: 0 take 1 tablet by mouth once daily Multivitamin Active 1 TABLET PO DAILY December 31, 2019 3:39pm Start: 12-31-2019 take 1 tablet by dunia th once daily Multivitamin Active 1 TABLET PO DAILY December 31, 2019 12:00am Multivitamin tablet (3 sources) Start: 12-31-2019 Multivitamin tablet Active 1 {tbl} PO DAILY December 31, 2019 12:00am nirmatrelvir tablet 300 mg (150 mg x 2) and ritonavir tablet 100 mg in a dose pack (PAXLOVID) (1 source) Start: 04-25-2022 End: 04-30-2022 nirmatrelvir tablet 300 mg (150 mg x 2) and ritonavir tablet 100 mg in a dose pack (PAXLOVID) Indications: COVID Administer TWO pink nirmatrelvir 150 mg tablets and ONE white ritonavir 100 mg tablet for a total of three tablets twice daily. 30 tablet 0 04/25/2022 04/30/2022 Active Comment on above: Administer TWO pink nirmatrelvir 150 mg tablets and ONE white ritonavir 100 mg tablet for a total of three tablets twice daily. [place]-3 Fatty Acids (Fish Oil Concentrate) 1,000 mg capsule (7 sources) Start: 03-20-2021 take 1 capsule by mouth once daily [place]-3 Fatty Acids (Fish Oil Concentrate) 1,000 mg capsule Active 1000 MG PO DAILY March 20, 2021 11:40am Start: 03-20-2021 take 1 capsule by [facility] once daily [place]-3 Fatty Acids (Fish Oil Concentrate) 1,000 mg capsule Active 1000 mg PO DAILY March 20, 2021 12:00am Start: 03-20-2021 take 1 capsule by [facility] once daily [place]-3 Fatty Acids (Fish Oil Concentrate) 1,000 mg capsule Active 1000 MG PO DAILY March 20, 2021 12:00am Gwmwn-1-YLY-EPA-Fish Oil 1,0 00 mg (120 mg-180 mg) cap (20 sources) take 1 capsule by mouth twice daily Gbzmh-3-YIU-EPA-Fish Oil 1,000 mg (120 mg-180 mg) cap Take 2 g by mouth twice daily. Active take 1 capsule by mouth twice da alex Bjkbs-4-EOO-EPA-Fish Oil 1,000 mg (120 mg- 180 mg) cap Take 2 g by mouth twice daily. 0 Active Comment on above: Take 2 g by mouth tw ice daily. omeprazole 20 mg delayed release oral capsule (20 sources) Proton Pump Inhibitor Start: 8 End: 5 take 1 capsule by mouth once daily Omeprazole 20 capsule,delayed release(DR/EC) Active 20 mg PO DAILY January 02, 2018 12:00am Comment on above: Take 1 capsule by [facility] daily before breakfast. 1/2 hr before meal. traMADol hydrochloride 50 mg oral tablet (3 sources) Opioid Agonist Start: 5 take 1 tablet by mouth at bedtime Tramadol 50 mg tablet Active 50 mg PO AT BEDTIME October 06, 2024 1:00am Completed/Discontinued Medications Medication Drug Class(es) Dates Sig (Normalized) Sig (Original) amiodarone hydrochloride 200 mg oral tablet (20 sources) Antiarrhythmic Start: 03-20-2021 End: 03-20-2021 take 1 tablet by mouth once daily Amiodarone 200 mg tablet Discontinued 200 mg PO DAILY March 20, 2021 12:00am March 20, 2021 11:43am Start: 08-17-2020 End: 11-16-2020 take 1 tablet by mouth once daily Amiodarone 200 mg tablet Discontinued 200 mg PO DAILY 30 August 17, 2020 5:25pm November 16, 2020 5:06pm Start: 06-27-2020 End: 08-17-2020 take 1 tablet by mouth three times daily Amiodarone 200 mg tablet Discontinued 200 mg PO THREE TIMES A DAY 90 June 27, 2020 9:09am August 17, 2020 5:25pm Comment on above: Take by mouth once d aily. aspirin 81 mg delayed release oral tablet (20 sources) Platelet Aggregation Inhibitor, Nonsteroidal Anti-inflammatory Drug Start: 05-16-2020 End: 02-20-2021 take 1 tablet by mouth once daily Aspirin 81 MG tablet,delayed release (DR/EC) Discontinued 81 mg PO DAILY June 20, 2020 4:08pm February 20, 2021 2:40pm Start: 04-19-2020 End: 06-20-2020 take 2 tablets by mouth once daily Aspirin 81 mg tablet,delayed release (DR/EC) Discontinued 162 mg PO DAILY 1 April 19, 2020 8:33am June 20, 2020 4:08pm Start: 04-19-2020 End: 06-20-2020 take 162 mg by mouth once daily Aspirin Discontinued 162 MG PO DAILY April 19, 2020 8:33am June 20, 2020 4:08pm Start: 12-31-2019 End: 04-19-2020 take 1 tablet by mouth once daily Aspirin 81 mg tablet,delayed release (DR/EC) Discontinued 81 mg PO DAILY 1 December 31, 2019 12:00am April 19, 2020 8:34am Comment on above: Take 1 tablet by dunia once daily. cholecalciferol 1.25 mg oral capsule (20 sources) Vitamin D Start: End: take 1 capsule by mouth every week cholecalciferol, Vitamin D3, (VITAMIN D3) 1,250 mcg (50,000 unit) cap capsule Take 1 capsule by mouth one time a week. 12 capsule 3 10/04/2020 12/08/2024 Discontinued Start: 07-20-2020 take 1 capsule by mo uth once daily Cholecalciferol, Vitamin D3, 50 mcg (2,000 unit) cap Indications: Vitamin D deficiency Take 1 capsule by mouth once daily. 90 capsule 3 07/20/2020 Active Start: 12-29-2019 take 1 capsule by mo uth once daily Cholecalciferol (Vitamin D3) 50 mcg (2,000 unit) capsule Active 50 ug PO DAILY December 29, 2019 12:00am Start: 08-13-2017 End: 12-29-2019 take 1 tablet by mouth once daily Cholecalciferol (Vitamin D3) 1,000 UNIT tablet Discontinued 1000 U PO DAILY August 13, 2017 1:00am December 29, 2019 9:13am Start: 12-30-2016 Vitamin D3 200 0 units Cap Take by mouth. 0 12/30/2016 Active Comment on above: Take 1 capsule by mo uth once daily. Take 1 capsule by mo uth one time a week. gabapentin 100 mg oral capsule (7 sources) Anti-epileptic Agent Start: 04-14-2020 End: 05-17-2020 take 2 tablets by mouth twice daily Gabapentin 100 mg tablet Discontinued 200 mg PO TWICE A DAY April 14, 2020 12:00am May 17, 2020 9:29am magnesium oxide 400 mg oral tablet (7 sources) Start: 04-14-2020 End: 05-17-2020 take 1 tablet by mouth once daily Magnesium Oxide 400 mg (241.3 mg magnesium) tablet Discontinued 400 mg PO DAILY April 14, 2020 12:00am May 17, 2020 9:29am metoprolol tartrate 50 mg oral tablet (20 sources) beta-Adrenergic Radha Start: 06-27-2020 End: 04-02-2024 take 1 tablet by mouth twice daily Metoprolol Tartrate 50 mg tablet Discontinued 50 mg PO TWICE A DAY 180 3 March 09, 2024 2:41pm April 02, 2024 4:20pm Start: 06-13-2020 End: 06-27-2020 take 1 tablet by mouth twice daily Metoprolol Tartrate 25 mg tablet Discontinued 25 mg PO TWICE A DAY 60 June 13, 2020 10:15am June 27, 2020 9:02am Start: 04-14-2020 End: 06-13-2020 Metoprolol Tartrate 25 mg ta blet Discontinued 12.5 mg PO TWICE A DAY April 14, 2020 12:00am June 13, 2020 10:15am Start: 04-14-2020 End: 06-13-2020 take 12.5 mg by mouth twice daily Metoprolol Tartrate Discontinued 12.5 MG PO TWICE A DAY April 14, 2020 12:00am June 13, 2020 10:15am Start: 05-13-2019 metoprolol suc cinate 50 MG tablet XL Indications: SVT (supraventricular tachycardia) 1/2 tab daily 15 tablet 11 05/13/2019 Active Start: 11-11-2018 End: 05-13-2019 take 1 tablet by mouth once daily metoprolol succinate 25 MG tablet XL Take 1 tablet by mouth daily. 30 tablet 11 11/11/2018 05/13/2019 Discontinued (Reorder) Start: 05-15-2018 End: 11-11-2018 take 0.5 tablet by mouth once daily metoprolol succinate 50 MG tablet XL Take 0.5 tablets by mouth daily. 15 tablet 11 05/15/2018 11/11/2018 Discontinued Start: 10-30-2015 End: 04-14-2020 Metoprolol Succinate 50 MG t ablet Discontinued 25 mg PO DAILY October 30, 2015 1:00am April 14, 2020 11:45am Start: 10-30-2015 End: 04-14-2020 take 25 mg by mouth once daily Metoprolol Succinate Di scontinued 25 MG PO DAILY October 30, 2015 1:00am April 14, 2020 11:45am Comment on above: Take 50 mg by mouth twice daily. MULTI-VITAMIN ORAL (20 sources) Start: 04-11-2020 End: 12-08-2024 take 1 tablet by mouth once daily MULTI-VITAMIN ORAL Take 1 tablet by mouth once daily. 04/11/2020 12/08/2024 Discontinued Start: 04-11-2020 take 1 tablet by dunia th once daily MULTI-VITAMIN ORAL Take 1 tablet by mouth once daily. 04/11/2020 Active Start: 04-11-2020 take 1 tablet by dunia th once daily MULTI-VITAMIN ORAL Take 1 tablet by mouth once daily. 0 04/11/2020 Active Comment on above: Take 1 tablet by dunia th once daily. [place]-3 Fatty Acids-Fish Oil (4 sources) Start: 01-02-2018 End: 04-14-2020 [place]-3 Fatty Acids-Fish Oil Discontinued 1 EACH PO DAILY January 02, 2018 8:47am April 14, 2020 11:47am Start: 01-02-2018 End: 04-14-2020 [place]-3 Fatty Acids-Fish Oil Discontinued 1 EACH PO DAILY January 02, 2018 12:00am April 14, 2020 11:47am [place]-3 Fatty Acids-Fish Oil 1 EACH capsule (3 sources) Start: 01-02-2018 End: 04-14-2020 [place]-3 Fatty Acids-Fish Oil 1 EACH capsule Discontinued 1 NMA PO DAILY January 02, 2018 12:00am April 14, 2020 11:47am Kunzt-7-RBI-EPA-Fish Oil (FISH OIL) 1,000 mg (120 mg-180 mg) cap (5 sources) take 1 capsule by mouth twice daily Vfohn-5-PTW-EPA-Fis h Oil (FISH OIL) 1,000 mg (120 mg-180 mg) cap Take 2 g by mouth twice daily. 0 Active Comment on above: Take 2 g by mouth tw ice daily. oxyCODONE hydrochloride 5 mg oral tablet (7 sources) Opioid Agonist Start: 04-14-2020 End: 05-17-2020 take 1 tablet by mouth every six hours as needed Oxycodone 5 mg tablet Discontinued 5 mg PO EVERY 6 HOURS as needed 0 April 14, 2020 12:00am May 17, 2020 9:29am polyethylene glycol 3350 76178 mg powder for oral solution (7 sources) Osmotic Laxative Start: 04-14-2020 End: 05-17-2020 Polyethylene Glycol 3350 (Miralax) 17 gram/dose powder Discontinued 17 g PO DAILY April 14, 2020 12:00am May 17, 2020 9:29am potassium chloride 20 meq extended release oral tablet (20 sources) Start: 06-23-2020 End: 04-02-2024 take 1 tablet by mouth once daily Potassium Chloride 20 mEq tablet extended release Discontinued 20 meq PO DAILY 90 3 May 27, 2023 10:40am April 02, 2024 4:20pm potassium chlori de (KLOR-CON) 20 mEq packet Take by mouth twice daily. Active Comment on above: Take by mouth twice daily. risperiDONE 2 mg oral tablet (20 sources) Atypical Antipsychotic Start: 12-29-19 End: 12-09-19 take 1 tablet by mouth at bedtime Risperidone 2 mg tablet Discontinued 2 mg PO AT BEDTIME October 08, 2022 1:00am October 06, 2024 2:56pm Comment on above: Take 2 mg by mouth d aily at bedtime. triamcinolone acetonide 1 mg/ml topical cream (19 sources) Corticosteroid Start: 05-06-20 End: 11-05-19 23 triamcinolone acetonide (KENALOG) 0.1 % cream Indications: Psoriasis Apply 1 application to affected area three times daily. For psoriasis skin patch, Apply sparingly to area for rash/itching. 453 g 0 05/06/2022 11/05/2022 Discontinued Comment on above: Apply 1 application to affected area three times daily. For psoriasis skin patch, Apply sparingly to area for rash/itching. Problems Active Problems Problem Classification Problem Date Documented Da te Episodic/Chronic Abdominal hernia (20 sources) Umbilical hernia; Translations: [Umbilical hernia without obstruction or gangrene] Onset: 4 07-23-2017 Episodic Acquired foot deformities (1 source) Talipes planus; Translations: [Flat foot [pes planus] (acquired), right foot] 06-02-2023 Episodic Adjustment disorders (20 sources) Reactive depression (situational); Translations: [Adjustment disorder with depressed mood] Onset: 1 01-03-2021 Chronic Aortic; peripheral; and visceral artery aneurysms (20 sources) Thoracic aortic ectasia; Translations: [Ascending aorta dilatation] Onset: 4 07-23-2017 Chronic Comment on above: 3.9 cm on recent [facility] [facility] done in May 2024. Cardiac and circulatory congenital anomalies (20 sources) Bicuspid aortic valve; Translations: [Congenital insufficiency of aortic valve] Onset: 4 07-23-2017 Chronic Cardiac dysrhythmias (20 sources) Supraventricular tachycardia; Translations: [Cardiac arrhythmia] Onset: 6 07-23-2017 Chronic Conduction disorders (20 sources) Left bundle branch block; Translations: [Heart block ] Onset: 6 Resolved: 0 07-23-2017 Chronic Deficiency and other anemia (4 sources) Iron deficiency anemia; Translations: [Other iron deficiency anemias] Episodic Disorders of lipid metabolism (20 sources) Dyslipidemia; Translations: [Hyperlipidemia, unspecified] Onset: 1 Chronic Esophageal disorders (20 sources) Gastroesophageal reflux disease without esophagitis; Translations: [Gastro-esophageal reflux disease without esophagitis] Onset: 1 01-03-2021 Chronic Essential hypertension (16 sources) Essential hypertension; Translations: [Essential (primary) hypertension] Onset: 9 05-13-2019 Chronic Heart valve disorders (20 sources) Aortic valve stenosis; Translations: [Aortic stenosis, non-rheumatic ] Onset: 4 05-15-2018 Chronic Comment on above: 23mm Inspiris Biopro sthesis @ [facility] by Dr. Bullard 04/04/20 Immunizations and screening for infectious disease (3 sources) Viral screening status; Translations: [Encounter for screening for other viral diseases] Episodic Nonspecific chest pain (15 sources) Atypical chest pain; Translations: [Chest pain] Onset: 9 11-11-2018 Episodic Nutritional deficiencies (20 sources) Vitamin D deficiency; Translations: [Vitamin D deficiency, unspecified] Onset: 7 07-23-2017 Chronic Osteoarthritis (1 source) Bilateral arthritis of subtalar joint; Translations: [Primary osteoarthritis, right ankle and foot] 06-02-2023 Chronic Other and ill-defined heart disease (2 sources) Cardiomegaly; Translations: [Cardiomegaly] Onset: 5 Chronic Other circulatory disease (20 sources) History of cardiovascular surgery; Translations: [Presence of other cardiac implants and grafts] Onset: 7 10-30-2016 Chronic Comment on above: Implant 10/23/16 Other connective tissue disease (1 source) Calcaneal spur; Translations: [Calcaneal spur, unspecified foot] 05-08-2023 Episodic Other connective tissue disease (1 source) Bilateral bone spur of calcaneum; Translations: [Calcaneal spur, right foot] 06-02-2023 Episodic Other gastrointestinal disorders (20 sources) Malabsorption - iron; Translations: [Intestinal malabsorption, unspecified] Onset: 2 Chronic Other inflammatory condition of skin (20 sources) Psoriasis; Translations: [Psoriasis, unspecified] Onset: 2 Chronic Other lower respiratory disease (9 sources) Dyspnea on exertion; Translations: [Dyspnea, unspecified] Onset: 8 03-20-2021 Episodic Other nervous system disorders (1 source) Carpal tunnel syndrome, right upper limb; Translations: [Carpal tunnel syndrome, right upper limb] Onset: 8 Chronic Other nervous system disorders (20 sources) Cerebral edema; Translations: [Cerebral edema] Onset: 6 07-23-2017 Chronic Other nervous system disorders (20 sources) Cerebral cysts; 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] Onset: 6 07-23-2017 Chronic Other nervous system disorders (20 sources) Bilateral carpal tunnel syndrome; Translations: [Carpal tunnel syndrome, bilateral upper limbs] Onset: 7 11-07-2016 Chronic Other nervous system disorders (20 sources) Carpal tunnel syndrome of right wrist; Translations: [Carpal tunnel syndrome, right upper limb] Onset: 8 04-15-2018 Chronic Other nervous system disorders (8 sources) Carpal tunnel syndrome, bilateral upper limbs; Translations: [Bilateral carpal tunnel syndrome] Onset: 7 07-23-2017 Other nutritional; endocrine; and metabolic disorders (8 sources) Body mass index 30+ - obesity; Translations: [Obesity (BMI 35.0-39.9 without comorbidity)] Onset: 6 07-23-2017 Chronic Other nutritional; endocrine; and metabolic disorders (20 sources) Morbid obesity; Translations: [Morbid (severe) obesity due to excess calories] Onset: 8 05-13-2019 Chronic Other nutritional; endocrine; and metabolic disorders (20 sources) Body mass index 40+ - severely obese; Translations: [Morbid (severe) obesity due to excess calories] Onset: 0 04-10-2020 Chronic Other screening for suspected conditions (not mental disorders or infectious disease) (10 sources) Other specified abnormal findings of blood chemistry; Translations: [Elevated liver function tests] Episodic Residual codes; unclassified (20 sources) Obstructive sleep apnea syndrome; Translations: [Obstructive sleep apnea (adult) (pediatric)] 04-13-2021 Chronic Residual codes; unclassified (7 sources) Hypersomnia; Translations: [Hypersomnia, unspecified] 03-20-2021 Chronic Residual codes; unclassified (1 source) Obstructive sleep apnea (adult) (pediatric); Translations: [Obstructive sleep apnea (adult)(pediatric)] Chronic Screening and history of mental health and substance abuse codes (1 source) Patient encounter status; Translations: [Encounter for screening examination for other mental health and behavioral disorders] 12-08-2024 Episodic Syncope (20 sources) Syncope and collapse; Translations: [Near syncope] Onset: 6 11-13-2017 Episodic Unclassified (2 sources) Breathing Problem; Translations: [Breathing Problem] Onset: 9 Unclassified (5 sources) Body mass index 40+ - severely obese; Translations: [Body mass index (BMI) greater than 40] Unclassified (1 source) Thoracic aortic aneurysm, without rupture, unspecified; Translations: [Thoracic aortic aneurysm, without rupture, unspecified] Onset: 4 Viral infection (6 sources) Disease caused by 2019-nCoV; Translations: [COVID-19] Episodic Past or Other Problems Problem Classification Problem Date Documented Date Episodic/Chronic Administrative/social admission (14 sources) Encounter for administrative examinations, unspecified; Translations: [Discharge status] Onset: 12-27-2016 Resolved: 05-20-2018 07-23-2017 Episodic Allergic reactions (6 sources) Anaphylaxis; Translations: [Anaphylactic shock, unspecified, initial encounter] Onset: 04-04-2020 Resolved: 04-10-2020 04-10-2020 Episodic Cardiac dysrhythmias (8 sources) Palpitations; Translations: [Bradycardia] Onset: 11-11-2018 Resolved: 04-10-2020 04-10-2020 Episodic Deficiency and other anemia (14 sources) Anemia; Translations: [Anemia, unspecified] Onset: 11-05-2022 Episodic Deficiency and other anemia (20 sources) Iron deficiency anemia secondary to inadequate dietary iron intake; Translations: [Other iron deficiency anemias] Onset: 06-12-2022 Episodic Deficiency and other anemia (1 source) Iron deficiency anemia, unspecified; Translations: [Iron deficiency anemia, unspecified iron deficiency anemia type] Onset: 06-20-2022 Episodic Diabetes mellitus without complication (20 sources) Hyperglycemia; Translations: [Hyperglycemia, unspecified] Onset: 05-07-2022 Episodic Diseases of white blood cells (6 sources) Leukocytosis; Translations: [Elevated white blood cell count, unspecified] Onset: 04-07-2020 Resolved: 04-10-2020 04-10-2020 Chronic Heart valve disorders (20 sources) Heart murmur; Translations: [Cardiac murmur, unspecified] Onset: 09-14-2013 07-23-2017 Episodic Malaise and fatigue (20 sources) Fatigue; Translations: [Other fatigue] Onset: 01-03-2021 01-03-2021 Episodic Other injuries and conditions due to external causes (6 sources) Angioedema; Translations: [Angioneurotic edema, initial encounter] Onset: 04-04-2020 Resolved: 04-10-2020 04-10-2020 Episodic Other lower respiratory disease (7 sources) Dyspnea; Translations: [Shortness of breath] Onset: 11-11-2018 11-11-2018 Episodic Other non-traumatic joint disorders (12 sources) Pain in right knee; Translations: [Pain in joint, lower leg] Onset: 05-05-2023 05-05-2023 Episodic Other non-traumatic joint disorders (12 sources) Ankle pain; Translations: [Pain in right ankle and joints of right foot] Onset: 05-05-2023 05-05-2023 Episodic Residual codes; unclassified (8 sources) History of cardiovascular surgery; Translations: [Status post placement of implantable loop recorder] Onset: 10-30-2016 07-23-2017 Episodic Residual codes; unclassified (6 sources) Personal history of other specified conditions; Translations: [History of syncope] Onset: 11-11-2018 11-11-2018 Episodic Residual codes; unclassified (6 sources) Noncompliance with treatment; Translations: [Noncompliance] Onset: 11-11-2018 11-11-2018 Episodic Residual codes; unclassified (2 sources) Edema; Translations: [Edema] Onset: 05-14-2018 Episodic Residual codes; unclassified (7 sources) History of cardiac catheterization; Translations: [Other specified postprocedural states] Onset: 01-07-2020 01-07-2020 Episodic Comment on above: Normal coronary lizett jessica. Aortic Valve Calcification- Severe. Aortic Root dilated. Risk factor modification. Surgery consult for valvular disease. 01/07/2020 per PFM @ [facility] Results Test Name Value Interpretation Reference Range Facility Pacemaker Checkon 03-23-2025 Pacemaker Check [facility] [address] [place] [address] Pacemaker Check Date of Service: 03/23/25 1630 MR#: [id number] Acct: [id number] Name: ERLINDA DE LEÓN Rep #: [id number] : 1975 From: Katerine Whelan Age/Sex: 49/M [place] [facility] [place]: Signed Billing Codes PM Device Codes: 20035 PM Dev Prog Eval, Dual Assessment and Plan Assessment and Plan (1) AV block, complete: Status: Acute (2) Presence of permanent cardiac pacemaker: Status: Chronic 03/23/25 163 Date Katerine Whelan Cosigner Signature: Date (if applicable) CC: Normal [facility] Pacemaker Check [facility] [place] [address] Pacemaker Check Date of Service: 03/23/25 1629 MR#: [id number] Acct: [id number] Name: ERLINDA DE LEÓNN Rep #: [id number] : 1975 From: Katerine Whelan Age/Sex: 49/M [place] [facility] [place] Status: Signed Billing Codes PM Device Codes: 67373 PM Dev Prog Eval, Dual Assessment and Plan Assessment and Plan (1) AV block, complete: Status: Acute (2) Presence of permanent cardiac pacemaker: Status: Chronic 03/23/25 1630 Date Katerine Whelan Cosigner Signature: Date (if applicable) CC: Normal [facility] CNOVon 12-08-2024 CNOV Office Visit (FAMPWS ) -- ERLINDA DE LEÓN ([id number]) 1975 M Date Time Provider Department 12/08/24 1:40 PM REECE MENDEZ During your visit today, we recorded the following information about you: Pulse Blood pressure Weight Height 73/minute 116/77 162.7 kg 1.83 m Reece Mendez APRN.PIPE FITTINGS MOLDER 12/08/2024 6:22 PM Signed Chief Complaint Patient presents with: Yearly Exam HPI Erlinda De León is a 49 year old male who presents here today for Above Complaints.. Heart history- well managed, Sees inside meter tester regularly Weight- Patient states that his inside meter tester recommended him to start taking a weight loss medication, patient asking if he can start taking Adipex Diet- eats whatever he can afford to eat Exercise- plans to start walking when the weather gets nicer Sleep apnea- Uses CPAP every night, benefiting from this GERD- Prolosec 20mg once daily- tolerating well, symptoms well-managed. Mood- States mood is good overall Past medical history, appointments, medications, allergies reviewed. Previous Medical History PAST MEDICAL HISTORY Diagnosis Date Aortic valve stenosis, severe Ascending aorta dilatation Bicuspid aortic valve Cerebral edema (HCC) CHB (complete heart block) (HCC) COVID-19 04/24/2022 Left bundle branch block Murmur JUANIS (obstructive sleep apnea) 04/2021 Sleep apnea Previous Surgical History PAST SURGICAL HISTORY Procedure Laterality Date CARDIAC CATH 01/07/2020 severe aortic valve calcification-Dr. Rodríguez EXCISION OF BRAIN TUMOR Left 2015 NEUROPLASTY AND/TRANSPOS MEDIAN NRV CARPAL TUNNE Right 05/27/2018 Right CTR PACEMAKER IMPLANT Left 04/07/2020 [employer] dual chamber pacemaker for CHB following AVR; Dr. Dewey at [facility] REMOVAL; CARDIAC LOOP RECORDER Left 04/07/2020 ILR removed at time of pacemaker implantation; Dr. Dewey at [facility] REPAIR UMBILICAL HERNIA 02/27/15 RPLCMT PROST AORTIC VALVE OPEN XCP HOMOGRF/STENT 04/04/2020 Aortic valve replacement with 23 mm Inspiris bioprosthesis. SHX AORTIC VALVE REPLACEMENT 04/04/2020 Family History FAMILY HISTORY Problem Relation Age of Onset Hypertension Mother Diabetes Mother other (heart murmur) Father other (Other) Son aortic stenosis Patient Allergies ALLERGIES Allergen Reactions Ancef [Cefazolin] Anaphylaxis, Angioedema Adhesive Rash, Itching Patient states when he wore Holter electrodes, he broke out in rash and itching Prozac [Fluoxetine] Other: See Comments Heart racing, shortness of breath Zoloft [Sertraline] Rash itching Current Medications Current Outpatient Medications on File Prior to Visit Medication Sig omeprazole (PRILOSEC) 20 mg capsule TAKE 1 CAPSULE BY MOUTH ONCE DAILY, 1/2 HOUR BEFORE BREAKFAST hydrOXYzine HCl (ATARAX) 50 mg tablet Take 1 tablet by mouth once daily. furosemide (LASIX) 40 mg tablet Take 40 mg by mouth once daily. for swelling or SOB as needed amiodarone (PACERONE) 200 mg tablet Take by mouth once daily. hydrOXYzine pamoate (VISTARIL) 25 mg capsule Take 50 mg by mouth three times daily as needed. potassium chloride (KLOR-CON) 20 mEq packet Take by mouth twice daily. Lvlpu-5-WKN-EPA-Fish Oil 1,000 mg (120 mg-180 mg) cap Take 2 g by mouth twice daily. Ascorbic Acid 1,000 mg tablet Take 1,000 mg by mouth once daily. Cholecalciferol, Vitamin D3, 50 mcg (2,000 unit) cap Take 1 capsule by mouth once daily. metoprolol tartrate, short acting, (LOPRESSOR) 50 mg tablet Take 50 mg by mouth twice daily. aspirin, enteric coated (ECOTRIN LOW STRENGTH) 81 mg EC tablet Take 1 tablet by mouth once daily. lamoTRIgine (LAMICTAL) 200 mg tablet Take 200 mg by mouth daily at bedtime. risperiDONE (RISPERDAL) 2 mg tablet Take 2 mg by mouth daily at bedtime. (Patient not taking: Reported on 06/02/2023) No current facility-administered medications on file prior to visit. Social History Social History Tobacco Use Smoking status: Never Smokeless tobacco: Never Vaping Use Vaping status: Never Used Substance Use Topics Alcohol use: No Drug use: No Review of Symptoms REVIEW OF SYSTEMS See HPI, otherwise negative EXAM: BP 116/77 (BP Site: Left Arm, BP Position: Sitting, BP Cuff Size: Large Adult) Pulse 73 Ht 183 cm (6' 0.05) Wt (!) 162.7 kg (358 lb 9.6 oz) SpO2 97% BMI 48.57 kg/m? General Appearance: Well appearing, alert, in no acute distress, well-hydrated, well nourished.. Ears: External ears normal, canals intact, moderate amount cerumen bilateral ear canals Oropharynx: Lips, mucosa, and tongue normal, teeth and gums normal, oropharynx normal. Neck: Supple, no adenopathy; thyroid symmetric, normal size, no bruits. Lungs: Lungs clear to auscultation. No wheezing, rhonchi, rales.. Heart: RRR without murmur, gallop, or rubs. No ectopy. Abdomen: Normal abdominal exam, Abdomen soft, non-tende (more content not included)... Normal [facility] 12-08-2024 [facility] Tele[facility] ([facility]) -- ERLINDA DE LEÓN ([id number]) 1975 M Date Time Provider Department 12/08/24 REECE MENDEZ During your visit today, we recorded the following information about you: Reece Mendez APRN.PIPE FITTINGS MOLDER 12/08/2024 6:09 PM Signed Patient sees Vin Cazares with [facility], states he was told to ask me for a weight loss pill, he states is Adipex. I suspect Vin does not want him to be on this with his extensive cardiac hx? Please check with him for me. Reece Mendez APRN.Earlene Melissa RN 12/09/2024 10:04 AM Signed Called and had to leave a msg for nurse Sloane at [facility]. Left detailed msg asking if provider there has recommended pt to take a weight loss medication. If provider has mentioned that to the patient and inside meter tester is okay with this, we would need documentation stating this from them. Priti Ignacio RN 12/09/2024 10:51 AM Signed Sloane with [facility] calls to report that there is no documentation in Dr. Kenney's recent notes that mentions weight loss medication and with patient's extensive cardiac history it would not be recommended. KAY Maciel Rebekah, APRN.PRADIP 12/09/2024 11:19 AM Signed Please let patient know this. Reece Mendez APRN.Peg Alarcon MA 12/09/2024 11:24 AM Signed Pt informed via [employer] message since active Peg Greene MA Allergies As of Date: 12/08/2024 Noted Allergy Reaction ANCEF (CEFAZOLIN) 04/04/2020 10 - Anaphylaxis 18 - Angioedema ADHESIVE 09/19/2015 2 - Rash 9 - Itching Comments: Patient states when he wore Holter electrodes, he broke out in rash and itching PROZAC (FLUOXETINE) 03/10/2019 14 - Other: See Comments Comments: Heart racing, shortness of breath ZOLOFT (SERTRALINE) 03/03/2019 2 - Rash Comments: itching Date Reviewed: 12/08/2024 Reviewed by: Peg Greene MA - Fully Assessed Reason for Visit: contact outside provider [Other] Cmt: re: weight loss med Prescriptions as of 12/09/2024 - omeprazole (PRILOSEC) 20 mg capsule TAKE 1 CAPSULE BY MOUTH ONCE DAILY, 1/2 HOUR BEFORE BREAKFAST - hydrOXYzine HCl (ATARAX) 50 mg tablet Take 1 tablet by mouth once daily. - furosemide (LASIX) 40 mg tablet Take 40 mg by mouth once daily. for swelling or SOB as needed - amiodarone (PACERONE) 200 mg tablet Take by mouth once daily. - hydrOXYzine pamoate (VISTARIL) 25 mg capsule Take 50 mg by mouth three times daily as needed. - potassium chloride (KLOR-CON) 20 mEq packet Take by mouth twice daily. - Tggid-7-BRH-EPA-Fish Oil 1,000 mg (120 mg-180 mg) cap Take 2 g by mouth twice daily. - Ascorbic Acid 1,000 mg tablet Take 1,000 mg by mouth once daily. - Cholecalciferol, Vitamin D3, 50 mcg (2,000 unit) cap Take 1 capsule by mouth once daily. - metoprolol tartrate, short acting, (LOPRESSOR) 50 mg tablet Take 50 mg by mouth twice daily. - aspirin, enteric coated (ECOTRIN LOW STRENGTH) 81 mg EC tablet Take 1 tablet by mouth once daily. - lamoTRIgine (LAMICTAL) 200 mg tablet Take 200 mg by mouth daily at bedtime. 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] 10/25/2015 Cerebral edema (HCC) [G93.6] 10/26/2015 Other specified heart block [I45.5] 11/21/2015 SVT (supraventricular tachycardia) (HCC) [I47.1*04/22/2016 Near syncope [R55] 04/22/2016 Status post placement of implantable loop recor*10/30/2016 Carpal tunnel syndrome, bilateral [G56.03] 11/07/2016 Discharge planning issues [Z75.8] 12/27/2016 05/20/2018 Preop testing [Z01.818] 12/27/2016 05/20/2018 Vitamin D deficiency [E55.9] 12/30/2016 Right carpal tunnel syndrome [G56.01] 04/15/2018 Morbid obesity (HCC) [E66.01] 05/20/2018 Angioedema [T78.3XXA] 04/04/2020 04/10/2020 Anaphylaxis [T78.2XXA] 04/04/2020 04/10/2020 Obesity, Class III, BMI >= 40 [E66.01] 04/05/2020 S/P AVR (aortic valve replacement) [Z95.2] 04/07/2020 Complete heart block (HCC) [I44.2] 04/07/2020 04/10/2020 Presence of cardiac pacemaker [Z95.0] 04/07/2020 Leukocytosis [D72.829] 04/07/2020 04/10/2020 Bradycardia [R00.1] 04/08/2020 04/10/2020 Aortic valve replaced [Z95.2] 05/09/2020 AV block, complete (HCC) [I44.2] 08/18/2020 Cardiac arrhythmia [I49.9] 08/20/2020 Situational depression [F43.21] 01/03/2021 GERD without esophagitis [K21.9] 01/03/2021 Fatigue [R53.83] 01/03/2021 Dyslipidemia [E78.5] 01/03/2021 JUANIS (obstructive sleep apnea) [G47.33] Psoriasis [L40.9] 05/07/2022 Hyperglycemia [R73.9] 05/07/2022 Iron deficiency anemia secondary to inadequate *06/12/2022 Iron malabso (more content not included)... Normal [facility] Cardiology Visit Reporton Cardiology Visit Report [facility] [address] [place] [address] OFFICE VISIT Date of Service: 10/06/24 MR#: [id number] Acct: [id number] Name: ERLINDA DE LEÓN Rep #: [id number] : 1975 Provider: Dr. Ross Kenney MD Age/Sex: 49/M Location: [facility] [place] Status: Signed HPI HPI History of Present Illness Details: This gentleman with history of bicuspid aortic valve status post aortic valve replacement with bioprosthetic valve, AV conduction block status post permanent pacemaker placement, hypertension and seizure disorder is here for follow-up visit. Denies any chest pains or shortness of breath. Denies orthopnea or PND. No ankle edema. Intake Vital Signs 04/02/24 15:50 10/06/24 08:32 Height 6 ft 2 in 6 ft 2 in Weight: 359 lb BMI 46.0 BP 122/78 H Blood Pressure Location Lt brachial Position Sitting Respiration 18 Pulse 79 Pulse Source NIBP Intake Visit Reasons: 6 M FU File Conversion Operator Required: No Accompanied by: Friend Is patient in pain?: No Allergies adhesive Allergy (Severe, Verified 10/06/24 13:52) Rash cefazolin (From Ancef) Allergy (Severe, Verified 10/06/24 13:52) Anaphylaxis, Angioedema sertraline (From Zoloft) Allergy (Severe, Verified 10/06/24 13:52) Itching fluoxetine (From Prozac) Adverse Reaction (Severe, Verified 10/06/24 13:52) Heart Racing, SOB Medications ???Medication ???Instructions ???Recorded ???Confirmed ???Type omeprazole 20 mg capsule,delayed 20 mg PO DAILY 01/02/18 10/06/24 History release cholecalciferol (vitamin D3) 50 50 mcg PO DAILY 12/29/19 10/06/24 History mcg (2,000 unit) capsule multivitamin 1 tab PO DAILY 12/31/19 10/06/24 History lamotrigine 200 mg tablet 200 mg PO DAILY 05/17/20 10/06/24 History aspirin 81 mg tablet,delayed 81 mg PO DAILY #90 tabs 02/20/21 10/06/24 Rx release ascorbic acid (vitamin C) 500 mg 1 g PO DAILY 03/20/21 04/02/24 History tablet omega-3 fatty acids 1,000 mg 1,000 mg PO DAILY 03/20/21 10/06/24 History capsule (Fish Oil Concentrate) hydroxyzine pamoate 25 mg capsule 50 mg PO QHS PRN Anxiety 04/04/22 10/06/24 History furosemide 40 mg tablet 40 mg PO DAILY edema #90 tabs 09/22/23 10/06/24 Rx metoprolol tartrate 50 mg tablet 50 mg PO BID #180 tabs 04/02/24 10/06/24 Rx potassium chloride 20 mEq 20 meq PO DAILY #90 tabs 04/02/24 10/06/24 Rx tablet,extended release tramadol 50 mg tablet 50 mg PO QHS 10/06/24 10/06/24 History Ejection fraction %: 65 Have you fallen in the past year?: Yes (none with major injury; related to snow/ice) [facility] Medical History Arrhythmia AV block, complete Bicuspid aortic valve Cerebral edema Dyslipidemia Elevated liver function tests Essential hypertension LBBB (left bundle branch block) Nonrheumatic aortic (valve) stenosis JUANIS on CPAP Presence of permanent cardiac pacemaker ( 04/07/20) Status post placement of implantable loop recorder ( 10/23/16) Syncope Thoracic aortic aneurysm without rupture Surgical History Brain tumor History of aortic valve replacement with bioprosthetic valve ( 04/04/20) History of carpal tunnel surgery History of left heart catheterization (01/07/20) History of umbilical hernia repair Family History Mother Hypertension Father Cardiac murmur Social History Smoking Status: Former smoker Tobacco: How many years used: 1 how long ago did patient quit smokin + years ago alcohol intake: never substance use type: does not use caffeine: Yes Type: carbonated beverages Number of servings: 2 ROS Const Const: Positive for fatigue; Negative for weakness, headache(s) or weight gain ENT ENT: Positive for dizziness (unsure if related to personal history of brain tumor per pt); Negative for headache(s), Nosebleed/epistaxis or balance problems Cardio Chest Pain: Yes (rare) Frequency: other (seldom) Character: sharp and dull Onset: at rest Location: left chest Duration: brief Palpitations: No Edema: Bilateral Muscle aches with walking: None Resp Respiratory: Positive for SOB with activity (chronic per pt); Negative for SOB at rest or SOB orthopnea SOB lying down GI GI: Negative nausea, vomiting or heartburn Musc Musc: Negative for muscle aches/ myalgia, muscle weakness, joint pain or balance problems Neuro Neuro: Positive for dizziness (unsure if related to personal history of brain tumor per pt) and lightheadedness (unsure if related to history of brain tumor); Negative for near syncope, syncope, headache(s) or weakness Endo Endo: Positive for fatigue Cardiology Exam Const Appea (more content not included)... Normal [facility] CTA Chest W/WO Contraston CTA Chest W/WO Contrast [facility] Imaging Services [address] [place] [address] CTA Chest W/WO Contrast MR#: [id number] Acct: [id number] Name: ERLINDA DE LEÓN Rep #: [id number] : 1975 M 49 From: Kalen lomas MD PCP: Dr. Stone Castillo, DO Status: REG CLI Study: CTA Chest W/WO Contrast Date of Exam: 05/26/24 Exam# [id number] Ordering Dr: Vin Cazares NP ADDING MACHINE OPERATOR-C [id number] STUDY: CTA CHEST REASON FOR EXAM: Male, 49 years old. Dilated Aorta RADIATION DOSAGE (If Supplied By Facility): CTDIvol = ( 20.97 ) mGy, DLP = ( 575.47 ) mGycm TECHNIQUE: The examination was performed with the intravenous administration of 100 CC ISOVUE 370. Post-processing of the angiographic images was performed, with multiplanar reformation and 3D reconstruction. Individualized dose optimization techniques were used for this CT. COMPARISON: Comparison is made with prior study June 20, 2020. FINDINGS: Normal enhancement of the main pulmonary artery and right and left pulmonary arteries. Normal enhancement of the bilateral peripheral pulmonary arteries. There is no demonstrated pulmonary embolism. Normal thoracic aorta and visualized great vessels. The root of the ascending thoracic aorta measures 30.7 mm. The ascending aorta at the junction with the aortic arch measures 3.9 cm. There is no demonstrated aortic dissection. Sternal cerclage wires and vascular clips are present from a prior sternotomy and coronary artery bypass graft procedure (CABG). Prior aortic valve replacement. Normal mediastinum. Normal hilar regions. Normal visualized trachea and bronchi. The lungs are well expanded. Normal pulmonary parenchyma. Normal pleura. Normal chest wall structures. Normal osseous structures. Normal visualized upper abdomen. CT/CTA Chest W/WO Contrast IMPRESSION: Stable examination. Electronically Signed: Kalen Bess MD at 14:15 EDT , CC: NEELA Cazares; Dr. Stone Castillo DO Payroll Analyst: Signed Normal [facility] Echo Completeon 05-03-2024 Echo Complete [facility] [address] [place] [address] Echo Complete 05/03/24 1116 MR#: [id number] Acct: [id number] Name: ERLINDA DE LEÓN Rep #: [id number] : 1975 49 From: Ross Kenney MD Attending Dr: Vin Cazares, NATALIYA-C Status: REG CLI Ordering Dr: Vin Cazares NP ADDING MACHINE OPERATOR-C Date: 05/03/24 Location: [facility] Sex: M C Admitted: Reason For Study: ENSURE AORTA IS STABLE Procedure This was a 2D Doppler, Color Flow transthoracic echocardiogram. The study was technically difficult. Definity deferred due to patient allergy. Exam performed in department. Left Ventricle Normal LV size. Moderate to severe LV concentric hypertrophy. The left ventricular ejection fraction is 65 %. Unable to assess diastolic function based on available data. Right Ventricle The right ventricle is not well visualized. Atria Normal left atrium. The right atrium is not well visualized. Mitral Valve Normal mitral valve. Tricuspid Valve The tricuspid valve is not well visualized. Aortic Valve The aortic valve is not well visualized in the short axis view. Bioprosthetic aortic valve mean peak gradient 13 mmHg which is only minimally elevated from previous study on 01/01/2022 when it was noted to be 10 mmHg. Pulmonic Valve The pulmonic valve is not well visualized. Great Vessels Aortic root normal in size. Ascending aorta not well-visualized. Recommend CT chest for further evaluation if clinically indicated. Pericardium/Pleural No pericardial effusion. MMode/2D Measurements Calculations LVIDd: 3.9 cm IVSd: 1.6 cm LVOT diam: 1.7 cm LVPWd: 1.7 cm LVOT area: 2.1 cm2 ___ Ao root diam: 3.6 cm LAV(MOD-sp4): 36.2 ml LA A4 area: 15.5 cm2 ___ LA dimension(2D): 3.1 cm Time Measurements MV dec time: 0.10 sec Doppler Measurements Calculations MV E max mickey: 73.6 cm/sec MV V2 max: 82.4 cm/sec MV dec slope: 710.8 cm/sec2 MV A max mickey: 85.1 cm/sec MV max P.7 mmHg MV E/A: 0.86 MV V2 mean: 58.9 cm/sec MV mean P.5 mmHg MV V2 VTI: 19.5 cm MVA(VTI): 3.0 cm2 ___ Ao V2 max: 276.6 cm/sec LV V1 max: 136.9 cm/sec SV(LVOT): 57.7 ml Ao max P.6 mmHg LV V1 max P.5 mmHg Ao V2 mean: 161.7 cm/sec LV V1 mean P.1 mmHg Ao mean P.1 mmHg LV V1 mean: 92.0 cm/sec Ao V2 VTI: 57.2 cm LV V1 VTI: 27.0 cm AV (velocity ratio): 0.47 HEATHER(I,D): 1.0 cm2 HEATHER(V,D): 1.1 cm2 ECHO/Echo Complete Interpretation Summary The study was technically difficult. Moderate to severe LV concentric hypertrophy. The left ventricular ejection fraction is 65 %. Bioprosthetic aortic valve mean peak gradient 13 mmHg which is only minimally elevated from previous study on 01/01/2022 when it was noted to be 10 mmHg. Aortic root normal in size. Ascending aorta not well-visualized. Recommend CT chest for further evaluation if clinically indicated. Ordering Physician: Vin Cazares Referring Physician: Vin Cazares Performed By: Michelle Rosenberg RCS 05/04/24 1000 Date Ross Kenney MD CC: NEELA Cazares; Dr. Stone Castillo, Date Dictated: 05/03/24 1116 Date Transcribed: 05/04/24 1000 Payroll Analyst: Signed [facility] XR Ankle - bilateral AP and Lateral and obliqueon 05-07-2023 IMPRESSION: No acute abnormalities seen in the bilateral ankles. Other findings as described above. Payroll Analyst: PSCB Transcribe Date/Time: May 07 2023 3:56P Dictated by : SELIN HUERTAS MD This examination was interpreted and the report reviewed and electronically signed by: SELIN HUERTAS MD on May 07 2023 3:59PM [facility] DIVISION OF RADIOLOGY * * *Final Report* * * DATE OF EXAM: May 05 2023 1:26PM WOX 5553 - XR ANKLE 3V AP/LAT/OBL NAEL / PROCEDURE REASON: multiple diagnoses * * * * Physician Interpretation * * * * EXAM TITLE: XR ANKLE 3V AP/LAT/OBL NAEL EXAM DATE/TIME: 05/05/2023 1:26 PM COMPARISON: None. CLINICAL INDICATION/HISTORY: Chronic ankle pain. TECHNIQUE: AP, mortise and lateral views of both ankles are presented. FINDINGS: No acute fractures or subluxations are noted. The mortise joint spaces are well preserved. No obvious osteophyte formation. Right-sided os trigonum is noted. Bilateral Achilles/calcaneal enthesopathy is visualized. No ankle joint effusion. The mineralization of the bones is normal. There is no significant soft tissue swelling. DIVISION OF RADIOLOGY Provider, [facility] - 05/07/2023 * * *Final Report* * * DATE OF EXAM: May 05 2023 1:26PM WOX 5553 - XR ANKLE 3V AP/LAT/OBL NAEL / PROCEDURE REASON: multiple diagnoses * * * * Physician Interpretation * * * * EXAM TITLE: XR ANKLE 3V AP/LAT/OBL NAEL EXAM DATE/TIME: 05/05/2023 1:26 PM COMPARISON: None. CLINICAL INDICATION/HISTORY: Chronic ankle pain. TECHNIQUE: AP, mortise and lateral views of both ankles are presented. FINDINGS: No acute fractures or subluxations are noted. The mortise joint spaces are well preserved. No obvious osteophyte formation. Right-sided os trigonum is noted. Bilateral Achilles/calcaneal enthesopathy is visualized. No ankle joint effusion. The mineralization of the bones is normal. There is no significant soft tissue swelling. IMPRESSION IMPRESSION: No acute abnormalities seen in the bilateral ankles. Other findings as described above. Payroll Analyst: NILDA Transcribe Date/Time: May 07 2023 3:56P Dictated by : SELIN HUERTAS MD This examination was interpreted and the report reviewed and electronically signed by: SELIN HUERTAS MD on May 07 2023 3:59PM [facility] XR Knee - bilateral 4 Viewso n 05-07-2023 IMPRESSION: Mild osteoarthritis. Payroll Analyst: NILDA Transcribe Date/Time: May 07 2023 8:30P Dictated by : TONI SCHAFFER MD This examination was interpreted and the report reviewed and electronically signed by: TONI SCHAFFER MD on May 07 2023 8:31PM EST DIVISION OF RADIOLOGY * * *Final Report* * * DATE OF EXAM: May 05 2023 1:26PM WOX 5618 - XR KNEE 4V AP/PA/LAT/MERCH NAEL / PROCEDURE REASON: multiple diagnoses * * * * Physician Interpretation * * * * XR KNEE 4V AP/PA/LAT/MERCH NAEL INDICATION: Chronic pain of both knees Chronic pain of both knees Chronic pain of both knees COMPARISON: No available comparisons. TECHNIQUE: XR KNEE 4V AP/PA/LAT/MERCH NAEL RESULT: Mild bilateral medial compartment joint space narrowing. No acute fracture or dislocation. Mild marginal osteophyte formation. No joint effusions. DIVISION OF RADIOLOGY Provider, [facility] - 05/07/2023 * * *Final Report* * * DATE OF EXAM: May 05 2023 1:26PM WOX 5618 - XR KNEE 4V AP/PA/LAT/MERCH NAEL / PROCEDURE REASON: multiple diagnoses * * * * Physician Interpretation * * * * XR KNEE 4V AP/PA/LAT/MERCH NAEL INDICATION: Chronic pain of both knees Chronic pain of both knees Chronic pain of both knees COMPARISON: No available comparisons. TECHNIQUE: XR KNEE 4V AP/PA/LAT/MERCH NAEL RESULT: Mild bilateral medial compartment joint space narrowing. No acute fracture or dislocation. Mild marginal osteophyte formation. No joint effusions. IMPRESSION IMPRESSION: Mild osteoarthritis. Payroll Analyst: PSCB Transcribe Date/Time: May 07 2023 8:30P Dictated by : TONI SCHAFFER MD This examination was interpreted and the report reviewed and electronically signed by: TONI SCHAFFER MD on May 07 2023 8:31PM EST [facility] XR Knee - bilateral 4 ViewsO rdered By: [facility] Provider on 05-07-2023 [facility] No Panel Informationon 05-05 Radiology Study observation (narrative) [facility] CNPElke 10-23-2022 [facility] Telephone ([facility] ) -- GENETERLINDA ([id number]) 1975 M Date Time Provider Department 10/23/22 YANNA GONZALEZ AGGASTACC During your visit today, we recorded the following information about you: Karely Pantoja 10/23/2022 10:31 AM Signed Spoke to the patient and he is aware that his procedure on 11/04/22 has been moved per his request to 06/16/23 09:30 am [facility] with . Karely Pantoja Allergies As of Date: 10/23/2022 Noted Allergy Reaction ANCEF (CEFAZOLIN) 04/04/2020 10 - Anaphylaxis 18 - Angioedema ADHESIVE 09/19/2015 2 - Rash 9 - Itching Comments: Patient states when he wore Holter electrodes, he broke out in rash and itching PROZAC (FLUOXETINE) 03/10/2019 14 - Other: See Comments Comments: Heart racing, shortness of breath ZOLOFT (SERTRALINE) 03/03/2019 2 - Rash Comments: itching Date Reviewed: 08/26/2022 Reviewed by: Corinne Fitzpatrick RN - Fully Assessed Reason for Visit: Procedure Changes [Other] Prescriptions as of 10/23/2022 - furosemide (LASIX) 40 mg tablet Take 40 mg by mouth once daily. for swelling or SOB as needed - triamcinolone acetonide (KENALOG) 0.1 % cream Apply 1 application to affected area three times daily. For psoriasis skin patch, Apply sparingly to area for rash/itching. - omeprazole (PRILOSEC) 20 mg capsule Take 1 capsule by mouth daily before breakfast. 1/2 hr before meal. - amiodarone (PACERONE) 200 mg tablet Take by mouth once daily. - hydrOXYzine pamoate (VISTARIL) 25 mg capsule Take 50 mg by mouth three times daily as needed. - potassium chloride (KLOR-CON) 20 mEq packet Take by mouth twice daily. - cholecalciferol, Vitamin D3, (VITAMIN D3) 1,250 mcg (50,000 unit) cap capsule Take 1 capsule by mouth one time a week. - Qqcsx-0-LTR-EPA-Fish Oil 1,000 mg (120 mg-180 mg) cap Take 2 g by mouth twice daily. - Ascorbic Acid 1,000 mg tablet Take 1,000 mg by mouth once daily. - Cholecalciferol, Vitamin D3, 50 mcg (2,000 unit) cap Take 1 capsule by mouth once daily. - metoprolol tartrate, short acting, (LOPRESSOR) 50 mg tablet Take 50 mg by mouth twice daily. - aspirin, enteric coated (ECOTRIN LOW STRENGTH) 81 mg EC tablet Take 1 tablet by mouth once daily. - lamoTRIgine (LAMICTAL) 200 mg tablet Take 200 mg by mouth daily at bedtime. - risperiDONE (RISPERDAL) 2 mg tablet Take 2 mg by mouth daily at bedtime. - MULTI-VITAMIN ORAL Take 1 tablet by mouth once daily. 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] 10/25/2015 Cerebral edema (HCC) [G93.6] 10/26/2015 Other specified heart block [I45.5] 11/21/2015 SVT (supraventricular tachycardia) (HCC) [I47.1]04/22/2016 Near syncope [R55] 04/22/2016 Status post placement of implantable loop recor*10/30/2016 Carpal tunnel syndrome, bilateral [G56.03] 11/07/2016 Discharge planning issues [Z02.9] 12/27/2016 05/20/2018 Preop testing [Z01.818] 12/27/2016 05/20/2018 Vitamin D deficiency [E55.9] 12/30/2016 Right carpal tunnel syndrome [G56.01] 04/15/2018 Morbid obesity (HCC) [E66.01] 05/20/2018 Angioedema [T78.3XXA] 04/04/2020 04/10/2020 Anaphylaxis [T78.2XXA] 04/04/2020 04/10/2020 Obesity, Class III, BMI >= 40 [E66.01] 04/05/2020 S/P AVR (aortic valve replacement) [Z95.2] 04/07/2020 Complete heart block (HCC) [I44.2] 04/07/2020 04/10/2020 Presence of cardiac pacemaker [Z95.0] 04/07/2020 Leukocytosis [D72.829] 04/07/2020 04/10/2020 Bradycardia [R00.1] 04/08/2020 04/10/2020 Aortic valve replaced [Z95.2] 05/09/2020 AV block, complete (HCC) [I44.2] 08/18/2020 Cardiac arrhythmia [I49.9] 08/20/2020 Situational depression [F43.21] 01/03/2021 GERD without esophagitis [K21.9] 01/03/2021 Fatigue [R53.83] 01/03/2021 Dyslipidemia [E78.5] 01/03/2021 JUANIS (obstructive sleep apnea) [G47.33] Psoriasis [L40.9] 05/07/2022 Hyperglycemia [R73.9] 05/07/2022 Iron deficiency anemia secondary to inadequate *06/12/2022 Iron malabsorption [K90.9] 06/12/2022 Encounter Status:Closed by KARELY PANTOJA on 10/23/22 [facility] CBC W Auto Differential pane l (Bld)on 07-08-2022 Basophils (Bld) [#/Vol] 0.08 10*3/uL <0.11 k/uL [facility] Basophils/100 WBC (Bld) 0.9 % [facility] Differential cell count method Nom (Bld) Auto [facility] Eosinophils (Bld) [#/Vol] 0.39 10*3/uL <0.46 k/uL [facility] Eosinophils/100 WBC (Bld) 4.5 % [facility] Erythrocyte distribution width (RBC) [Ratio] 22.2 % High 11.5 - 15.0 % [facility] Hematocrit (Bld) [Volume fraction] 36.8 % Low 39.0 - 51.0 % [facility] Hemoglobin (Bld) [Mass/Vol] 10.7 g/dL Low 13.0 - 17.0 g/dL [facility] Immature granulocytes (Bld) [#/Vol] 0.06 10*3/uL <0.10 k/uL [facility] Immature granulocytes/100 WBC (Bld) 0.7 % [facility] Lymphocytes (Bld) [#/Vol] 1.44 10*3/uL 1.00 - 4.00 k/uL [facility] Lymphocytes/100 WBC (Bld) 16.4 % [facility] MCH (RBC) [Entitic mass] 23.0 pg Low 26.0 - 34.0 pg [facility] MCHC (RBC) [Mass/Vol] 29.1 g/dL Low 30.5 - 36.0 g/dL [facility] MCV (RBC) [Entitic vol] 79.1 fL Low 80.0 - 100.0 fL [facility] Monocytes (Bld) [#/Vol] 0.56 10*3/uL <0.87 k/uL [facility] Monocytes/100 WBC (Bld) 6.4 % [facility] Neutrophils (Bld) [#/Vol] 6.23 10*3/uL 1.45 - 7.50 k/uL [facility] Neutrophils/100 WBC (Bld) 71.1 % [facility] Nucleated RBC (Bld) [#/Vol] <0.01 k/uL [facility] Nucleated RBC/100 WBC (Bld) [Ratio] 0.0 /100 WBC [facility] Platelet mean volume (Bld) [Entitic vol] 8.8 fL Low 9.0 - 12.7 fL [facility] Platelets (Bld) [#/Vol] 346 10*3/uL 150 - 400 k/uL [facility] RBC (Bld) [#/Vol] 4.65 10*6/uL 4.20 - 6.0 0 m/uL [facility] WBC (Bld) [#/Vol] 8.76 10*3/uL 3.70 - 11. 00 k/uL [facility] CNOVon 06-20-2022 CNOV Office Visit ([facility]) -- ERLINDA DE LEÓN ([id number]) 1975 M Date Time Provider Department 06/20/22 10:00 AM YANNA GONZALEZ During your visit today, we recorded the following information about you: Pulse Blood pressure Weight Height 79/minute 123/78 155.1 kg 1.88 m Yanna Gonzalez PA-C 06/20/2022 11:08 AM Signed GASTROENTEROLOGY OUTPATIENT NEW OFFICE VISIT CC: Patient presents with: Consult HPI: Erlinda De León is a 47 year old male who presents for Consult for anemia. He was coincidentally found to be anemic. He denies symptoms for anemia. He denies GI symptom as well. He has not had a colonoscopy. He is scheduled for an iron infusion next week. NSAID use: not permitted Unexplained weight loss: stable Take Blood thinners: aspirin, open heart surgery 04/04/20 pacemaker 04/06/20 Bowel Habits: regular bowel movements Fam Hx: negative for colon cancer Current Outpatient Medications Medication Sig furosemide (LASIX) 40 mg tablet Take 40 mg by mouth once daily. for swelling or SOB as needed triamcinolone acetonide (KENALOG) 0.1 % cream Apply 1 application to affected area three times daily. For psoriasis skin patch, Apply sparingly to area for rash/itching. omeprazole (PRILOSEC) 20 mg capsule Take 1 capsule by mouth daily before breakfast. 1/2 hr before meal. amiodarone (PACERONE) 200 mg tablet Take by mouth once daily. hydrOXYzine pamoate (VISTARIL) 25 mg capsule Take 50 mg by mouth three times daily as needed. potassium chloride (KLOR-CON) 20 mEq packet Take by mouth twice daily. cholecalciferol, Vitamin D3, (VITAMIN D3) 1,250 mcg (50,000 unit) cap capsule Take 1 capsule by mouth one time a week. Gtghw-2-UII-EPA-Fish Oil 1,000 mg (120 mg-180 mg) cap Take 2 g by mouth twice daily. Ascorbic Acid 1,000 mg tablet Take 1,000 mg by mouth once daily. Cholecalciferol, Vitamin D3, 50 mcg (2,000 unit) cap Take 1 capsule by mouth once daily. metoprolol tartrate, short acting, (LOPRESSOR) 50 mg tablet Take 50 mg by mouth twice daily. aspirin, enteric coated (ECOTRIN LOW STRENGTH) 81 mg EC tablet Take 1 tablet by mouth once daily. lamoTRIgine (LAMICTAL) 200 mg tablet Take 200 mg by mouth daily at bedtime. risperiDONE (RISPERDAL) 2 mg tablet Take 2 mg by mouth daily at bedtime. MULTI-VITAMIN ORAL Take 1 tablet by mouth once daily. No current facility-administered medications for this visit. PAST MEDICAL HISTORY Diagnosis Date Aortic valve stenosis, severe Ascending aorta dilatation (HCC) Bicuspid aortic valve Cerebral edema (HCC) CHB (complete heart block) (HCC) COVID-19 04/24/2022 Left bundle branch block Murmur JUANIS (obstructive sleep apnea) 04/2021 Sleep apnea PAST SURGICAL HISTORY Procedure Laterality Date CARDIAC CATH 01/07/2020 severe aortic valve calcification-Dr. Rodríguez EXCISION OF BRAIN TUMOR Left 2016 NEUROPLASTY AND/TRANSPOS MEDIAN NRV CARPAL TUNNE Right 05/27/2018 Right CTR PACEMAKER IMPLANT Left 04/07/2020 [employer] dual chamber pacemaker for CHB following AVR; Dr. Dewey at [facility] REMOVAL; CARDIAC LOOP RECORDER Left 04/07/2020 ILR removed at time of pacemaker implantation; Dr. Dewey at [facility] REPAIR UMBILICAL HERNIA 02/27/15 RPLCMT PROST AORTIC VALVE OPEN XCP HOMOGRF/STENT 04/04/2020 Aortic valve replacement with 23 mm Inspiris bioprosthesis. SHX AORTIC VALVE REPLACEMENT 04/04/2020 FAMILY HISTORY Problem Relation Age of Onset Hypertension Mother Diabetes Mother other (heart murmur) Father other (Other) Son aortic stenosis Social History Tobacco Use Smoking status: Never Smokeless tobacco: Never Vaping Use Vaping Use: Never used Substance Use Topics Alcohol use: No Drug use: No ALLERGIES Allergen Reactions Ancef [Cefazolin] Anaphylaxis, Angioedema Adhesive Rash, Itching Patient states when he wore Holter electrodes, he broke out in rash and itching Prozac [Fluoxetine] Other: See Comments Heart racing, shortness of breath Zoloft [Sertraline] Rash itching GI SPECIFIC ROS: Difficulty swallowing / foods sticking in throat: No Heartburn: No Hoarseness: No Chronic cough: No Regurgitation: No Chest pain: No Filling up quickly at meals: No Loss of appetite: No Nausea: No Vomiting: No Abdominal pain: No Recent change in bowel movements: No Bloody or black, bowel movements: No Constipation: No Diarrhea: No Loss of control of bowel movements: No Night sweats, fever, chills: No Vomiting blood: No Recent change in weight: No Review of Systems: PAIN ASSESSMENT: Negative for pain, history of chronic pain, or current treatment for a chronic pain condition. GENERAL: fatigue RESPIRATORY: Negative for cough, hemoptysis, wheezing, COPD, dyspnea or shortness of breath CARDIOVASCULAR: Shortness of breath, Chest pain GI: No nausea, vomiting, or diarrhea MUSCULO (more content not included)... Normal [facility] 06-20-2022 [facility] Telephone ([facility] ) -- ERLINDA DE LEÓN ([id number]) 1975 M Date Time Provider Department 06/20/22 CESAR FARLEY AGGCLARAACC During your visit today, we recorded the following information about you: Skye Devlin 06/20/2022 11:36 AM Signed Surgery Checklist Type: colon/egd Admission Type: outpatient Anesthesia: MAC Date: 11/04/2022 Arrival Time: 7:00am Surgery Time: 8:30am Location: [facility] Given colon/egd prep instruction at the time of appointment Skye Devlin Allergies As of Date: 06/20/2022 Noted Allergy Reaction ANCEF (CEFAZOLIN) 04/04/2020 10 - Anaphylaxis 18 - Angioedema ADHESIVE 09/19/2015 2 - Rash 9 - Itching Comments: Patient states when he wore Holter electrodes, he broke out in rash and itching PROZAC (FLUOXETINE) 03/10/2019 14 - Other: See Comments Comments: Heart racing, shortness of breath ZOLOFT (SERTRALINE) 03/03/2019 2 - Rash Comments: itching Date Reviewed: 06/20/2022 Reviewed by: Asiya Mejia MA - Fully Assessed Reason for Visit: Appointment [186] Prescriptions as of 06/20/2022 - furosemide (LASIX) 40 mg tablet Take 40 mg by mouth once daily. for swelling or SOB as needed - triamcinolone acetonide (KENALOG) 0.1 % cream Apply 1 application to affected area three times daily. For psoriasis skin patch, Apply sparingly to area for rash/itching. - omeprazole (PRILOSEC) 20 mg capsule Take 1 capsule by mouth daily before breakfast. 1/2 hr before meal. - amiodarone (PACERONE) 200 mg tablet Take by mouth once daily. - hydrOXYzine pamoate (VISTARIL) 25 mg capsule Take 50 mg by mouth three times daily as needed. - potassium chloride (KLOR-CON) 20 mEq packet Take by mouth twice daily. - cholecalciferol, Vitamin D3, (VITAMIN D3) 1,250 mcg (50,000 unit) cap capsule Take 1 capsule by mouth one time a week. - Qbesm-4-RJI-EPA-Fish Oil 1,000 mg (120 mg-180 mg) cap Take 2 g by mouth twice daily. - Ascorbic Acid 1,000 mg tablet Take 1,000 mg by mouth once daily. - Cholecalciferol, Vitamin D3, 50 mcg (2,000 unit) cap Take 1 capsule by mouth once daily. - metoprolol tartrate, short acting, (LOPRESSOR) 50 mg tablet Take 50 mg by mouth twice daily. - aspirin, enteric coated (ECOTRIN LOW STRENGTH) 81 mg EC tablet Take 1 tablet by mouth once daily. - lamoTRIgine (LAMICTAL) 200 mg tablet Take 200 mg by mouth daily at bedtime. - risperiDONE (RISPERDAL) 2 mg tablet Take 2 mg by mouth daily at bedtime. - MULTI-VITAMIN ORAL Take 1 tablet by mouth once daily. 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] 10/25/2015 Cerebral edema (HCC) [G93.6] 10/26/2015 Other specified heart block [I45.5] 11/21/2015 SVT (supraventricular tachycardia) (HCC) [I47.1]04/22/2016 Near syncope [R55] 04/22/2016 Status post placement of implantable loop recor*10/30/2016 Carpal tunnel syndrome, bilateral [G56.03] 11/07/2016 Discharge planning issues [Z02.9] 12/27/2016 05/20/2018 Preop testing [Z01.818] 12/27/2016 05/20/2018 Vitamin D deficiency [E55.9] 12/30/2016 Right carpal tunnel syndrome [G56.01] 04/15/2018 Morbid obesity (HCC) [E66.01] 05/20/2018 Angioedema [T78.3XXA] 04/04/2020 04/10/2020 Anaphylaxis [T78.2XXA] 04/04/2020 04/10/2020 Obesity, Class III, BMI >= 40 [E66.01] 04/05/2020 S/P AVR (aortic valve replacement) [Z95.2] 04/07/2020 Complete heart block (HCC) [I44.2] 04/07/2020 04/10/2020 Presence of cardiac pacemaker [Z95.0] 04/07/2020 Leukocytosis [D72.829] 04/07/2020 04/10/2020 Bradycardia [R00.1] 04/08/2020 04/10/2020 Aortic valve replaced [Z95.2] 05/09/2020 AV block, complete (HCC) [I44.2] 08/18/2020 Cardiac arrhythmia [I49.9] 08/20/2020 Situational depression [F43.21] 01/03/2021 GERD without esophagitis [K21.9] 01/03/2021 Fatigue [R53.83] 01/03/2021 Dyslipidemia [E78.5] 01/03/2021 JUANIS (obstructive sleep apnea) [G47.33] Psoriasis [L40.9] 05/07/2022 Hyperglycemia [R73.9] 05/07/2022 Iron deficiency anemia secondary to inadequate *06/12/2022 Iron malabsorption [K90.9] 06/12/2022 Encounter Status:Closed by SKYE DEVLIN on 06/20/22 Normal [facility] CBC W Auto Differential pane l (Bld)on 05-16-2022 Abs Immature Gran 0.12 k/uL High <0.10 k/uL [facility] Basophils (Bld) [#/Vol] 0.06 10*3/uL <0.11 k/uL [facility] Basophils/100 WBC (Bld) 0.6 % [facility] Differential cell count method Nom (Bld) Auto [facility] Eosinophils (Bld) [#/Vol] 0.41 10*3/uL <0.46 k/uL [facility] Eosinophils/100 WBC (Bld) 4.2 % [facility] Erythrocyte distribution width (RBC) [Ratio] 14.6 % 11.5 - 15.0 % [facility] Hematocrit (Bld) [Volume fraction] 30.6 % Low 39.0 - 51.0 % [facility] Hemoglobin (Bld) [Mass/Vol] 9.1 g/dL Low 13.0 - 17.0 g/dL [facility] Immature Gran % 1.2 % [facility] Lymphocytes (Bld) [#/Vol] 1.71 10*3/uL 1.00 - 4.00 k/uL [facility] Lymphocytes/100 WBC (Bld) 17.4 % [facility] MCH (RBC) [Entitic mass] 24.9 pg Low 26.0 - 34.0 pg [facility] MCHC (RBC) [Mass/Vol] 29.7 g/dL Low 30.5 - 36.0 g/dL [facility] MCV (RBC) [Entitic vol] 83.8 fL 80.0 - 100.0 fL [facility] Monocytes (Bld) [#/Vol] 0.61 10*3/uL <0.87 k/uL [facility] Monocytes/100 WBC (Bld) 6.2 % [facility] Neutrophils (Bld) [#/Vol] 6.91 10*3/uL 1.45 - 7.50 k/uL [facility] Neutrophils/100 WBC (Bld) 70.4 % [facility] Nucleated RBC (Bld) [#/Vol] 0.02 10*3/uL High <0.01 k/uL [facility] Nucleated RBC/100 WBC (Bld) [Ratio] 0.2 /100 WBC [facility] Platelet mean volume (Bld) [Entitic vol] 8.8 fL Low 9.0 - 12.7 fL [facility] Platelets (Bld) [#/Vol] 362 10*3/uL 150 - 400 k/uL [facility] RBC (Bld) [#/Vol] 3.65 10*6/uL Low 4.20 - 6.0 0 m/uL [facility] WBC (Bld) [#/Vol] 9.82 10*3/uL 3.70 - 11. 00 k/uL [facility] Iron measurement (mass/mass) on 05-16-2022 Iron (Unsp spec) [Mass/Mass] 18 ug/dL 65-175 [facility] Work Phone: No Panel Informationon 05-16 Total Iron Binding Capacity 372 ug/dL 250-450 [facility] Work Phone: Serum or plasma ferritin steven surement (mass/volume)on 05-16-2022 Ferritin [Mass/Vol] 19 ng/mL 26-388 [facility] Work Phone: Absolute lymphocyte counton 04-24-2022 Lymphocytes Auto (Unsp spec) [#/Vol] 0.73 10*3/uL 0.83-4.51 [facility] Work Phone: Basophil percentageon 2021 Basophils/100 WBC (Bld) 0.7 % 0-1 [facility] Work Phone: Bilirubin [Mass/Vol] 0.50 mg/dL 0.20-1.00 [facility] Work Phone: Comment on above: For patients on eltr ombopag therapy, use of Dimension [place] TBIL is not recommended. Chloride [Moles/Vol] 109 mmol/L 98-107 [facility] Work Phone: Eosinophils/100 WBC (Bld) 3.8 % 0-5 [facility] Work Phone: [phone] Glucose [Mass/Vol] 117 mg/dL 74-106 [facility] Work Phone: Comment on above: Fasting Glucose resu lt from 100 to 125 mg/dL suggests IMPAIRED HOMEOSTASIS per A.D.A. criteria. Neutrophils (Bld) [#/Vol] 7.8 10*3/uL 2.0-7.7 [facility] Work Phone: [phone] Neutrophils/100 WBC (Bld) 79.8 % 47-70 [facility] Work Phone: [phone] Potassium [Moles/Vol] 3.7 mmol/L 3.5-5.1 [facility] Work Phone: [phone] Protein [Mass/Vol] 7.2 g/dL 6.4-8.2 [facility] Work Phone: [phone] Sodium [Moles/Vol] 142 mmol/L 136-145 [facility] Work Phone: [phone] WBC (Bld) [#/Vol] 9.8 10*3/uL 4.4-11.0 [facility] Work Phone: [phone] Blood erythrocytes count (nu mber/volume)on 04-24-2022 RBC (Bld) [#/Vol] 3.74 10*6/uL 4.6-6.2 [facility] Work Phone: Blood hemoglobin measurement (mass/volume)on 04-24-2022 Hemoglobin (Bld) [Mass/Vol] 10.2 g/dL 13.0-16.5 [facility] Work Phone: [phone] Blood lymphocytes/100 leukoc yteson 04-24-2022 Lymphocytes/100 WBC (Bld) 7.5 % 19-41 [facility] Work Phone: Blood monocytes/100 leukocyt eson 04-24-2022 Monocytes/100 WBC (Bld) 7.7 % 0-10 [facility] Work Phone: Blood platelet mean volumeon 04-24-2022 Platelet mean volume (Bld) [Entitic vol] 8.5 fL 6.2-12.0 [facility] Work Phone: Determination of erythrocyte mean corpuscular volume (MCV)on 04-24-2022 MCV (RBC) [Entitic vol] 85.6 fL 80-94 [facility] Work Phone: Hematocrit Auto (Bld) [Volum e fraction]on 04-24-2022 Hematocrit (Bld) [Volume fraction] 32.0 % 40-54 [facility] Work Phone: Laboratory - Chemistry and C hemistry - challengeon 04-24-2022 ALP [Catalytic activity/Vol] 61 U/L 45-117 [facility] Work Phone: ALT [Catalytic activity/Vol] 27 U/L 16-61 [facility] Work Phone: CO2 [Moles/Vol] 27.0 mmol/L 21.0-32.0 [facility] Work Phone: Globulin (S) [Mass/Vol] 4.2 g/dL 2.2-4.2 [facility] Work Phone: Urea nitrogen/Creatinin e [Mass ratio] 9.2 mg/mg 10-20 [facility] Work Phone: Laboratory - Hematology and Cell countson 04-24-2022 Erythrocyte distribution width (RBC) [Entitic vol] 39.5 fL 35.1-43.9 [facility] Work Phone: Erythrocyte distribution width (RBC) [Ratio] 12.7 % 11.6-14.6 [facility] Work Phone: Immature granulocytes/100 WBC (Bld) 0.500 % 0.0-0.9 [facility] Work Phone: Comment on above: IG% - Immature Granu locytes (promyelocytes, myelocytes and metamyelocytes) > 1% indicates that a LEFT SHIFT is Present. MCH (RBC) [Entitic mass] 27.3 pg 27.0-32.0 [facility] Work Phone: Nucleated RBC/100 WBC (Bld) [Ratio] 0 % 0-5 [facility] Work Phone: MCHC Auto (RBC) [Mass/Vol]on 04-24-2022 MCHC (RBC) [Mass/Vol] 31.9 g/dL 32-36 [facility] Work Phone: No Panel Informationon 04-24 Estimated Creatinine Clearance Calc 99.50 ml/min [facility] Work Phone: Estimated GFR (MDRD) Amer 94 mL/min >60 [facility] Work Phone: Comment on above: GFR Calc Estimated GFR (MDRD) Non-Af Amer 78 mL/min >60 [facility] Work Phone: Comment on above: Non- GFR Calc Platelets bldon 04-24-2022 Platelets (Bld) [#/Vol] 334 10*3/uL 150-450 [facility] Work Phone: Serum or plasma albumin cate urement (mass/volume)on 04-24-2022 Albumin [Mass/Vol] 3.0 g/dL 3.2-5.0 [facility] Work Phone: Serum or plasma albumin/glob ulin mass ratioon 04-24-2022 Albumin/Globulin [Mass ratio] 0.7 {ratio} 0.9-2.4 [facility] Work Phone: Serum or plasma calcium cate urement (mass/volume)on 04-24-2022 Calcium [Mass/Vol] 8.6 mg/dL 8.5-10.1 [facility] Work Phone: Serum or plasma creatinine m easurement (mass/volume)on 04-24-2022 Creatinine [Mass/Vol] 1.09 mg/dL 0.70-1.30 [facility] Work Phone: Comment on above: The validity of the calculated GFR & GFRAA in patients over 70 years has not been determined. Clinical correlation is essential. Serum or plasma urea nitroge n measurement (mass/volume)on 04-24-2022 Urea nitrogen [Mass/Vol] 10 mg/dL 7-18 [facility] Work Phone: Thin prep Papanicolaou smear with manual screeningon 04-24-2022 Thin prep Papanicolaou smear with manual screening 16 U/L 15-37 [facility] Work Phone: Thin prep Papanicolaou smear with manual screening 6 5-15 [facility] Work Phone: Basophil percentageon 2021 Bilirubin [Mass/Vol] 0.50 mg/dL 0.20-1.00 [facility] Work Phone: Comment on above: For patients on eltr ombopag therapy, use of Dimension [place] TBIL is not recommended. Protein [Mass/Vol] 7.7 g/dL 6.4-8.2 [facility] Work Phone: Direct bilirubinon Bilirubin.direct [Mass/Vol] 0.18 mg/dL 0.00-0.30 [facility] Work Phone: Laboratory - Chemistry and C hemistry - challengeon 11-30-2021 ALP [Catalytic activity/Vol] 68 U/L 45-117 [facility] Work Phone: ALT [Catalytic activity/Vol] 56 U/L 16-61 [facility] Work Phone: Globulin (S) [Mass/Vol] 4.3 g/dL 2.2-4.2 [facility] Work Phone: Serum or plasma albumin cate urement (mass/volume)on 11-30-2021 Albumin [Mass/Vol] 3.4 g/dL 3.2-5.0 [facility] Work Phone: Thin prep Papanicolaou smear with manual screeningon 11-30-2021 Thin prep Papanicolaou smear with manual screening 31 U/L 15-37 [facility] Work Phone: Basophil percentageon 2021 Bilirubin [Mass/Vol] 0.60 mg/dL 0.20-1.00 [facility] Work Phone: Comment on above: For patients on eltr ombopag therapy, use of Dimension [place] TBIL is not recommended. Cholesterol [Mass/Vol] 159 mg/dL <200 [facility] Work Phone: Comment on above: <200 mg/dL Desirable 200-240 mg/dL Borderline >240 mg/dL High Risk Protein [Mass/Vol] 8.0 g/dL 6.4-8.2 [facility] Work Phone: Triglyceride [Mass/Vol] 143 mg/dL [facility] Work Phone: Comment on above: The drugs N-Acetylcy steine and Metamizole may falsely depress this assay.Serum Triglycerides Reference Interval Normal <150 mg/dL Borderline high 150 - 199 mg/dL High 200 - 499 mg/dL Very High > or = 500 mg/dL Direct bilirubinon 2 Bilirubin.direct [Mass/Vol] 0.17 mg/dL 0.00-0.30 [facility] Work Phone: Laboratory - Chemistry and C hemistry - challengeon 10-09-2021 ALP [Catalytic activity/Vol] 69 U/L 45-117 [facility] Work Phone: ALT [Catalytic activity/Vol] 69 U/L 16-61 [facility] Work Phone: Globulin (S) [Mass/Vol] 4.5 g/dL 2.2-4.2 [facility] Work Phone: Serum or plasma albumin cate urement (mass/volume)on 10-09-2021 Albumin [Mass/Vol] 3.5 g/dL 3.2-5.0 [facility] Work Phone: Serum or plasma cholesterol in HDL measurement (mass/volume)on 10-09-2021 Cholesterol in HDL [Mass/Vol] 36 mg/dL [facility] Work Phone: Comment on above: The drugs N-Acetylcy steine and Metamizole may falsely depress this assay. Reference Range HDL <40 mg/dL Low HDL Cholesterol HDL >or= 60 mg/dL High HDL Cholesterol Serum or plasma cholesterol in VLDL measurement (mass/volume)on 10-09-2021 Cholesterol in VLDL [Mass/Vol] 29 mg/dL 5-40 [facility] Work Phone: Serum or plasma low density lipoprotein (LDL) cholesterol measurement (mass/volume)on 10-09-2021 Cholesterol in LDL [Mass/Vol] 94 mg/dL 0-130 [facility] Work Phone: Thin prep Papanicolaou smear with manual screeningon 10-09-2021 Thin prep Papanicolaou smear with manual screening 41 U/L 15-37 [facility] Work Phone: XR Chest PA and Lateralon IMPRESSION: There is a patchy infiltrate in the right mid and lower lung suggesting infectious or inflammatory pneumonia. Recommend follow-up to clearing. Payroll Analyst: NILDA Transcribe Date/Time: May 25 2021 5:06P Dictated by : JEY PENNINGTON MD This examination was interpreted and the report reviewed and electronically signed by: JEY PENNINGTON MD on May 25 2021 5:08PM [facility] DIVISION OF RADIOLOGY * * *Final Report* * * DATE OF EXAM: May 25 2021 5:04PM WOX [id number] - XR CHEST 2V FRONTAL/LAT / PROCEDURE REASON: SOB (shortness of breath) * * * * Physician Interpretation * * * * EXAMINATION: CHEST RADIOGRAPH (2 VIEW FRONTAL & LATERAL) CLINICAL HISTORY: SOB (shortness of breath) MQ: XC2_6 EXAM DATE/TIME: 05/25/2021 5:04 PM COMPARISON: 05/16/2020 RESULT: Lines, tubes, and devices: Bipolar pacer remains in place and unchanged in position. Median sternotomy wires and plate and screw fixation is identified. Prosthetic heart valve. Lungs and pleura: There are patchy airspace opacities in the right mid and lower lung. Finding is nonspecific but may represent infectious or inflammatory pneumonia. Small focus of subsegmental atelectasis in the left lung base. No consolidation. No lung mass. No pleural effusion. No pneumothorax. Cardiomediastinal silhouette: Stable cardiomediastinal silhouette. Bones and soft tissues: Visualized portions of the bony thorax appear intact. DIVISION OF RADIOLOGY Provider, [facility] - 05/25/2021 * * *Final Report* * * DATE OF EXAM: May 25 2021 5:04PM WOX [id number] - XR CHEST 2V FRONTAL/LAT / PROCEDURE REASON: SOB (shortness of breath) * * * * Physician Interpretation * * * * EXAMINATION: CHEST RADIOGRAPH (2 VIEW FRONTAL & LATERAL) CLINICAL HISTORY: SOB (shortness of breath) MQ: XC2_6 EXAM DATE/TIME: 05/25/2021 5:04 PM COMPARISON: 05/16/2020 RESULT: Lines, tubes, and devices: Bipolar pacer remains in place and unchanged in position. Median sternotomy wires and plate and screw fixation is identified. Prosthetic heart valve. Lungs and pleura: There are patchy airspace opacities in the right mid and lower lung. Finding is nonspecific but may represent infectious or inflammatory pneumonia. Small focus of subsegmental atelectasis in the left lung base. No consolidation. No lung mass. No pleural effusion. No pneumothorax. Cardiomediastinal silhouette: Stable cardiomediastinal silhouette. Bones and soft tissues: Visualized portions of the bony thorax appear intact. IMPRESSION IMPRESSION: There is a patchy infiltrate in the right mid and lower lung suggesting infectious or inflammatory pneumonia. Recommend follow-up to clearing. Payroll Analyst: MADELAINEB Transcribe Date/Time: May 25 2021 5:06P Dictated by : JEY PENNINGTON MD This examination was interpreted and the report reviewed and electronically signed by: JEY PENNINGTON MD on May 25 2021 5:08PM [facility] Radiology Study observation (narrative) [facility] XR Chest PA and LateralOrder ed By: [facility] Provider on 05-25-2021 [facility] XR CHEST 2V FRONTAL/LATon XR CHEST 2V FRONTAL/LAT Final Report DATE OF EXAM: May 16 2020 11:57AM AKX [id number] - XR CHEST 2V FRONTAL/LAT / PROCEDURE REASON: multiple diagnoses Physician Interpretation EXAMINATION: CHEST RADIOGRAPH (2 VIEW FRONTAL & LATERAL) CLINICAL HISTORY: Aortic valve stenosis, severe Complete AV block (HCC) MQ: XC2_6 EXAM DATE/TIME: 05/16/2020 11:57 AM COMPARISON: 04/09/2020 RESULT: Lines, tubes, and devices: There is a stable appearing pacemaker. Sternotomy wires and prosthetic heart valve are noted. Lungs and pleura: There is continued asymmetric density at the left base suggesting a small pleural effusion. The lungs are otherwise clear of active infiltrates. Cardiomediastinal silhouette: Heart is not enlarged. Bones and soft tissues: Unremarkable. IMPRESSION: Small left pleural effusion. Payroll Analyst: NILDA Transcribe Date/Time: May 16 2020 12:51P Dictated by : LEV BURNETT MD This examination was interpreted and the report reviewed and electronically signed by: LEV BURNETT MD on May 16 2020 12:52PM EST Normal [facility] ANES Anup 05-27-2018 ANES POST HNO ID: [id number] thor: Mahsa Stephenservice: AnesthesiologyAuthor Type: AnesthesiologistType: Anesthesia PostOpFiled: 05/27/2018 11:22 AMNote Text:POST ANESTHESIA EVALUATION NOTESERVICE DATE: 05/27/2018SERVICE TIME: 11:22 AMDOB: 1975Vitals: 05/27/1809Temp: 36.8 ?C (98.2 ?F) 36.6 ?C (97.9 ?F) 05/27/1809BP: 124/83 104/62 104/52 103/55 05/27/1809Pulse: 86 92 88 84 05/27/1809Resp: 16 16 16 18 [id number]: 98% 94% 94% 96%Validated Vital Signs: YesPOST ANES STATUS: No apparent anesthetic complications. The patient isappropriately hydrated with stable respiratory and cardiovascular status.Patient has safe and adequate airway control. The patient has appropriatepain relief and no significant post operative nausea or vomiting. Thepatient has achieved baseline mental status.Intra-Operative Events: No Significant Anesthesia EventsFurther assessment by Anesthesia Service: NoneOther Remarks:SIGNATURE: Mahsa Palumbo MD PATIENT NAME: Erlinda MatthewsitDATE: May 27, 2018 : 11:22 AM PAGER/CONTACT #: [phone] [facility] ANES PREOPon 05-27-2018 ANES PREOP HNO ID: [id number] thor: Mahsa Stephenservice: AnesthesiologyAuthor Type: AnesthesiologistType: Anesthesia PreOpFiled: 05/27/2018 8:32 AMNote Text: ANESTHESIOLOGY DAY OF SURGERY NOTESERVICE DATE: 05/27/2018SERVICE TIME: 8:29 AMDOB: 1975Procedure(s) (LRB):DECOMPRESSION NERVE MEDIAN CARPAL TUNNEL (Right)Surgeon(s):David LesterEstimated body mass index is 41.21 kg/m? as calculated from the following: Height as of this encounter: 188 cm (6' 2). Weight as of this encounter: 145.6 kg (321 lb).Most recent hematocrit and potassium results:Hematocrit 44.9 10/28/2017Potassium 3.8 02/04/2018ANES DOS/PREOP NOTE:Vitals: 823BP: 124/83Pulse: 86Resp: 16Temp: 36.8 ?C (98.2 ?F)TempSrc: Temporal ArterySpO2: 98%Weight: (!) 145.6 kg (321 lb)Height: 188 cm (6' 2)ACTIVE PROBLEM LISTUmbilical HerniaUndiagnosed Cardiac MurmursAortic Valve Stenosis, SevereAscending Aorta Dilatation (Hcc)Bicuspid Aortic ValveLbbb (Left Bundle Branch Block)SyncopeEpidermoid Cyst of BrainCerebral Edema (Hcc)Other Specified Heart BlockSvt (Supraventricular Tachycardia) (Hcc)Near SyncopeStatus Post Placement of Implantable Loop RecorderCarpal Tunnel Syndrome, BilateralVitamin D DeficiencyRight Carpal Tunnel SyndromeMorbid Obesity (Hcc)PAST MEDICAL HISTORYDiagnosis Date- Aortic valve stenosis, severe- Ascending aorta dilatation (HCC)- Bicuspid aortic valve- Cerebral edema (HCC)- Left bundle branch blockPAST SURGICAL HISTORYProcedure Laterality Date- EXCISION OF BRAIN TUMOR- REPAIR UMBILICAL HERNIA 02/27/15FAMILY HISTORYProblem Relation Age of Onset- Hypertension Mother- Diabetes Mother- other (heart murmur) FatherSocial History:Social HistorySubstance Use Topics- Smoking status: Never Smoker- Smokeless tobacco: Never Used- Alcohol use NoNo current facility-administered medications on file prior to encounter.Current Outpatient Prescriptions on File Prior to Encounter:compr.stocking,k nee,long,large (COMP STOCKING,KNEE,LONG,LARGE) misc 1application once daily. Dispense 1 pairOmega-3 Fatty Acids (FISH OIL) 500 mg cap Take 1 capsule by mouth oncedaily.omeprazole (PRILOSEC) 20 mg capsule Take 1 capsule by mouth daily beforebreakfast. 1/2 hr before meal.Cholecalciferol, Vitamin D3, 2,000 unit cap Take 1 capsule by mouth oncedaily.metoprolol succinate ER (TOPROL XL) 50 mg 24 hr tablet Take 0.5 tablets bymouth once daily.Current Facility-Administered Medications:lactated ringers infusion 5-30 mL/hr INTRAVENOUS CONTINUOUS Yany (Pa)VetovitzceFAZolin 3 g in D5W 100 mL (ANCEF) 3 g INTRAVENOUS Pre-Op Once Yany(Pa) VetovitzAllergies:LUISANA Knight Reactions- Adhesive Rash, Itching Patient states when he wore Holter electrodes, he broke out in rash anditchingDOS EXAM: Adequate NPO Status: YesAnesthetic Risks, Benefits, Alternatives, Personnel and Consent Discussed:YesPatient agrees to proceed: YesPrevious Anesthesia: No history of adverse eventAirway Assessment: MP 3; Neck ROM: Full ROM without neurologic symptoms;Airway Evaluation: Short Neck, Thick neck and Small Mouth OpeningSymptoms of Sleep Apnea: Snoring, Hypertension, BMI > 35, Neckcircumference > 15.75 inches and Male genderDentition: Teeth intactAdditional Physical Exam:Lungs: Patient health status unchanged since recent history and physical.See history and physical for exam findings.Cardiac: Patient health status unchanged since recent history andphysical. See history and physical for exam findings.Additional Pertinent Findings: N/ABlood Products: Not anticipated for this procedureAnesthetic Plan: MAC with general as back upAnesthetic Monitoring: Standard ASA MonitorsPain Management Plan: Parenteral or OralASA Class: 4Other Medical Problems: Echo in 2016 shows aortic dilation of 4.2 cm ,being followed with CardiologyChronic Beta Radha medication administered within 24 hours: Yessy have interviewed and examined the patient. I have reviewed the medicalrecord and/or the pre-anesthesia evaluation, pertinent labs, and testresults.Significant changes in the patient's condition since the History andPhysical, not otherwise documented in primary service progress notes: NoThis contains updated information obtained within 48 hours ofSurgery/Procedure.SIGNAT URE: Mahsa Palumbo MD PATIENT NAME: Erlinda De LeónDATE: May 27, 2018 : 8:29 AM CSN: [id number] [facility] OPERATIVE NOon 05-27-2018 OPERATIVE NO HNO ID: [id number] thor: David LesterSerdenise: Orthopaedic SurgeryAuthor Type: PhysicianType: Operative ReportFiled: 05/27/2018 9:43 AMNote Text:[id number] [id number] [place]OPERATIVE REPORTNAME:Erlinda De León [id number]: May 27, 2018 AGE: 43 year oldSURGEON 1: David Lester M.D.OPERATION: Right carpal tunnel release, open.ANESTHESIA: MAC with local.PREOPERATIVE DIAGNOSIS: Right carpal tunnel syndrome.POSTOPERATIVE DIAGNOSIS: Right carpal tunnel syndrome.OPERATIVE INDICATIONS: This is a pleasant 43 year old male who hadworsening, numbness, and tingling. His electrodiagnostic showed Severecarpal tunnel syndrome. He exhausted conservative management and in theoffice, we discussed the risks, benefits, alternatives, and potentialcomplications involving carpal tunnel release and he wished to pursuesurgical intervention.OPERATIVE FINDINGS: Consistent with postoperative diagnosis.OPERATIVE PROCEDURE: On May 27, 2018, the patient was clearlyidentified in the preoperative area and marked accordingly on the Rightpalm by myself. He was taken to the operative suite and placed in thesupine position with an armboard on the Right. He received 3 g of Ancef inthe IV within 1 hour of incision or tourniquet. Anesthesia assumed care ofthe head and neck for the remainder of the case and began a MACanesthetic. All other bony landmarks were appropriately padded in standardfashion. The upper extremity had a well-padded upper brachium tourniquetapplied with Webril padding and set at 250 mmHg, but not yet inflated. Thearm was then sterilely prepped and draped in standard fashion. Anappropriate time-out was conducted and all in the room were in agreement,signed consent form was on the chart. The upper extremity wasexsanguinated with an Esmarch bandage and the tourniquet was applied at250 mmHg. Local anesthetic was provided at the palm and wrist with 1%lidocaine plain and 0.25% Marcaine plain in a 1:1 ratio for total of 4 mL.A longitudinal incision was made with in line with the third web spacefrom 1 cm distal of the wrist crease to Swann's cardinal line. I usedSenn Rakes to retract the soft tissues. Bipolar electrocautery was usedfor hemostasis. I bluntly dissected down with Littler scissors to distaledge of the transverse carpal ligament until a flash of fat was noted. Idirectly divided distal edge of the transverse carpal ligament with a #15blade. Attention was then focused on the proximal portion and I usedLittler scissors to bluntly dissect off the volar surface of thetransverse carpal ligament. A carpal tunnel and median nerve protectionguide was slid directly under the ligament for dilation and a second timefor appropriate positioning, this was passed freely without anyresistance. Subsequently, I selected a mini meniscotome [place] blade andslid this in the protective guide, completely dividing the transversecarpal ligament. Sulema rakes were used to view up the wound to visualizefor complete release and a Harper elevator was used to palpate for completerelease. At this point, the tourniquet was taken down and hemostasis wasobserved. The wound was copiously irrigated with normal saline and Iclosed with 3-0 nylons in horizontal mattress fashion for a total of 3.Xeroform gauze, sterile 4 x 4 gauze, Webril padding, and a Bias roll wasused for final bandage. There were no complications during the procedure.The patient was safely awoken and transferred to the Postanesthetic CareUnit in stable condition.Incision/Procedu re Start Time: 8:56 AMIncision Close/Procedure End Time: 9:20 AMESTIMATED BLOOD LOSS: None.DRAINS: NoneSPECIMENS: None.David Lester M.D. [facility] PT EDon 05-27-2018 PT ED HNO ID: [id number] thor: Becky PeñalozaRn) Sheldon Preciadoice: (none)Author Type: Registered NurseType: Patient EducationFiled: 05/27/2018 10:32 AMNote Text:POST OP LEARNING RESPONSEINSTRUCTION PROVIDED TO: Patient and family memberMETHOD OF INSTRUCTION: Written instruction - handoutsVerbal instructionPATIENT / FAMILY RESPONSE: Verbalizes understanding of: POST-OPERATIVEINSTRUCTIONS -Correct actions to take to reduce postoperative complicationsFOLLOW-UP PLAN: Complete - No need for follow-upPatient instructed to call with any further issuesSUPPLEMENTAL MATERIAL: NoneREFERRAL (RECOMMENDATION): NoneElectronically Signed By: Becky Preciado RN In Department[facility] PT ED HNO ID: [id number] thor: GABRIEL Velez Rnervice: NursingAuthor Type: Registered NurseType: Patient EducationFiled: 05/27/2018 8:32 AMNote Text:PRE OP LEARNING ASSESSMENTPROCEDURE/SURGER Y: SURGERY:READINESS TO LEARNCOGNITIVE ABILITY: Alert and orientedMOTIVATION TO LEARN: InterestedFAMILY SUPPORT: High - Very involved in pt carePATIENT LEARNS BEST BY: Verbal InstructionFACTORS AFFECTING LEARNING: NonePHYSICAL LIMITATIONS AFFECTING LEARNING: NoneElectronically Signed By: Avtar Patel RN In Department: [facility] NURSING PROGon 05-19-2018 Protein mass conc HNO ID: [id number] thor: GABRIEL Raphael Rnervice: NursingAuthor Type: Registered NurseType: Nursing Progress NoteFiled: 05/26/2018 10:12 AMNote Text:PACC Nurse Progress NoteHistory AND Physical:PACC Visit Date: 05/15/[id number] HANDP Date: 05/15/2018ED visit Date: N/AOutside HANDP Scanned Date: N/ALabs Within Last 6 Months:BMP/CMP: Date 02/04/2018 WNLImaging Within Last 12 Months:N/ACardiac Testing:EKG in last 12 Months: Yes: Date: 05/15/2018, Comment: results pendingStress Test Date: 10/28/2016 , Comment: normalHeart Cath Date: 11/28/2016, Comment: results in epicLOOP recorder/evaluation 03/17/2018 in epicLast Menstrual Period:LMP Date: N/APostmenopausal >1yr: N/A,S/P Hysterectomy: N/ABMI Percentile (PEDS):Weight 321#Risk Assessment:Cardiac Date: 05/14/[address] Watt- see OV under care everywhere(note from OV copied below)Assessment AND PlanKnown severe aortic stenosis with unremarkable coronary arteries more thanone and half years post cath. Exertional chest discomfort likely due tohis severe aortic stenosis. He will need repeat cardiac catheterizationprior to aortic valve replacement. He does not have overt left or rightheart failure today and may proceed with his carpal tunnel surgery with anelevated but not prohibitive risk. Continued emphasis on caloricrestriction and weight loss.Miguel Angel Watt, DO 05/14/2018 2:43 PMAnesthesia Review:N/ANarrative:N/APre -op Considerations:Dr. Watt's OV 05/14/2018 ( found under care everywhere ) for cardiacrisk assessmentAortic valve stenosis, severeAscending aorta dilatationLbbb (left bundle branch block)Bicuspid aortic valveLoop recorderHistory of SVTSyncope, unspecifiedStatus post placement of implantable loop recorderGERDs/p craniotomy for epidermoid cyst in 2016Obesity- weight 321#Chart Check:Completed- Final EKG 05/15/2018 results pending.GABRIEL Tobineptember 2017 10:49 AM05/26/18 10 am Final ekg result from 05/15/18, NSR, complete LBBB-pt withHX. Chart check complete KAY Horta [facility] HOSPon 04-15-2018 HOSP Patient:Rohit De León LMRN: Height:6' 2(1.88 m)Weight:321 lb (145.605 kg)Outpatient Medications as of 05/27/18:compr.stocking,kne e,long,large (COMP STOCKING,KNEE,LONG,LARGE) miscOmega-3 Fatty Acids (FISH OIL) 500 mg capomeprazole (PRILOSEC) 20 mg capsuleCholecalciferol, Vitamin D3, 2,000 unit capmetoprolol succinate ER (TOPROL XL) 50 mg 24 hr tabletAdmission/Clinic Administered Medications as of 05/27/18:lactated ringers infusionceFAZolin 3 g in D5W 100 mL (ANCEF)Problem List:Umbilical hernia [K42.9]Undiagnosed cardiac murmurs [R01.1]Aortic valve stenosis, severe [I35.0]Ascending aorta dilatation (HCC) [I77.810]Bicuspid aortic valve [Q23.1]LBBB (left bundle branch block) [I44.7]Syncope [R55]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]Cerebral edema (HCC) [G93.6]Other specified heart block [I45.5]SVT (supraventricular tachycardia) (HCC) [I47.1]Near syncope [R55]Status post placement of implantable loop recorder [Z95.818]Carpal tunnel syndrome, bilateral [G56.03]Vitamin D deficiency [E55.9]Right carpal tunnel syndrome [G56.01]Morbid obesity (HCC) [E66.01]Allergies:Adhesive Date Verified: 05/27/18Lab ValuesNo results within the last 30 days for the following basenames: K,HCTNo progress notes entered within the past 30 days [facility] No Panel Information SARS-CoV-2 & FLU Antigen (Rapid) SARS-CoV-2 (COVID 19) [facility] Work Phone: Vital Signs Date Time Vital Sign Value Performing Clinician Facility 03-23-2025 13:41-0400 Body height 187.[address] Stone Castillo DO Work Phone: [facility] 03-23-2025 13:41-0400 Body mass index (BMI) [Ratio] 45.1 kg/m2 Dr. Stone Castillo DO Work Phone: [facility] 03-23-2025 13:41-0400 Body weight 159.[address] Stone Castillo DO Work Phone: [facility] 03-23-2025 13:41-0400 Diastolic blood pressure 45 mm[Hg] Dr. Stone Castillo DO Work Phone: [facility] 03-23-2025 13:41-0400 Heart rate 72 /min Dr. Stone Castillo DO Work Phone: [facility] 03-23-2025 13:41-0400 Respiratory rate 18 /min Dr. Stone Castillo DO Work Phone: [facility] 03-23-2025 13:41-0400 Systolic blood pressure 109 mm[Hg] Dr. Stone Castillo DO Work Phone: [facility] 12-08-2024 13:34-0400 Body height 183 cm Reece Marga BONE COOKING OPERATOR.PIPE FITTINGS MOLDER Work Phone: [facility] 12-08-2024 13:34-0400 Body mass index (BMI) [Ratio] 48.57 kg/m2 Reececaity Mendez BONE COOKING OPERATOR.PIPE FITTINGS MOLDER Work Phone: [facility] 12-08-2024 13:34-0400 Body weight 162.66 kg Reece Mendez BONE COOKING OPERATOR.PIPE FITTINGS MOLDER Work Phone: [facility] 12-08-2024 13:34-0400 Diastolic blood pressure 77 mm[Hg] Reece Marga BONE COOKING OPERATOR.PIPE FITTINGS MOLDER Work Phone: [facility] Comment on above: bp machine 12-08-2024 13:34-0400 Heart rate 73 /min Reece Mendez BONE COOKING OPERATOR.PIPE FITTINGS MOLDER Work Phone: [facility] 12-08-2024 13:34-0400 SaO2% (BldA) [Mass fraction] 97 % Reece Mendez BONE COOKING OPERATOR.PIPE FITTINGS MOLDER Work Phone: [facility] 12-08-2024 13:34-0400 Systolic blood pressure 116 mm[Hg] Reece Mendez BONE COOKING OPERATOR.PIPE FITTINGS MOLDER Work Phone: [facility] Comment on above: bp machine 05-05-2023 12:24-0400 Body height 188 cm Stone Castillo DO Work Phone: [facility] 05-05-2023 12:24-0400 Body temperature 97 [degF] Stone Castillo DO Work Phone: [facility] 05-05-2023 12:24-0400 Body weight 155.58 kg Stone Castillo DO Work Phone: [facility] 05-05-2023 12:24-0400 Diastolic blood pressure 82 mm[Hg] Stone Castillo DO Work Phone: [facility] 05-05-2023 12:24-0400 Heart rate 64 /min Stone Castillo DO Work Phone: [facility] 05-05-2023 12:24-0400 Respiratory rate 20 /min Stone Castillo DO Work Phone: [facility] 05-05-2023 12:24-0400 Systolic blood pressure 126 mm[Hg] Stone Castillo DO Work Phone: [facility] 11-05-2022 13:34-0500 Body weight 157.85 kg Stone Castillo DO Work Phone: [facility] 11-05-2022 13:34-0500 Diastolic blood pressure 78 mm[Hg] Stone Castillo DO Work Phone: [facility] 11-05-2022 13:34-0500 Heart rate 89 /min Stone Castillo DO Work Phone: [facility] 11-05-2022 13:34-0500 Respiratory rate 18 /min Stone Castillo DO Work Phone: [facility] 11-05-2022 13:34-0500 SaO2% (BldA) [Mass fraction] 99 % Stone Castillo DO Work Phone: [facility] 11-05-2022 13:34-0500 Systolic blood pressure 112 mm[Hg] Stone Castillo DO Work Phone: [facility] 08-26-2022 15:28-0500 Body temperature 97 [degF] Treatment Wstr Work Phone: [facility] 08-26-2022 15:28-0500 Diastolic blood pressure 82 mm[Hg] Treatment Wstr Work Phone: [facility] 08-26-2022 15:28-0500 Respiratory rate 16 /min Treatment Wstr Work Phone: [facility] 08-26-2022 15:28-0500 Systolic blood pressure 124 mm[Hg] Treatment Wstr Work Phone: [facility] 08-20-2022 14:35-0500 Body temperature 97.5 [degF] Treatment Wstr Work Phone: [facility] 08-20-2022 14:35-0500 Diastolic blood pressure 72 mm[Hg] Treatment Wstr Work Phone: [facility] 08-20-2022 14:35-0500 Heart rate 88 /min Treatment Wstr Work Phone: [facility] 08-20-2022 14:35-0500 Systolic blood pressure 138 mm[Hg] Treatment Wstr Work Phone: [facility] 08-15-2022 14:38-0500 Body temperature 97.2 [degF] Treatment Wstr Work Phone: [facility] 08-15-2022 14:38-0500 Diastolic blood pressure 72 mm[Hg] Treatment Wstr Work Phone: [facility] 08-15-2022 14:38-0500 Heart rate 84 /min Treatment Wstr Work Phone: [facility] 08-15-2022 14:38-0500 Systolic blood pressure 136 mm[Hg] Treatment Wstr Work Phone: [facility] 07-01-2022 14:36-0400 Body temperature 97.7 [degF] Treatment Wstr Work Phone: [facility] 07-01-2022 14:36-0400 Diastolic blood pressure 61 mm[Hg] Treatment Wstr Work Phone: [facility] 07-01-2022 14:36-0400 Heart rate 71 /min Treatment Wstr Work Phone: [facility] 07-01-2022 14:36-0400 Respiratory rate 16 /min Treatment Wstr Work Phone: [facility] 07-01-2022 14:36-0400 Systolic blood pressure 125 mm[Hg] Treatment Wstr Work Phone: [facility] 06-27-2022 15:20-0400 Diastolic blood pressure 64 mm[Hg] Treatment Wstr Work Phone: [facility] 06-27-2022 15:20-0400 Heart rate 70 /min Treatment Wstr Work Phone: [facility] 06-27-2022 15:20-0400 Systolic blood pressure 109 mm[Hg] Treatment Wstr Work Phone: [facility] 06-27-2022 14:26-0400 Body temperature 97.3 [degF] Treatment Wstr Work Phone: [facility] 06-20-2022 10:17-0400 Body height 188 cm Yanna Talamantesis PA-C Work Phone: [facility] 06-20-2022 10:17-0400 Body weight 155.13 kg Yanna Talamantesis PA-C Work Phone: [facility] 06-20-2022 10:17-0400 Diastolic blood pressure 78 mm[Hg] Yanna Talamantesis PA-C Work Phone: [facility] 06-20-2022 10:17-0400 Heart rate 79 /min Yanna Gonzalez PA-C Work Phone: [facility] 06-20-2022 10:17-0400 Systolic blood pressure 123 mm[Hg] Yanna Gonzalez PA-C Work Phone: [facility] 06-07-2022 13:54-0400 Body temperature 97.5 [degF] Dr. Stone Castillo Work Phone: [facility] Work Phone: 06-07-2022 13:54-0400 Diastolic blood pressure 62 mm[Hg] Dr. Stone Castillo Work Phone: [facility] Work Phone: 06-07-2022 13:54-0400 Heart rate 76 /min Dr. Stone Castillo Work Phone: [facility] Work Phone: 06-07-2022 13:54-0400 Respiratory rate 16 /min Dr. tSone Castillo Work Phone: [facility] Work Phone: 06-07-2022 13:54-0400 SaO2% (BldA) [Mass fraction] 99 % Dr. Stone Castillo Work Phone: [facility] Work Phone: 06-07-2022 13:54-0400 Systolic blood pressure 105 mm[Hg] Dr. Stone Castillo Work Phone: [facility] Work Phone: 06-07-2022 09:12-0400 Body height 187.[address] Stone Castillo Work Phone: [facility] Work Phone: 06-07-2022 09:12-0400 Body mass index (BMI) [Ratio] 41.1 kg/m2 Dr. Stone Castillo Work Phone: [facility] Work Phone: 06-07-2022 09:12-0400 Body weight 145.[address] Stone Castillo Work Phone: [facility] Work Phone: 05-06-2022 12:00-0400 Body temperature 98.2 [degF] Stone Castillo DO Work Phone: [facility] 05-06-2022 12:00-0400 Body weight 151.5 kg Stone Castillo DO Work Phone: [facility] 05-06-2022 12:00-0400 Diastolic blood pressure 60 mm[Hg] Stone Castillo DO Work Phone: [facility] 05-06-2022 12:00-0400 Heart rate 76 /min Stone Castillo DO Work Phone: [facility] 05-06-2022 12:00-0400 Respiratory rate 24 /min Stone Chicasrison DO Work Phone: [facility] 05-06-2022 12:00-0400 Systolic blood pressure 116 mm[Hg] Stone Castillo DO Work Phone: [facility] 04-24-2022 16:14-0400 Heart rate 98 /min Dr. Stone Castillo Work Phone: [facility] Work Phone: 04-24-2022 16:14-0400 SaO2% (BldA) [Mass fraction] 99 % Dr. Stone Castillo Work Phone: [facility] Work Phone: 04-24-2022 15:38-0400 Body temperature 99.4 [degF] Dr. Stone Castillo Work Phone: [facility] Work Phone: 04-24-2022 15:38-0400 Diastolic blood pressure 79 mm[Hg] Dr. Stone Castillo Work Phone: [facility] Work Phone: 04-24-2022 15:38-0400 Respiratory rate 18 /min Dr. Stone Castillo Work Phone: [facility] Work Phone: 04-24-2022 15:38-0400 Systolic blood pressure 132 mm[Hg] Dr. Stone Castillo Work Phone: [facility] Work Phone: 04-24-2022 14:31-0400 Body height 187.[address] Stone Castillo Work Phone: [facility] Work Phone: 04-24-2022 14:31-0400 Body mass index (BMI) [Ratio] 45 kg/m2 Dr. Stone Castillo Work Phone: [facility] Work Phone: 04-24-2022 14:31-0400 Body weight 159.[address] Stone Castillo Work Phone: [facility] Work Phone: 04-04-2022 14:23-0400 Body mass index (BMI) [Ratio] 43.1 kg/m2 Dr. Stone Castillo Work Phone: [facility] Work Phone: 04-04-2022 14:23-0400 Body weight 152.[address] Stone Castillo Work Phone: [facility] Work Phone: 04-04-2022 14:23-0400 Diastolic blood pressure 68 mm[Hg] Dr. Stone Castillo Work Phone: [facility] Work Phone: 04-04-2022 14:23-0400 Heart rate 68 /min Dr. Stone Castillo Work Phone: [facility] Work Phone: 04-04-2022 14:23-0400 Respiratory rate 20 /min Dr. Stone Castillo Work Phone: [facility] Work Phone: 04-04-2022 14:23-0400 SaO2% (BldA) [Mass fraction] 97 % Dr. Stone Castillo Work Phone: [facility] Work Phone: 04-04-2022 14:23-0400 Systolic blood pressure 103 mm[Hg] Dr. Stone Castillo Work Phone: [facility] Work Phone: 10-03-2021 12:59-0500 Body height 187.[address] Stone Castillo Work Phone: [facility] Work Phone: 10-03-2021 12:59-0500 Body weight 153.[address] Stone Castillo Work Phone: [facility] Work Phone: 10-03-2021 12:59-0500 Diastolic blood pressure 68 mm[Hg] Dr. Stone Castillo Work Phone: [facility] Work Phone: 10-03-2021 12:59-0500 Heart rate 72 /min Dr. Stone Castillo Work Phone: [facility] Work Phone: 10-03-2021 12:59-0500 Respiratory rate 16 /min Dr. Stone Castillo Work Phone: [facility] Work Phone: 10-03-2021 12:59-0500 Systolic blood pressure 100 mm[Hg] Dr. Stoen Castillo Work Phone: [facility] Work Phone: 08-22-2021 04:47-0500 Body mass index (BMI) [Ratio] 43.6 kg/m2 Dr. Stone Castillo Work Phone: [facility] Work Phone: 08-22-2021 04:47-0500 Body temperature 97.3 [degF] Dr. Stone Castillo Work Phone: [facility] Work Phone: 08-22-2021 04:47-0500 Body weight 154.[address] Stone Castillo Work Phone: [facility] Work Phone: 08-22-2021 04:47-0500 Diastolic blood pressure 66 mm[Hg] Dr. Stone Castillo Work Phone: [facility] Work Phone: 08-22-2021 04:47-0500 Heart rate 66 /min Dr. Stone Castillo Work Phone: [facility] Work Phone: 08-22-2021 04:47-0500 Respiratory rate 18 /min Dr. Stone Castillo Work Phone: [facility] Work Phone: 08-22-2021 04:47-0500 SaO2% (BldA) [Mass fraction] 96 % Dr. Stone Castillo Work Phone: [facility] Work Phone: 08-22-2021 04:47-0500 Systolic blood pressure 98 mm[Hg] Dr. Stone Castillo Work Phone: [facility] Work Phone: 11-16-2020 14:50-0500 Body mass index (BMI) [Ratio] 42.2 kg/m2 Dr. Stone Castillo Work Phone: [facility] Work Phone: 05-13-2019 13:04-0400 BMI (Body Mass Index) 41.78 kg/m2 [facility] [employer] 05-13-2019 13:04-0400 Body weight 143.65 kg [facility] [employer] 05-13-2019 13:04-0400 BP Diastolic 80 mm[Hg] [facility] [employer] 05-13-2019 13:04-0400 BP Systolic 152 mm[Hg] [facility] [employer] 05-13-2019 13:04-0400 Height 185.4 cm [facility] [employer] 05-13-2019 13:04-0400 Pulse (Heart Rate) 81 /min [facility] 05-13-2019 13:04-0400 Pulse Oximetry 98 % [facility] 05-13-2019 13:04-0400 Respiratory Rate 16 /min [facility] 11-11-2018 13:13-0500 BP Diastolic 82 mm[Hg] [facility] 11-11-2018 13:13-0500 BP Systolic 110 mm[Hg] [facility] 11-11-2018 13:08-0500 BMI (Body Mass Index) 43.27 kg/m2 [facility] 11-11-2018 13:08-0500 Height 185.4 cm [facility] 11-11-2018 13:08-0500 Pulse (Heart Rate) 81 /min [facility] 11-11-2018 13:08-0500 Pulse Oximetry 98 % [facility] 11-11-2018 13:08-0500 Respiratory Rate 16 /min [facility] 11-11-2018 13:08-0500 Weight 148.78 kg [facility] Encounters Encounter Date Encounter Type Care Provider Facility Start: 04-06-2025 ambulatory [facility] Facility :[facility] Start: 04-05-2025 ambulatory [facility] Facility :[facility] Start: 03-23-2025 End: 03-23-[address] Stone Castillo DO Work Phone: -[facility] Start: 03-23-2025 End: 03-23-2025 Patient encounter procedure [facility] Work Phone: Start: 12-28-2024 End: 12-28-2024 ambulatory Manny Kemp Facility:[facility] Start: 12-28-2024 End: 12-28-[address] [facility] Work Phone: Start: 12-08-2024 End: 12-09-2024 Telephone encounter Reece Mendez APRN.CNP Work Phone: [facility] Comment on above: contact outside prov ider (re: weight loss med) Start: 12-08-2024 End: 12-08-2024 ambulatory REECE MENDEZ Facility:[facility] Start: 12-08-2024 End: 12-08-2024 Office outpatient visit 40 minutes Reece Marga BERG Work Phone: [facility] Comment on above: Well adult exam (Emerald bradford Dx); Dyslipidemia; Hyperglycemia; Obesity, Class III, BMI 40-49.9 (morbid obesity) ([facility]); Vitamin D deficiency; Screening for diabetes mellitus; Encounter for vitamin deficiency screening; Encounter for screening examination for other mental health and behavioral disorders Start: 12-08-2024 End: 12-08-2024 Patient encounter status Reece Mondragonutzman PIPE FITTINGS MOLDER Work Phone: [facility] Work Phone: Start: 11-14-2024 End: 11-15-2024 Refill Antonella Law APRN.PIPE FITTINGS MOLDER Work Phone: [facility] Comment on above: Refill Request Start: 10-06-2024 End: 10-06-2024 ambulatory Ross Pablito Facility:[facility] Start: 09-28-2024 End: 09-28-2024 ambulatory Manny Kemp Facility:[facility] Start: 08-25-2024 End: 08-25-2024 ambulatory Catarina Persaud MA [facility] Start: 08-25-2024 End: 08-25-2024 Patient encounter procedure Catarina Persaud [facility] Comment on above: Population Health [facility] Start: 08-18-2024 ambulatory Julee Mak ADDING MACHINE OPERATOR Fac ility:[facility] Start: 05-26-2024 ambulatory Vin Cazares ADDING MACHINE OPERATOR Facility :[facility] Start: 05-26-2024 End: 05-26-2024 ambulatory Vin H Sage ADDING MACHINE OPERATOR Facility:[facility] Start: 05-03-2024 ambulatory Ross Pablito Facility:[facility] Start: 05-03-2024 End: 05-03-2024 ambulatory Vin Cazares ADDING MACHINE OPERATOR Facility:[facility] Start: 11-27-2023 Refill Antonella Law APRN.PIPE FITTINGS MOLDER Work Phone: [facility] Comment on above: Refill Request Start: 06-02-2023 End: 06-02-2023 Patient encounter procedure Rajiv Ribeiro Work Phone: Podiatry Comment on above: Pes planus of both f eet (Primary Dx); Arthritis of both subtalar joints; Calcaneal spur of both feet Start: 05-07-2023 Telephone encounter Stone christensen DO Work Phone: [facility] Comment on above: Results Start: 05-05-2023 End: 05-05-2023 Subsequent hospital visit by physician Kin [facility] Work Phone: Radiology Comment on above: Chronic pain of both knees [M25.561, M25.562, G89.29] Start: 05-05-2023 End: 05-05-2023 Patient encounter procedure Stone Castillo DO Work Phone: [facility] Comment on above: Iron deficiency anem ia secondary to inadequate dietary iron intake (Primary Dx); Vitamin D deficiency; Other iron deficiency anemia; Dyslipidemia; Presence of cardiac pacemaker; Hyperglycemia; Fatigue, unspecified type; Chronic pain of both knees; Chronic pain of both ankles; Obesity, Class III, BMI 40-49.9 (morbid obesity) (HCC); Aortic valve replaced; JUANIS (obstructive sleep apnea); Psoriasis Start: 11-20-2022 Refill Antonella Law APRN.CNP Work Phone: [facility] Comment on above: Refill Request Start: 11-06-2022 Telephone encounter Stone christensen DO Work Phone: [facility] Comment on above: Results Start: 11-05-2022 End: 11-05-2022 Patient encounter procedure Stone Castillo DO Work Phone: [facility] Comment on above: Other iron deficienc y anemia (Primary Dx); Vitamin D deficiency; Dyslipidemia; Fatigue, unspecified type; Aortic valve replaced; Ascending aorta dilatation (HCC); Presence of cardiac pacemaker; JUANIS (obstructive sleep apnea) Start: 10-23-2022 Telephone encounter Yanna Gonzalez PA-C Work Phone: [facility] Comment on above: Procedure Changes Start: 10-08-2022 Orders Only Wilmer Oden Work Phone: Hematology/Oncology Comment on above: Iron deficiency anem ia secondary to inadequate dietary iron intake (Primary Dx); Iron malabsorption Start: 08-26-2022 End: 08-26-2022 ambulatory Treatment Rm 9 [facility] Work Phone: Hematology/Oncology Comment on above: Iron deficiency anem ia secondary to inadequate dietary iron intake (Primary Dx); Iron malabsorption Start: 08-20-2022 End: 08-20-2022 ambulatory Treatment Rm 2 Pac[facility] Work Phone: Hematology/Oncology Comment on above: Iron deficiency anem ia secondary to inadequate dietary iron intake (Primary Dx); Iron malabsorption Start: 08-15-2022 End: 08-15-2022 ambulatory Treatment Rm 4 [facility] Work Phone: Hematology/Oncology Comment on above: Iron deficiency anem ia secondary to inadequate dietary iron intake (Primary Dx); Iron malabsorption Start: 08-11-2022 Telephone encounter Wilmer daniel DO Work Phone: Hematology/Oncology Comment on above: Results (CBC and iro n results) Start: 08-08-2022 Orders Only Wilmer Oden Work Phone: Hematology/Oncology Comment on above: Iron deficiency anem ia secondary to inadequate dietary iron intake (Primary Dx); Iron malabsorption Start: 07-08-2022 End: 07-08-2022 ambulatory Treatment Rm 9 Pac[facility] Work Phone: Hematology/Oncology Comment on above: Iron deficiency anem ia secondary to inadequate dietary iron intake (Primary Dx); Iron malabsorption Start: 07-05-2022 Orders Only Wilmer Oden Work Phone: Hematology/Oncology Comment on above: Iron deficiency anem ia secondary to inadequate dietary iron intake (Primary Dx); Iron malabsorption Start: 07-01-2022 End: 07-01-2022 ambulatory Treatment Rm 3 Paco [facility] Work Phone: Hematology/Oncology Comment on above: Iron deficiency anem ia secondary to inadequate dietary iron intake (Primary Dx); Iron malabsorption Start: 06-27-2022 End: 06-27-2022 ambulatory Treatment Rm 6 Paco [facility] Work Phone: Hematology/Oncology Comment on above: Iron deficiency anem ia secondary to inadequate dietary iron intake (Primary Dx); Iron malabsorption Start: 06-20-2022 Telephone encounter Cesar gutierrez MD Work Phone: [facility] Comment on above: Appointment Start: 06-20-2022 End: 06-20-2022 ambulatory YANNA GONZALEZ Facility:[facility] Start: 06-20-2022 End: 06-20-2022 Patient encounter procedure Yanna Gonzalez PA-C Work Phone: [facility] Comment on above: Iron deficiency anem ia, unspecified iron deficiency anemia type (Primary Dx) Start: 06-17-2022 Telephone encounter Financial Navigator Paco Work Phone: Financial Services Comment on above: Benefits Investigati on Start: 06-12-2022 Telephone encounter Stone christensen DO Work Phone: [facility] Comment on above: Results Start: 06-07-2022 End: 06-07-[address] Stone Castillo Work Phone: [facility] Work Phone: Start: 06-07-2022 End: 06-07-[address] Stone Castillo Work Phone: [facility] Start: 06-05-2022 Telephone encounter Stone christensen DO Work Phone: [facility] Comment on above: Results Start: 05-16-2022 End: 05-16-[address] Stone Castillo Work Phone: [facility] Work Phone: Start: 05-16-2022 End: 05-16-[address] Stone Castillo Work Phone: [facility]-Laboratory, Specimen Start: 05-15-2022 Telephone encounter Stone christensen DO Work Phone: [facility] Comment on above: Orders Start: 05-06-2022 End: 05-06-2022 Patient encounter procedure Stone Castillo DO Work Phone: [facility] Comment on above: Dyslipidemia (Primar y Dx); Screening for colon cancer; Aortic valve replaced; Ascending aorta dilatation (HCC); Vitamin D deficiency; Obesity, Class III, BMI 40-49.9 (morbid obesity) (HCC); Fatigue, unspecified type; Hyperglycemia; Need for hepatitis C screening test; Need for hepatitis B screening test; Psoriasis; Screening for HIV (human immunodeficiency virus) Start: 04-25-2022 End: 04-25-2022 ambulatory Reece Mendez MORENA Work Phone: [facility] Comment on above: COVID (Primary Dx) Start: 04-25-2022 End: 04-25-2022 Telemedicine consultation with patient Reece Mednez APRDAVE Work Phone: [facility] Start: 04-24-2022 End: 04-24-2022 Emergency department patient visit Dr. Stone Castillo Work Phone: [facility]Emer[facility] Start: 04-04-2022 End: 04-04-[address] Stone Castillo Work Phone: [facility] Start: 03-27-2022 End: 03-27-[address] Stone Castillo Work Phone: [facility] Start: 01-04-2022 Telephone encounter Stone christensen DO Work Phone: [facility] Comment on above: Patient Update Start: 01-01-2022 Non-patient / Non-visit Dr. Tanya Castillo Work Phone: [facility] Start: 01-01-2022 End: 01-01-[address] Stone Castillo Work Phone: [facility]Cardi[facility]asc[facility] Services Start: 12-19-2021 End: 12-19-[address] Stone Castillo Work Phone: [facility] Start: 11-30-2021 End: 11-30-[address] Stone Castillo Work Phone: [facility]Laboratory Start: 10-09-2021 End: 10-09-[address] [facility] Start: 10-03-2021 End: 10-03-[address] Stone Castillo Work Phone: [facility] Start: 09-14-2021 End: 09-14-[address] Stone Castillo Work Phone: [facility] Start: 08-22-2021 End: 08-22-[address] [facility] Medicine [facility] Start: 05-25-2021 End: 05-25-2021 Subsequent hospital visit by physician [facility] Work Phone: Radiology Comment on above: Community acquired p neumonia, unspecified laterality [J18.9] Start: 05-13-2019 End: 05-13-2019 David Robles [facility] Cardiology Comment on above: SVT (supraventricula r tachycardia) (Primary Dx) Start: 05-13-2019 End: 05-13-2019 Office outpatient visit 15 minutes Miguel Angel Watt Work Phone: [facility] Cardiology Comment on above: Severe aortic stenos is (Primary Dx); Bicuspid aortic valve; Ascending aorta dilatation; Essential hypertension; Shortness of breath; Morbid obesity Start: 04-19-2019 End: 04-19-2019 Telephone encounter Alexus Anthony [facility] Cardiology Comment on above: Error Start: 11-16-2018 End: 11-16-2018 Telephone encounter Tiffanie Robles [facility] Cardiology Comment on above: Other Start: 11-11-2018 Patient encounter procedure MIGUEL ANGEL Alice WATT [facility] Start: 11-11-2018 End: 11-11-2018 Letter encounter Provider Alexey [facility] Start: 11-11-2018 End: 11-11-2018 Office outpatient visit 15 minutes Miguel Angel Watt Work Phone: [facility] Cardiology Comment on above: Severe aortic stenos is (Primary Dx); Shortness of breath; Atypical chest pain; Bicuspid aortic valve; Left bundle-branch block; History of syncope; Noncompliance Start: 10-12-2018 End: 10-12-2018 Telephone encounter Shital Bhaktatle [facility] Cardiology Comment on above: Other Start: 09-14-2018 End: 09-14-2018 Patient encounter procedure Unique [facility] Cardiology Comment on above: Other (Work excuse) Start: 05-27-2018 End: 05-27-2018 [facility] Start: 05-14-2018 Patient encounter [facility] Start: 11-13-2017 Patient encounter procedure MIGUEL ANGEL WATT [facility] Start: 12-27-2016 End: 05-20-2018 Patient encounter status Xr Lukas Work Phone: [facility] Procedures Date Procedure Procedure Detail Performing Clinician Start: 06-09-2023 Lipid 1996 panel - S kit or Plasma Antonella Law BONE COOKING OPERATOR.PIPE FITTINGS MOLDER Work Phone: Start: 05-05-2023 Radex ankle complete minimum 3 views Stone Castillo DO Work Phone: Start: 07-08-2022 Blood count complete auto&auto difrntl wbc Wilmer Puente DO Work Phone: Start: 05-10-2022 Lipid 1996 panel - S kit or Plasma Rajiv Ribeiro Work Phone: Start: 04-24-2022 Plain chest X-ray Dr. Alice Castillo Work Phone: Start: 05-25-2021 Radiologic exam ches t 2 views Bart Cerda BONE COOKING OPERATOR.PIPE FITTINGS MOLDER Work Phone: Start: 11-11-2018 Follow-up visit Follow-up MIGUEL ANGEL WATT SARS-CoV-2 & FLU Ant igen (Rapid) Dr. Stoen Castillo Work Phone: Plan of Treatment Date Care Activity Detail Author Start: 05-04-2029 Urine microalbumin profile [facility] Start: 06-09-2028 Lipid panel Lipid Screening [facility] Start: 05-10-2027 Lipid 1996 panel - Serum or Plasma Lipid Screening [facility] Start: 05-10-2027 LIPID SCREEN LIPID SCREEN [facility] Start: 06-09-2026 Diabetes Screening Diabetes Screening [facility] Start: 12-08-2025 Anxiety Screening Anxiety Screening [facility] Start: 11-05-2025 DIABETES SCREEN DIABETES SCREEN [facility] Start: 11-05-2025 Diabetes Screening Diabetes Screening [facility] Start: 05-22-2025 COLOGUARD (FIT-DNA) COLOGUARD (FIT-DNA) [facility] Start: 05-22-2025 COLORECTAL CANCER SCREENING COLORECTAL CANCER SCREENING [facility] Start: 05-22-2025 Screening for malignant neoplasm of colon [facility] Start: 05-10-2025 DIABETES SCREEN DIABETES SCREEN [facility] Start: 12-08-2024 End: 03-09-2025 25-hydroxyvitamin D3 [Mass/volume] in Serum or Plasma VITAMIN D 25 HYDROXY Lab Routine Well adult exam Obesity, Class III, BMI 40-49.9 (morbid obesity) (HCC) Vitamin D deficiency Expected: 12/08/2024, Expires: 03/09/2025 [facility] Comment on above: Expected: 12/08/2024, Expires: Start: 12-08-2024 End: 03-09-2025 CBC panel - Blood by Automated count COMPLETE BLOOD COUNT Lab Routine Well adult exam Obesity, Class III, BMI 40-49.9 (morbid obesity) (HCC) Expected: 12/08/2024, Expires: 03/09/2025 [facility] Comment on above: Expected: 12/08/2024, Expires: Start: 12-08-2024 End: 03-09-2025 Cobalamin (Vitamin B12) [Mass/volume] in Serum or Plasma VITAMIN B12 Lab Routine Well adult exam Obesity, Class III, BMI 40-49.9 (morbid obesity) ([facility]) Encounter for vitamin deficiency screening Expected: 12/08/2024, Expires: 03/09/2025 [facility] Comment on above: Expected: 12/08/2024, Expires: Start: 12-08-2024 End: 03-09-2025 Comprehensive metabolic 2000 panel - Serum or Plasma COMPREHENSIVE METABOLIC PANEL Lab Routine Well adult exam Hyperglycemia Obesity, Class III, BMI 40-49.9 (morbid obesity) ([facility]) Screening for diabetes mellitus Expected: 12/08/2024, Expires: 03/09/2025 [facility] Comment on above: Expected: 12/08/2024, Expires: Start: 12-08-2024 End: 03-09-2025 Hemoglobin A1c in Blood HEMOGLOBIN A1C Lab Routine Well adult exam Hyperglycemia Obesity, Class III, BMI 40-49.9 (morbid obesity) ([facility]) Screening for diabetes mellitus Expected: 12/08/2024, Expires: 03/09/2025 [facility] Work Phone: Comment on above: Expected: 12/08/2024, Expires: Start: 12-08-2024 End: 03-09-2025 Lipid 1996 panel - Serum or Plasma LIPID PANEL, FASTING Lab Routine Well adult exam Dyslipidemia Obesity, Class III, BMI 40-49.9 (morbid obesity) ([facility]) Expected: 12/08/2024, Expires: 03/09/2025 [facility] Comment on above: Expected: 12/08/2024, Expires: Start: 12-01-2024 End: 12-01-2024 Patient encounter procedure 12/01/2024 1:20 PM EDT Office Visit Family [facility] [address] [place] [address] Stone Castillo DO [address] [place] [address] [facility] Comment on above: [facility] Start: 11-05-2024 LIPID SCREEN LIPID SCREEN [facility] Start: 05-09-2024 Covid-19 Vaccine ( season) Covid-19 Vaccine ( season) [facility] Start: 05-09-2024 Covid-19 Vaccine () Covid-19 Vaccine () [facility] Start: 05-09-2024 Influenza vaccination Influenza Vaccine (#1) [facility] Start: 06-30-2023 DIABETES SCREEN DIABETES SCREEN [facility] Start: 05-22-2023 FECAL OCCULT BLOOD FECAL OCCULT BLOOD [facility] Start: 05-22-2023 Screening for malignant neoplasm of colon Fecal Occult Blood [facility] Start: 05-09-2023 Covid-19 Vaccine ( season) Covid-19 Vaccine () [facility] Start: 05-09-2023 Influenza vaccination [facility] Start: 05-06-2023 COVID-19 VACCINE (#1) COVID-19 VACCINE (#1) [facility] Comment on above: Postponed from 1977 (Declined at t his time) Start: 05-05-2023 End: 07-05-2023 25-hydroxyvitamin D3 [Mass/volume] in Serum or Plasma VITAMIN D 25 HYDROXY Lab Routine Vitamin D deficiency Expected: 05/05/2023, Expires: 07/05/2023 [facility] Work Phone: Comment on above: Expected: 05/05/2023, Expires: 3 Start: 05-05-2023 End: 07-05-2023 CBC W Auto Differential panel - Blood CBC + DIFF Lab Routine Iron deficiency anemia secondary to inadequate dietary iron intake Other iron deficiency anemia Dyslipidemia Expected: 05/05/2023, Expires: 07/05/2023 [facility] Work Phone: Comment on above: Expected: 05/05/2023, Expires: 3 Start: 05-05-2023 End: 10-28-2023 Cobalamin (Vitamin B12) [Mass/volume] in Serum or Plasma VITAMIN B12 BLOOD Lab Routine Other iron deficiency anemia Hyperglycemia Fatigue, unspecified type Expected: 05/05/2023, Expires: 07/05/2023 [facility] Work Phone: Comment on above: Expected: 05/05/2023, Expires: 3 Start: 05-05-2023 End: 07-05-2023 Comprehensive metabolic 2000 panel - Serum or Plasma COMP METABOLIC PANEL Lab Routine Dyslipidemia Expected: 05/05/2023, Expires: 07/05/2023 [facility] Work Phone: Comment on above: Expected: 05/05/2023, Expires: Start: 05-05-2023 End: 07-05-2023 Hemoglobin A1c in Blood HGB A1C Lab Routine Other iron deficiency anemia Hyperglycemia Expected: 05/05/2023, Expires: 07/05/2023 [facility] Work Phone: Comment on above: Expected: 05/05/2023, Expires: 3 Start: 05-05-2023 End: 07-05-2023 Iron and Iron binding capacity panel - Serum or Plasma IRON + TIBC Lab Routine Iron deficiency anemia secondary to inadequate dietary iron intake Other iron deficiency anemia Expected: 05/05/2023, Expires: 07/05/2023 [facility] Work Phone: Comment on above: Expected: 05/05/2023, Expires: 3 Start: 05-05-2023 End: 07-05-2023 Lipid 1996 panel - Serum or Plasma LIPID PANEL BASIC Lab Routine Dyslipidemia Expected: 05/05/2023, Expires: 07/05/2023 [facility] Work Phone: Comment on above: Expected: 05/05/2023, Expires: Start: 05-05-2023 End: 07-05-2023 Thyrotropin [Units/volume] in Serum or Plasma TSH BLD Lab Routine Other iron deficiency anemia Hyperglycemia Fatigue, unspecified type Expected: 05/05/2023, Expires: 07/05/2023 [facility] Work Phone: Comment on above: Expected: 05/05/2023, Expires: 3 Start: 05-05-2023 End: 07-05-2023 Thyroxine (T4) free [Mass/volume] in Serum or Plasma T4 FREE/FREE THYROX Lab Routine Hyperglycemia Fatigue, unspecified type Expected: 05/05/2023, Expires: 07/05/2023 [facility] Work Phone: Comment on above: Expected: 05/05/2023, Expires: 3 Start: 11-05-2022 End: 01-05-2023 25-hydroxyvitamin D3 [Mass/volume] in Serum or Plasma [facility] Work Phone: Comment on above: Expected: 11/05/2022, Expires: 3 Start: 11-05-2022 End: 01-05-2023 Cobalamin (Vitamin B12) [Mass/volume] in Serum or Plasma [facility] Work Phone: Comment on above: Expected: 11/05/2022, Expires: 3 Start: 11-05-2022 End: 01-05-2023 Comprehensive metabolic 2000 panel - Serum or Plasma [facility] Work Phone: Comment on above: Expected: 11/05/2022, Expires: 3 Start: 11-05-2022 End: 01-05-2023 Thyrotropin [Units/volume] in Serum or Plasma [facility] Work Phone: Comment on above: Expected: 11/05/2022, Expires: 3 Start: 11-05-2022 End: 01-05-2023 Thyroxine (T4) free [Mass/volume] in Serum or Plasma [facility] Work Phone: Comment on above: Expected: 11/05/2022, Expires: 3 Start: 11-05-2022 End: 01-05-2023 Triiodothyronine (T3) Free [Mass/volume] in Serum or Plasma [facility] Work Phone: Comment on above: Expected: 11/05/2022, Expires: 3 Start: 10-09-2022 End: 12-09-2022 CBC W Auto Differential panel - Blood CBC + DIFF Lab STAT 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 Expected: 10/09/2022, Expires: 12/09/2022 [facility] Work Phone: Comment on above: Expected: 10/09/2022, Expires: 3 Start: 10-09-2022 End: 12-09-2022 Ferritin [Mass/volume] in Serum or Plasma FERRITIN BLD Lab Routine 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 Expected: 10/09/2022, Expires: 12/09/2022 [facility] Work Phone: Comment on above: Expected: 10/09/2022, Expires: 3 Start: 10-09-2022 End: 12-09-2022 Iron and Iron binding capacity panel - Serum or Plasma IRON + TIBC Lab Routine 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 Expected: 10/09/2022, Expires: 12/09/2022 [facility] Work Phone: Comment on above: Expected: 10/09/2022, Expires: 3 Start: 08-09-2022 End: 10-09-2022 CBC W Auto Differential panel - Blood CBC + DIFF Lab STAT 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 Expected: 08/09/2022, Expires: 10/09/2022 [facility] Work Phone: Comment on above: Expected: 08/09/2022, Expires: 3 Start: 08-09-2022 End: 10-09-2022 Ferritin [Mass/volume] in Serum or Plasma FERRITIN BLD Lab Routine 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 Expected: 08/09/2022, Expires: 10/09/2022 [facility] Work Phone: Comment on above: Expected: 08/09/2022, Expires: 3 Start: 08-09-2022 End: 10-09-2022 Iron and Iron binding capacity panel - Serum or Plasma IRON + TIBC Lab Routine 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 Expected: 08/09/2022, Expires: 10/09/2022 [facility] Work Phone: Comment on above: Expected: 08/09/2022, Expires: 3 Start: 07-08-2022 End: 09-07-2022 CBC W Auto Differential panel - Blood CBC + DIFF Lab STAT 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 Expected: 07/08/2022, Expires: 09/07/2022 [facility] Work Phone: Comment on above: Expected: 07/08/2022, Expires: 2 Start: 07-08-2022 End: 09-07-2022 Ferritin [Mass/volume] in Serum or Plasma [facility] Work Phone: Comment on above: Expected: 07/08/2022, Expires: 2 Start: 07-08-2022 End: 09-07-2022 Iron and Iron binding capacity panel - Serum or Plasma [facility] Work Phone: Comment on above: Expected: 07/08/2022, Expires: 2 Start: 06-05-2022 End: 08-05-2022 Cobalamin (Vitamin B12) [Mass/volume] in Serum or Plasma [facility] Work Phone: Comment on above: Expected: 06/05/2022, Expires: 2 Start: 06-05-2022 End: 08-05-2022 Ferritin [Mass/volume] in Serum or Plasma [facility] Work Phone: Comment on above: Expected: 06/05/2022, Expires: 2 Start: 06-05-2022 End: 08-05-2022 Iron and Iron binding capacity panel - Serum or Plasma [facility] Work Phone: Comment on above: Expected: 06/05/2022, Expires: 2 Start: 05-15-2022 End: 07-15-2022 CBC W Auto Differential panel - Blood CBC + DIFF Lab STAT Anemia, unspecified type Expected: 05/15/2022, Expires: 07/15/2022 [facility] Work Phone: Comment on above: Expected: 05/15/2022, Expires: 2 Start: 05-15-2022 End: 07-15-2022 Ferritin [Mass/volume] in Serum or Plasma FERRITIN BLD Lab Routine Anemia, unspecified type Expected: 05/15/2022, Expires: 07/15/2022 [facility] Work Phone: Comment on above: Expected: 05/15/2022, Expires: 2 Start: 05-15-2022 End: 07-15-2022 Iron and Iron binding capacity panel - Serum or Plasma IRON + TIBC Lab Routine Anemia, unspecified type Expected: 05/15/2022, Expires: 07/15/2022 [facility] Work Phone: Comment on above: Expected: 05/15/2022, Expires: 2 Start: 05-09-2022 Influenza vaccination [facility] Start: 05-07-2022 End: 07-07-2022 HIV 1+2 Ab [Presence] in Serum or Plasma by Immunoassay HIV 1 2 COMBO(AG/AB),WITH REFLEX TO DIFFERENTIATION Lab Routine Screening for HIV (human immunodeficiency virus) Expected: 05/07/2022, Expires: 07/07/2022 [facility] Work Phone: Comment on above: Expected: 05/07/2022, Expires: 2 Start: 05-06-2022 End: 07-06-2022 25-hydroxyvitamin D3 [Mass/volume] in Serum or Plasma VITAMIN D 25 HYDROXY Lab Routine Vitamin D deficiency Fatigue, unspecified type Expected: 05/06/2022, Expires: 07/06/2022 [facility] Work Phone: Comment on above: Expected: 05/06/2022, Expires: 2 Start: 05-06-2022 End: 07-06-2022 CBC W Auto Differential panel - Blood CBC + DIFF Lab Routine Fatigue, unspecified type Expected: 05/06/2022, Expires: 07/06/2022 [facility] Work Phone: Comment on above: Expected: 05/06/2022, Expires: 2 Start: 05-06-2022 End: 07-06-2022 Cobalamin (Vitamin B12) [Mass/volume] in Serum or Plasma VITAMIN B12 BLOOD Lab Routine Fatigue, unspecified type Expected: 05/06/2022, Expires: 07/06/2022 [facility] Work Phone: Comment on above: Expected: 05/06/2022, Expires: 2 Start: 05-06-2022 End: 07-06-2022 Comprehensive metabolic 2000 panel - Serum or Plasma COMP METABOLIC PANEL Lab Routine Fatigue, unspecified type Expected: 05/06/2022, Expires: 07/06/2022 [facility] Work Phone: Comment on above: Expected: 05/06/2022, Expires: 2 Start: 05-06-2022 End: 07-06-2022 Hemoglobin A1c in Blood HGB A1C Lab Routine Hyperglycemia Expected: 05/06/2022 (Approximate), Expires: 07/06/2022 [facility] Work Phone: Comment on above: Expected: 05/06/2022 (Approximate), Expi res: 07/06/2022 Start: 05-06-2022 End: 07-06-2022 Hepatitis B virus surface Ab [Presence] in Serum HEP B SURF AB QUAL Lab Routine Need for hepatitis B screening test Expected: 05/06/2022, Expires: 07/06/2022 [facility] Work Phone: Comment on above: Expected: 05/06/2022, Expires: 2 Start: 05-06-2022 End: 07-06-2022 Hepatitis C virus Ab [Presence] in Serum HEP C AB IA W/CONF SCRN Lab Routine Need for hepatitis C screening test Expected: 05/06/2022, Expires: 07/06/2022 [facility] Work Phone: Comment on above: Expected: 05/06/2022, Expires: 2 Start: 05-06-2022 End: 07-06-2022 Lipid 1996 panel - Serum or Plasma LIPID PANEL BASIC Lab Routine Obesity, Class III, BMI 40-49.9 (morbid obesity) (HCC) Expected: 05/06/2022, Expires: 07/06/2022 [facility] Work Phone: Comment on above: Expected: 05/06/2022, Expires: 2 Start: 05-06-2022 End: 07-06-2022 Thyrotropin [Units/volume] in Serum or Plasma TSH BLD Lab Routine Dyslipidemia Obesity, Class III, BMI 40-49.9 (morbid obesity) (HCC) Fatigue, unspecified type Expected: 05/06/2022, Expires: 07/06/2022 [facility] Work Phone: Comment on above: Expected: 05/06/2022, Expires: 2 Start: 04-24-2022 [facility] Work Phone: Start: 2022 COLOGUARD (FIT-DNA) COLOGUARD (FIT-DNA) [facility] Start: 2022 Colonoscopy COLONOSCOPY [facility] Start: 2022 COLORECTAL CANCER SCREENING COLORECTAL CANCER SCREENING [facility] Start: [address] COLONOGRAPHY [facility] Start: 2022 FECAL OCCULT BLOOD FECAL OCCULT BLOOD [facility] Start: 2022 Screening for malignant neoplasm of colon [facility] Start: 2022 SIGMOIDOSCOPY SIGMOIDOSCOPY [facility] Start: 05-13-2019 End: 05-13-2019 Office Visit 05/13/2019 Office Visit Cardiovascular Medicine Miguel Angel Watt, DO [address] [place] [address] [phone] [facility]iology Start: 05-09-2019 Influenza vaccination INFLUENZA VACCINE (#1) [facility] Start: 11-11-2018 End: 11-11-2018 Ambulatory 11/11/2018 Office Visit Cardiovascular Medicine Miguel Angel Watt, DO [address] [place] [address] [phone] [facility] Start: 05-09-2018 Influenza vaccination INFLUENZA VACCINE (#1) [facility] Work Phone: Start: 2017 Fasting lipid profile LIPID SCREENING [facility] Work Phone: Start: 1996 Hepatitis B Vaccine (1 of 3 - 19+ 3-dose series) Hepatitis B Vaccine (1 of 3 - 19+ 3-dose series) [facility] Start: 1996 Third diphtheria, tetanus and acellular pertussis (DTaP) vaccination TDAP (ADULT) [facility] Work Phone: Start: 1995 Anxiety Screening Anxiety Screening [facility] Start: 1995 HEPATITIS C SCREENING HEPATITIS C SCREENING [facility] Start: 1995 HIV SCREENING HIV SCREENING [facility] Start: 1995 Tetanus vaccination TETANUS [facility] Work Phone: Start: 1990 HIV screening HIV SCREENING DISCUSSION [facility] Work Phone: Start: 1982 COVID-19 VACCINE (1) COVID-19 VACCINE (1) [facility] Start: 1977 COVID-19 VACCINE (#1) COVID-19 VACCINE (#1) [facility] Start: 1977 HEPATITIS B (1 of 3 - 3-dose series) HEPATITIS B (1 of 3 - 3-dose series) [facility] Start: 1977 Hepatitis B Vaccine (1 of 3 - 3-dose series) Hepatitis B Vaccine (1 of 3 - 3-dose series) [facility] COLOGUARD COLOGUARD Lab Ro utine Screening for colon cancer Ordered: 05/06/2022 [facility] Work Phone: Comment on above: Ordered: 05/06/2022 End: 06-20-2023 EGD DIAGNOSTIC EGD DIAGNOSTIC Endoscopy Routine Iron deficiency anemia, unspecified iron deficiency anemia type 1 Occurrences starting 06/20/2022 until 06/20/2023 [facility] Work Phone: Comment on above: 1 Occurrences starting 06/20/2022 until 06/20/2023 Hemoglobin.gastroint estin al.lower [Presence] in Stool by Immunoassay FECAL OCCULT BLOOD TEST Lab Routine Anemia, unspecified type Ordered: 05/15/2022 [facility] Work Phone: Comment on above: Ordered: 05/15/2022 Patient Education Orlin Santana 2019 (COVID-19): Caring for Yourself or Others [facility] Work Phone: Patient referral [facility] Work Phone: End: 06-20-2023 Screening colonoscopy COLONOSCOPY SCREENING Endoscopy Routine Iron deficiency anemia, unspecified iron deficiency anemia type 1 Occurrences starting 06/20/2022 until 06/20/2023 [facility] Work Phone: Comment on above: 1 Occurrences starting 06/20/2022 until 06/20/2023 Transthoracic echocardiography ECHOCARDIOGRAM Echocardiography Routine Severe aortic stenosis Ordered: 11/11/2018 [facility] Comment on above: Ordered: 11/11/2018 [facility] End: 06-03-2024 XR ANKLE GENERAL 3V AP/LAT/OBL BILATERAL XR ANKLE GENERAL 3V AP/LAT/OBL BILATERAL Radiology Routine Chronic pain of both ankles 1 Occurrences starting 05/05/2023 until 06/03/2024 [facility] Work Phone: Comment on above: 1 Occurrences starting 05/05/2023 until 06/03/2024 XR ANKLE GENERAL 3V AP/LAT/OBL BILATERAL XR ANKLE GENERAL 3V AP/LAT/OBL BILATERAL Radiology Routine Chronic pain of both ankles 05/05/2023 1:26 PM EDT [facility] Work Phone: End: 06-03-2024 XR KNEE GENERAL 4V AP BOTH/PA BOTH/LAT/MERC BILATERAL XR KNEE GENERAL 4V AP BOTH/PA BOTH/LAT/MERC BILATERAL Radiology Routine Chronic pain of both knees 1 Occurrences starting 05/05/2023 until 06/03/2024 [facility] Work Phone: Comment on above: 1 Occurrences starting 05/05/2023 until 06/03/2024 XR KNEE GENERAL 4V A P BOTH/PA BOTH/LAT/MERC BILATERAL XR KNEE GENERAL 4V AP BOTH/PA BOTH/LAT/MERC BILATERAL Radiology Routine Chronic pain of both knees 05/05/2023 1:26 PM EDT [facility] Work Phone: [facility] Immunizations Immunization Date Immunization Notes Care Provider Fa michael 05-04-2019 tetanus toxoid, redu nathan diphtheria toxoid, and acellular pertussis vaccine, adsorbed Stone Castillo DO Work Phone: [facility] Work Phone: 10-28-2017 influenza virus vaccine, unspecified formulation Rajiv Ribeiro Work Phone: [facility] Payers Date Payer Category Payer Self-pay [id number] 2021 Medicare MEDICARE MEDICAR E A AND B [id number] 2021-Present [phone] [address] [address] [place] [address] Medicare [id number] 2021 Medicare [id number] 2021 Medicare [id number] [address] [facility] MEDICAID [id number] 2021-Present [phone] [address] [place] [address] Medicaid [id number] 2021 Medicaid [id number] 2017 Unknown BOBBI SHAH xxxxxxxxxxx 2017-Present xxxxxxxxxxx [id number] 2017 Medicaid [id number] 2016 Private Health Insurance [id number] Unknown [id number] Unknown [id number] 462 Unknown [id number]. 462 Unknown [id number]. 462 Unknown [id number] [id number]. 462 Unknown [id number] [id number]. 462 Unknown [id number] [id number]. 462 Unknown [id number] [id number]. 462 Unknown [id number] [id number]. 462 Unknown [id number] [id number]. 462 Unknown [id number] [id number]. 462 Unknown [id number] [id number]. 462 Unknown [id number]. 462 Social History Date Type Detail Facility Start: 05-14-2018 End: 08-20-2023 Tobacco smoking status NHIS Former smoker [facility] History of tobacco use Cigarette Smoker O [facility] Work Phone: Start: 1975 Sex Assigned At Not on file [facility] Work Phone: Start: 11-13-2017 Tobacco [facility] Start: 05-13-2019 End: 05-05-2023 Alcohol intake No [facility] Start: 10-03-2021 End: 04-24-2022 Tobacco smoking status NHIS Unknown if ever smoked [facility] Work Phone: Start: 1975 Sex Assigned At Male [facility] Start: 10-13-2015 Tobacco smoking stat us NHIS Never smoked tobacco [facility] Start: 10-13-2015 Tobacco use and exposure Smoke less tobacco non-user [facility] Start: 01-04-2022 End: 12-08-2024 Alcohol intake Current non-drinker of alcohol (finding) [facility] Start: 06-20-2020 History SDOH Financial 5 [facility] Start: 06-20-2020 End: 11-04-2022 History SDOH Food Worry 1 [facility] Start: 06-20-2020 End: 11-04-2022 History SDOH Transport Med 2 [facility] Start: 04-05-2020 Education 11 [facility] Start: 12-25-2021 End: 06-20-2022 Exposure to SARS-CoV-2 (event) Not sure [facility] Start: 04-25-2022 End: 11-04-2022 History SDOH Alcohol Std Drinks 0 [facility] Start: 04-25-2022 History SDOH Social Connections Living 7 [facility] Start: 04-25-2022 End: 11-04-2022 History SDOH Financial 4 [facility] Start: 11-04-2022 History SDOH Social Connections Living 8 [facility] Start: 11-04-2022 History SDOH Food Worry 3 [facility] Start: 11-04-2022 End: 05-05-2023 History of Social function [facility] Do you belong to any clubs or organizations such as gnosticist groups, unions, fraternal or athletic groups, or school groups? No [facility] Are you now , , , , never or living with a partner? Living with partner [facility] How often to you hav e a drink containing alcohol? Never [facility] How many standard dr inks containing alcohol do you have on a typical day? Patient does not drink [facility] Do you feel stress - tense, restless, nervous, or anxious, or unable to sleep at night because your mind is troubled all the time - these days [OSQ] Only a little [facility] (I/We) worried wheth er (my/our) food would run out before (I/we) got money to buy more. Often true [facility] At any time in the p ast 12 months, were you homeless or living in [facility] [including now]? Yes [facility] (I/We) worried wheth er (my/our) food would run out before (I/we) got money to buy more. Never true [facility] Start: 04-03-2021 End: 05-03-2021 Exposure to SARS-CoV-2 (event) Unable to assess [facility] Are you now , , , , never or living with a partner? Never [facility] How hard is it for y ou to pay for the very basics like food, housing, medical care, and heating Somewhat hard [facility] Do you feel stress - tense, restless, nervous, or anxious, or unable to sleep at night because your mind is troubled all the time - these days [OSQ] Very much [facility] (I/We) worried wheth er (my/our) food would run out before (I/we) got money to buy more. Sometimes true [facility] Medical Equipment Procedure Code Equipment Code Equipment Original Text Equipment Identifier Dates Graft Duragen Pl us Bovine Collagen Matrix 3x3in Soft Tissue Patch - [id number] Start: 10-25-2015 [place] Thk1.65mm R ectangle Ptfe 4.5x6mm Cardiovascular [place]get - [id number] Start: 04-04-2020 [place] Thk1.65mm R ectangle Ptfe 4.5x6mm Cardiovascular P[place]get - [id number] Start: 04-04-2020 System Reveal Li nq Laryngologist Insertable Automatically Activate - [id number] Start: 10-23-2016 Lead-04/07/2020 [id number] Start: 04-07-2020 Lead-04/07/2020 [id number] Start: 04-07-2020 Mesh Standard Go ld Titanium 90x90x.6mm Dynamic Craniomaxillofacial - [id number] Start: 10-25-2015 Pacemaker-04/07/2020 [id number] Star t: 04-07-2020 Comment on above: Description: Accolade MRI Plate Sternalock Herbert Bone 8 Hole Sternum - [id number] Start: 04-04-2020 Screw 1.5mm 4mm Bone Self Drill Cross Pin Craniomaxillofacial - [id number] Start: 10-25-2015 Screw Sternalock Herbert 2.4mm Gold 12mm Bone Self Drill Lock Primary Closure - [id number] Start: 04-04-2020 Screw Sternalock Herbert 2.4mm Gold 14mm Bone Self Drill Lock Primary Closure - [id number] Start: 04-04-2020 Valve Solorzano In spiris Resilia 23mm Pericardial Aortic Bioprosthesis - [id number] Start: 04-04-2020 Loop Recorder-Ln q11 Reveal [id number] Start: 10-23-2016 Functional Status Date Assessment Result Facility 12-08-2024 Total score [AUDIT-C] 0 04/02/20 25 3:14 AM EDT [facility] 12-08-2024 Within the last year , have you been humiliated or emotionally abused in other ways by your partner or ex-partner? No 12/08/2024 3:14 AM EDT [facility]oly No [facility] 12-08-2024 Within the last year , have you been afraid of your partner or ex-partner? No 12/08/2024 3:14 AM EDT UserYoly No [facility] 12-08-2024 Within the last year , have you been raped or forced to have any kind of sexual activity by your partner or ex-partner? No 12/08/2024 3:14 AM EDT UserYoly No [facility] 12-08-2024 Within the last year , have you been kicked, hit, slapped, or otherwise physically hurt by your partner or ex-partner? No 12/08/2024 3:14 AM EDT [facility] No [facility] 12-08-2024 How often to you hav e a drink containing alcohol? Never 12/08/2024 3:14 AM EDT UserYoly Never [facility] 12-08-2024 Functional status Patient does n ot drink 12/08/2024 3:14 AM EDT UserYoly Patient does not drink [facility] 12-08-2024 How often do you hav e 6 or more drinks on 1 occasion? Never 12/08/2024 3:14 AM EDT UserYoly Never [facility] 04-10-2020 Are you deaf, or do you have serious difficulty hearing No 04/10/2020 12:58 PM Sola Alcantara, KAY No [facility] 04-10-2020 Are you blind, or do you have serious difficulty seeing, even when wearing glasses No 04/10/2020 12:58 PM Sola Alcantara, RN No [facility] 04-10-2020 Do you have serious difficulty walking or climbing stairs No 04/10/2020 12:58 PM Sola Alcantara, RN No [facility] 04-10-2020 Do you have difficul ty dressing or bathing No 04/10/2020 12:58 PM Sola Alcantara, RN No [facility] 04-10-2020 Because of a physica l, mental, or emotional condition, do you have difficulty doing errands alone such as visiting a physician's office or shopping No 04/10/2020 12:58 PM EDT Sola Arevalo RN No [facility] Mental Status Date Assessment Result Facility 06-07-2022 Cognitive function Voice/Name [facility] Work Phone: 04-10-2020 Because of a physica l, mental, or emotional condition, do you have serious difficulty concentrating, remembering, or making decisions No 04/10/2020 12:58 PM EDT Sola Arevalo RN No [facility] Clinical Notes 03-08-2020 to 03-23-2025 Note Date & Type Note Facility 03-23-2025 Procedure note [facility] 03-23-2025 Procedure note [facility] 03-23-2025 Evaluation note Diagnosis Onset Date Resolution AV block, complete acute March 23, 2025 1:25pm Presence of permanent cardiac pacemaker March, chronic March 23, 2025 1:25pm [place] [employer] [facility] Work Phone: 1(139) 178-435807-16-2025 Evaluation note* Diagnosis Onset Date Resolution Status Admit Date AV block, complete acute March 082024 1:25pm Presence of permanent cardia c pacemaker March, chronic March 23, 2025 1:25pm Bicuspid aortic valve chronic Mar 1:32pm History of aortic valve replacement with bioprosthetic valve March, chronic March 23, 2025 1:32pm Hypertension chronic March 23, 2 025 1:32pm LBBB (left bundle branch block) 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 March 23, 2025 1:32pm Presence of permanent cardia c pacemaker March, chronic March 23, 2025 1:32pm Thoracic aortic aneurysm wit hout rupture chronic March 23, 2025 1:32pm [facility] [employer] Work Phone: 1(639) 826-985604-03-2025 Telephone encounter Note* Telephone Encounter - Peg Greene MA - 12/09/2024 11:24 AM EDT Pt informed via [employer] message since active Peg Greene MA [facility]04-03-2025 Miscellaneous Notes* Telephone Encounter - Peg Greene MA - 12/09/2024 11:24 AM EDT Pt informed via [facility] message since active Peg Greene MA * Telephone Encounter - Reece Mendez APRN.CNP - 12/09/2024 11:19 AM EDT Please let patient know this. Reece Mendez APRN.PRADIP * Telephone Encounter - Priti Ignacio RN - 12/09/2024 10:46 AM EDT Sloane with [facility] calls to report that there is no documentation in Dr. Kenney's recent notes that mentions weight loss medication and with patient's extensive cardiac history it would notbe recommended. Priti Ignacio RN * Telephone Encounter - Earlene Anders RN - 12/09/2024 10:02 AM EDT Called and had to leave a msg for nurse Anton at [facility]. Left detailed msg asking if provider there has recommended pt to take a weight loss medication. If provider has mentioned that to the patient and inside meter tester is okay with this, we would need documentation stating this from them. * Telephone Encounter - Reece Mendez APRN.CNP - 12/08/2024 6:08 PM EDT Patient sees Vin Cazares with [facility], states he was told to ask me for a weight loss pill, he states is Adipex. I suspect Vin does not want him to be on this with his extensive cardiac hx?Please check with him for me. Reece Mendez APRN.CNP documented [facility] Telephone encounter Note * Telephone Encounter - Reece Mendez APRN.CNP - 12/09/2024 11:19 AM EDT Please let patient know this. Reece Mendez APRN.CNP [facility]04-03-2025 Telephone encounter Note* Telephone Encounter - Priti Ignacio RN - 12/09/2024 10:46 AM EDT Sloane with [facility] calls to report that there is no documentation in Dr. Kenney's recent notes that mentions weight loss medication and with patient's extensive cardiac history it would notbe recommended. Priti Ignacio RN [facility]04-03-2025 Telephone encounter Note* Telephone Encounter - Earlene Anders RN - 12/09/2024 10:02 AM EDT Called and had to leave a msg for nurse Anton at [facility]. Left detailed msg asking if provider there has recommended pt to take a weight loss medication. If provider has mentioned that to the patient and inside meter tester is okay with this, we would need documentation stating this from them. [facility]04-02-2025 Telephone encounter Note* Telephone Encounter - Reece Mendez APRN.CNP - 12/08/2024 6:08 PM EDT Patient sees Vin Cazares with [facility], states he was told to ask me for a weight loss pill, he states is Adipex. I suspect Vin does not want him to be on this with his extensive cardiac hx?Please check with him for me. Reece Mendez APRN.PRADIP [facility]04-02-2025 NoteHNO ID: [id number] Author: REECE MENDEZ APRN.CNP Service: ? Author Type: Nurse Practitioner Type: Progress Notes Filed: 12/08/2024 18:22 Note Text: Chief Complaint Patient presents with: Yearly Exam HPI Erlinda De León is a 49 year old male who presents here today for Above Complaints.. Heart history- well managed, Sees inside meter tester regularly Weight- Patient states that his inside meter tester recommended him to start taking a weight loss medication, patient asking if he can start taking Adipex Diet- eats whatever he can afford to eat Exercise- plans to start walking when the weather gets nicer Sleep apnea- Uses CPAP every night, benefiting from this GERD- Prolosec 20mg once daily- tolerating well, symptoms well-managed. Mood- States mood is good overall Past medical history, appointments, medications, allergies reviewed. Previous Medical History PAST MEDICAL HISTORY Diagnosis Date Aortic valve stenosis, severe Ascending aorta dilatation Bicuspid aortic valve Cerebral edema (HCC) CHB (complete heart block) (HCC) COVID-19 04/24/2022 Left bundle branch block Murmur JUANIS (obstructive sleep apnea) 04/2021 Sleep apnea Previous Surgical History PAST SURGICAL HISTORY Procedure Laterality Date CARDIAC CATH 01/07/2020 severe aortic valve calcification-Dr. Rodríguez EXCISION OF BRAIN TUMOR Left 2016 NEUROPLASTY AND/TRANSPOS MEDIAN NRV CARPAL TUNNE Right 05/27/2018 Right CTR PACEMAKER IMPLANT Left 04/07/2020 [employer] dual chamber pacemaker for CHB following AVR; Dr. Dewey at [facility] REMOVAL; CARDIAC LOOP RECORDER Left 04/07/2020 ILR removed at time of pacemaker implantation; Dr. Dewey at [facility] REPAIR UMBILICAL HERNIA 02/27/15 RPLCMT PROST AORTIC VALVE OPEN XCP HOMOGRF/STENT 04/04/2020 Aortic valve replacement with 23 mm Inspiris bioprosthesis. SHX AORTIC VALVE REPLACEMENT 04/04/2020 Family History FAMILY HISTORY Problem Relation Age of Onset Hypertension Mother Diabetes Mother other (heart murmur) Father other (Other) Son aortic stenosis Patient Allergies ALLERGIES Allergen Reactions Ancef [Cefazolin] Anaphylaxis, Angioedema Adhesive Rash, Itching Patient states when he wore Holter electrodes, he broke out in rash and itching Prozac [Fluoxetine] Other: See Comments Heart racing, shortness of breath Zoloft [Sertraline] Rash itching Current Medications Current Outpatient Medications on File Prior to Visit Medication Sig omeprazole (PRILOSEC) 20 mg capsule TAKE 1 CAPSULE BY MOUTH ONCE DAILY, 1/2 HOUR BEFORE BREAKFAST hydrOXYzine HCl (ATARAX) 50 mg tablet Take 1 tablet by mouth once daily. furosemide (LASIX) 40 mg tablet Take 40 mg by mouth once daily. for swelling or SOB as needed amiodarone (PACERONE) 200 mg tablet Take by mouth once daily. hydrOXYzine pamoate (VISTARIL) 25 mg capsule Take 50 mg by mouth three times daily as needed. potassium chloride (KLOR-CON) 20 mEq packet Take by mouth twice daily. Dxyxu-9-NQP-EPA-Fish Oil 1,000 mg (120 mg-180 mg) cap Take 2 g by mouth twice daily. Ascorbic Acid 1,000 mg tablet Take 1,000 mg by mouth once daily. Cholecalciferol, Vitamin D3, 50 mcg (2,000 unit) cap Take 1 capsule by mouth once daily. metoprolol tartrate, short acting, (LOPRESSOR) 50 mg tablet Take 50 mg by mouth twice daily. aspirin, enteric coated (ECOTRIN LOW STRENGTH) 81 mg EC tablet Take 1 tablet by mouth once daily. lamoTRIgine (LAMICTAL) 200 mg tablet Take 200 mg by mouth daily at bedtime. risperiDONE (RISPERDAL) 2 mg tablet Take 2 mg by mouth daily at bedtime. (Patient not taking: Reported on 06/02/2023) No current facility-administered medications on file prior to visit. Social History Social History Tobacco Use Smoking status: Never Smokeless tobacco: Never Vaping Use Vaping status: Never Used Substance Use Topics Alcohol use: No Drug use: No Review of Symptoms REVIEW OF SYSTEMS See HPI, otherwise negative EXAM: BP 116/77 (BP Site: Left Arm, BP Position: Sitting, BP Cuff Size: Large Adult) Pulse 73 Ht 183 cm (6' 0.05) Wt (!) 162.7 kg (358 lb 9.6 oz) SpO2 97% BMI 48.57 kg/m? General Appearance: Well appearing, alert, in no acute distress, well-hydrated, well nourished.. Ears: External ears normal, canals intact, moderate amount cerumen bilateral ear canals Oropharynx: Lips, mucosa, and tongue normal, teeth and gums normal, oropharynx normal. Neck: Supple, no adenopathy; thyroid symmetric, normal size, no bruits. Lungs: Lungs clear to auscultation. No wheezing, rhonchi, rales.. Heart: RRR without murmur, gallop, or rubs. No ectopy. Abdomen: Normal abdominal exam, Abdomen soft, non-tender. Bowel sounds normal. No masses, organomegaly, Positive findings: obese. Extremities: No deformities, edema, skin discoloration, clubbing or cyanosis. Good capillary refill. . Peripheral Pulses: Normal. Psychiatric: pleasant, cooperative Healt (more content not included)...[facility]04-02-2025 History of Present illness Narrative* Reece Mendez, ALIA.PIPE FITTINGS MOLDER - 12/08/2024 1:44 PM EDT Chief Complaint Patient presents with: Yearly Exam HPI Erlinda De León is a 49 year old male who presents here today for Above Complaints.. Heart history- well managed, Sees inside meter tester regularly Weight- Patient states that his inside meter tester recommended him to start taking a weight loss medication, patient asking if he can start taking Adipex Diet- eats whatever he can afford to eat Exercise- plans to start walking when the weather gets nicer Sleep apnea- Uses CPAP every night, benefiting from this GERD- Prolosec 20mg once daily- tolerating well, symptoms well-managed. Mood- States mood is good overall Past medical history, appointments, medications, allergies reviewed. Previous Medical History PAST MEDICAL HISTORY Diagnosis Date Aortic valve stenosis, severe Ascending aorta dilatation Bicuspid aortic valve Cerebral edema (HCC) CHB (complete heart block) (HCC) COVID-19 04/24/2022 Left bundle branch block Murmur JUANIS (obstructive sleep apnea) 04/2021 Sleep apnea Previous Surgical History PAST SURGICAL HISTORY Procedure Laterality Date CARDIAC CATH 01/07/2020 severe aortic valve calcification-Dr. Rodríguez EXCISION OF BRAIN TUMOR Left 2016 NEUROPLASTY &/TRANSPOS MEDIAN NRV CARPAL TUNNE Right 05/27/2018 Right CTR PACEMAKER IMPLANT Left 04/07/2020 [employer] dual chamber pacemaker for CHB following AVR; [facility] REMOVAL; CARDIAC LOOP RECORDER Left 04/07/2020 ILR removed at time of pacemaker implantation; Dr. Dewey at [facility] REPAIR UMBILICAL HERNIA 02/27/15 RPLCMT PROST AORTIC VALVE OPEN XCP HOMOGRF/STENT 04/04/2020 Aortic valve replacement with 23 mm Inspiris bioprosthesis. SHX AORTIC VALVE REPLACEMENT 04/04/2020 Family History FAMILY HISTORY Problem Relation Age of Onset Hypertension Mother Diabetes Mother other (heart murmur) Father other (Other) Son aortic stenosis Patient Allergies ALLERGIES Allergen Reactions Ancef [Cefazolin] Anaphylaxis, Angioedema Adhesive Rash, Itching Patient states when he wore Holter electrodes, he broke out in rash and itching Prozac [Fluoxetine] Other: See Comments Heart racing, shortness of breath Zoloft [Sertraline] Rash itching Current Medications Current Outpatient Medications on File Prior to Visit Medication Sig omeprazole (PRILOSEC) 20 mg capsule TAKE 1 CAPSULE BY MOUTH ONCE DAILY, 1/2 HOUR BEFORE BREAKFAST hydrOXYzine HCl (ATARAX) 50 mg tablet Take 1 tablet by mouth once daily. furosemide (LASIX) 40 mg tablet Take 40 mg by mouth once daily. for swelling or SOB as needed amiodarone (PACERONE) 200 mg tablet Take by mouth once daily. hydrOXYzine pamoate (VISTARIL) 25 mg capsule Take 50 mg by mouth three times daily as needed. potassium chloride (KLOR-CON) 20 mEq packet Take by mouth twice daily. Ovcxa-0-EAJ-EPA-Fish Oil 1,000 mg (120 mg-180 mg) cap Take 2 g by mouth twice daily. Ascorbic Acid 1,000 mg tablet Take 1,000 mg by mouth once daily. Cholecalciferol, Vitamin D3, 50 mcg (2,000 unit) cap Take 1 capsule by mouth once daily. metoprolol tartrate, short acting, (LOPRESSOR) 50 mg tablet Take 50 mg by mouth twice daily. aspirin, enteric coated (ECOTRIN LOW STRENGTH) 81 mg EC tablet Take 1 tablet by mouth once daily. lamoTRIgine (LAMICTAL) 200 mg tablet Take 200 mg by mouth daily at bedtime. risperiDONE (RISPERDAL) 2 mg tablet Take 2 mg by mouth daily at bedtime. (Patient not taking: Reported on 06/02/2023) No current facility-administered medications on file prior to visit. Social History Social History Tobacco Use Smoking status: Never Smokeless tobacco: Never Vaping Use Vaping status: Never Used Substance Use Topics Alcohol use: No Drug use: No Review of Symptoms REVIEW OF SYSTEMS See HPI, otherwise negative EXAM: BP 116/77 (BP Site: Left Arm, BP Position: Sitting, BP Cuff Size: Large Adult) Pulse 73 Ht 183 cm (6' 0.05) Wt (!) 162.7 kg (358 lb 9.6 oz) SpO2 97% BMI 48.57 kg/m General Appearance: Well appearing, alert, in no acute distress, well-hydrated, well nourished.. Ears: External ears normal, canals intact, moderate amount cerumen bilateral ear canals Oropharynx: Lips, mucosa, and tongue normal, teeth and gums normal, oropharynx normal. Neck: Supple, no adenopathy; thyroid symmetric, normal size, no bruits. Lungs: Lungs clear to auscultation. No wheezing, rhonchi, rales.. Heart: RRR without murmur, gallop, or rubs. No ectopy. Abdomen: Normal abdominal exam, Abdomen soft, non-tender. Bowel sounds normal. No masses, organomegaly, Positive findings: obese. Extremities: No deformities, edema, skin discoloration, clubbing or cyanosis. Good capillary refill. . Peripheral Pulses: Normal. Psychiatric: [facility], cooperative Health Maintenance List Anxiety Screening Never done Hepatitis B Vaccine(1 of 3 - 19+ 3-dose series) Never done Influenza Vaccine(1) due on 05/09/2024 Covid-19 Vaccine( - 2023- season) Never done Colorectal Cancer Screening due on 05/22/2025 Diabetes Screening due on 06/09/2026 Lipid Screening due on 06/09/2028 DTaP,Tdap,Td Vaccine(2 - Td or Tdap) due on 05/04/2029 Hepatitis C Screening Completed HIV Screening Completed Data reviewed ASSESSMENT/PLAN: 1. Well adult exam - ICD9: V70.0, ICD10: Z00.00 (primary diagnosis) - Counseled on healthy diet and regular exercise - ANXIETY SCREENING - HEMOGLOBIN A1C - LIPID PANEL, FASTING - COMPLETE BLOOD COUNT - COMPREHENSIVE METABOLIC PANEL - VITAMIN D 25 HYDROXY - VITAMIN B12 2. Dyslipidemia - ICD9: 272.4, ICD10: E78.5 - LIPID PANEL, FASTING 3. Hyperglycemia - ICD9: 790.29, ICD10: R73.9 - HEMOGLOBIN A1C - COMPREHENSIVE METABOLIC PANEL 4. Obesity, Class III, BMI 40-49.9 (morbid obesity) (HCC) - ICD9: 278.01, ICD10: E66.01 Weight increasing - Sending message to inside meter tester for approval of starting Adipex - HEMOGLOBIN A1C - LIPID PANEL, FASTING - COMPLETE BLOOD COUNT - COMPREHENSIVE METABOLIC PANEL - VITAMIN D 25 HYDROXY - VITAMIN B12 5. Vitamin D deficiency - ICD9: 268.9, ICD10: E55.9 - VITAMIN D 25 HYDROXY 6. Screening for diabetes mellitus - ICD9: V77.1, ICD10: Z13.1 - HEMOGLOBIN A1C - COMPREHENSIVE METABOLIC PANEL 7. Encounter for vitamin deficiency screening - ICD9: V77.99, ICD10: Z13.21 - VITAMIN B12 8. Encounter for screening examination for other mental health and behavioral disorders - ICD9: V79.8, ICD10: Z13.39 - ANXIETY SCREENING Follow-up in 6 months Diana Bueno Attending Note I have personally performed a face to face assessment of the patient and have reviewed the MICHELLE noteand I agree. Other additions or changes: As edited Signature: Reece Mendez Date: 12/08/2024 Time: 6:22 PM I spent a total of 45 minutes on the date of the service which included preparing to see the patient, [id number] patient care, completing clinical documentation, obtaining and/or reviewing separately obtained history, performing a medically appropriate examination, counseling and educating the pat ient/family/caregiver, and ordering medications, tests, or procedures. [facility] Telephone encounter Note * Telephone Encounter - Erika Elizabeth LPN - 11/15/2024 9:07 AM EDT Patient has been identified by name and date of : Patient phones for refill(s): Requested Prescriptions Pending Prescriptions Disp Refills omeprazole (PRILOSEC) 20 mg capsule [Pharmacy Med Name: Omeprazole 20 MG Oral Capsule Delayed Release] 30 capsule 0 Sig: TAKE 1 CAPSULE BY MOUTH ONCE DAILY, 1/2 HOUR BEFORE BREAKFAST Date of last office visit in primary care: 05/05/2023 Date of next office visit in primary care: 12/01/2024 Please advise. Thank you. Erika Elizabeth LPN. [facility]03-10-2025 Miscellaneous Notes* Telephone Encounter - Erika Flores LPN - 11/15/2024 9:07 AM EDT Patient has been identified by name and date of : Patient phones for refill(s): Requested Prescriptions Pending Prescriptions Disp Refills omeprazole (PRILOSEC) 20 mg capsule [Pharmacy Med Name: Omeprazole 20 MG Oral Capsule Delayed Release] 30 capsule 0 Sig: TAKE 1 CAPSULE BY MOUTH ONCE DAILY, 1/2 HOUR BEFORE BREAKFAST Date of last office visit in primary care: 05/05/2023 Date of next office visit in primary care: 12/01/2024 Please advise. Thank you. Erika Elizabeth LPN. documented in this encounterKeenan [facility]12-18-2024 NoteHNO ID: [id number] Author: CATARINA PERSAUD MA Service: ? Author Type: Sign Hanger Supervisor Type: Progress Notes Filed: 08/25/2024 13:56 Note Text: POPULATION HEALTH NAVIGATION OUTREACH Action/ HCC Spoke to patient and scheduled Medicare Wellness Exam. Doesn't usually get flu shot, not interested at this time. Reason for Outreach Care Gap/HCC or Scheduling Wellness Visits Care Gaps due: Medicare Annual Wellness Visit Flu Vaccine Patient Contacted: Spoke to patient/parent/or legal guardian Patient identified by name and : Yes Care Gap/HCC/Scheduling Wellness actions taken: Patient scheduled/pended orders: Medicare Annual Wellness Visit 12/01/2024 in [facility] with STONE CASTILLO HCC related Navigation Signature: Catarina Persaud MA August 25, 2024 1:[facility] History of Present illness Narrative* Catarina Persaud MA - 08/25/2024 1:50 PM EST POPULATION HEALTH NAVIGATION OUTREACH Action/FYI HCC Spoke to patient and scheduled Medicare Wellness Exam. Doesn't usually get flu shot, not interested at this time. Reason for Outreach Care Gap/HCC or Scheduling Wellness Visits Care Gaps due: Medicare Annual Wellness Visit Flu Vaccine Patient Contacted: Spoke to patient/parent/or legal guardian Patient identified by name and : Yes Care Gap/HCC/Scheduling Wellness actions taken: Patient scheduled/pended orders: Medicare Annual Wellness Visit 12/01/2024 in [facility] with STONE CASTILLO HCC related Navigation Signature: Catarina Persaud MA August 25, 2024 1:51 PM documented in this encounterKeenan [facility] Hospital12-18-2024 NotePatient Outreach (NETNAV) ERLINDA DE LEÓN ([id number]) 1975 M Date Time Provider Department 08/25/24 CATARINA PERSAUD During your visit today, we recorded the following information about you: Catarina Persaud MA 08/25/2024 1:56 PM Signed POPULATION HEALTH NAVIGATION OUTREACH Action/FYI HCC Spoke to patient and scheduled Medicare Wellness Exam. Doesn't usually get flu shot, not interested at this time. Reason for Outreach Care Gap/HCC or Scheduling Wellness Visits Care Gaps due: Medicare Annual Wellness Visit Flu Vaccine Patient Contacted: Spoke to patient/parent/or legal guardian Patient identified by name and : Yes Care Gap/HCC/Scheduling Wellness actions taken: Patient scheduled/pended orders: Medicare Annual Wellness Visit 12/01/2024 in [facility] with STONE CASTILLO [facility] related Navigation Signature: Catarina Clementslittle NANETTE August 25, 2024 1:51 PM Allergies As of Date: 08/25/2024 Noted Allergy Reaction ANCEF (CEFAZOLIN) 04/04/2020 10 - Anaphylaxis 18 - Angioedema ADHESIVE 09/19/2015 2 - Rash 9 - Itching Comments: Patient states when he wore Holter electrodes, he broke out in rash and itching PROZAC (FLUOXETINE) 03/10/2019 14 - Other: See Comments Comments: Heart racing, shortness of breath ZOLOFT (SERTRALINE) 03/03/2019 2 - Rash Comments: itching Date Reviewed: 06/02/2023 Reviewed by: Mela Mendoza RN - Fully Assessed Reason for Visit: Population Health Navigation Outreach [3910] Cmt: AUGUSTA TORREZ Prescriptions as of 08/25/2024 - omeprazole (PRILOSEC) 20 mg capsule Take 1 capsule by mouth daily before breakfast. 1/2 hr before meal. - hydrOXYzine HCl (ATARAX) 50 mg tablet Take 1 tablet by mouth once daily. - furosemide (LASIX) 40 mg tablet Take 40 mg by mouth once daily. for swelling or SOB as needed - amiodarone (PACERONE) 200 mg tablet Take by mouth once daily. - hydrOXYzine pamoate (VISTARIL) 25 mg capsule Take 50 mg by mouth three times daily as needed. - potassium chloride (KLOR-CON) 20 mEq packet Take by mouth twice daily. - cholecalciferol, Vitamin D3, (VITAMIN D3) 1,250 mcg (50,000 unit) cap capsule Take 1 capsule by mouth one time a week. - Iimyc-6-GQH-EPA-Fish Oil 1,000 mg (120 mg-180 mg) cap Take 2 g by mouth twice daily. - Ascorbic Acid 1,000 mg tablet Take 1,000 mg by mouth once daily. - Cholecalciferol, Vitamin D3, 50 mcg (2,000 unit) cap Take 1 capsule by mouth once daily. - metoprolol tartrate, short acting, (LOPRESSOR) 50 mg tablet Take 50 mg by mouth twice daily. - aspirin, enteric coated (ECOTRIN LOW STRENGTH) 81 mg EC tablet Take 1 tablet by mouth once daily. - lamoTRIgine (LAMICTAL) 200 mg tablet Take 200 mg by mouth daily at bedtime. - risperiDONE (RISPERDAL) 2 mg tablet Take 2 mg by mouth daily at bedtime. - MULTI-VITAMIN ORAL Take 1 tablet by mouth once daily. 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] 10/25/2015 Cerebral edema (HCC) [G93.6] 10/26/2015 Other specified heart block [I45.5] 11/21/2015 SVT (supraventricular tachycardia) (HCC) [I47.1*04/22/2016 Near syncope [R55] 04/22/2016 Status post placement of implantable loop recor*10/30/2016 Carpal tunnel syndrome, bilateral [G56.03] 11/07/2016 Discharge planning issues [Z75.8] 12/27/2016 05/20/2018 Preop testing [Z01.818] 12/27/2016 05/20/2018 Vitamin D deficiency [E55.9] 12/30/2016 Right carpal tunnel syndrome [G56.01] 04/15/2018 Morbid obesity (HCC) [E66.01] 05/20/2018 Angioedema [T78.3XXA] 04/04/2020 04/10/2020 Anaphylaxis [T78.2XXA] 04/04/2020 04/10/2020 Obesity, Class III, BMI >= 40 [E66.01] 04/05/2020 S/P AVR (aortic valve replacement) [Z95.2] 04/07/2020 Complete heart block (HCC) [I44.2] 04/07/2020 04/10/2020 Presence of cardiac pacemaker [Z95.0] 04/07/2020 Leukocytosis [D72.829] 04/07/2020 04/10/2020 Bradycardia [R00.1] 04/08/2020 04/10/2020 Aortic valve replaced [Z95.2] 05/09/2020 AV block, complete (HCC) [I44.2] 08/18/2020 Cardiac arrhythmia [I49.9] 08/20/2020 Situational depression [F43.21] 01/03/2021 GERD without esophagitis [K21.9] 01/03/2021 Fatigue [R53.83] 01/03/2021 Dyslipidemia [E78.5] 01/03/2021 JUANIS (obstructive sleep apnea) [G47.33] Psoriasis [L40.9] 05/07/2022 Hyperglycemia [R73.9] 05/07/2022 Iron deficiency anemia secondary to inadequate *06/12/2022 Iron malabsorption [K90.9] 06/12/2022 Absolute anemia [D64.9] 11/05/2022 Chronic pain of both ankles [M25.571, G89.29, M*05/05/2023 Chronic pain of both knees [M25.561, M25.562 (more content not included)... [facility]03-21-2024 Miscellaneous Notes* Telephone Encounter - Belkis Mendoza LPN - 11/27/2023 3:21 PM EDT Patient has been identified by name and date of : Yes, Provider Dr. Castillo Date 11/27/23 Time 3.24 Patient phones for refill(s): Requested Prescriptions Pending Prescriptions Disp Refills omeprazole (PRILOSEC) 20 mg capsule 30 capsule 11 Sig: Take 1 capsule by mouth daily before breakfast. 1/2 hr before meal. Date of last office visit in primary care: 05/05/2023 Date of next office visit in primary care: Visit date not found Please advise. Thank you. Belkis Mendoza LPN. documented in this encounterKeenan [facility]09-[facility]23 History of Present illness Narrative* Mela Mendoza RN - 06/02/2023 1:[address] Ribeiro, Erlinda was provided with Powerstep inserts, size 12-13 Mens, and instructed/educated in its application, wear, and care. All questions were answered, and patient was able to demonstrate competence with the necessary skills to utilize the above equipment. Mela Mendoza RN Called pharmacy and canceled Meloxicam. * Rajiv Ribeiro - 06/02/2023 1:10 PM EDT Images from the original note were not included. Consultation requested by Dr. Law for an opinion regarding ankle pain. My final recommendations will be communicated back to the requesting physician by way of shared Medical record or letter to requesting physician via US mail. Initial Podiatric Office Visit: Chief Complaint: This 48 year old male who presents with chief complaint:b/l ankle pain HPI Patient presents to clinic for evaluation of b/l ankle. Patient complains of pain and stiffness in both ankle. Patient states the pain is more significant following rest. Patient states the pain is not as bad after he is active Patient only form of treatment is rest. Patient does not take any medication over the counter for the pain. PAIN EVALUATION 06/02/2023 1301 Pain Level: 6 Pain Location: Other: See Comment Bilateral feet Description: Throbbing;Sharp Duration Units: Years Frequency: Intermittent Intervention/Comfort measure: Relaxation;Reposition Hemoglobin A1C (%) Date Value 05/10/2022 5.3 06/30/2020 5.2 03/28/2020 5.2 11/05/2019 5.0 09/11/2015 5.5 PCP: Stone Castillo DO PAST MEDICAL HISTORY Diagnosis Date Aortic valve stenosis, severe Ascending aorta dilatation (HCC) Bicuspid aortic valve Cerebral edema (HCC) CHB (complete heart block) (HCC) COVID-19 04/24/2022 Left bundle branch block Murmur JUANIS (obstructive sleep apnea) 04/2021 Sleep apnea Current Outpatient Medications Medication Sig hydrOXYzine HCl (ATARAX) 50 mg tablet Take 1 tablet by mouth once daily. omeprazole (PRILOSEC) 20 mg capsule Take 1 capsule by mouth daily before breakfast. 1/2 hr before meal. furosemide (LASIX) 40 mg tablet Take 40 mg by mouth once daily. for swelling or SOB as needed amiodarone (PACERONE) 200 mg tablet Take by mouth once daily. hydrOXYzine pamoate (VISTARIL) 25 mg capsule Take 50 mg by mouth three times daily as needed. potassium chloride (KLOR-CON) 20 mEq packet Take by mouth twice daily. Ypeni-7-AGS-EPA-Fish Oil 1,000 mg (120 mg-180 mg) cap Take 2 g by mouth twice daily. Ascorbic Acid 1,000 mg tablet Take 1,000 mg by mouth once daily. Cholecalciferol, Vitamin D3, 50 mcg (2,000 unit) cap Take 1 capsule by mouth once daily. metoprolol tartrate, short acting, (LOPRESSOR) 50 mg tablet Take 50 mg by mouth twice daily. aspirin, enteric coated (ECOTRIN LOW STRENGTH) 81 mg EC tablet Take 1 tablet by mouth once daily. lamoTRIgine (LAMICTAL) 200 mg tablet Take 200 mg by mouth daily at bedtime. MULTI-VITAMIN ORAL Take 1 tablet by mouth once daily. cholecalciferol, Vitamin D3, (VITAMIN D3) 1,250 mcg (50,000 unit) cap capsule Take 1 capsule by mouth one time a week. (Patient not taking: Reported on 06/02/2023) risperiDONE (RISPERDAL) 2 mg tablet Take 2 mg by mouth daily at bedtime. (Patient not taking: Reported on 06/02/2023) No current facility-administered medications for this visit. ALLERGIES Allergen Reactions Ancef [Cefazolin] Anaphylaxis, Angioedema Adhesive Rash, Itching Patient states when he wore Holter electrodes, he broke out in rash and itching Prozac [Fluoxetine] Other: See Comments Heart racing, shortness of breath Zoloft [Sertraline] Rash itching PAST SURGICAL HISTORY Procedure Laterality Date CARDIAC CATH 01/07/2020 severe aortic valve calcification-Dr. Rodríguez EXCISION OF BRAIN TUMOR Left 2016 NEUROPLASTY &/TRANSPOS MEDIAN NRV CARPAL TUNNE Right 05/27/2018 Right CTR PACEMAKER IMPLANT Left 04/07/2020 [employer] dual chamber pacemaker for CHB following AVR; Dr. Dewey at [facility] REMOVAL; CARDIAC LOOP RECORDER Left 04/07/2020 ILR removed at time of pacemaker implantation; Dr. Dewey at [facility] REPAIR UMBILICAL HERNIA 02/27/15 RPLCMT PROST AORTIC VALVE OPEN XCP HOMOGRF/STENT 04/04/2020 Aortic valve replacement with 23 mm Inspiris bioprosthesis. SHX AORTIC VALVE REPLACEMENT 04/04/2020 FAMILY HISTORY Problem Relation Age of Onset Hypertension Mother Diabetes Mother other (heart murmur) Father other (Other) Son aortic stenosis Social History Tobacco Use Smoking status: Never Smokeless tobacco: Never Vaping Use Vaping Use: Never used Substance Use Topics Alcohol use: No Drug use: No REVIEW OF SYSTEMS GENERAL: Negative for Malaise, significant weight loss, fever RESPIRATORY: Negative for cough, wheezing and shortness of breath CARDIOVASCULAR: Negative for chest pain, leg swelling and palpitations GI: Negative for abdominal discomfort, blood in stools or black stools and change in bowel habits : Negative for dysuria, frequency and incontinence MUSCULOSKELETAL: + ankle pain SKIN: Negative for lesions, rash, and itching. HEMATOLOGY/LYMPHOLOGY Negative for prolonged bleeding, bruising easily, and swollen nodes. ENDOCRINE: Negative for cold or heat intolerance, polyuria, polydipsia and goiter. NEURO: negative Physical Exam: Constitutional: Pt is a well developed 48 year old male who is alert, oriented and cooperative Eyes: Following during examination. No redness or drainage. Respiratory: RR normal and nonlabored. Even breathing. No evidence of distress or shortness of breath. Psychology: Patient is engaged during conversation. Normal affect and mood. Does not appear depressed or anxious during encounter. Vascular: Dorsalis pedis and posterior tibial pulses palpable as b/l Capillary Fill time < 5 seconds to digits 1-5 b/l Skin temperature warm to warm proximal to distal b/l Hair growth present to digits Neurological: intact light touch/epicritic sensation b/l intact protective sensation no significant neurological deficits Dermatological: Nails 1-5 b/l appear normal. Webspaces clean and dry 1-4 b/l. Skin appears well hydrated and supple. good color, texture, turgor. No open lesions present. No callosities present. Musculoskeletal/Orthopaedic: Patient has pain to palpation of b/l subtalar joint and posterior heel Foot type is pronated structurally AJ ROM is full with knee extended and flexed 1st MPJ is full when loaded and no pain or crepitus are noted with ROM. MTJ, STJ are full and free of pain and crepitus. +5/5 muscle strength dorsiflexion, plantarflexion, inversion, eversion b/l Radiographs: 3 views b/l ankle reviewed June 02, 2023: I have personally reviewed and interpreted these XR myself: posterior heel spur. Arthritis of subtalar joint ASSESSMENT: (M21.41, M21.42) Pes planus of both feet (primary encounter diagnosis) (M19.071, M19.072) Arthritis of both subtalar joints (M77.31, M77.32) Calcaneal spur of both feet PLAN: 1. History and physical examination performed. 2. XR reviewed with patient and interpreted today 3. Discussed pain in ankle. Suspect pain is more related to subtalar joint. Will try inserts. Discussed mobic. Sent mobic but after signing, he states he would like to to avoid. Will discontinue 4. Discussed heel spur. Recommend stretching and inserts Rajiv Ribeiro DPM Podiatry [address] [facility] [address] Dept: [phone] Dept * Mela Mendoza RN - 06/02/2023 12:56 PM EDT AMB ROOMING INTAKE FLOWSHEET DATA Pain Pain Level: 6 Pain Location: Other: See Comment (Bilateral feet) Description: Throbbing, Sharp Duration Units: Years Frequency: Intermittent Intervention/Comfort measure: Relaxation, Reposition Patient presents with: Left Foot - New, Pain Right Foot - New, Pain Patient presents for Bilateral foot/ankle pain. Recent X-ray 05/07/23 shows heel spurs. Pain worse when going down steps or ramp. Patient states that Rest sometimes helps. documented in this encounterKe[facility]09-25-2023 Instructions* Patient Instructions* Rajiv Ribeiro - 06/02/2023 1:18 PM EDT Powerstep Original Full length. Can purchase at [employer] here in [place], [employer] in [place] or [place]. Also can find in [place] in [facility]. Powersteps can also be purchased online, starting around $45.00 If you have a metatarsal or dancer pad for your feet apply the pad directly to the insole so you can interchange between your shoes. Find a shoe with a removable insole and take this out and replace with your powerstep insole. Always bring powersteps with you when shopping for shoes so that you can make sure that everything fits well together documented in this encounterKeenan [facility] Hospital08-31-2023 Miscellaneous Notes* Telephone Encounter - Antonella Law APRN.CNP - 05/08/2023 1:42 PM EDT Orders placed. Please schedule. Antonella Law APRN.PRADIP * Telephone Encounter - Mela Humphrey RN - 05/08/2023 1:13 PM EDT Pt called and is notified of providers results and instructions. Pt voices understanding. Pt askingif provider would put in orders for PT and Podiatry. Please call Pt to schedule once orders are placed. Mela Humphrey RN * Telephone Encounter - Stone Castillo DO - 05/07/2023 10:16 PM EDT Please inform patient that his knee xrays show that he has mild osteoarthritis of his inner knee area. Need for weight loss and regular exercise as well as consideration of PHYSICAL THERAPY His ankle xrays are normal but show that he has heel spurs. Can consider seeing Ship Keeper for recommendations. Need for rest of feet, icing heels and consideration of orthotics. Stone Castillo DO documented in this encounterKeenan [facility] Hospital08-28-2023 History of Present illness Narrative* Stone Castillo DO - 05/05/2023 5:17 PM EDT CC: Erlinda De León is a 48 year old male who presents to the office for follow up HPI: At last OFFICE VISIT in December 2021 Recently diagnosed with JUANIS in 2020, started on CPAP in . Tolerating it well. Wearing on a nightly basis, compliance between 70's to high 90s. Does feel like it is helping his fatigue symptoms some. Hx of complete heart block, pacemaker placement, aortic valve replacement surgery 03/2020. Overall doing well. Sees Manager Student Services regularly. Denies recent chest pressure or pain. Does still struggle with fatigue and dyspnea with long distance walk such as from parking lot of store No leg edema, rare use of diuretics. 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 Stable, taking medications as prescribed. At follow up appt on 05/06/22 Mood, overall stable, taking medications per Psychiatrist as prescribed. Has support from girlfriend and family Hx of complete heart block, pacemaker placement, aortic valve replacement surgery 03/2020. Overall doing well. Sees Manager Student Services regularly. Denies recent chest pressure or pain. Does still struggle with fatigue and dyspnea with long distance walk such as from parking lot of store. Did also recently have COVID 19 infection and was treated with Paxlovid successfully. No hospitalizations. JUANIS, using CPAP, no concerns. Dry patches of skin, not using any medication or lotion on area, unsure what to use, sometimes itching He is not willing to do colonoscopy at this time but will do Cologard if ordered At follow up appt on 11/05/2022 JUANIS, using CPAP without any concerns. Hx of complete heart block, pacemaker placement, aortic valve replacement surgery 03/2020. Overall doing well. Sees Manager Student Services regularly. Denies recent chest pressure or pain. Diagnosed with iron deficiency anemia, symptoms of fatigue and dyspnea are improving but still present, was treated with IV iron Currently He has recently lost his mother to complications from COPD/emphysema in December, she was 70 years old. He is still grieving her. Has been seeing his therapist and psychiatrist and is getting help with medication adjustments. No SI or HI. Also has had stressors with his female relationship/partner andrecently they are broke up. RUDDY, still having some fatigue, better after IV iron, willing to have labs drawn Hx of complete heart block, pacemaker placement, aortic valve replacement surgery 03/2020. Overall doing well. Sees Manager Student Services regularly. Denies recent chest pressure or pain. needs fasting labs to be sent to his office. JUANIS, using CPAP Chronic aching and soreness in bilateral knees and ankles. No known trigger, daily symptoms. No recent injuries or falls. PAST MEDICAL HISTORY Diagnosis Date Aortic valve stenosis, severe Ascending aorta dilatation (HCC) Bicuspid aortic valve Cerebral edema (HCC) CHB (complete heart block) (HCC) COVID-19 04/24/2022 Left bundle branch block Murmur JUANIS (obstructive sleep apnea) 04/2021 Sleep apnea PAST SURGICAL HISTORY Procedure Laterality Date CARDIAC CATH 01/07/2020 severe aortic valve calcification-Dr. Rodríguez EXCISION OF BRAIN TUMOR Left 2016 NEUROPLASTY &/TRANSPOS MEDIAN NRV CARPAL TUNNE Right 05/27/2018 Right CTR PACEMAKER IMPLANT Left 04/07/2020 [employer] dual chamber pacemaker for CHB following AVR; Dr. Dewey at [facility] REMOVAL; CARDIAC LOOP RECORDER Left 04/07/2020 ILR removed at time of pacemaker implantation; Dr. Dewey at [facility] REPAIR UMBILICAL HERNIA 02/27/15 RPLCMT PROST AORTIC VALVE OPEN XCP HOMOGRF/STENT 04/04/2020 Aortic valve replacement with 23 mm Inspiris bioprosthesis. SHX AORTIC VALVE REPLACEMENT 04/04/2020 Social History: Social History Tobacco Use Smoking status: Never Smokeless tobacco: Never Vaping Use Vaping Use: Never used Substance Use Topics Alcohol use: No Drug use: No FAMILY HISTORY Problem Relation Age of Onset Hypertension Mother Diabetes Mother other (heart murmur) Father other (Other) Son aortic stenosis Current Outpatient prescriptions: omeprazole (PRILOSEC) 20 mg capsule Take 1 capsule by mouth daily before breakfast. 1/2 hr before meal. furosemide (LASIX) 40 mg tablet Take 40 mg by mouth once daily. for swelling or SOB as needed amiodarone (PACERONE) 200 mg tablet Take by mouth once daily. hydrOXYzine pamoate (VISTARIL) 25 mg capsule Take 50 mg by mouth three times daily as needed. potassium chloride (KLOR-CON) 20 mEq packet Take by mouth twice daily. cholecalciferol, Vitamin D3, (VITAMIN D3) 1,250 mcg (50,000 unit) cap capsule Take 1 capsule by mouth one time a week. Bfiab-1-BRT-EPA-Fish Oil 1,000 mg (120 mg-180 mg) cap Take 2 g by mouth twice daily. Ascorbic Acid 1,000 mg tablet Take 1,000 mg by mouth once daily. Cholecalciferol, Vitamin D3, 50 mcg (2,000 unit) cap Take 1 capsule by mouth once daily. metoprolol tartrate, short acting, (LOPRESSOR) 50 mg tablet Take 50 mg by mouth twice daily. aspirin, enteric coated (ECOTRIN LOW STRENGTH) 81 mg EC tablet Take 1 tablet by mouth once daily. lamoTRIgine (LAMICTAL) 200 mg tablet Take 200 mg by mouth daily at bedtime. risperiDONE (RISPERDAL) 2 mg tablet Take 2 mg by mouth daily at bedtime. MULTI-VITAMIN ORAL Take 1 tablet by mouth once daily. Allergies: ALLERGIES Allergen Reactions Ancef [Cefazolin] Anaphylaxis, Angioedema Adhesive Rash, Itching Patient states when he wore Holter electrodes, he broke out in rash and itching Prozac [Fluoxetine] Other: See Comments Heart racing, shortness of breath Zoloft [Sertraline] Rash itching ROS: See HPI PE: 05/05/23 1224 BP: 126/82 Pulse: 64 Resp: 20 Temp: 36.1 C (97 F) TempSrc: Left Tympanic Weight: (!) 155.6 kg (343 lb) Height: 188 cm (6' 2) Gen: A&OX3, NAD, non-toxic appearing, poor hygiene HEENT: PERRLA, EOMs intact b/l, nares without drainage, pharynx without erythema, exudate, lesions,or drainage. Uvula midline. MMM, poor dentition, wearing glasses, psoriasis changes b/l ear canals and external ears Neck: No LAD, no thyromegaly, no meningismus. CV: RRR, 1/6 HSM RUSB murmur, normal s1s2 Lungs: CTA b/l, no wheezing Abd: obese, NT, ND, normal bowel sounds, not able to assess for hepatosplenomegaly due to morbid obesity No obvious joint swelling or effusions of knees or ankles. Pain with ankle ROM b/l without signs ofinstability. Pain with b/l joint line assessment of knees without obvious instability of ligaments or menisci Skin: thickened lichenified patches b/l elbows and knees without signs of infection Trace b/l lower leg edema, normal pulses Abd: obese, NT, ND, normal BS, no obvious masses ASSESSMENT/PLAN: 1. Iron deficiency anemia secondary to inadequate dietary iron intake - ICD9: 280.1, ICD10: D50.8 (primary diagnosis) Recheck labs, need for continued monitoring - CBC + DIFF - IRON + TIBC 2. Vitamin D deficiency - ICD9: 268.9, ICD10: E55.9 Continue supplement, recheck labs. - VITAMIN D 25 HYDROXY 3. Other iron deficiency anemia - ICD9: 280.8, ICD10: D50.8 See above - CBC + DIFF - HGB A1C - TSH BLD - VITAMIN B12 BLOOD - IRON + TIBC 4. Dyslipidemia - ICD9: 272.4, ICD10: E78.5 - Control undetermined, due for labs - Continue current medications - Counseled on healthy diet and regular exercise - Discussed need for and benefit of weight loss. BMI 44.04 kg/(m^2) - COMP METABOLIC PANEL - CBC + DIFF - LIPID PANEL BASIC 5. Presence of cardiac pacemaker - ICD9: V45.01, ICD10: Z95.0 - f/u with [employer], no recent symptoms. 6. Hyperglycemia - ICD9: 790.29, ICD10: R73.9 - recheck labs, need for weight loss as d/w him today - HGB A1C - TSH BLD - T4 FREE/FREE THYROX - VITAMIN B12 BLOOD 7. Fatigue, unspecified type - ICD9: 780.79, ICD10: R53.83 - recheck labs, chronic, multiple reasons likely - TSH BLD - T4 FREE/FREE THYROX - VITAMIN B12 BLOOD 8. Chronic pain of both knees - ICD9: 719.46, 338.29, ICD10: M25.561, M25.562, G89.29 Xray as ordered of knees, f/u with Orthopedics. - XR KNEE GENERAL 4V AP BOTH/PA BOTH/LAT/MERC BILATERAL 9. Chronic pain of both ankles - ICD9: 719.47, 338.29, ICD10: M25.571, G89.29, M25.572 Xray of ankles as ordered, f/u with Orthopedics. - XR ANKLE GENERAL 3V AP/LAT/OBL BILATERAL 10. Obesity, Class III, BMI 40-49.9 (morbid obesity) (HCC) - ICD9: 278.01, ICD10: E66.01 Weight increasing - Behavioral intervention, - PSMF, and - Eat well program 11. Aortic valve replaced - ICD9: V43.3, ICD10: Z95.2 - f/u with Manager Student Services 12. JUANIS (obstructive sleep apnea) - ICD9: 327.23, ICD10: G47.33 Continue CPAP 13. Psoriasis - ICD9: 696.1, ICD10: L40.9 F/u with Dermatology, continue prn use of topical steroids. Stone Castillo DO To ER if develops chest pain, shortness of breath, or severe worsening of symptoms. Discussed risks, benefits, alternatives, and potential side effects of medications. Patient expressed understanding and agreed with the plan. Stone Castillo DO [address] [place] [address] documented in this encounterKeenan Private Hospital08-28-2023 History of Present illness Narrative* Iram Olguin, RT(R) - 05/05/2023 1:20 PM EDT Radiology Service Progress Note PATIENT NAME: Erlinda De León DATE OF SERVICE: May 05, 2023 TIME: 1:08 PM PATIENT IDENTITY VERIFICATION COMPLETED USING TWO (2) IDENTIFIERS: Name and Date of confirmedby patient verbally. FALL SCREENING: Has the patient had 2 falls in the last year or 1 fall with injury or currently using an Ambulatory Assistive Device (Walker, Cane, Wheelchair, Crutches, etc.)? No PATIENT GENDER DATA: Male PATIENT RELEVANT IMPLANT DATA REVIEWED: Not Applicable RADIOLOGY DEPARTMENT: General X-ray: Exam(s) Completed: Lower Extremity X- Ray(s): Knee, AP / Lat / Tunne / Merchant Bilateral and Wt. Bearing and Ankle, Bilateral and Wt. Bearing PERIPHERAL IV DATA: Not applicable SIGNED BY: RT Krissy(R) May 05, 2023 1:08 PM documented in this encounterKeenan Private Hospital03-15-2023 Miscellaneous Notes* Telephone Encounter - AMBROCIO Aguirre - 11/20/2022 12:55 PM EDT Patient has been identified by name and date of : Yes Patient phones for refill(s): Requested Prescriptions Pending Prescriptions Disp Refills omeprazole (PRILOSEC) 20 mg capsule 30 capsule 11 Sig: Take 1 capsule by mouth daily before breakfast. 1/2 hr before meal. Date of last office visit in primary care: EZIO 11/05/22 with JG Appointment scheduled 05/05/23 with JG Last 2 Encounter Wt Readings: Date: Wt: 11/05/2022 157.9 kg (348 lb) 06/20/2022 155.1 kg (342 lb) Please advise. Thank you. AMBROCIO Aguirre documented in this encounterKeenan Private Hospital03-02-2023 Miscellaneous Notes* Telephone Encounter - Kamryn Cerda Cma - 11/07/2022 8:36 AM EST Patient notified and verbalized understanding Kamryn Cerda Cma * Telephone Encounter - Stone Castillo DO - 11/06/2022 8:16 PM EST Please inform patient that his labs are overall improved and stable. Continue same routine Stone Castillo DO documented in this encounterCleveland [id number] History of Present illness Narrative* Stone Castillo, DO - 11/05/2022 2:33 PM EST CC: Erlinda De León is a 47 year old male who presents to the office for 6 months follow up HPI: At last OFFICE VISIT in December 2021 Recently diagnosed with JUANIS in 2020, started on CPAP in . Tolerating it well. Wearing on a nightly basis, compliance between 70's to high 90s. Does feel like it is helping his fatigue symptoms some. Hx of complete heart block, pacemaker placement, aortic valve replacement surgery 03/2020. Overall doing well. Sees Manager Student Services regularly. Denies recent chest pressure or pain. Does still struggle with fatigue and dyspnea with long distance walk such as from parking lot of store No leg edema, rare use of diuretics. 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 Stable, taking medications as prescribed. At follow up appt on 05/06/22 Mood, overall stable, taking medications per Psychiatrist as prescribed. Has support from girlfriend and family Hx of complete heart block, pacemaker placement, aortic valve replacement surgery 03/2020. Overall doing well. Sees Manager Student Services regularly. Denies recent chest pressure or pain. Does still struggle with fatigue and dyspnea with long distance walk such as from parking lot of store. Did also recently have COVID 19 infection and was treated with Paxlovid successfully. No hospitalizations. JUANIS, using CPAP, no concerns. Dry patches of skin, not using any medication or lotion on area, unsure what to use, sometimes itching He is not willing to do colonoscopy at this time but will do Cologard if ordered Currently JUANIS, using CPAP without any concerns. Hx of complete heart block, pacemaker placement, aortic valve replacement surgery 03/2020. Overall doing well. Sees Manager Student Services regularly. Denies recent chest pressure or pain. Diagnosed with iron deficiency anemia, symptoms of fatigue and dyspnea are improving but still present, was treated with IV iron PAST MEDICAL HISTORY Diagnosis Date Aortic valve stenosis, severe Ascending aorta dilatation (HCC) Bicuspid aortic valve Cerebral edema (HCC) CHB (complete heart block) (HCC) COVID-19 04/24/2022 Left bundle branch block Murmur JUANIS (obstructive sleep apnea) 04/2021 Sleep apnea PAST SURGICAL HISTORY Procedure Laterality Date CARDIAC CATH 01/07/2020 severe aortic valve calcification-Dr. Rodríguez EXCISION OF BRAIN TUMOR Left 2015 NEUROPLASTY &/TRANSPOS MEDIAN NRV CARPAL TUNNE Right 05/27/2018 Right CTR PACEMAKER IMPLANT Left 04/07/2020 [employer] dual chamber pacemaker for CHB following AVR; Dr. Dewey at [facility] REMOVAL; CARDIAC LOOP RECORDER Left 04/07/2020 ILR removed at time of pacemaker implantation; Dr. Dewey at [facility] REPAIR UMBILICAL HERNIA 02/27/15 RPLCMT PROST AORTIC VALVE OPEN XCP HOMOGRF/STENT 04/04/2020 Aortic valve replacement with 23 mm Inspiris bioprosthesis. SHX AORTIC VALVE REPLACEMENT 04/04/2020 Current Outpatient Medications Medication Sig furosemide (LASIX) 40 mg tablet Take 40 mg by mouth once daily. for swelling or SOB as needed omeprazole (PRILOSEC) 20 mg capsule Take 1 capsule by mouth daily before breakfast. 1/2 hr before meal. amiodarone (PACERONE) 200 mg tablet Take by mouth once daily. hydrOXYzine pamoate (VISTARIL) 25 mg capsule Take 50 mg by mouth three times daily as needed. potassium chloride (KLOR-CON) 20 mEq packet Take by mouth twice daily. cholecalciferol, Vitamin D3, (VITAMIN D3) 1,250 mcg (50,000 unit) cap capsule Take 1 capsule by mouth one time a week. Iecye-8-DFP-EPA-Fish Oil 1,000 mg (120 mg-180 mg) cap Take 2 g by mouth twice daily. Ascorbic Acid 1,000 mg tablet Take 1,000 mg by mouth once daily. Cholecalciferol, Vitamin D3, 50 mcg (2,000 unit) cap Take 1 capsule by mouth once daily. metoprolol tartrate, short acting, (LOPRESSOR) 50 mg tablet Take 50 mg by mouth twice daily. aspirin, enteric coated (ECOTRIN LOW STRENGTH) 81 mg EC tablet Take 1 tablet by mouth once daily. lamoTRIgine (LAMICTAL) 200 mg tablet Take 200 mg by mouth daily at bedtime. risperiDONE (RISPERDAL) 2 mg tablet Take 2 mg by mouth daily at bedtime. MULTI-VITAMIN ORAL Take 1 tablet by mouth once daily. No current facility-administered medications for this visit. ALLERGIES Allergen Reactions Ancef [Cefazolin] Anaphylaxis, Angioedema Adhesive Rash, Itching Patient states when he wore Holter electrodes, he broke out in rash and itching Prozac [Fluoxetine] Other: See Comments Heart racing, shortness of breath Zoloft [Sertraline] Rash itching Social History Tobacco Use Smoking status: Never Smokeless tobacco: Never Vaping Use Vaping Use: Never used Substance Use Topics Alcohol use: No Drug use: No ROS: See HPI PE: BP 112/78 Pulse 89 Resp 18 Wt 348 lb (157.9kg) SpO2 99% Gen: A&OX3, NAD, non-toxic appearing HEENT: PERRLA, EOMs intact b/l, nares without drainage, pharynx without erythema, exudate, lesions,or drainage. Uvula midline. MMM, poor dentition, wearing glasses Neck: No LAD, no thyromegaly, no meningismus. CV: RRR, 1/6 HSM RUSB murmur, normal s1s2 Lungs: CTA b/l, no wheezing Skin: thickened lichenified patches b/l elbows and knees without signs of infection Trace b/l lower leg edema, normal pulses Abd: obese, NT, ND, normal BS, no obvious masses ASSESSMENT/PLAN: 1. Other iron deficiency anemia - ICD9: 280.8, ICD10: D50.8 (primary diagnosis) Recheck labs as ordered, symptoms are improving. Had IV iron infusions - TSH BLD - IRON + TIBC - FERRITIN BLD - VITAMIN B12 BLOOD - CBC + DIFF - COMP METABOLIC PANEL - T4 FREE/FREE THYROX - T3 FREE BLD 2. Vitamin D deficiency - ICD9: 268.9, ICD10: E55.9 Recheck labs, continue supplement - VITAMIN D 25 HYDROXY 3. Dyslipidemia - ICD9: 272.4, ICD10: E78.5 - to be determined upon return of lab results - Encouraged following a low fat, low cholesterol diet. - Discussed the benefits of regular aerobic exercise and weight loss. - CBC + DIFF - COMP METABOLIC PANEL 4. Fatigue, unspecified type - ICD9: 780.79, ICD10: R53.83 - recheck labs, continue supplements. - TSH BLD - T4 FREE/FREE THYROX - T3 FREE BLD 5. Aortic valve replaced - ICD9: V43.3, ICD10: Z95.2 Follow up with [employer], symptoms are stable. Needs to be avoiding salt in his diet. 6. Ascending aorta dilatation (HCC) - ICD9: 447.71, ICD10: I77.810 Follow up with Manager Student [employer], symptoms are stable. Needs to be avoiding salt in his diet. 7. Presence of cardiac pacemaker - ICD9: V45.01, ICD10: Z95.0 Follow up with Manager Student [employer], symptoms are stable. Needs to be avoiding salt in his diet. 8. JUANIS (obstructive sleep apnea) - ICD9: 327.23, ICD10: G47.33 Continue CPAP, need for weight loss Stone Castillo DO Return if no improvement. Follow up with Stone Castillo DO. To ER if develops chest pain, shortness of breath Discussed risks, benefits, alternatives, and potential side effects of medications. Patient/Guardian expressed understanding and agreed with the plan. See patient instructions. Stone Castillo DO [address] [place] [address] documented in this encounterKeenan Private Hospital02-15-2023 Miscellaneous Notes* Telephone Encounter - Karely Pantoja - 10/23/2022 10:23 AM EST Spoke to the patient and he is aware that his procedure on 11/04/22 has been moved per his request to 06/16/23 09:30 am ACC with . Karely Pantoja documented in this encounterKeenan Private Hospital12-19-2022 History of Present illness Narrative* Corinne Fitzpatrick RN - 08/26/2022 3:27 PM EST Pt states that they have been having a hard time getting IV site and he would only allow 2 sticks and then he was going to forego treatment. He states that he will not be coming in for his last treatment either as he is not feeling better and does not want to continue at this time. documented in this encounterKeenan Private Hospital12-05-2022 Miscellaneous Notes* Telephone Encounter - Corinne Vera - 08/12/2022 11:43 AM EST Patient returned call and scheduled as directed. Patient's significant other stated that there hasn't been any bloody in his stool recently. Advised them to call in if that changes. Corinne Vera * Telephone Encounter - Shital Duncan LPN - 08/12/2022 10:55 AM EST Spoke with pts. Significant other given information concerning the need for 5 more doses of iron sucrose. Instructed pt. Needs to contact office to get the iron sucrose scheduled. Schedule him for 5 further doses of iron sucrose. CBC/iron studies about 6 weeks after completing iron. Looks like he will be scheduled for endoscopy in October. He should let us know Shital Duncan LPN * Telephone Encounter - Wilmer Puente DO - 08/11/2022 8:24 AM EST I have not seen this patient. He received 5 doses of iron sucrose in June. Hemoglobin has come up very nicely but his ferritin is still relatively low. I would schedule him for 5 further doses of iron sucrose. CBC/iron studies about 6 weeks after completing iron. Looks like he will be scheduled for endoscopy in October. He should let us know if he has any black or bloody stools in the meantime. Wilmer Puente DO documented in this encounterKeenan Private Hospital10-13-2022 NoteHNO ID: [id number] Author: Yanna Gonzalez PA-C Service: ? Author Type: Physician Hall Monitor Type: Progress Notes Filed: 06/20/2022 11:08 AM Note Text: GASTROENTEROLOGY OUTPATIENT NEW OFFICE VISIT CC: Patient presents with: Consult HPI: Erlinda De León is a 47 year old male who presents for Consult for anemia. He was coincidentally found to be anemic. He denies symptoms for anemia. He denies GI symptom as well. He has not had a colonoscopy. He is scheduled for an iron infusion next week. NSAID use: not permitted Unexplained weight loss: stable Take Blood thinners: aspirin, open heart surgery 04/04/20 pacemaker 04/06/20 Bowel Habits: regular bowel movements Fam Hx: negative for colon cancer Current Outpatient Medications Medication Sig furosemide (LASIX) 40 mg tablet Take 40 mg by mouth once daily. for swelling or SOB as needed triamcinolone acetonide (KENALOG) 0.1 % cream Apply 1 application to affected area three times daily. For psoriasis skin patch, Apply sparingly to area for rash/itching. omeprazole (PRILOSEC) 20 mg capsule Take 1 capsule by mouth daily before breakfast. 1/2 hr before meal. amiodarone (PACERONE) 200 mg tablet Take by mouth once daily. hydrOXYzine pamoate (VISTARIL) 25 mg capsule Take 50 mg by mouth three times daily as needed. potassium chloride (KLOR-CON) 20 mEq packet Take by mouth twice daily. cholecalciferol, Vitamin D3, (VITAMIN D3) 1,250 mcg (50,000 unit) cap capsule Take 1 capsule by mouth one time a week. Elfjz-2-TJT-EPA-Fish Oil 1,000 mg (120 mg-180 mg) cap Take 2 g by mouth twice daily. Ascorbic Acid 1,000 mg tablet Take 1,000 mg by mouth once daily. Cholecalciferol, Vitamin D3, 50 mcg (2,000 unit) cap Take 1 capsule by mouth once daily. metoprolol tartrate, short acting, (LOPRESSOR) 50 mg tablet Take 50 mg by mouth twice daily. aspirin, enteric coated (ECOTRIN LOW STRENGTH) 81 mg EC tablet Take 1 tablet by mouth once daily. lamoTRIgine (LAMICTAL) 200 mg tablet Take 200 mg by mouth daily at bedtime. risperiDONE (RISPERDAL) 2 mg tablet Take 2 mg by mouth daily at bedtime. MULTI-VITAMIN ORAL Take 1 tablet by mouth once daily. No current facility-administered medications for this visit. PAST MEDICAL HISTORY Diagnosis Date Aortic valve stenosis, severe Ascending aorta dilatation (HCC) Bicuspid aortic valve Cerebral edema (HCC) CHB (complete heart block) (HCC) COVID-19 04/24/2022 Left bundle branch block Murmur JUANIS (obstructive sleep apnea) 04/2021 Sleep apnea PAST SURGICAL HISTORY Procedure Laterality Date CARDIAC CATH 01/07/2020 severe aortic valve calcification-Dr. Rodríguez EXCISION OF BRAIN TUMOR Left 2015 NEUROPLASTY AND/TRANSPOS MEDIAN NRV CARPAL TUNNE Right 05/27/2018 Right CTR PACEMAKER IMPLANT Left 04/07/2020 [employer] dual chamber pacemaker for CHB [facility]; CARDIAC LOOP RECORDER Left 04/07/2020 ILR removed at time of pacemaker implantation; Dr. Dewey at [facility] REPAIR UMBILICAL HERNIA 02/27/15 RPLCMT PROST AORTIC VALVE OPEN XCP HOMOGRF/STENT 04/04/2020 Aortic valve replacement with 23 mm Inspiris bioprosthesis. SHX AORTIC VALVE REPLACEMENT 04/04/2020 FAMILY HISTORY Problem Relation Age of Onset Hypertension Mother Diabetes Mother other (heart murmur) Father other (Other) Son aortic stenosis Social History Tobacco Use Smoking status: Never Smokeless tobacco: Never Vaping Use Vaping Use: Never used Substance Use Topics Alcohol use: No Drug use: No ALLERGIES Allergen Reactions Ancef [Cefazolin] Anaphylaxis, Angioedema Adhesive Rash, Itching Patient states when he wore Holter electrodes, he broke out in rash and itching Prozac [Fluoxetine] Other: See Comments Heart racing, shortness of breath Zoloft [Sertraline] Rash itching GI SPECIFIC ROS: Difficulty swallowing / foods sticking in throat: No Heartburn: No Hoarseness: No Chronic cough: No Regurgitation: No Chest pain: No Filling up quickly at meals: No Loss of appetite: No Nausea: No Vomiting: No Abdominal pain: No Recent change in bowel movements: No Bloody or black, bowel movements: No Constipation: No Diarrhea: No Loss of control of bowel movements: No Night sweats, fever, chills: No Vomiting blood: No Recent change in weight: No Review of Systems: PAIN ASSESSMENT: Negative for pain, history of chronic pain, or current treatment for a chronic pain condition. GENERAL: fatigue RESPIRATORY: Negative for cough, hemoptysis, wheezing, COPD, dyspnea or shortness of breath CARDIOVASCULAR: Shortness of breath, Chest pain GI: No nausea, vomiting, or diarrhea MUSCULOSKELETAL: Negative for joint pain or swelling, back pain or muscle pain SKIN: Negative for lesions, rash, and itching. NEURO: dizziness The remainder of the review of systems is negative. PHYSICAL EXAMINATION: BP 123/78 Pulse 79 Ht 188 cm (6' 2) Wt (more content not included)... [facility]10-13-2022 Miscellaneous Notes* Telephone Encounter - Skye Devlin - 06/20/2022 11:34 AM EDT Surgery Checklist Type: colon/egd Admission Type: outpatient Anesthesia: MAC Date: 11/04/2022 Arrival Time: 7:00am Surgery Time: 8:30am Location: [facility] Given colon/egd prep instruction at the time of appointment Skye Devlin documented in this encounterKeenan Private Hospital10-13-2022 History of Present illness Narrative* Yanna Gonzalez PA-C - 06/20/2022 10:22 AM EDT GASTROENTEROLOGY OUTPATIENT NEW OFFICE VISIT CC: Patient presents with: Consult HPI: Erlinda De León is a 47 year old male who presents for Consult for anemia. He was coincidentally found to be anemic. He denies symptoms for anemia. He denies GI symptom as well. He has not had a colonoscopy. He is scheduled for an iron infusion next week. NSAID use: not permitted Unexplained weight loss: stable Take Blood thinners: aspirin, open heart surgery 04/04/20 pacemaker 04/06/20 Bowel Habits: regular bowel movements Fam Hx: negative for colon cancer Current Outpatient Medications Medication Sig furosemide (LASIX) 40 mg tablet Take 40 mg by mouth once daily. for swelling or SOB as needed triamcinolone acetonide (KENALOG) 0.1 % cream Apply 1 application to affected area three times daily. For psoriasis skin patch, Apply sparingly to area for rash/itching. omeprazole (PRILOSEC) 20 mg capsule Take 1 capsule by mouth daily before breakfast. 1/2 hr before meal. amiodarone (PACERONE) 200 mg tablet Take by mouth once daily. hydrOXYzine pamoate (VISTARIL) 25 mg capsule Take 50 mg by mouth three times daily as needed. potassium chloride (KLOR-CON) 20 mEq packet Take by mouth twice daily. cholecalciferol, Vitamin D3, (VITAMIN D3) 1,250 mcg (50,000 unit) cap capsule Take 1 capsule by mouth one time a week. Uiwle-1-BGZ-EPA-Fish Oil 1,000 mg (120 mg-180 mg) cap Take 2 g by mouth twice daily. Ascorbic Acid 1,000 mg tablet Take 1,000 mg by mouth once daily. Cholecalciferol, Vitamin D3, 50 mcg (2,000 unit) cap Take 1 capsule by mouth once daily. metoprolol tartrate, short acting, (LOPRESSOR) 50 mg tablet Take 50 mg by mouth twice daily. aspirin, enteric coated (ECOTRIN LOW STRENGTH) 81 mg EC tablet Take 1 tablet by mouth once daily. lamoTRIgine (LAMICTAL) 200 mg tablet Take 200 mg by mouth daily at bedtime. risperiDONE (RISPERDAL) 2 mg tablet Take 2 mg by mouth daily at bedtime. MULTI-VITAMIN ORAL Take 1 tablet by mouth once daily. No current facility-administered medications for this visit. PAST MEDICAL HISTORY Diagnosis Date Aortic valve stenosis, severe Ascending aorta dilatation (HCC) Bicuspid aortic valve Cerebral edema (HCC) CHB (complete heart block) (HCC) COVID-19 04/24/2022 Left bundle branch block Murmur JUANIS (obstructive sleep apnea) 04/2021 Sleep apnea PAST SURGICAL HISTORY Procedure Laterality Date CARDIAC CATH 01/07/2020 severe aortic valve calcification-Dr. Rodríguez EXCISION OF BRAIN TUMOR Left 2015 NEUROPLASTY &/TRANSPOS MEDIAN NRV CARPAL TUNNE Right 05/27/2018 Right CTR PACEMAKER IMPLANT Left 04/07/2020 [employer] dual chamber pacemaker for CHB following AVR; Dr. Dewey at [facility] REMOVAL; CARDIAC LOOP RECORDER Left 04/07/2020 ILR removed at time of pacemaker implantation; Dr. Dewey at [facility] REPAIR UMBILICAL HERNIA 02/27/15 RPLCMT PROST AORTIC VALVE OPEN XCP HOMOGRF/STENT 04/04/2020 Aortic valve replacement with 23 mm Inspiris bioprosthesis. SHX AORTIC VALVE REPLACEMENT 04/04/2020 FAMILY HISTORY Problem Relation Age of Onset Hypertension Mother Diabetes Mother other (heart murmur) Father other (Other) Son aortic stenosis Social History Tobacco Use Smoking status: Never Smokeless tobacco: Never Vaping Use Vaping Use: Never used Substance Use Topics Alcohol use: No Drug use: No ALLERGIES Allergen Reactions Ancef [Cefazolin] Anaphylaxis, Angioedema Adhesive Rash, Itching Patient states when he wore Holter electrodes, he broke out in rash and itching Prozac [Fluoxetine] Other: See Comments Heart racing, shortness of breath Zoloft [Sertraline] Rash itching GI SPECIFIC ROS: Difficulty swallowing / foods sticking in throat: No Heartburn: No Hoarseness: No Chronic cough: No Regurgitation: No Chest pain: No Filling up quickly at meals: No Loss of appetite: No Nausea: No Vomiting: No Abdominal pain: No Recent change in bowel movements: No Bloody or black, bowel movements: No Constipation: No Diarrhea: No Loss of control of bowel movements: No Night sweats, fever, chills: No Vomiting blood: No Recent change in weight: No Review of Systems: PAIN ASSESSMENT: Negative for pain, history of chronic pain, or current treatment for a chronic pain condition. GENERAL: fatigue RESPIRATORY: Negative for cough, hemoptysis, wheezing, COPD, dyspnea or shortness of breath CARDIOVASCULAR: Shortness of breath, Chest pain GI: No nausea, vomiting, or diarrhea MUSCULOSKELETAL: Negative for joint pain or swelling, back pain or muscle pain SKIN: Negative for lesions, rash, and itching. NEURO: dizziness The remainder of the review of systems is negative. PHYSICAL EXAMINATION: BP 123/78 Pulse 79 Ht 188 cm (6' 2) Wt (!) 155.1 kg (342 lb) BMI 43.91 kg/m GENERAL APPEARANCE: Well appearing, alert, in no acute distress, well-hydrated, well nourished.. SKIN: Skin color, texture, turgor normal, no suspicious rashes or lesions. EYES: Anicteric sclera. Extraocular movements are intact. . NECK: Supple, no adenopathy; thyroid symmetric, normal size, no bruits. LUNGS: Lungs clear to auscultation. No wheezing, rhonchi, rales. HEART: RRR without murmur, gallop, or rubs. No ectopy. ABDOMEN: Abdomen soft, non-tender, non distended. Bowel sounds normal. No masses, ascites or hepatosplenomegaly. EXTREMITIES: No deformities, edema, skin discoloration, clubbing or cyanosis. NEUROLOGIC: Gait normal. Sensation and strength grossly intact.. ASSESSMENT AND PLAN: Impression: This is a 47yr old male who presents to the office today for a consult for a colonoscopy/EGD for anemia. He was recently found to be iron deficient anemia, coincidentally. He denies all GI symptoms. He has never had a colonoscopy. This patient is on blood thinners- aspirin because of heart issues. We discussed the procedure, instructions, and patient agrees to proceed. The patient verbalized understanding and agreed with the plan. They stated that they had no further questions. ASSESSMENT/PLAN: 1. Iron deficiency anemia, unspecified iron deficiency anemia type - ICD9: 280.9, ICD10: D50.9 - COLONOSCOPY SCREENING - EGD DIAGNOSTIC Yanna Gonzalez PA-C I spent a total of 30 minutes on the date of the service which included preparing to see the patient, jobm-et-cknq patient care, completing clinical documentation, performing a medically appropriate examination, counseling and educating the patient/family/caregiver, and ordering medications, tests,or procedures. documented in this encounterKeenan [facility]10-10-2022 Miscellaneous Notes* Telephone Encounter - Dustin Guzman - 06/17/2022 3:28 PM EDT 1st time treatment report- non oncology regimen. No assistance to support Venofer drug for insured patients. No further assistance from at this time. documented in this encounterKeenan Private Hospital10-06-2022 Miscellaneous Notes* Telephone Encounter - Corinne Vera - 06/13/2022 8:33 AM EDT Spoke with patient and scheduled iron infusions and labs as directed by Dr. Puente. Corinne Vera * Telephone Encounter - Wilmer Puente DO - 06/12/2022 1:41 PM EDT He is clearly iron deficient with a low ferritin and qualifies for intravenous iron treatment. Please schedule for 10 doses of iron sucrose. I would recommend GI referral rather than general surgery referral since GI may be more fast silo at working him up for other causes such as celiac disease. CBC with iron studies at fifth and 10th dose of iron. Wilmer Puente DO * Telephone Encounter - Gloria Moctezuma LPN - 06/12/2022 9:[address] Puente, would you mind looking at his labs and weighing in on his possible need for Iron infusions. Gloria Moctezuma LPN * Telephone Encounter - Stone Castillo DO - 06/12/2022 7:49 AM EDT Please inform patient that even though his stool testing was negative for blood, I Would like him to follow up with the surgeons for evaluation for his anemia. Also he may need IV iron infusion, I will forward this to Hematology office to review. Stone Castillo DO documented in this encounterKeenan [facility] Hospital09-28-2022 Miscellaneous Notes* Telephone Encounter - Erika Elizabeth LPN - 06/05/2022 4:56 PM EDT [facility] contacted he is to have lab drawn tomorrow at [facility] and will be transfused on Friday. Orders faxed. Pt. informed. Erika Elizabeth LPN * Telephone Encounter - Stone Castillo DO - 06/05/2022 4:12 PM EDT Patient is aware of the anemia results with hemoglobin 8.1. has had severe fatigue, has had some shortness of breath and dizziness. No syncope or chest pain or palpitations. Would like him to see General surgeon. IFOBT is negative. Concerns needs EGD and c scope. Also need to get him 2 units PRBC since he is a cardiac patient. Please set this up at [facility] Stone Castillo DO documented in this encounterKeenan [facility] Hospital09-08-2022 Miscellaneous Notes* Telephone Encounter - Miguel Angel Guadarrama MD - 05/16/2022 2:51 PM EDT His hb was much better at 9.1. I would not transfuse at this point. I will leave the rest for Dr. Castillo when she is back. * Telephone Encounter - Peg Mathis Ma - 05/16/2022 1:22 PM EDT Please review patients CBC results in chart. The rest of the results received from [facility] Iron: 18, TIBC: 372, Ferritin: 19. Per JG results need to be reviewed by provider chief environmental commitment officer. Please see JG note below. Peg Mathis Ma * Telephone Encounter - Belkis Mendoza LPN - 05/16/2022 11:17 AM EDT Noted. * Telephone Encounter - Reece Mendez APRN.CNP - 05/16/2022 11:12 AM EDT Orders have been changed to stat. Reece Mendez APRN.CNP * Telephone Encounter - Peg Mathis Ma - 05/16/2022 10:57 AM EDT Pt informed, verbalized understanding. Pt reports will come to lab [facility]. Lab orders need changed to STAT. Peg Mathis Ma * Telephone Encounter - Stone Castillo DO - 05/15/2022 9:49 PM EDT Please inform patient that his recent labs show concerns for an acute anemia with hemoglobin low at6.4%. I need this to be rechecked stat at the lab to determine if transfusion is needed of PRBC. Also need for iron labs and IFOBT stool testing for blood. Please notify on leonarda physician with results. He has a cardiac history. His hepatitis B antibody is also negative, needs to restart the hepatitis B vaccine series as well.Can do this through a nurse visit when ready Stone Castillo DO documented in this encounterKeenan [facility] Hospital08-29-2022 History of Present illness Narrative* Stone Castillo DO - 05/06/2022 12:28 PM EDT CC: Erlinda De León is a 47 year old male who presents to the office for follow up HPI At last OFFICE VISIT in December 2021 Recently diagnosed with JUANIS in 2020, started on CPAP in . Tolerating it well. Wearing on a nightly basis, compliance between 70's to high 90s. Does feel like it is helping his fatigue symptoms some. Hx of complete heart block, pacemaker placement, aortic valve replacement surgery 03/2020. Overall doing well. Sees Manager Student Services regularly. Denies recent chest pressure or pain. Does still struggle with fatigue and dyspnea with long distance walk such as from parking lot of store No leg edema, rare use of diuretics. 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 Stable, taking medications as prescribed. Currently Mood, overall stable, taking medications per Psychiatrist as prescribed. Has support from girlfriend and family Hx of complete heart block, pacemaker placement, aortic valve replacement surgery 03/2020. Overall doing well. Sees Manager Student Services regularly. Denies recent chest pressure or pain. Does still struggle with fatigue and dyspnea with long distance walk such as from parking lot of store. Did also recently have COVID 19 infection and was treated with Paxlovid successfully. No hospitalizations. JUANIS, using CPAP, no concerns. Dry patches of skin, not using any medication or lotion on area, unsure what to use, sometimes itching He is not willing to do colonoscopy at this time but will do Cologard if ordered PAST MEDICAL HISTORY Diagnosis Date Aortic valve stenosis, severe Ascending aorta dilatation (HCC) Bicuspid aortic valve Cerebral edema (HCC) CHB (complete heart block) (HCC) Left bundle branch block JUANIS (obstructive sleep apnea) 04/2021 Sleep apnea PAST SURGICAL HISTORY Procedure Laterality Date CARDIAC CATH 01/07/2020 severe aortic valve calcification-Dr. Rodríguez EXCISION OF BRAIN TUMOR Left 2016 NEUROPLASTY &/TRANSPOS MEDIAN NRV CARPAL TUNNE Right 05/27/2018 Right CTR PACEMAKER IMPLANT Left 04/07/2020 [employer] dual chamber pacemaker for CHB following AVR; Dr. Dewey at [facility] REMOVAL; CARDIAC LOOP RECORDER Left 04/07/2020 ILR removed at time of pacemaker implantation; Dr. Dewey at [facility] REPAIR UMBILICAL HERNIA 02/27/15 RPL[facility]T PROST AORTIC VALVE OPEN XCP HOMOGRF/STENT 04/04/2020 Aortic valve replacement with 23 mm Inspiris bioprosthesis. SHX AORTIC VALVE REPLACEMENT 04/04/2020 Current Outpatient Medications Medication Sig omeprazole (PRILOSEC) 20 mg capsule Take 1 capsule by mouth daily before breakfast. 1/2 hr before meal. amiodarone (PACERONE) 200 mg tablet Take by mouth once daily. hydrOXYzine pamoate (VISTARIL) 25 mg capsule Take 50 mg by mouth three times daily as needed. potassium chloride (KLOR-CON) 20 mEq packet Take by mouth twice daily. cholecalciferol, Vitamin D3, (VITAMIN D3) 1,250 mcg (50,000 unit) cap capsule Take 1 capsule by mouth one time a week. Wvrwt-8-SCE-EPA-Fish Oil (FISH OIL) 1,000 mg (120 mg-180 mg) cap Take 2 g by mouth twice daily. Ascorbic Acid (VITAMIN C) 1,000 mg tablet Take 1,000 mg by mouth once daily. metoprolol tartrate, short acting, (LOPRESSOR) 50 mg tablet Take 50 mg by mouth twice daily. aspirin, enteric coated (ECOTRIN LOW STRENGTH) 81 mg EC tablet Take 1 tablet by mouth once daily. lamoTRIgine (LAMICTAL) 200 mg tablet Take 200 mg by mouth daily at bedtime. risperiDONE (RISPERDAL) 2 mg tablet Take 2 mg by mouth daily at bedtime. MULTI-VITAMIN ORAL Take 1 tablet by mouth once daily. furosemide (LASIX) 40 mg tablet Take 40 mg by mouth once daily. for swelling or SOB as needed Cholecalciferol, Vitamin D3, 50 mcg (2,000 unit) cap Take 1 capsule by mouth once daily. No current facility-administered medications for this visit. ALLERGIES Allergen Reactions Ancef [Cefazolin] Anaphylaxis, Angioedema Adhesive Rash, Itching Patient states when he wore Holter electrodes, he broke out in rash and itching Prozac [Fluoxetine] Other: See Comments Heart racing, shortness of breath Zoloft [Sertraline] Rash itching Social History Tobacco Use Smoking status: Never Smokeless tobacco: Never Vaping Use Vaping Use: Never used Substance Use Topics Alcohol use: No Drug use: No ROS: See HPI PE: BP 116/60 Pulse 76 Temp (Src) 98.2 (Left Tympanic) Resp 24 Wt 334 lb (151.5kg) Gen: A&OX3, NAD, non-toxic appearing HEENT: PERRLA, EOMs intact b/l, nares without drainage, pharynx without erythema, exudate, lesions,or drainage. Uvula midline. MMM, poor dentition, wearing glasses Neck: No LAD, no thyromegaly, no meningismus. CV: RRR, 1/6 HSM RUSB murmur, normal s1s2 Lungs: CTA b/l, no wheezing Skin: thickened lichenified patches b/l elbows and knees without signs of infection Trace b/l lower leg edema, normal pulses Abd: obese, NT, ND, normal BS, no obvious masses ASSESSMENT/PLAN: 1. Screening for colon cancer - ICD9: V76.51, ICD10: Z12.11 (primary diagnosis) [facility] 2. Aortic valve replaced - ICD9: V43.3, ICD10: Z95.2 F/u with Manager Student Services, need for weight loss. Has good BLOOD PRESSURE control 3. Ascending aorta dilatation (HCC) - ICD9: 447.71, ICD10: I77.810 F/u with Manager Student Services, need for weight loss. Has good BLOOD PRESSURE control 4. Vitamin D deficiency - ICD9: 268.9, ICD10: E55.9 Continue supplement - VITAMIN D 25 HYDROXY 5. Dyslipidemia - ICD9: 272.4, ICD10: E78.5 - to be determined upon return of lab results - Encouraged following a low fat, low cholesterol diet. - Discussed the benefits of regular aerobic exercise and weight loss. - Check fasting lipid panel - TSH BLD 6. Obesity, Class III, BMI 40-49.9 (morbid obesity) (HCC) - ICD9: 278.01, ICD10: E66.01 Stable - Behavioral intervention - LIPID PANEL BASIC - TSH BLD 7. Fatigue, unspecified type - ICD9: 780.79, ICD10: R53.83 Recheck labs - COMP METABOLIC PANEL - CBC + DIFF - TSH BLD - VITAMIN D 25 HYDROXY - VITAMIN B12 BLOOD 8. Hyperglycemia - ICD9: 790.29, ICD10: R73.9 - recheck labs - HGB A1C 9. Need for hepatitis C screening test - ICD9: V73.89, ICD10: Z11.59 - HEP C AB IA W/CONF SCRN 10. Need for hepatitis B screening test - ICD9: V73.89, ICD10: Z11.59 - HEP B SURF AB QUAL 11. Psoriasis - ICD9: 696.1, ICD10: L40.9 - rx prn for skin, d/w him today . He isn't interested in seeing Train Operations Manager at this time. - TRIAMCINOLONE ACETONIDE 0.1 % TOPICAL CREAM 12. Screening for HIV (human immunodeficiency virus) - ICD9: V73.89, ICD10: Z11.4 - HIV 1 2 COMBO(AG/AB),WITH REFLEX TO DIFFERENTIATION Stone Castillo DO Return if no improvement. Follow up with Stone Castillo DO. To ER if develops chest pain, shortness of breath Discussed risks, benefits, alternatives, and potential side effects of medications. Patient/Guardian expressed understanding and agreed with the plan. See patient instructions. Stone Castillo DO [address] [place] [address] documented in this encounterCleveland [id number] Instructions* Patient Instructions* Reece ALIA Mendez.PIPE FITTINGS MOLDER - 04/25/2022 1:45 PM EDT FACT SHEET FOR PATIENTS, PARENTS, AND CAREGIVERS EMERGENCY USE AUTHORIZATION (EUA) OF PAXLOVID FOR CORONAVIRUS DISEASE 2019 (COVID-19) You are being given this Fact Sheet because your healthcare provider believes it is necessary to provide you with PAXLOVID for the treatment of agvl-ej-wujlndxg coronavirus disease (COVID-19) caused by the SARS-CoV-2 virus. This Fact Sheet contains information to help you understand the risks and benefits of taking the PAXLOVID you have received or may receive. The U.S. Food and Drug Administration (FDA) has issued an Emergency Use Authorization (EUA) to makePAXLOVID available during the COVID-19 pandemic (for more details about an EUA please see What is an Emergency Use Authorization? at the end of this document). PAXLOVID is not an FDA-approved medicine in the [place]. Read this Fact Sheet for information about PAXLOVID. Talk to your healthcareprovider about your options or if you have any questions. It is your choice to take PAXLOVID. What is COVID-19? COVID-19 is caused by a virus called a coronavirus. You can get COVID-19 through close contact withanother person who has the virus. COVID-19 illnesses have ranged from very poqs-rz-plgwqy, including illness resulting in . While information so far suggests that most COVID-19 illness is mild, serious illness can happen and maycause some of your other medical conditions to become worse. Older people and people of all ages with severe, long lasting (chronic) medical conditions like heart disease, lung disease, and diabetes,for example seem to be at higher risk of being hospitalized for COVID-19. What is PAXLOVID? PAXLOVID is an investigational medicine used to treat lxqo-xf-ifyylqqs COVID-19 in adults and children [12 years of age and older weighing at least 88 pounds (40 kg)] with positive results of direct SARS-CoV-2 viral testing, and who are at high risk for progression to severe COVID-19, including hospitalization or . PAXLOVID is investigational because it is still being studied. There is limited information about the safety and effectiveness of using PAXLOVID to treat people with atyc-jg-ygxagxmc COVID-19. The FDA has authorized the emergency use of PAXLOVID for the treatment of cupe-ay-gfqqoikt COVID-19in adults and children [12 years of age and older weighing at least 88 pounds (40 kg)] with a positive test for the virus that causes COVID-19, and who are at high risk for progression to severe COVID-19, including hospitalization or , under an EUA. 1 Revised: 23 November 2021 What should I tell my healthcare provider before I take PAXLOVID? Tell your healthcare provider if you: Have any allergies Have liver or kidney disease Are or plan to become Are a child Have any serious illnesses Tell your healthcare provider about all the medicines you take, including prescription and ovqq-gpb-sewengp medicines, vitamins, and herbal supplements. Some medicines may interact with PAXLOVID and may cause serious side effects. Keep a list of your medicines to show your healthcare provider and pharmacist when you get a new medicine. You can ask your healthcare provider or pharmacist for a list of medicines that interact with PAXLOVID. Do not start taking a new medicine without telling your healthcare provider. Your healthcare provider can tell you if it is safe to take PAXLOVID with other medicines. Tell your healthcare provider if you are taking combined hormonal contraceptive. PAXLOVID may affect how your control pills work. Females who are able to become should use another effective alternative form of contraception or an additional barrier method of contraception. Talk to your healthcare provider if you have any questions about contraceptive methods thatmight be right for you. How do I take PAXLOVID? PAXLOVID consists of 2 medicines: nirmatrelvir and ritonavir. Take 2 pink tablets of nirmatrelvir with 1 white tablet of ritonavir by mouth 2 times each day (in the morning and in the evening) for 5 days. For each dose, take all 3 tablets at the same time. If you have kidney disease, talk to your healthcare provider. You may need a different dose. Swallow the tablets whole. Do not chew, break, or crush the tablets. Take PAXLOVID with or without food. Do not stop taking PAXLOVID without talking to your healthcare provider, even if you feel better. If you miss a dose of PAXLOVID within 8 hours of the time it is usually taken, take it as soon as you remember. If you miss a dose by more than 8 hours, skip the missed dose and take the next dose atyour regular time. Do not take 2 doses of PAXLOVID at the same time. If you take too much PAXLOVID, call your healthcare provider or go to the nearest hospital emergency room right away. If you are taking a ritonavir-or cobicistat-containing medicine to treat hepatitis C or Human Immunodeficiency Virus (HIV), you should continue to take your medicine as prescribed by your healthcare provider. Talk to your healthcare provider if you do not feel better or if you feel worse after 5 days. Who should generally not take PAXLOVID? Do not take PAXLOVID if: You are allergic to nirmatrelvir, ritonavir, or any of the ingredients in PAXLOVID You are taking any of the following medicines: Alfuzosin Pethidine, propoxyphene Ranolazine Amiodarone, dronedarone, flecainide, propafenone, quinidine Colchicine Lurasidone, pimozide, clozapine Dihydroergotamine, ergotamine, methylergonovine Lovastatin, simvastatin Sildenafil (Revatio ) for pulmonary arterial hypertension (PAH) Triazolam, oral midazolam Apalutamide Carbamazepine, phenobarbital, phenytoin Rifampin Edgardo s Wort (hypericum perforatum) Taking PAXLOVID with these medicines may cause serious or life-threatening side effects or affect how PAXLOVID works. These are not the only medicines that may cause serious side effects if taken with PAXLOVID. PAXLOVID may increase or decrease the levels of multiple other medicines. It is very important to tell your healthcare provider about all of the medicines you are taking because additional laboratory tests or changes in the dose of your other medicines may be necessary while you are taking PAXLOVID. Your healthcare provider may also tell you about specific symptoms to watch out for that may indicate that you need to stop or decrease the dose of some of your other medicines. What are the important possible side effects of PAXLOVID? Possible side effects of PAXLOVID are: Allergic Reactions. Allergic reactions can happen in people taking PAXLOVID, even after only 1 dose. Stop taking PAXLOVID and call your healthcare provider right away if you get any of the following symptoms of an allergic reaction: hives trouble swallowing or breathing swelling of the mouth, lips, or face throat tightness hoarseness skin rash Liver Problems. Tell your healthcare provider right away if you have any of these signs and symptoms of liver problems: loss of appetite, yellowing of your skin and the whites of eyes (jaundice), dark-colored urine, pale colored stools and itchy skin, stomach area (abdominal) pain. Resistance to HIV Medicines. If you have untreated HIV infection, PAXLOVID may lead to some HIV medicines not working as well in the future. Other possible side effects include: altered sense of taste diarrhea high blood pressure muscle aches These are not all the possible side effects of PAXLOVID. Not many people have taken PAXLOVID. Serious and unexpected side effects may happen. PAXLOVID is still being studied, so it is possible that all of the risks are not known at this time. What other treatment choices are there? Veklury (remdesivir) is FDA-approved for the treatment of rxxw-vh-kyvlztvf COVID-19 in certain adults and children. Talk with your doctor to see if Veklury is appropriate for you. Like PAXLOVID, FDA may also allow for the emergency use of other medicines to treat people with COVID-19. Go to https://www.fda.gov/sugxxhqsk-degzgvfznsob-dzmndgfxzay/wre-rgnty-odfjkwvjao-and- policy-framework/ttucxfguv-lhu-mdbkpfnohhqal for information on the emergency use of other medicines that are authorized by FDA to treat people with COVID-19. Your healthcare provider may talk with you aboutclinical trials for which you may be eligible. It is your choice to be treated or not to be treated with PAXLOVID. Should you decide not to receive it or for your child not to receive it, it will not change your standard medical care. What if I am or ? There is piano maker treating women or mothers with PAXLOVID. For a motherand unborn baby, the benefit of taking PAXLOVID may be greater than the risk from the treatment. Ifyou are , discuss your options and specific situation with your healthcare provider. It is recommended that you use effective barrier contraception or do not have sexual activity whiletaking PAXLOVID. If you are , discuss your options and specific situation with your healthcare provider. How do I report side effects with PAXLOVID? Contact your healthcare provider if you have any side effects that bother you or do not go away. Report side effects to [employer] at www.fda.gov/medwatch or call 6-541-AKJ4167 or you can reportside effects to [employer] at the contact information provided below. Website Fax number Telephone number [employer] How should I store PAXLOVID? Store PAXLOVID tablets at room temperature, between 68?F to 77?F (20?C to 25?C). How can I learn more about COVID-19? Ask your healthcare provider. Visit https://www.cdc.gov/COVID19. Contact your local or state public health department. What is an Emergency Use Authorization (EUA)? The [place] FDA has made PAXLOVID available under an emergency access mechanism called an Emergency Use Authorization (EUA). The EUA is supported by a Acet[employer] Paster of Health and Human Service (HHS) declaration that circumstances exist to justify the emergency use of drugs and biological productsduring the COVID-19 pandemic. PAXLOVID for the treatment of cbxh-zq-cktdiynu COVID-19 in adults and children [12 years of age andolder weighing at least 88 pounds (40 kg)] with positive results of direct SARS-CoV-2 viral testing, and who are at high risk for progression to severe COVID-19, including hospitalization or , has not undergone the same type of review as an FDA-approved product. In issuing an EUA under the COVID-19 public health emergency, the FDA has determined, among other things, that based on the total amount of scientific evidence available including data from adequate and well-controlled clinical trials, if available, it is reasonable to believe that the product may be effective for diagnosing, treating, or preventing COVID-19, or a serious or life-threatening disease or condition caused by COVID-19; that the known and potential benefits of the product, when used to diagnose, treat, or prevent such disease or condition, outweigh the known and potential risks of such product; and that there are no adequate, approved, and available alternatives. All of these criteria must be met to allow for the product to be used in the treatment of patients during the COVID-19 pandemic. The EUA for PAXLOVID is in effect for the duration of the COVID-19 declaration justifying emergency use of this product, unless terminated or revoked (after which the products may no longer be used under the EUA). Additional Information For general questions, visit the website or call the telephone number provided below. Website Telephone number [employer]zd[employer] (5-415-Q56-JPKJ) You can also go to www.[employer] or call for more information. Pfizer Distributed by [employer] [place] [address] [id number] Revised: 23 November 2021 documented in this encounterKeenan Private Hospital08-18-2022 History of Present illness Narrative* Reece Mendez APRN.CNP - 04/25/2022 12:55 PM EDT VIRTUAL VISIT PROGRESS NOTE This is a virtual visit using Mape video visit. It required patient-provider interaction for themedical decision making as documented below. Erlinda De León is a 47 year old male seen for COVID concerns. Today: COVID-Sx began-2 days ago-cough, SOB, chest tightness, fever-then went to [facility] 1 day ago. Contact with COVID + person 3x Positive test-04/24 in [facility] Had a breathing treatment, blood work, xray, covid test while in ED. Meds-cold medication. Sx haven't improved very much-but not noticing quite as much coughing. Has a stuffy nose. HISTORY REVIEWED (electronic chart updated): PAST MEDICAL HISTORY Diagnosis Date Aortic valve stenosis, severe Ascending aorta dilatation (HCC) Bicuspid aortic valve Cerebral edema (HCC) CHB (complete heart block) (HCC) Left bundle branch block JUANIS (obstructive sleep apnea) 04/2021 Sleep apnea PAST SURGICAL HISTORY Procedure Laterality Date CARDIAC CATH 01/07/2020 severe aortic valve calcification-Dr. Rodríguez EXCISION OF BRAIN TUMOR Left 2016 NEUROPLASTY &/TRANSPOS MEDIAN NRV CARPAL TUNNE Right 05/27/2018 Right CTR PACEMAKER IMPLANT Left 04/07/2020 [employer] dual chamber pacemaker for CHB following AVR; Dr. Dewey at [facility] REMOVAL; CARDIAC LOOP RECORDER Left 04/07/2020 ILR removed at time of pacemaker implantation; Dr. Dewey at [facility] REPAIR UMBILICAL HERNIA 02/27/15 RPLCMT PROST AORTIC VALVE OPEN XCP HOMOGRF/STENT 04/04/2020 Aortic valve replacement with 23 mm Inspiris bioprosthesis. SHX AORTIC VALVE REPLACEMENT 04/04/2020 FAMILY HISTORY Problem Relation Age of Onset Hypertension Mother Diabetes Mother other (heart murmur) Father other (Other) Son aortic stenosis Social History Tobacco Use Smoking status: Never Smokeless tobacco: Never Vaping Use Vaping Use: Never used Substance Use Topics Alcohol use: No Drug use: No Current Outpatient Medications Medication Sig omeprazole (PRILOSEC) 20 mg capsule Take 1 capsule by mouth daily before breakfast. 1/2 hr before meal. amiodarone (PACERONE) 200 mg tablet Take by mouth once daily. hydrOXYzine pamoate (VISTARIL) 25 mg capsule Take 25 mg by mouth three times daily as needed. potassium chloride (KLOR-CON) 20 mEq packet Take by mouth twice daily. cholecalciferol, Vitamin D3, (VITAMIN D3) 1,250 mcg (50,000 unit) cap capsule Take 1 capsule by mouth one time a week. (Patient not taking: Reported on 01/04/2022 ) Pooyg-7-[id number]-EPA-Fish Oil (FISH OIL) 1,000 mg (120 mg-180 mg) cap Take 2 g by mouth twice daily. Ascorbic Acid (VITAMIN C) 1,000 mg tablet Take 1,000 mg by mouth once daily. Cholecalciferol, Vitamin D3, 50 mcg (2,000 unit) cap Take 1 capsule by mouth once daily. metoprolol tartrate, short acting, (LOPRESSOR) 50 mg tablet Take 50 mg by mouth twice daily. aspirin, enteric coated (ECOTRIN LOW STRENGTH) 81 mg EC tablet Take 1 tablet by mouth once daily. lamoTRIgine (LAMICTAL) 200 mg tablet Take 200 mg by mouth daily at bedtime. risperiDONE (RISPERDAL) 2 mg tablet Take 2 mg by mouth daily at bedtime. MULTI-VITAMIN ORAL Take 1 tablet by mouth once daily. No current facility-administered medications for this visit. ALLERGIES Allergen Reactions Ancef [Cefazolin] Anaphylaxis, Angioedema Adhesive Rash, Itching Patient states when he wore Holter electrodes, he broke out in rash and itching Prozac [Fluoxetine] Other: See Comments Heart racing, shortness of breath Zoloft [Sertraline] Rash itching REVIEW OF SYSTEMS: All other ROS: negative As noted in HPI PHYSICAL EXAMINATION: VIDEO EXAM: (if completed, performed via video enabled technology) No exam performed ASSESSMENT: (U07.1) COVID (primary encounter diagnosis) PLAN: Continue with symptomatic care. Push fluids. Begin Paxlovid. Aware of red flag s/s - NIRMATRELVIR 300 MG (150 MG X2)-RITONAVIR 100 MG TABLET,DOSE PACK(EUA) Reece Mendez APRN.PRADIP Nirmatrelvir/Ritonavir (Paxlovid) Eligibility and Patient Discussion [facility] Formulary Restriction Criteria: Adult outpatients 18 years and older with ALL of the following: [x] Patient has positive SARS-COV-2 viral test (PCR or antigen test) during current illness [x] Patient has symptoms for 5 days or less [x] Not requiring hospitalization at any time for management of COVID-19 [x] Not requiring supplemental oxygen or a change in baseline supplemental oxygen [x] Not utilized for pre-exposure or post-exposure prophylaxis for prevention of COVID-19 [x] Patient does not have severe renal impairment (eGFR < 30 mL/min) or severe hepatic impairment (Child-Hernandez Class C) [x] Meeting at least one of the criteria for high risk of progression to severe COVID-19: [] Age over 65 years [] Cancer [] Chronic kidney disease [] Chronic liver disease [] Chronic lung diseases, including cystic fibrosis [] Dementia or other neurological conditions [] Diabetes (type 1 or type 2) [] Disabilities, including Down syndrome and neurodevelopmental disorders [x] Heart conditions [] HIV infection [] Immunocompromised state [x] Mental health conditions [] Medical related technological dependence (tracheostomy, gastrostomy, or positive pressure ventilation (not related to COVID) [x] Overweight and obesity (BMI greater or equal to 25 for adults) [] Physical inactivity [] [] Sickle cell disease or thalassemia [] Smoking, current or former [] Solid organ or blood stem cell transplant [] Stroke or cerebrovascular disease [] Substance use disorders [] Tuberculosis [] People from racial and ethnic minority groups Criteria above are met: Yes Date of Positive Test:04/24/2022 Date of Symptom Onset: Patient received COVID vaccine: Yes Drug-Drug interactions reviewed: Yes. No drug interactions were identified. I have discussed the use of the investigational therapeutic, nirmatrelvir/ritonavir, for the treatment of mild to moderate COVID-19 and its use under Emergency Use Authorization with the patient. The patient was informed that nirmatrelvir/ritonavir is not an FDA approved drug and that it is authorized for use under this Emergency Use Authorization. The patient was also informed of the significant known benefits and potential risks of nirmatrelvir/ritonavir, and the extent to which such potential risks and benefits are unknown. The patient was informed that there is mandatory reporting of all medication errors and serious adverse events potentially related to nirmatrelvir/ritonavir treatment within 7 calendar days from the onset of the event and that events up to 28 days after completion of therapy need to be reported. The discussion included alternatives to receiving nirmatrelvir/rit onavir, including clinical trials, and potential the risks and benefits of those alternatives. The patient was provided electronically with the Fact Sheet for Patients, Parents and Caregivers. The patient was also instructed that in addition to the treatment with nirmatrelvir/ritonavir, he/she should continue to self-isolate and use infection control measures (e.g., wear mask, isolate, social distance, avoid sharing personal items, clean and disinfect high touch surfaces, and frequent h andwashing) according to CDC guidelines. The patient stated understanding and gave verbal consent to proceeding with nirmatrelvir/ritonavir treatment. Reece Mendez APRN.CNP April 25, 2022 1:46 PM documented in this encounter[facility] Miscellaneous Notes* Telephone Encounter - Antonella Aaron APRN.CNP - 01/04/2022 3:27 PM EDT Noted. Thank you. Antonella Aaron APRN.CNP * Telephone Encounter - Belkis Mendoza LPN - 01/04/2022 2:53 PM EDT Called over spoke with Kris tell she looks up pt his most current labs they have are from March of 2021. She will fax these over. Once received will place in in basket on your desk. * Telephone Encounter - Stone Castillo DO - 01/04/2022 2:35 PM EDT Please call [facility], [facility] to get copy of his most recent labs drawn Stone Castillo DO documented in this encounterKe[facility] History of Present illness Narrative* Isi Earl RT(R) - 05/25/2021 5:00 PM EDT Radiology Service Progress Note PATIENT NAME: Erlinda De León DATE OF SERVICE: May 25, 2021 TIME: 4:59 PM PATIENT IDENTITY VERIFICATION COMPLETED USING TWO (2) IDENTIFIERS: Name and Date of confirmedby patient verbally. FALL SCREENING: Has the patient had 2 falls in the last year or 1 fall with injury or currently using an Ambulatory Assistive Device (Walker, Cane, Wheelchair, Crutches, etc.)? No PATIENT GENDER DATA: Male PATIENT RELEVANT IMPLANT DATA REVIEWED: Yes RADIOLOGY DEPARTMENT: General X-ray: Exam(s) Completed: Chest X-Ray PERIPHERAL IV DATA: Not applicable SIGNED BY: ROBERT Camarillo) May 25, 2021 4:59 PM documented in this encounterKeenan [facility]08-01-2020 History of Past illness Narrative* Problem Noted Date Resolved Date Bradycardia 04/08/2020 04/10/2020 Complete heart block 04/07/2020 04/10/2020 Leukocytosis 04/07/2020 04/10/2020 Angioedema 04/04/2020 04/10/2020 Anaphylaxis 04/04/2020 04/10/2020 Discharge planning issues 12/27/20162017 Overview: This is a 41 yr old male from [facility] here for OHS tht may benefit from [facility] Preop testing 12/27/2016 05/20/2018 Overview: Images from the original note were not included. [facility] Surgeon: Sebastián Kessler M.D. Informed Consent Completed: No STS Score: 0.509 CAD: No Is intended procedure a CABG: No - is a beta radha ordered? No - reason on: toprolXL H & P completed: Yes PA/LAT: N/A CT: Completed MRI: N/A LE US: N/A Cath: Yes - reviewed: Yes Echo:Completed EKG: Completed EF %: 55 PI's: N/A Carotid: N/A Mapping: N/A Dental: Pending PFT's: N/A No results for input(s): WBC, HB, HCT, PLT, INR, CREAT in the last 72 hours. UA: normal HCG:N/A ABO/ABO Confirmed: No Blood ordered: no SA Swab: Yes - results: Pending Last Dose of Anticoagulation: pending Op Note: No Pacemaker Check: NA Consults: DM: No Cardiac Surgical prep: No SIGNATURE: Laurie Pennington RN CHECKED BY: DATE of SERVICE: 12/27/2016 TIME of SERVICE: 7:44 AM documented as of this encounter (statuses as of 01/04/2022) [facility] History of Past illness Narrative* Problem Noted Date Resolved Date Bradycardia 04/08/2020 04/10/2020 Complete heart block 04/07/2020 04/10/2020 Leukocytosis 04/07/2020 04/10/2020 Angioedema 04/04/2020 04/10/2020 Anaphylaxis 04/04/2020 04/10/2020 Discharge planning issues 12/27/20162017 Overview: This is a 41 yr old male from [facility] here for OHS tht may benefit from [facility] Preop testing 12/27/2016 05/20/2018 Overview: Images from the original note were not included. [facility] PRE[facility] CHECKLIST Surgeon: Sebastián Kessler M.D. Informed Consent Completed: No STS Score: 0.509 CAD: No Is intended procedure a CABG: No - is a beta radha ordered? No - reason on: toprolXL H & P completed: Yes PA/LAT: N/A CT: Completed MRI: N/A LE US: N/A Cath: Yes - reviewed: Yes Echo:Completed EKG: Completed EF %: 55 PI's: N/A Carotid: N/A Mapping: N/A Dental: Pending PFT's: N/A No results for input(s): WBC, HB, HCT, PLT, INR, CREAT in the last 72 hours. UA: normal HCG:N/A ABO/ABO Confirmed: No Blood ordered: no SA Swab: Yes - results: Pending Last Dose of Anticoagulation: pending Op Note: No Pacemaker Check: NA Consults: DM: No Cardiac Surgical prep: No SIGNATURE: Laurie Pennington RN CHECKED BY: DATE of SERVICE: 12/27/2016 TIME of SERVICE: 7:44 AM documented as of this encounter (statuses as of 04/26/2022) [facility] of Past illness Narrative* Problem Noted Date Resolved Date Bradycardia 04/08/2020 04/10/2020 Complete heart block 04/07/2020 04/10/2020 Leukocytosis 04/07/2020 04/10/2020 Angioedema 04/04/2020 04/10/2020 Anaphylaxis 04/04/2020 04/10/2020 Discharge planning issues 12/27/20162017 Overview: This is a 41 yr old male from [facility] here for OHS tht may benefit from [facility] Preop testing 12/27/2016 05/20/2018 Overview: Images from the original note were not included. [facility] PRE-OP CHECKLIST Surgeon: Sebastián Kessler M.D. Informed Consent Completed: No STS Score: 0.509 CAD: No Is intended procedure a CABG: No - is a beta radha ordered? No - reason on: toprolXL H & P completed: Yes PA/LAT: N/A CT: Completed MRI: N/A LE US: N/A Cath: Yes - reviewed: Yes Echo:Completed EKG: Completed EF %: 55 PI's: N/A Carotid: N/A Mapping: N/A Dental: Pending PFT's: N/A No results for input(s): WBC, HB, HCT, PLT, INR, CREAT in the last 72 hours. UA: normal HCG:N/A ABO/ABO Confirmed: No Blood ordered: no SA Swab: Yes - results: Pending Last Dose of Anticoagulation: pending Op Note: No Pacemaker Check: NA Consults: DM: No Cardiac Surgical prep: No SIGNATURE: Laurie Pennington RN CHECKED BY: DATE of SERVICE: 12/27/2016 TIME of SERVICE: 7:44 AM documented as of this encounter (statuses as of 05/07/2022) [facility] History of Past illness Narrative* Problem Noted Date Resolved Date Bradycardia 04/08/2020 04/10/2020 Complete heart block 04/07/2020 04/10/2020 Leukocytosis 04/07/2020 04/10/2020 Angioedema 04/04/2020 04/10/2020 Anaphylaxis 04/04/2020 04/10/2020 Discharge planning issues 12/27/20162017 Overview: This is a 41 yr old male from [facility] here for OHS tht may benefit from [facility] Preop testing 12/27/2016 05/20/2018 Overview: Images from the original note were not included. [facility] PRE-OP CHECKLIST Surgeon: Sebastián Kessler M.D. Informed Consent Completed: No STS Score: 0.509 CAD: No Is intended procedure a CABG: No - is a beta radha ordered? No - reason on: toprolXL H & P completed: Yes PA/LAT: N/A CT: Completed MRI: N/A LE US: N/A Cath: Yes - reviewed: Yes Echo:Completed EKG: Completed EF %: 55 PI's: N/A Carotid: N/A Mapping: N/A Dental: Pending PFT's: N/A No results for input(s): WBC, HB, HCT, PLT, INR, CREAT in the last 72 hours. UA: normal HCG:N/A ABO/ABO Confirmed: No Blood ordered: no SA Swab: Yes - results: Pending Last Dose of Anticoagulation: pending Op Note: No Pacemaker Check: NA Consults: DM: No Cardiac Surgical prep: No SIGNATURE: Laurie Pennington RN CHECKED BY: DATE of SERVICE: 12/27/2016 TIME of SERVICE: 7:44 AM documented as of this encounter (statuses as of 05/16/2022) [facility] History of Past illness Narrative* Problem Noted Date Resolved Date Bradycardia 04/08/2020 04/10/2020 Complete heart block 04/07/2020 04/10/2020 Leukocytosis 04/07/2020 04/10/2020 Angioedema 04/04/2020 04/10/2020 Anaphylaxis 04/04/2020 04/10/2020 Discharge planning issues 12/27/20162017 Overview: This is a 41 yr old male from [facility] here for OHS tht may benefit from [facility] Preop testing 12/27/2016 05/20/2018 Overview: Images from the original note were not included. [facility] PRE-OP CHECKLIST Surgeon: Sebastián Kessler M.D. Informed Consent Completed: No STS Score: 0.509 CAD: No Is intended procedure a CABG: No - is a beta radha ordered? No - reason on: toprolXL H & P completed: Yes PA/LAT: N/A CT: Completed MRI: N/A LE US: N/A Cath: Yes - reviewed: Yes Echo:Completed EKG: Completed EF %: 55 PI's: N/A Carotid: N/A Mapping: N/A Dental: Pending PFT's: N/A No results for input(s): WBC, HB, HCT, PLT, INR, CREAT in the last 72 hours. UA: normal HCG:N/A ABO/ABO Confirmed: No Blood ordered: no SA Swab: Yes - results: Pending Last Dose of Anticoagulation: pending Op Note: No Pacemaker Check: NA Consults: DM: No Cardiac Surgical prep: No SIGNATURE: Laurie Pennington RN CHECKED BY: DATE of SERVICE: 12/27/2016 TIME of SERVICE: 7:44 AM documented as of this encounter (statuses as of 06/05/2022) [facility] History of Past illness Narrative* Problem Noted Date Resolved Date Bradycardia 04/08/2020 04/10/2020 Complete heart block 04/07/2020 04/10/2020 Leukocytosis 04/07/2020 04/10/2020 Angioedema 04/04/2020 04/10/2020 Anaphylaxis 04/04/2020 04/10/2020 Discharge planning issues 12/27/20162017 Overview: This is a 41 yr old male from [facility] here for OHS tht may benefit from [facility] Preop testing 12/27/2016 05/20/2018 Overview: Images from the original note were not included. [facility] PRE-OP CHECKLIST Surgeon: Sebastián Kessler M.D. Informed Consent Completed: No STS Score: 0.509 CAD: No Is intended procedure a CABG: No - is a beta radha ordered? No - reason on: toprolXL H & P completed: Yes PA/LAT: N/A CT: Completed MRI: N/A LE US: N/A Cath: Yes - reviewed: Yes Echo:Completed EKG: Completed EF %: 55 PI's: N/A Carotid: N/A Mapping: N/A Dental: Pending PFT's: N/A No results for input(s): WBC, HB, HCT, PLT, INR, CREAT in the last 72 hours. UA: normal HCG:N/A ABO/ABO Confirmed: No Blood ordered: no SA Swab: Yes - results: Pending Last Dose of Anticoagulation: pending Op Note: No Pacemaker Check: NA Consults: DM: No Cardiac Surgical prep: No SIGNATURE: Laurie Pennington RN CHECKED BY: DATE of SERVICE: 12/27/2016 TIME of SERVICE: 7:44 AM documented as of this encounter (statuses as of 06/13/2022) [facility] of Past illness Narrative* Problem Noted Date Resolved Date Bradycardia 04/08/2020 04/10/2020 Complete heart block 04/07/2020 04/10/2020 Leukocytosis 04/07/2020 04/10/2020 Angioedema 04/04/2020 04/10/2020 Anaphylaxis 04/04/2020 04/10/2020 Discharge planning issues 12/27/20162017 Overview: This is a 41 yr old male from [facility] here for OHS tht may benefit from [facility] Preop testing 12/27/2016 05/20/2018 Overview: Images from the original note were not included. [facility] PRE-OP CHECKLIST Surgeon: Sebastián Kessler M.D. Informed Consent Completed: No STS Score: 0.509 CAD: No Is intended procedure a CABG: No - is a beta radha ordered? No - reason on: toprolXL H & P completed: Yes PA/LAT: N/A CT: Completed MRI: N/A LE US: N/A Cath: Yes - reviewed: Yes Echo:Completed EKG: Completed EF %: 55 PI's: N/A Carotid: N/A Mapping: N/A Dental: Pending PFT's: N/A No results for input(s): WBC, HB, HCT, PLT, INR, CREAT in the last 72 hours. UA: normal HCG:N/A ABO/ABO Confirmed: No Blood ordered: no SA Swab: Yes - results: Pending Last Dose of Anticoagulation: pending Op Note: No Pacemaker Check: NA Consults: DM: No Cardiac Surgical prep: No SIGNATURE: Laurie Pennington RN CHECKED BY: DATE of SERVICE: 12/27/2016 TIME of SERVICE: 7:44 AM documented as of this encounter (statuses as of 06/17/2022) [facility] of Past illness Narrative* Problem Noted Date Resolved Date Bradycardia 04/08/2020 04/10/2020 Complete heart block 04/07/2020 04/10/2020 Leukocytosis 04/07/2020 04/10/2020 Angioedema 04/04/2020 04/10/2020 Anaphylaxis 04/04/2020 04/10/2020 Discharge planning issues 12/27/20162017 Overview: This is a 41 yr old male from [facility] here for OHS tht may benefit from [facility] Preop testing 12/27/2016 05/20/2018 Overview: Images from the original note were not included. [facility] PRE-OP CHECKLIST Surgeon: Sebastián Kessler M.D. Informed Consent Completed: No STS Score: 0.509 CAD: No Is intended procedure a CABG: No - is a beta radha ordered? No - reason on: toprolXL H & P completed: Yes PA/LAT: N/A CT: Completed MRI: N/A LE US: N/A Cath: Yes - reviewed: Yes Echo:Completed EKG: Completed EF %: 55 PI's: N/A Carotid: N/A Mapping: N/A Dental: Pending PFT's: N/A No results for input(s): WBC, HB, HCT, PLT, INR, CREAT in the last 72 hours. UA: normal HCG:N/A ABO/ABO Confirmed: No Blood ordered: no SA Swab: Yes - results: Pending Last Dose of Anticoagulation: pending Op Note: No Pacemaker Check: NA Consults: DM: No Cardiac Surgical prep: No SIGNATURE: Laurie Pennington RN CHECKED BY: DATE of SERVICE: 12/27/2016 TIME of SERVICE: 7:44 AM documented as of this encounter (statuses as of 06/20/2022) [facility] Past illness Narrative* Problem Noted Date Resolved Date Bradycardia 04/08/2020 04/10/2020 Complete heart block 04/07/2020 04/10/2020 Leukocytosis 04/07/2020 04/10/2020 Angioedema 04/04/2020 04/10/2020 Anaphylaxis 04/04/2020 04/10/2020 Discharge planning issues 12/27/20162017 Overview: This is a 41 yr old male from [facility] here for OHS tht may benefit from [facility] Preop testing 12/27/2016 05/20/2018 Overview: Images from the original note were not included. [facility] PRE-OP CHECKLIST Surgeon: Sebastián Kessler M.D. Informed Consent Completed: No STS Score: 0.509 CAD: No Is intended procedure a CABG: No - is a beta radha ordered? No - reason on: toprolXL H & P completed: Yes PA/LAT: N/A CT: Completed MRI: N/A LE US: N/A Cath: Yes - reviewed: Yes Echo:Completed EKG: Completed EF %: 55 PI's: N/A Carotid: N/A Mapping: N/A Dental: Pending PFT's: N/A No results for input(s): WBC, HB, HCT, PLT, INR, CREAT in the last 72 hours. UA: normal HCG:N/A ABO/ABO Confirmed: No Blood ordered: no SA Swab: Yes - results: Pending Last Dose of Anticoagulation: pending Op Note: No Pacemaker Check: NA Consults: DM: No Cardiac Surgical prep: No SIGNATURE: Laurie Pennington RN CHECKED BY: DATE of SERVICE: 12/27/2016 TIME of SERVICE: 7:44 AM documented as of this encounter (statuses as of 06/20/2022) [facility] of [facility] illness Narrative* Problem Noted Date Resolved Date Bradycardia 04/08/2020 04/10/2020 Complete heart block 04/07/2020 04/10/2020 Leukocytosis 04/07/2020 04/10/2020 Angioedema 04/04/2020 04/10/2020 Anaphylaxis 04/04/2020 04/10/2020 Discharge planning issues 12/27/20162017 Overview: This is a 41 yr old male from [facility] here for OHS tht may benefit from [facility] Preop testing 12/27/2016 05/20/2018 Overview: Images from the original note were not included. [facility] PRE-OP CHECKLIST Surgeon: Sebastián Kessler M.D. Informed Consent Completed: No STS Score: 0.509 CAD: No Is intended procedure a CABG: No - is a beta radha ordered? No - reason on: toprolXL H & P completed: Yes PA/LAT: N/A CT: Completed MRI: N/A LE US: N/A Cath: Yes - reviewed: Yes Echo:Completed EKG: Completed EF %: 55 PI's: N/A Carotid: N/A Mapping: N/A Dental: Pending PFT's: N/A No results for input(s): WBC, HB, HCT, PLT, INR, CREAT in the last 72 hours. UA: normal HCG:N/A ABO/ABO Confirmed: No Blood ordered: no SA Swab: Yes - results: Pending Last Dose of Anticoagulation: pending Op Note: No Pacemaker Check: NA Consults: DM: No Cardiac Surgical prep: No SIGNATURE: Laurie Pennington RN CHECKED BY: DATE of SERVICE: 12/27/2016 TIME of SERVICE: 7:44 AM documented as of this encounter (statuses as of 06/27/2022) [facility] Narrative* Problem Noted Date Resolved Date Bradycardia 04/08/2020 04/10/2020 Complete heart block 04/07/2020 04/10/2020 Leukocytosis 04/07/2020 04/10/2020 Angioedema 04/04/2020 04/10/2020 Anaphylaxis 04/04/2020 04/10/2020 Discharge planning issues 12/27/20162017 Overview: This is a 41 yr old male from [facility] here for OHS tht may benefit from [facility] Preop testing 12/27/2016 05/20/2018 Overview: Images from the original note were not included. [facility] PRE-OP CHECKLIST Surgeon: Sebastián Kessler M.D. Informed Consent Completed: No STS Score: 0.509 CAD: No Is intended procedure a CABG: No - is a beta radha ordered? No - reason on: toprolXL H & P completed: Yes PA/LAT: N/A CT: Completed MRI: N/A LE US: N/A Cath: Yes - reviewed: Yes Echo:Completed EKG: Completed EF %: 55 PI's: N/A Carotid: N/A Mapping: N/A Dental: Pending PFT's: N/A No results for input(s): WBC, HB, HCT, PLT, INR, CREAT in the last 72 hours. UA: normal HCG:N/A ABO/ABO Confirmed: No Blood ordered: no SA Swab: Yes - results: Pending Last Dose of Anticoagulation: pending Op Note: No Pacemaker Check: NA Consults: DM: No Cardiac Surgical prep: No SIGNATURE: Laurie Pennington RN CHECKED BY: DATE of SERVICE: 12/27/2016 TIME of SERVICE: 7:44 AM documented as of this encounter (statuses as of 07/01/2022) [facility]08-01-2020 History of Past illness Narrative* Problem Noted Date Resolved Date Bradycardia 04/08/2020 04/10/2020 Complete heart block 04/07/2020 04/10/2020 Leukocytosis 04/07/2020 04/10/2020 Angioedema 04/04/2020 04/10/2020 Anaphylaxis 04/04/2020 04/10/2020 Discharge planning issues 12/27/20162017 Overview: This is a 41 yr old male from [facility] here for OHS tht may benefit from [facility] Preop testing 12/27/2016 05/20/2018 Overview: Images from the original note were not included. [facility] Surgeon: Sebastián Kessler M.D. Informed Consent Completed: No STS Score: 0.509 CAD: No Is intended procedure a CABG: No - is a beta radha ordered? No - reason on: toprolXL H & P completed: Yes PA/LAT: N/A CT: Completed MRI: N/A LE US: N/A Cath: Yes - reviewed: Yes Echo:Completed EKG: Completed EF %: 55 PI's: N/A Carotid: N/A Mapping: N/A Dental: Pending PFT's: N/A No results for input(s): WBC, HB, HCT, PLT, INR, CREAT in the last 72 hours. UA: normal HCG:N/A ABO/ABO Confirmed: No Blood ordered: no SA Swab: Yes - results: Pending Last Dose of Anticoagulation: pending Op Note: No Pacemaker Check: NA Consults: DM: No Cardiac Surgical prep: No SIGNATURE: Laurie Pennington RN CHECKED BY: DATE of SERVICE: 12/27/2016 TIME of SERVICE: 7:44 AM documented as of this encounter (statuses as of 07/06/2022) [facility]2020 History of Past illness Narrative* Problem Noted Date Resolved Date Bradycardia 04/08/2020 04/10/2020 Complete heart block 04/07/2020 04/10/2020 Leukocytosis 04/07/2020 04/10/2020 Angioedema 04/04/2020 04/10/2020 Anaphylaxis 04/04/2020 04/10/2020 Discharge planning issues 12/27/20162017 Overview: This is a 41 yr old male from [facility] here for OHS tht may benefit from [facility] Preop testing 12/27/2016 05/20/2018 Overview: Images from the original note were not included. [facility] Surgeon: Sebastián Kessler M.D. Informed Consent Completed: No STS Score: 0.509 CAD: No Is intended procedure a CABG: No - is a beta radha ordered? No - reason on: toprolXL H & P completed: Yes PA/LAT: N/A CT: Completed MRI: N/A LE US: N/A Cath: Yes - reviewed: Yes Echo:Completed EKG: Completed EF %: 55 PI's: N/A Carotid: N/A Mapping: N/A Dental: Pending PFT's: N/A No results for input(s): WBC, HB, HCT, PLT, INR, CREAT in the last 72 hours. UA: normal HCG:N/A ABO/ABO Confirmed: No Blood ordered: no SA Swab: Yes - results: Pending Last Dose of Anticoagulation: pending Op Note: No Pacemaker Check: NA Consults: DM: No Cardiac Surgical prep: No SIGNATURE: Laurie Pennington RN CHECKED BY: DATE of SERVICE: 12/27/2016 TIME of SERVICE: 7:44 AM documented as of this encounter (statuses as of 07/08/2022) [facility]2020 History of Past illness Narrative* Problem Noted Date Resolved Date Bradycardia 04/08/2020 04/10/2020 Complete heart block 04/07/2020 04/10/2020 Leukocytosis 04/07/2020 04/10/2020 Angioedema 04/04/2020 04/10/2020 Anaphylaxis 04/04/2020 04/10/2020 Discharge planning issues 12/27/20162017 Overview: This is a 41 yr old male from [facility] here for OHS tht may benefit from [facility] Preop testing 12/27/2016 05/20/2018 Overview: Images from the original note were not included. [facility] Surgeon: Sebatsián Kessler M.D. Informed Consent Completed: No STS Score: 0.509 CAD: No Is intended procedure a CABG: No - is a beta radha ordered? No - reason on: toprolXL H & P completed: Yes PA/LAT: N/A CT: Completed MRI: N/A LE US: N/A Cath: Yes - reviewed: Yes Echo:Completed EKG: Completed EF %: 55 PI's: N/A Carotid: N/A Mapping: N/A Dental: Pending PFT's: N/A No results for input(s): WBC, HB, HCT, PLT, INR, CREAT in the last 72 hours. UA: normal HCG:N/A ABO/ABO Confirmed: No Blood ordered: no SA Swab: Yes - results: Pending Last Dose of Anticoagulation: pending Op Note: No Pacemaker Check: NA Consults: DM: No Cardiac Surgical prep: No SIGNATURE: Laurie Pennington RN CHECKED BY: DATE of SERVICE: 12/27/2016 TIME of SERVICE: 7:44 AM documented as of this encounter (statuses as of 08/08/2022) [facility]08[facility]2020 History of Past illness Narrative* Problem Noted Date Resolved Date Bradycardia 04/08/2020 04/10/2020 Complete heart block 04/07/2020 04/10/2020 Leukocytosis 04/07/2020 04/10/2020 Angioedema 04/04/2020 04/10/2020 Anaphylaxis 04/04/2020 04/10/2020 Discharge planning issues 12/27/20162017 Overview: This is a 41 yr old male from [facility] here for OHS tht may benefit from [facility] Preop testing 12/27/2016 05/20/2018 Overview: Images from the original note were not included. [facility] [place] PRE-OP CHECKLIST Surgeon: Sebastián Kessler M.D. Informed Consent Completed: No STS Score: 0.509 CAD: No Is intended procedure a CABG: No - is a beta radha ordered? No - reason on: toprolXL H & P completed: Yes PA/LAT: N/A CT: Completed MRI: N/A LE US: N/A Cath: Yes - reviewed: Yes Echo:Completed EKG: Completed EF %: 55 PI's: N/A Carotid: N/A Mapping: N/A Dental: Pending PFT's: N/A No results for input(s): WBC, HB, HCT, PLT, INR, CREAT in the last 72 hours. UA: normal HCG:N/A ABO/ABO Confirmed: No Blood ordered: no SA Swab: Yes - results: Pending Last Dose of Anticoagulation: pending Op Note: No Pacemaker Check: NA Consults: DM: No Cardiac Surgical prep: No SIGNATURE: Laurie Pennington RN CHECKED BY: DATE of SERVICE: 12/27/2016 TIME of SERVICE: 7:44 AM documented as of this encounter (statuses as of 08/12/2022) [facility]2020 History of Past illness Narrative* Problem Noted Date Resolved Date Bradycardia 04/08/2020 04/10/2020 Complete heart block 04/07/2020 04/10/2020 Leukocytosis 04/07/2020 04/10/2020 Angioedema 04/04/2020 04/10/2020 Anaphylaxis 04/04/2020 04/10/2020 Discharge planning issues 12/27/20162017 Overview: This is a 41 yr old male from [facility] here for OHS tht may benefit from [facility] Preop testing 12/27/2016 05/20/2018 Overview: Images from the original note were not included. [facility] Surgeon: Sebastián Kessler M.D. Informed Consent Completed: No STS Score: 0.509 CAD: No Is intended procedure a CABG: No - is a beta radha ordered? No - reason on: toprolXL H & P completed: Yes PA/LAT: N/A CT: Completed MRI: N/A LE US: N/A Cath: Yes - reviewed: Yes Echo:Completed EKG: Completed EF %: 55 PI's: N/A Carotid: N/A Mapping: N/A Dental: Pending PFT's: N/A No results for input(s): WBC, HB, HCT, PLT, INR, CREAT in the last 72 hours. UA: normal HCG:N/A ABO/ABO Confirmed: No Blood ordered: no SA Swab: Yes - results: Pending Last Dose of Anticoagulation: pending Op Note: No Pacemaker Check: NA Consults: DM: No Cardiac Surgical prep: No SIGNATURE: Laurie Pennington RN CHECKED BY: DATE of SERVICE: 12/27/2016 TIME of SERVICE: 7:44 AM documented as of this encounter (statuses as of 08/15/2022) [facility]2020 History of Past illness Narrative* Problem Noted Date Resolved Date Bradycardia 04/08/2020 04/10/2020 Complete heart block 04/07/2020 04/10/2020 Leukocytosis 04/07/2020 04/10/2020 Angioedema 04/04/2020 04/10/2020 Anaphylaxis 04/04/2020 04/10/2020 Discharge planning issues 12/27/20162017 Overview: This is a 41 yr old male from [facility] here for OHS tht may benefit from [facility] Preop testing 12/27/2016 05/20/2018 Overview: Images from the original note were not included. [facility] Surgeon: Sebastián Kessler M.D. Informed Consent Completed: No STS Score: 0.509 CAD: No Is intended procedure a CABG: No - is a beta radha ordered? No - reason on: toprolXL H & P completed: Yes PA/LAT: N/A CT: Completed MRI: N/A LE US: N/A Cath: Yes - reviewed: Yes Echo:Completed EKG: Completed EF %: 55 PI's: N/A Carotid: N/A Mapping: N/A Dental: Pending PFT's: N/A No results for input(s): WBC, HB, HCT, PLT, INR, CREAT in the last 72 hours. UA: normal HCG:N/A ABO/ABO Confirmed: No Blood ordered: no SA Swab: Yes - results: Pending Last Dose of Anticoagulation: pending Op Note: No Pacemaker Check: NA Consults: DM: No Cardiac Surgical prep: No SIGNATURE: Laurie Pennington RN CHECKED BY: DATE of SERVICE: 12/27/2016 TIME of SERVICE: 7:44 AM documented as of this encounter (statuses as of 08/20/2022) [facility]2020 History of Past illness Narrative* Problem Noted Date Resolved Date Bradycardia 04/08/2020 04/10/2020 Complete heart block 04/07/2020 04/10/2020 Leukocytosis 04/07/2020 04/10/2020 Angioedema 04/04/2020 04/10/2020 Anaphylaxis 04/04/2020 04/10/2020 Discharge planning issues 12/27/20162017 Overview: This is a 41 yr old male from [facility] here for OHS tht may benefit from [facility] Preop testing 12/27/2016 05/20/2018 Overview: Images from the original note were not included. [facility] Surgeon: Sebastián Kessler M.D. Informed Consent Completed: No STS Score: 0.509 CAD: No Is intended procedure a CABG: No - is a beta radha ordered? No - reason on: toprolXL H & P completed: Yes PA/LAT: N/A CT: Completed MRI: N/A LE US: N/A Cath: Yes - reviewed: Yes Echo:Completed EKG: Completed EF %: 55 PI's: N/A Carotid: N/A Mapping: N/A Dental: Pending PFT's: N/A No results for input(s): WBC, HB, HCT, PLT, INR, CREAT in the last 72 hours. UA: normal HCG:N/A ABO/ABO Confirmed: No Blood ordered: no SA Swab: Yes - results: Pending Last Dose of Anticoagulation: pending Op Note: No Pacemaker Check: NA Consults: DM: No Cardiac Surgical prep: No SIGNATURE: Laurie Pennington RN CHECKED BY: DATE of SERVICE: 12/27/2016 TIME of SERVICE: 7:44 AM documented as of this encounter (statuses as of 08/26/2022) [facility]08-01[facility]2020 History of Past illness Narrative* Problem Noted Date Resolved Date Bradycardia 04/08/2020 04/10/2020 Complete heart block 04/07/2020 04/10/2020 Leukocytosis 04/07/2020 04/10/2020 Angioedema 04/04/2020 04/10/2020 Anaphylaxis 04/04/2020 04/10/2020 Discharge planning issues 12/27/20162017 Overview: This is a 41 yr old male from [facility] here for OHS tht may benefit from [facility] Preop testing 12/27/2016 05/20/2018 Overview: Images from the original note were not included. [facility] Surgeon: Sebastián Kessler M.D. Informed Consent Completed: No STS Score: 0.509 CAD: No Is intended procedure a CABG: No - is a beta radha ordered? No - reason on: toprolXL H & P completed: Yes PA/LAT: N/A CT: Completed MRI: N/A LE US: N/A Cath: Yes - reviewed: Yes Echo:Completed EKG: Completed EF %: 55 PI's: N/A Carotid: N/A Mapping: N/A Dental: Pending PFT's: N/A No results for input(s): WBC, HB, HCT, PLT, INR, CREAT in the last 72 hours. UA: normal HCG:N/A ABO/ABO Confirmed: No Blood ordered: no SA Swab: Yes - results: Pending Last Dose of Anticoagulation: pending Op Note: No Pacemaker Check: NA Consults: DM: No Cardiac Surgical prep: No SIGNATURE: Laurie Pennington RN CHECKED BY: DATE of SERVICE: 12/27/2016 TIME of SERVICE: 7:44 AM documented as of this encounter (statuses as of 10/09/2022) [facility]08-01[facility]2020 History of Past illness Narrative* Problem Noted Date Resolved Date Bradycardia 04/08/2020 04/10/2020 Complete heart block 04/07/2020 04/10/2020 Leukocytosis 04/07/2020 04/10/2020 Angioedema 04/04/2020 04/10/2020 Anaphylaxis 04/04/2020 04/10/2020 Discharge planning issues 12/27/20162017 Overview: This is a 41 yr old male from [facility] here for OHS tht may benefit from [facility] Preop testing 12/27/2016 05/20/2018 Overview: Images from the original note were not included. [facility] Surgeon: Sebastián Kessler M.D. Informed Consent Completed: No STS Score: 0.509 CAD: No Is intended procedure a CABG: No - is a beta radha ordered? No - reason on: toprolXL H & P completed: Yes PA/LAT: N/A CT: Completed MRI: N/A LE US: N/A Cath: Yes - reviewed: Yes Echo:Completed EKG: Completed EF %: 55 PI's: N/A Carotid: N/A Mapping: N/A Dental: Pending PFT's: N/A No results for input(s): WBC, HB, HCT, PLT, INR, CREAT in the last 72 hours. UA: normal HCG:N/A ABO/ABO Confirmed: No Blood ordered: no SA Swab: Yes - results: Pending Last Dose of Anticoagulation: pending Op Note: No Pacemaker Check: NA Consults: DM: No Cardiac Surgical prep: No SIGNATURE: Laurie Pennington RN CHECKED BY: DATE of SERVICE: 12/27/2016 TIME of SERVICE: 7:44 AM documented as of this encounter (statuses as of 10/23/2022) [facility]08-[facility]2020 History of Past illness Narrative* Problem Noted Date Resolved Date Bradycardia 04/08/2020 04/10/2020 Complete heart block 04/07/2020 04/10/2020 Leukocytosis 04/07/2020 04/10/2020 Angioedema 04/04/2020 04/10/2020 Anaphylaxis 04/04/2020 04/10/2020 Discharge planning issues 12/27/20162017 Overview: This is a 41 yr old male from [facility] here for OHS tht may benefit from [facility] Preop testing 12/27/2016 05/20/2018 Overview: Images from the original note were not included. HE[facility] and VASCULAR [place] PRE-OP CHECKLIST Surgeon: Sebastián Kessler M.D. Informed Consent Completed: No STS Score: 0.509 CAD: No Is intended procedure a CABG: No - is a beta radha ordered? No - reason on: toprolXL H & P completed: Yes PA/LAT: N/A CT: Completed MRI: N/A LE US: N/A Cath: Yes - reviewed: Yes Echo:Completed EKG: Completed EF %: 55 PI's: N/A Carotid: N/A Mapping: N/A Dental: Pending PFT's: N/A No results for input(s): WBC, HB, HCT, PLT, INR, CREAT in the last 72 hours. UA: normal HCG:N/A ABO/ABO Confirmed: No Blood ordered: no SA Swab: Yes - results: Pending Last Dose of Anticoagulation: pending Op Note: No Pacemaker Check: NA Consults: DM: No Cardiac Surgical prep: No SIGNATURE: Laurie Pennington RN CHECKED BY: DATE of SERVICE: 12/27/2016 TIME of SERVICE: 7:44 AM documented as of this encounter (statuses as of 11/05/2022) [facility]2020 History of Past illness Narrative* Problem Noted Date Resolved Date Bradycardia 04/08/2020 04/10/2020 Complete heart block 04/07/2020 04/10/2020 Leukocytosis 04/07/2020 04/10/2020 Angioedema 04/04/2020 04/10/2020 Anaphylaxis 04/04/2020 04/10/2020 Discharge planning issues 12/27/20162017 Overview: This is a 41 yr old male from [facility] here for OHS tht may benefit from [facility] Preop testing 12/27/2016 05/20/2018 Overview: Images from the original note were not included. [facility] Surgeon: Sebastián Kessler M.D. Informed Consent Completed: No STS Score: 0.509 CAD: No Is intended procedure a CABG: No - is a beta radha ordered? No - reason on: toprolXL H & P completed: Yes PA/LAT: N/A CT: Completed MRI: N/A LE US: N/A Cath: Yes - reviewed: Yes Echo:Completed EKG: Completed EF %: 55 PI's: N/A Carotid: N/A Mapping: N/A Dental: Pending PFT's: N/A No results for input(s): WBC, HB, HCT, PLT, INR, CREAT in the last 72 hours. UA: normal HCG:N/A ABO/ABO Confirmed: No Blood ordered: no SA Swab: Yes - results: Pending Last Dose of Anticoagulation: pending Op Note: No Pacemaker Check: NA Consults: DM: No Cardiac Surgical prep: No SIGNATURE: Laurie Pennington RN CHECKED BY: DATE of SERVICE: 12/27/2016 TIME of SERVICE: 7:44 AM documented as of this encounter (statuses as of 11/07/2022) [facility] History of Past illness Narrative* Problem Noted Date Resolved Date Bradycardia 04/08/2020 04/10/2020 Complete heart block 04/07/2020 04/10/2020 Leukocytosis 04/07/2020 04/10/2020 Angioedema 04/04/2020 04/10/2020 Anaphylaxis 04/04/2020 04/10/2020 Discharge planning issues 12/27/20162017 Overview: This is a 41 yr old male from [facility] here for OHS tht may benefit from [facility] Preop testing 12/27/2016 05/20/2018 Overview: Images from the original note were not included. [facility] Surgeon: Sebastián Kessler M.D. Informed Consent Completed: No STS Score: 0.509 CAD: No Is intended procedure a CABG: No - is a beta radha ordered? No - reason on: toprolXL H & P completed: Yes PA/LAT: N/A CT: Completed MRI: N/A LE US: N/A Cath: Yes - reviewed: Yes Echo:Completed EKG: Completed EF %: 55 PI's: N/A Carotid: N/A Mapping: N/A Dental: Pending PFT's: N/A No results for input(s): WBC, HB, HCT, PLT, INR, CREAT in the last 72 hours. UA: normal HCG:N/A ABO/ABO Confirmed: No Blood ordered: no SA Swab: Yes - results: Pending Last Dose of Anticoagulation: pending Op Note: No Pacemaker Check: NA Consults: DM: No Cardiac Surgical prep: No SIGNATURE: Laurie Pennington RN CHECKED BY: DATE of SERVICE: 12/27/2016 TIME of SERVICE: 7:44 AM documented as of this encounter (statuses as of 11/20/2022) [facility] History of Past illness Narrative* Problem Noted Date Diagnosed Date Resolved Date Bradycardia 04/08/2020 04/10/2020 Complete heart block 04/07/2020 020 Leukocytosis 04/07/2020 04/10/2020 Angioedema 04/04/2020 04/10/2020 Anaphylaxis 04/04/2020 04/10/2020 Discharge planning issues 12/27/2016 Overview: This is a 41 yr old male from [facility] here for OHS tht may benefit from [facility] Preop testing 12/27/2016 05/20/2018 Overview: Images from the original note were not included. [facility] Surgeon: Sebastián Kessler M.D. Informed Consent Completed: No STS Score: 0.509 CAD: No Is intended procedure a CABG: No - is a beta radha ordered? No - reason on: toprolXL H & P completed: Yes PA/LAT: N/A CT: Completed MRI: N/A LE US: N/A Cath: Yes - reviewed: Yes Echo:Completed EKG: Completed EF %: 55 PI's: N/A Carotid: N/A Mapping: N/A Dental: Pending PFT's: N/A No results for input(s): WBC, HB, HCT, PLT, INR, CREAT in the last 72 hours. UA: normal HCG:N/A ABO/ABO Confirmed: No Blood ordered: no SA Swab: Yes - results: Pending Last Dose of Anticoagulation: pending Op Note: No Pacemaker Check: NA Consults: DM: No Cardiac Surgical prep: No SIGNATURE: Laurie Pennington RN CHECKED BY: DATE of SERVICE: 12/27/2016 TIME of SERVICE: 7:44 AM documented as of this encounter (statuses as of 05/06/2023) [facility] History of Past illness Narrative* Problem Noted Date Diagnosed Date Resolved Date Bradycardia 04/08/2020 04/10/2020 Complete heart block 04/07/2020 020 Leukocytosis 04/07/2020 04/10/2020 Angioedema 04/04/2020 04/10/2020 Anaphylaxis 04/04/2020 04/10/2020 Discharge planning issues 12/27/2016 Overview: This is a 41 yr old male from [facility] here for OHS tht may benefit from [facility] Preop testing 12/27/2016 05/20/2018 Overview: Images from the original note were not included. [facility] Surgeon: Sebastián Kessler M.D. Informed Consent Completed: No STS Score: 0.509 CAD: No Is intended procedure a CABG: No - is a beta radha ordered? No - reason on: toprolXL H & P completed: Yes PA/LAT: N/A CT: Completed MRI: N/A LE US: N/A Cath: Yes - reviewed: Yes Echo:Completed EKG: Completed EF %: 55 PI's: N/A Carotid: N/A Mapping: N/A Dental: Pending PFT's: N/A No results for input(s): WBC, HB, HCT, PLT, INR, CREAT in the last 72 hours. UA: normal HCG:N/A ABO/ABO Confirmed: No Blood ordered: no SA Swab: Yes - results: Pending Last Dose of Anticoagulation: pending Op Note: No Pacemaker Check: NA Consults: DM: No Cardiac Surgical prep: No SIGNATURE: Laurie Pennington RN CHECKED BY: DATE of SERVICE: 12/27/2016 TIME of SERVICE: 7:44 AM documented as of this encounter (statuses as of 05/16/2023) [facility] History of Past illness Narrative* Problem Noted Date Diagnosed Date Resolved Date Bradycardia 04/08/2020 04/10/2020 Complete heart block 04/07/2020 020 Leukocytosis 04/07/2020 04/10/2020 Angioedema 04/04/2020 04/10/2020 Anaphylaxis 04/04/2020 04/10/2020 Discharge planning issues 12/27/2016 Overview: This is a 41 yr old male from [facility] here for OHS tht may benefit from [facility] Preop testing 12/27/2016 05/20/2018 Overview: Images from the original note were not included. [facility] Surgeon: Sebastián Kessler M.D. Informed Consent Completed: No STS Score: 0.509 CAD: No Is intended procedure a CABG: No - is a beta radha ordered? No - reason on: toprolXL H & P completed: Yes PA/LAT: N/A CT: Completed MRI: N/A LE US: N/A Cath: Yes - reviewed: Yes Echo:Completed EKG: Completed EF %: 55 PI's: N/A Carotid: N/A Mapping: N/A Dental: Pending PFT's: N/A No results for input(s): WBC, HB, HCT, PLT, INR, CREAT in the last 72 hours. UA: normal HCG:N/A ABO/ABO Confirmed: No Blood ordered: no SA Swab: Yes - results: Pending Last Dose of Anticoagulation: pending Op Note: No Pacemaker Check: NA Consults: DM: No Cardiac Surgical prep: No SIGNATURE: Laurie Pennington RN CHECKED BY: DATE of SERVICE: 12/27/2016 TIME of SERVICE: 7:44 AM documented as of this encounter (statuses as of 06/02/2023) [facility] History of Past illness Narrative* Problem Noted Date Diagnosed Date Resolved Date Bradycardia 04/08/2020 04/10/2020 Complete heart block 04/07/2020 020 Leukocytosis 04/07/2020 04/10/2020 Angioedema 04/04/2020 04/10/2020 Anaphylaxis 04/04/2020 04/10/2020 Discharge planning issues 12/27/2016 Overview: This is a 41 yr old male from [facility] here for OHS tht may benefit from [facility] Preop testing 12/27/2016 05/20/2018 Overview: Images from the original note were not included. [facility] Surgeon: Sebastián Kessler M.D. Informed Consent Completed: No STS Score: 0.509 CAD: No Is intended procedure a CABG: No - is a beta radha ordered? No - reason on: toprolXL H & P completed: Yes PA/LAT: N/A CT: Completed MRI: N/A LE US: N/A Cath: Yes - reviewed: Yes Echo:Completed EKG: Completed EF %: 55 PI's: N/A Carotid: N/A Mapping: N/A Dental: Pending PFT's: N/A No results for input(s): WBC, HB, HCT, PLT, INR, CREAT in the last 72 hours. UA: normal HCG:N/A ABO/ABO Confirmed: No Blood ordered: no SA Swab: Yes - results: Pending Last Dose of Anticoagulation: pending Op Note: No Pacemaker Check: NA Consults: DM: No Cardiac Surgical prep: No SIGNATURE: Laurie Pennington RN CHECKED BY: DATE of SERVICE: 12/27/2016 TIME of SERVICE: 7:44 AM documented as of this encounter (statuses as of 11/28/2023) [facility]2020 Evaluation note* Diagnosis Onset Date Resolution Status JUANIS (obstructive sleep apnea) acute BMI greater than 40 chronic History of aortic valve repl acement with bioprosthetic valve March, chronic AV block, complete acute Presence of permanent cardiac pacemaker March, chronic Dyslipidemia chronic History of aortic valve repl acement with bioprosthetic valve March, chronic Presence of permanent cardiac pacemaker March, chronic Thoracic aortic aneurysm without rupture [facility] Work Phone: 1(282) 540-521207-01-2020 Evaluation note* Diagnosis Onset Date Resolution Status AV block, complete acute Presence of permanent cardiac pacemaker March, chronic Dyslipidemia chronic History of aortic valve repl acement with bioprosthetic valve March, chronic Presence of permanent cardiac pacemaker March, chronic Thoracic aortic aneurysm without rupture chronic AV block, complete acute LBBB (left bundle branch block) chronic Presence of permanent cardiac pacemaker March, [facility] Work Phone: 1(390) 487-126207-01-2020 Evaluation note* Diagnosis Onset Date Resolution Status AV block, complete acute Syncope acute Presence of permanent cardiac pacemaker March, chronic Dyslipidemia chronic History of aortic valve repl acement with bioprosthetic valve March, chronic Presence of permanent cardiac pacemaker March, chronic Thoracic aortic aneurysm without rupture [facility] Work Phone: Evaluation note* Diagnosis COVID- Primary [facility] Dyslipidemia- Primary Other and unspecified hyperlipidemia Screening for colon cancer Special screening for malignant neoplasms, colon Aortic valve replaced Heart valve replaced by other means Ascending aorta dilatation (HCC) Thoracic aortic ectasia Vitamin D deficiency Unspecified vitamin D deficiency Obesity, Class III, BMI 40-49.9 (morbid obesity) (HCC) Morbid obesity Fatigue, unspecified type Hyperglycemia Other abnormal glucose Need for hepatitis C screening test Special screening examination for other specified viral diseases Need for hepatitis B screening test Psoriasis Other psoriasis Screening for HIV (human immunodeficiency virus) Special screening examination for other specified viral diseases [facility] Anemia, unspecified type- Primary [facility] Diagnosis Anemia, unspecified type- Primary [facility] Diagnosis Other iron deficiency anemia- Primary 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 Other specified intestinal malabsorption [facility] Diagnosis Iron deficiency anemia, unspecified iron deficiency anemia type- Primary [facility] Diagnosis Iron deficiency anemia secondary to inadequate dietary iron intake- Primary Iron malabsorption Other specified intestinal malabsorption [facility] Diagnosis Iron deficiency anemia secondary to inadequate dietary iron intake- Primary Iron malabsorption Other specified intestinal malabsorption [facility] Diagnosis Iron deficiency anemia secondary to inadequate dietary iron intake- Primary Iron malabsorption Other specified intestinal malabsorption [facility] Diagnosis Iron deficiency anemia secondary to inadequate dietary iron intake- Primary Iron malabsorption Other specified intestinal malabsorption [facility] Diagnosis Iron deficiency anemia secondary to inadequate dietary iron intake- Primary Iron malabsorption Other specified intestinal malabsorption [facility] Diagnosis Iron deficiency anemia secondary to inadequate dietary iron intake- Primary Iron malabsorption Other specified intestinal malabsorption [facility] Diagnosis Iron deficiency anemia secondary to inadequate dietary iron intake- Primary Iron malabsorption Other specified intestinal malabsorption [facility] Diagnosis Iron deficiency anemia secondary to inadequate dietary iron intake- Primary Iron malabsorption Other specified intestinal malabsorption [facility] Diagnosis Other iron deficiency anemia- Primary Vitamin D deficiency Unspecified vitamin D deficiency Dyslipidemia Other and unspecified hyperlipidemia Fatigue, unspecified type Aortic valve replaced Heart valve replaced by other means Ascending aorta dilatation (HCC) Thoracic aortic ectasia Presence of cardiac pacemaker Cardiac pacemaker in situ JUANIS (obstructive sleep apnea) Obstructive sleep apnea (adult) (pediatric) [facility] Diagnosis GERD without esophagitis Esophageal reflux [facility] Diagnosis Iron deficiency anemia secondary to inadequate dietary iron intake- Primary Vitamin D deficiency Unspecified vitamin D deficiency Other iron deficiency anemia Dyslipidemia Other and unspecified hyperlipidemia Presence of cardiac pacemaker Cardiac pacemaker in situ Hyperglycemia Other abnormal glucose Fatigue, unspecified type Chronic pain of both knees Chronic pain of both ankles Obesity, Class III, BMI 40-49.9 (morbid obesity) (HCC) Morbid obesity Aortic valve replaced Heart valve replaced by other means JUANIS (obstructive sleep apnea) Obstructive sleep apnea (adult) (pediatric) Psoriasis Other psoriasis [facility]* Diagnosis Chronic pain of both knees- Primary Chronic pain of both ankles Calcaneal spur, unspecified laterality [facility]* Diagnosis Pes planus of both feet- Primary Arthritis of both subtalar joints Calcaneal spur of both feet [facility]* Diagnosis GERD without esophagitis Esophageal reflux [facility]* Diagnosis Chronic pain of both knees Chronic pain of both ankles [facility]* Diagnosis GERD without esophagitis Esophageal reflux [facility]* Diagnosis Well adult exam- Primary Routine general medical examination at a health care facility Dyslipidemia Other and unspecified hyperlipidemia Hyperglycemia Other abnormal glucose Obesity, Class III, BMI 40-49.9 (morbid obesity) (HCC) Morbid obesity Vitamin D deficiency Unspecified vitamin D deficiency Screening for diabetes mellitus Encounter for vitamin deficiency screening Screening for other and unspecified endocrine, nutritional, metabolic, and immunity disorders Encounter for screening examination for other mental health and behavioral disorders [facility] noteNo assessment information availableOur [facility] Of Peace [facility] Work Phone: Reason for referral (narrative)* Outpatient Procedure (Routine) - Pending Review Specialty Diagnoses / Procedures Referred By Conttao t Referred To Contact [facility] [place] Diagnoses Iron deficiency anemia, unspecified iron deficiency anemia type Procedures EGD DIAGNOSTIC EGD DIAGNOSTIC ESOPHAGOGASTRODUODENOSC OPY TRANSORAL DIAGNOSTIC Yanna Gonzalez PA-C [address] [place] [address] [facility] [address] [place] [address] Referral ID Status Reason Start Date Expiration Date Visits Requested Visits Authorized [id number] Pending Review Auto-Generat ed Referral 2 06/20/2023 1 1 * Outpatient Procedure (Routine) - Pending Review Specialty Diagnoses / Procedures Referred By Jack t Referred To Contact [facility] [place] Diagnoses Iron deficiency anemia, unspecified iron deficiency anemia type Procedures COLONOSCOPY SCREENING COLONOSCOPY SCREENING COLONOSCOPY FLX DX W/COLLJ SPEC WHEN PFRMD Yanna Gonzalez PA-C [address] [place] [address] [facility] [address] [place] [address] Referral ID Status Reason Start Date Expiration Date Visits Requested Visits Authorized [id number] Pending Review Auto-Generat ed Referral 2 06/20/2023 1 1 [facility] for referral (narrative)* Diagnostic Procedure Only (Routine) - Closed Specialty Diagnoses / Procedures [facility]erred To Contact XR IMAGING Diagnoses Chronic pain of both ankles Procedures XR ANKLE GENERAL 3V AP/LAT/OBL BILATERAL RADEX ANKLE COMPLETE MINIMUM 3 VIEWS Stone Castillo DO [address] [place] [address] [place] [address] Referral ID Status Reason Start Date Expiration Date V isits Requested Visits Authorized [id number] Closed Auto-Generate d Referral 05/05/2023 06/03/2024 1 1 * Diagnostic Procedure Only (Routine) - Closed Specialty Diagnoses / Procedures Referred By Contac t Referred To Contact XR IMAGING Diagnoses Chronic pain of both knees Procedures XR KNEE GENERAL 4V AP BOTH/PA BOTH/LAT/MERC BILATERAL RADIOLOGIC EXAM KNEE COMPLETE 4/MORE VIEWS Stone Castillo DO [address] [place] [address] [place] [address] Referral ID Status Reason Start Date Expiration Date V isits Requested Visits Authorized [id number] Closed Auto-Generate d Referral 05/05/2023 06/03/2024 1 1 [facility] for referral (narrative)* Diagnostic Procedure Only (Routine) - Closed Specialty Diagnoses / Procedures Referred By Contac t Referred To Contact XR IMAGING Diagnoses Chronic pain of both ankles Procedures XR ANKLE GENERAL 3V AP/LAT/OBL BILATERAL RADEX ANKLE COMPLETE MINIMUM 3 VIEWS Stone Castillo DO [address] [place] [address] [place] [address] Referral ID Status Reason Start Date Expiration Date V isits Requested Visits Authorized [id number] Closed Auto-Generate d Referral 05/05/2023 06/03/2024 1 1 * Diagnostic Procedure Only (Routine) - Closed Specialty Diagnoses / Procedures Referred By Contac t Referred To Contact XR IMAGING Diagnoses Chronic pain of both knees Procedures XR KNEE GENERAL 4V AP BOTH/PA BOTH/LAT/MERC BILATERAL RADIOLOGIC EXAM KNEE COMPLETE 4/MORE VIEWS Stone Castillo DO [address] [place] [address] [place] [address] Referral ID Status Reason Start Date Expiration Date V isits Requested Visits Authorized [id number] Closed Auto-Generate d Referral 05/05/2023 06/03/2024 1 1 [facility] for referral (narrative)No reason for referral information availableBloomington Medical Services Work Phone: Reason for visit Narrative* Diagnostic Procedure Only (Routine) - Closed Specialty Diagnoses / Procedures Referred By Contac t Referred To Contact XR IMAGING Diagnoses Chronic pain of both ankles Procedures XR ANKLE GENERAL 3V AP/LAT/OBL BILATERAL RADEX ANKLE COMPLETE MINIMUM 3 VIEWS Stone Castillo L, DO [address] [place] [address] [place] [address] Referral ID Status Reason Start Date Expiration Date V isits Requested Visits Authorized [id number] Closed Auto-Generate d Referral 05/05/2023 06/03/2024 1 1 [facility] Summary Purpose Family History No Family History Records Found Relationship Condition Age at Onset Recorded Date/T brenda mother Hypertension Unknown father Heart murmur Unknown Advance Directives No Advanced Directives Records Found Advance Directive Response Recorded Date/ Time Advance Directives No January 07, 2020 8:30am Living Will No March 28, 2021 3:11pm Power of General Manager Food No March 28 3:11pm Documents on File Type Date Recorded 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 Advance Directive(s) 04/04/2020 6:28 AM Advance Directive(s) 02/02/2020 8:44 AM Advance Directive(s) 05/27/2018 8:08 AM Advance Directive(s) 12/18/2016 9:06 AM Advance Directive(s) 11/28/2016 9:21 AM Advance Directive(s) 10/23/2016 11:11 AM Advance Directive(s) 10/22/2016 8:53 AM Latest Code Status on File Code Status Date Activated Date Inactivated Comments Full Code 04/12/2020 12:00 PM Advance Directive Response Recorded Date/ Time Advance Directives No January 07, 2020 8:30am Living Will No April 24 2 3:20pm Power of General Manager Food No April 24, 2 022 3:20pm Latest Code Status on File Code Status Date Activated Date Inactivated Comments Full Code 04/12/2020 12:00 PM Latest Code Status on File Code Status Date Activated Date Inactivated Comments Full Code 04/12/2020 12:00 PM Latest Code Status on File Code Status Date Activated Date Inactivated Comments Full Code 04/12/2020 12:00 PM Date Activated Date Inactivated Comments 04/12/2020 12:00 PM Date Activated Date Inactivated Comments 04/12/2020 12:00 PM Advance Directive Response Recorded Date/ Time Advance Directives No January 07, 2020 8:30am Reason for Referral Status Reason Specialty Diagnoses / Procedures Referred By Contact Referred To Contact New Request Diagnoses Severe aortic stenosis Procedures ECHOCARDIOGRAM Miguel Angel Watt, DO [address] [place] [address] Specialty Diagnoses / Procedures Referred By Contac t Referred To Contact General Surgery Diagnoses Anemia, unspecified type Procedures CONSULT TO GENERAL SURGERY OFFICE/OUTPATIENT [facility] 60-74 MINUTES Stone Castillo, DO [address] [place] [address] Referral ID Status Reason Start Date Expiration Date Visits Requested Visits Authorized [id number] Authorized PCP Requested Referral 06/05/2022 06/05/2023 1 1 Specialty Diagnoses / Procedures Referred By Contac t Referred To Contact General Surgery Diagnoses Other iron deficiency anemia Procedures CONSULT TO GENERAL SURGERY OFFICE/OUTPATIENT [facility] 60-74 MINUTES Stone Castillo, DO [address] [place] [address] Referral ID Status Reason Start Date Expiration Date Visits Requested Visits Authorized [id number] Authorized PCP Requested Referral 06/12/2022 06/12/2023 1 1 Specialty Diagnoses / Procedures Referred By Contac t Referred To Contact [facility] Diagnoses Chronic pain of both knees Procedures CONSULT TO PHYSICAL THERAPY PHYSICAL THERAPY EVALUATION HIGH COMPLEX 45 MINS Antonella Law, ALIA.PIPE FITTINGS MOLDER [address] [place] [address] [facility] [address] [place] [address] Referral ID Status Reason Start Date Expiration Date Visits Requested Visits Authorized [id number] Authorized PCP Requested Referral Auto-Generate d Referral 05/08/2023 05/07/2024 99 99 Specialty Diagnoses / Procedures Referred By Contac t Referred To Contact Podiatry Diagnoses Chronic pain of both ankles Calcaneal spur, unspecified laterality Procedures CONSULT TO PODIATRY OFFICE/OUTPATIENT [facility] 60-74 MINUTES Antonella Law APRN.[employer] MOLDER [address] [place] [address] Referral ID Status Reason Start Date Expiration Date Visits Requested Visits Authorized [id number] Authorized PCP Requested Referral 05/08/2023 05/07/2024 1 1 History of Present Illness * Miguel Angel Watt, DO - 11/11/2018 1:00 PM EST Pertinent cardiac diagnoses Aortic valve stenosis, severe (primary encounter diagnosis) Ascending aorta dilatation (hcc) Lbbb (left bundle branch block) Bicuspid aortic valve Syncope, unspecified syncope type Status post placement of implantable loop recorder Obesity (bmi 35.0-39.9 without comorbidity) History of Present Illness 43 y.o. male follow-up regarding aortic stenosis, remote syncopal episode and previous craniotomy. Cardiac catheterization 11/2016:Erlinda De León is a 41 year old male with a history of bicuspid aortic valve and severe aortic stenosis complicated by syncope and obesity who presents for elective LHC prior to aortic valve surgery. Today's LHC reveals: LMT: short trunk, angiographically normal LAD: large caliber vessel, angiographically normal wraps around the apex LCx: large caliber vessel, angiographically normal RI: medium caliber vessel, angiographically normal RCA: dominant, large caliber vessel, angiographically normal Recommend proceeding to AVR without need for CABG. Of note, because of short and mildly dilated aorta, RCA was best engaged with JR5 from right radial acess. ADVERSE OUTCOME(s)/COMPLICATION(s) None Recommended Treatment: Valve repair / replacement. Apparently Erlinda was scheduled for surgery but canceled due to dental issues. This has been corrected and rescheduling remains pending. No near syncope or syncopal episodes. No signs or symptoms orcongestive heart failure. He does have an implantable loop recorder and no significant dysrhythmiasto date. He apparently had recent blood work the results are unavailable but he did have hyperlipidemia, elevated LDL low HDL and was placed on fish oil by primary care. Wilder is here today for follow-up. He did not have his surgery as he needed dental work first and then did not follow through with surgery. He continues to have dyspnea on exertion and random chest pains.His life continues to have significant trauma with child support issues and threatened skilled nursing time. He was on disability due to his severe aortic stenosis. Allergies Allergen Reactions *Adhesive Tape Itching and Rash Patient states when he wore Holter electrodes, he broke out in rash and itching Outpatient Medications Prior to Visit Medication Sig Dispense Refill [place]-3 Fatty Acids (FISH OIL) [address] Take by mouth. Specific dose unknown omeprazole [address] capsule Take 20 mg by mouth daily. Vitamin D3 2000 units Cap Take by mouth. metoprolol succinate 50 MG tablet XL Take 0.5 tablets by mouth daily. 15 tablet 11 No facility-administered medications prior to visit. No family history on file. has no past surgical history on file. Social History Socioeconomic History Marital status: Single Spouse name: Not on file Number of children: Not on file Years of education: Not on file Highest education level: Not on file Occupational History Not on file Social Needs Financial resource strain: Not on file Food insecurity: Worry: Not on file Inability: Not on file Transportation needs: Medical: Not on file Non-medical: Not on file Tobacco Use Smoking status: Former Smoker Types: Cigarettes Smokeless tobacco: Never Used Tobacco comment: quit in 1997 Substance and Sexual Activity Alcohol use: No Drug use: No Sexual activity: Not on file Lifestyle Physical activity: Days per week: Not on file Minutes per session: Not on file Stress: Not on file Relationships Social connections: Talks on phone: Not on file Gets together: Not on file Attends latter day service: Not on file Active member of club or organization: Not on file Attends meetings of clubs or organizations: Not on file Relationship status: Not on file Intimate partner violence: Fear of current or ex partner: Not on file Emotionally abused: Not on file Physically abused: Not on file Forced sexual activity: Not on file Other Topics Concern Not on file Social History Narrative Not on file Review of System 10 systems reviewed, pertinent positives listed above Blood pressure 110/82, pulse 81, resp. rate 16, height 1.854 m (6' 1), weight (!) 148.8 kg (328 lb), SpO2 98 %. Body mass index is 43.27 kg/m . Physical Exam General appearance - alert, well developed, well nourished,43 y.o.male appropriate affect HEENT PERRLA, EOMI, no xanthelasma or icterus Neck - supple, No JVD or bruits. Upstrokes equal bilaterally. No adenopathy or thyromegaly. Lungs - clear to auscultation, no wheezes, rales or rhonchi Heart - regular rate and regular rhythm, normal S1 and decreased S2 without S3, 2/6 systolic ejection murmur right upper sternal border Abdomen - soft, nontender, no organomegaly Extremities -no Significant edema Neurologic: cranial nerves II through XII intact Musculoskeletal - no joint deformity, tendon xanthoma Skin - normal coloration and turgor, no laxity Psych- appropriate mood Lab Results: No results found for: SODIUM, POTASSIUM, MAGNESIUM, CALCIUM, CHLORIDE, TP, BUN, CREATSERUM, ALBUMIN, BILITOTAL, AST, ALKPHOS, CO2, AGRATIO, ALT, GFR, GFRAA, GFRCOMMENT, GLUCOSE, TROP No results found for: CHOLESTEROL, TRIG, HDL, LDLCALC, BLDL, TCHHDLMANENT No results found for: PT, INR, PTT, WBC, RBC, HGB, HCT, MCV, MEANCELHGB, MEANCELHGCON, RBCDISTRIBU,PLATELET, MPV, NEUTROPHILS, LYMPHOCYTES, MONOCYTE, EOSINOPHILS, BASOPHILS, RBCCOMMENTS, DIFFTYPE, PLTCMT, HGBA1C, ESTAVGGLUCOS, TSH Problem List Items Addressed This Visit Respiratory Shortness of breath Cardiovascular Severe aortic stenosis - Primary Relevant Orders ECHOCARDIOGRAM Bicuspid aortic valve Left bundle-branch block Atypical chest pain Other History of syncope Noncompliance Assessment & Plan He is not interested in pursuing Surgery at this time as he believes his brain tumor is back. He hears sounds like tar starting and dogs barkingand according to his significant other there are no cars or animals around. I suggest that he follow up with his neurosurgeon with repeat MRI which is pastdue and then consider valve surgery, possibly TAVR depending on his descending aortic size. Follow-up echocardiogram on next visit.he will need repeat cardiac catheterization prior to his intervention. Miguel Angel Watt DO 11/11/2018 1:36 PM documented in this encounter* Miguel Angel Watt DO - 05/13/2019 1:00 PM EDT Pertinent cardiac diagnoses Aortic valve stenosis, severe Ascending aorta dilatation (hcc) Lbbb (left bundle branch block) Bicuspid aortic valve Syncope, unspecified syncope type Status post placement of implantable loop recorder Obesity (bmi 35.0-39.9 without comorbidity) History of Present Illness 44 y.o. male follow-up regarding aortic stenosis, remote syncopal episode and previous craniotomy. Previous evaluations: Cardiac catheterization 11/2016:Erlinda De León is a 41 year old male with a history of bicuspid aortic valve and severe aortic stenosis complicated by syncope and obesity who presents for elective LHC prior to aortic valve surgery. Today's LHC reveals: LMT: short trunk, angiographically normal LAD: large caliber vessel, angiographically normal wraps around the apex LCx: large caliber vessel, angiographically normal RI: medium caliber vessel, angiographically normal RCA: dominant, large caliber vessel, angiographically normal Recommend proceeding to AVR without need for CABG. Of note, because of short and mildly dilated aorta, RCA was best engaged with JR5 from right radial acess. ADVERSE OUTCOME(s)/COMPLICATION(s) None Recommended Treatment: Valve repair / replacement. Apparently Erlinda was scheduled for surgery but canceled due to dental issues. This has been corrected and rescheduling remains pending. . Wilder is here today for follow-up. He did not have his surgery as he needed dental work first and then did not follow through with surgery. He states this has been corrected. He continues to have dyspnea on exertion and random chest pains.His life continues to have significant trauma with child support issues and threatened skilled nursing time. He has had recent lower extremity edema without PND or orthopnea. He does consume significant fluids. He was placed on a diuretic this has resolved. He has a courtdate for Social Security and then he states he will proceed with his AVR. I stated he will need repeat catheterization. For convenience I suggested that [facility] here is an issue Allergies Allergen Reactions *Adhesive Tape Itching and Rash Patient states when he wore Holter electrodes, he broke out in rash and itching Outpatient Medications Prior to Visit Medication Sig Dispense Refill metoprolol succinate 25 MG tablet XL Take 1 tablet by mouth daily. 30 tablet 11 [place]-3 Fatty Acids (FISH OIL) [address] Take by mouth. Specific dose unknown omeprazole [address] capsule Take 20 mg by mouth daily. Vitamin D3 2000 units Cap Take by mouth. No facility-administered medications prior to visit. No family history on file. has no past surgical history on file. Social History Socioeconomic History Marital status: Single Spouse name: Not on file Number of children: Not on file Years of education: Not on file Highest education level: Not on file Occupational History Not on file Social Needs Financial resource strain: Not on file Food insecurity: Worry: Not on file Inability: Not on file Transportation needs: Medical: Not on file Non-medical: Not on file Tobacco Use Smoking status: Former Smoker Types: Cigarettes Smokeless tobacco: Never Used Tobacco comment: quit in 1997 Substance and Sexual Activity Alcohol use: No Drug use: No Sexual activity: Not on file Lifestyle Physical activity: Days per week: Not on file Minutes per session: Not on file Stress: Not on file Relationships Social connections: Talks on phone: Not on file Gets together: Not on file Attends latter day service: Not on file Active member of club or organization: Not on file Attends meetings of clubs or organizations: Not on file Relationship status: Not on file Intimate partner violence: Fear of current or ex partner: Not on file Emotionally abused: Not on file Physically abused: Not on file Forced sexual activity: Not on file Other Topics Concern Not on file Social History Narrative Not on file Review of System 10 systems reviewed, pertinent positives listed above Blood pressure 152/80, pulse 81, resp. rate 16, height 1.854 m (6' 1), weight (!) 143.7 kg (316 lb11.2 oz), SpO2 98 %. Body mass index is 41.78 kg/m . Physical Exam General appearance - alert, well developed, well nourished,44 y.o.male appropriate affect HEENT PERRLA, EOMI, no xanthelasma or icterus Neck - supple, No JVD or bruits. Upstrokes equal bilaterally. No adenopathy or thyromegaly. Lungs - clear to auscultation, no wheezes, rales or rhonchi Heart - regular rate and regular rhythm, normal S1 , decreased S2 without S3. Harsh 3/6 systolic ejection murmur right sternal border Abdomen - soft, nontender, no organomegaly Extremities -trace ankle edema Neurologic: cranial nerves II through XII intact Musculoskeletal - no joint deformity, tendon xanthoma Skin - normal coloration and turgor, no laxity Psych- appropriate mood Lab Results: No results found for: SODIUM, POTASSIUM, MAGNESIUM, CALCIUM, CHLORIDE, TP, BUN, CREATSERUM, ALBUMIN, BILITOTAL, AST, ALKPHOS, CO2, AGRATIO, ALT, GFR, GFRAA, GFRCOMMENT, GLUCOSE, TROP No results found for: CHOLESTEROL, TRIG, HDL, LDLCALC, BLDL, TCHHDLMANENT No results found for: PT, INR, PTT, WBC, RBC, HGB, HCT, MCV, MEANCELHGB, MEANCELHGCON, RBCDISTRIBU,PLATELET, MPV, NEUTROPHILS, LYMPHOCYTES, MONOCYTE, EOSINOPHILS, BASOPHILS, RBCCOMMENTS, DIFFTYPE, PLTCMT, HGBA1C, ESTAVGGLUCOS, TSH Problem List Items Addressed This Visit Respiratory Shortness of breath Cardiovascular Severe aortic stenosis - Primary Ascending aorta dilatation Bicuspid aortic valve Essential hypertension Digestive Morbid obesity Assessment & Plan Severe aortic stenosis but without overt left or right heart failure, angina or recurrent syncope. Blood pressure elevated today. Emphasis on lifestyle modification with caloric restriction, salt andfluid restriction and increased physical activity as tolerated. Would proceed with cardiac catheterization and aortic valve replacement. May need titration of metoprolol or more likely a second antihypertensive if blood pressure remains elevated. Miguel Angel Watt DO 05/13/2019 1:26 PM documented in this encounter Assessments Diagnosis Severe aortic stenosis- Primary Aortic valve disorders Shortness of breath Atypical chest pain Other chest pain Bicuspid aortic valve Congenital insufficiency of aortic valve Left bundle-branch block Other left bundle branch block History of syncope Personal history of other specified diseases Noncompliance Personal history of noncompliance with medical treatment, presenting hazards to health Diagnosis Severe aortic stenosis- Primary Aortic valve disorders Bicuspid aortic valve Congenital insufficiency of aortic valve Ascending aorta dilatation Thoracic aortic ectasia Essential hypertension Unspecified essential hypertension Shortness of breath Morbid obesity Diagnosis SVT (supraventricular tachycardia)- Primary Other specified cardiac dysrhythmias Chief Complaint and Reason for Visit Chief Complaint 4 M FU 3 mos remote PPM f/u 9 M FU E ORDERS E-ORDER Reason for Visit JUANIS (obstructive sle ep apnea) BMI greater than 40 History of aortic valve replacement with bioprosthetic valve AV block, complete Presence of permanent cardiac pacemaker Dyslipidemia History of aortic valve replacement with bioprosthetic valve Presence of permanent cardiac pacemaker Thoracic aortic aneurysm without rupture Chief Complaint 3 mos remote PPM f/u 9 M FU E ORDERS E-ORDER 3 mos remote PPM f/u VALVE REPLACEMENT EVAL Reason for Visit AV block, complete Presence of permanent cardiac pacemaker Dyslipidemia History of aortic valve replacement with bioprosthetic valve Presence of permanent cardiac pacemaker Thoracic aortic aneurysm without rupture AV block, complete LBBB (left bundle branch block) Presence of permanent cardiac pacemaker Chief Complaint 3 mos remote PPM f/u 6 m fu SOB Reason for Visit AV block, complete Syncope Presence of permanent cardiac pacemaker Dyslipidemia History of aortic valve replacement with bioprosthetic valve Presence of permanent cardiac pacemaker Thoracic aortic aneurysm without rupture Chief Complaint 3 mos remote PPM f/u 6 m fu SOB 2 units PRBC's Reason for Visit AV block, complete Syncope Presence of permanent cardiac pacemaker Dyslipidemia History of aortic valve replacement with bioprosthetic valve Presence of permanent cardiac pacemaker Thoracic aortic aneurysm without rupture Chief Complaint Admit Date Pacer Check Remote December 28, 2024 7:1 5am Annual in-clinic f/u(SD 2PM) March 23, 2025 1:25pm 6 M FU (MASTER 1:30) March 23, 2025 1:32 pm Reason for Visit Admit Date AV block, complete March 23, 2025 1:25 pm Presence of permanent cardiac pacemaker March 23, 2025 1:25pm Chief Complaint Admit Date Pacer Check Remote December 28, 2024 7:1 5am Pacer Check Remote March 23, 2025 9:00 am Annual in-clinic f/u(SD 2PM) March 23, 2025 1:25pm 6 M FU (MASTER 1:30) March 23, 2025 1:32 pm Reason for Visit Admit Date AV block, complete March 23, 2025 1:25 pm Presence of permanent cardiac pacemaker March 23, 2025 1:25pm Bicuspid aortic valve March 23, 2025 1: 32pm History of aortic valve replacement with bioprosthetic valve March 23, 2025 1:32pm Hypertension March 23, 2025 1:32 pm LBBB (left bundle branch block) March 1:32pm Presence of permanent cardiac pacemaker March 23, 2025 1:32pm Thoracic aortic aneurysm without rupture March 23, 2025 1:32pm Medications Administered Section Inactive Administered Medications - up to 3 most recent administrations Medication Order MAR Action Action Date Dose Rate Site iron sucrose 200 mg in NaCl 0.9% 100ml (VENOFER) 200 mg, INTRAVENOUS, at 400 mL/hr, Administer over 15 Minutes, ONCE, 1 dose, On Fri06/27/22 at 1430, Please conduct a 30 minute post dose observation. New Bag/Syringe/Bottle 06/27/2022 2:30 PM EDT 200 mg 400 mL/hr Inactive Administered Medications - up to 3 most recent administrations Medication Order MAR Action Action Date Dose Rate Site iron sucrose 200 mg in NaCl 0.9% 100ml (VENOFER) 200 mg, INTRAVENOUS, at 400 mL/hr, Administer over 15 Minutes, ONCE, 1 dose, On Fri07/01/22 at 1500, Please conduct a 30 minute post dose observation. New Bag/Syringe/Bottle 07/01/2022 3:00 PM EDT 200 mg 400 mL/hr Inactive Administered Medications - up to 3 most recent administrations Medication Order MAR Action Action Date Dose Rate Site iron sucrose 200 mg in NaCl 0.9% 100ml (VENOFER) 200 mg, INTRAVENOUS, at 400 mL/hr, Administer over 15 Minutes, ONCE, 1 dose, On Fri07/08/22 at 1500, Please conduct a 30 minute post dose observation. New Bag/Syringe/Bottle 07/08/2022 3:00 PM EDT 200 mg 400 mL/hr Inactive Administered Medications - up to 3 most recent administrations Medication Order MAR Action Action Date Dose Rate Site iron sucrose 200 mg in NaCl 0.9% 100ml (VENOFER) 200 mg, INTRAVENOUS, at 400 mL/hr, Administer over 15 Minutes, ONCE, 1 dose, On Fri08/15/22 at 1500, Please conduct a 30 minute post dose observation. New Bag/Syringe/Bottle 08/15/2022 2:45 PM EST 200 mg 400 mL/hr Inactive Administered Medications - up to 3 most recent administrations Medication Order MAR Action Action Date Dose Rate Site iron sucrose 200 mg in NaCl 0.9% 100ml (VENOFER) 200 mg, INTRAVENOUS, at 400 mL/hr, Administer over 15 Minutes, ONCE, 1 dose, On Fri08/20/22 at 1430, Please conduct a 30 minute post dose observation. New Bag/Syringe/Bottle 08/20/2022 2:37 PM EST 200 mg 400 mL/hr Additional Source Comments (unrecognized sect ion and content) No Status Records FoundNo Status Records FoundNo Status Records FoundNo Status Records FoundNo Status Records FoundNo Status Records Found INFORMATION SOURCE (unrecogn ized section and content) DATE CREATED AUTHOR 06/22/2018 [facility] DATE CREATED AUTHOR AUTHOR'S ORGANIZ ATION 11/12/2018 [facility] DATE CREATED AUTHOR AUTHOR'S ORGANIZ ATION 05/15/2021 [facility] DATE CREATED AUTHOR AUTHOR'S ORGANIZ ATION 10/25/2022 [facility] DATE CREATED AUTHOR AUTHOR'S ORGANIZ ATION 12/11/2024 [facility] DATE CREATED AUTHOR AUTHOR'S ORGANIZ ATION 04/04/2025 [facility] Reason for Visit (unrecogniz ed section and content) Reason Comments Other Work excuse Reason Comments Other Reason Comments Follow-up Chest Pain Palpitations Flutter Breathing Problem Short of breath at r est, but most often with activity. Reason Comments Chest Pain Has midsternal/left sided chest pain a couple times per week. Describes it as a sharp pain that lasts about 15 minutes. Breathing Problem Short of breath whil e walking and/or any type of minor activity. Edema Slight bilateral ank le swelling. Reason Comments Error Reason Comments Medication Refill Reason Comments Patient Update Reason Comments Covid19 Concern Reason Comments 6 Month Exam Reason Comments Orders Reason Comments Results Reason Comments Benefits Investigation Reason Comments Consult Reason Comments Appointment Reason Comments Non-Chemotherapy Treatment Specialty Diagnoses / Procedures Referred By Contac t Referred To Contact Diagnoses 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 Wilmer Puente DO [address] [place] [address] [facility] [address] [place] [address] Referral ID Status Reason Start Date Expiration Date V isits Requested Visits Authorized [id number] Authorized 06/12/2022 09/10/2022 99 99 Specialty Diagnoses / Procedures Referred By Contac t Referred To Contact Diagnoses 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 Wilmer Puente DO [address] [place] [address] [facility] [address] [place] [address] Reason Comments Results CBC and iron results Reason Comments Procedure Changes Reason Comments F/U 6 months Reason Comments Results Reason Onset Date Comments Refill Request 11/20/2022 Reason Comments Yearly Exam Reason Comments Results Reason Comments New Pain Specialty Diagnoses / Procedures Referred By Jack kowalski Referred To Contact Podiatry Diagnoses Chronic pain of both ankles Calcaneal spur, unspecified laterality Procedures CONSULT TO PODIATRY OFFICE/OUTPATIENT NEW HIGH MDM 60-74 MINUTES Antonella Law APRN.P[employer] MOLDER [address] [place] [address] Referral ID Status Reason Start Date Expiration Date V isits Requested Visits Authorized [id number] Closed PCP Requested Referral 05/08/2023 05/07/2024 1 1 Reason Onset Date Comments Refill Request 11/27/2023 Reason Onset Date Comments Population Health Navigation Outreach 08/25/2024 [facility] Reason Comments Refill Request Reason Comments Yearly Exam Reason Comments contact outside provider re: weight loss med Goals (unrecognized section and content) Goals may be documented in a n alternate sectionGoals may be documented in an alternate sectionGoals may be documented in an alternate sectionGoals may be documented in an alternate sectionGoals may be documented in an alternate sectionGoals may be documented in an alternate sectionGoals may be documented in an alternate section Source Comments (unrecognize d section and content) In the event this informatio n is protected by the Federal Confidentiality of Alcohol and Drug Abuse Patient Records regulations: The Federal rules restrict any use of the information to criminally investigate or prosecute any alcohol or drug abuse patient.[facility] the event this information is protected by the Federal Confidentiality of Alcohol and Drug Abuse Patient Records regulations: The Federal rules restrict any use of the information to criminally investigate or prosecute any alcohol or drug abuse patient.[facility] HospitalIn the event this information is protected by the Federal Confidentiality of Alcohol and Drug Abuse Patient Records regulations: The Federal rules restrict any use of the information to criminally investigate or prosecute any alcohol or drug abuse patient.[facility] HospitalIn the event this information is protected by the Federal Confidentiality of Alcohol and Drug Abuse Patient Records regulations: The Federal rules restrict any use of the information to criminally investigate or prosecute any alcohol or drug abuse patient.[facility] Hospital[facility] the event this information is protected by the Federal Confidentiality of Alcohol and Drug Abuse Patient Records regulations: The Federal rules restrict any use of the information to criminally investigate or prosecute any alcohol or drug abuse patient.[facility] HospitalIn the event this information is protected by the Federal Confidentiality of Alcohol and Drug Abuse Patient Records regulations: The Federal rules restrict any use of the information to criminally investigate or prosecute any alcohol or drug abuse patient.[facility] HospitalIn the event this information is protected by the Federal Confidentiality of Alcohol and Drug Abuse Patient Records regulations: The Federal rules restrict any use of the information to criminally investigate or prosecute any alcohol or drug abuse patient.[facility] Hospital[facility] the event this information is protected by the Federal Confidentiality of Alcohol and Drug Abuse Patient Records regulations: The Federal rules restrict any use of the information to criminally investigate or prosecute any alcohol or drug abuse patient.[facility] HospitalIn the event this information is protected by the Federal Confidentiality of Alcohol and Drug Abuse Patient Records regulations: The Federal rules restrict any use of the information to criminally investigate or prosecute any alcohol or drug abuse patient.[facility] HospitalIn the event this information is protected by the Federal Confidentiality of Alcohol and Drug Abuse Patient Records regulations: The Federal rules restrict any use of the information to criminally investigate or prosecute any alcohol or drug abuse patient.[facility] HospitalIn the event this information is protected by the Federal Confidentiality of Alcohol and Drug Abuse Patient Records regulations: The Federal rules restrict any use of the information to criminally investigate or prosecute any alcohol or drug abuse patient.[facility] HospitalIn the event this information is protected by the Federal Confidentiality of Alcohol and Drug Abuse Patient Records regulations: The Federal rules restrict any use of the information to criminally investigate or prosecute any alcohol or drug abuse patient.[facility] HospitalIn the event this information is protected by the Federal Confidentiality of Alcohol and Drug Abuse Patient Records regulations: The Federal rules restrict any use of the information to criminally investigate or prosecute any alcohol or drug abuse patient.[facility] HospitalIn the event this information is protected by the Federal Confidentiality of Alcohol and Drug Abuse Patient Records regulations: The Federal rules restrict any use of the information to criminally investigate or prosecute any alcohol or drug abuse patient.[facility] HospitalIn the event this information is protected by the Federal Confidentiality of Alcohol and Drug Abuse Patient Records regulations: The Federal rules restrict any use of the information to criminally investigate or prosecute any alcohol or drug abuse patient.[facility] HospitalIn the event this information is protected by the Federal Confidentiality of Alcohol and Drug Abuse Patient Records regulations: The Federal rules restrict any use of the information to criminally investigate or prosecute any alcohol or drug abuse patient.[facility] HospitalIn the event this information is protected by the Federal Confidentiality of Alcohol and Drug Abuse Patient Records regulations: The Federal rules restrict any use of the information to criminally investigate or prosecute any alcohol or drug abuse patient.[facility] HospitalIn the event this information is protected by the Federal Confidentiality of Alcohol and Drug Abuse Patient Records regulations: The Federal rules restrict any use of the information to criminally investigate or prosecute any alcohol or drug abuse patient.[facility] HospitalIn the event this information is protected by the Federal Confidentiality of Alcohol and Drug Abuse Patient Records regulations: The Federal rules restrict any use of the information to criminally investigate or prosecute any alcohol or drug abuse patient.[facility] HospitalIn the event this information is protected by the Federal Confidentiality of Alcohol and Drug Abuse Patient Records regulations: The Federal rules restrict any use of the information to criminally investigate or prosecute any alcohol or drug abuse patient.[facility] HospitalIn the event this information is protected by the Federal Confidentiality of Alcohol and Drug Abuse Patient Records regulations: The Federal rules restrict any use of the information to criminally investigate or prosecute any alcohol or drug abuse patient.[facility] HospitalIn the event this information is protected by the Federal Confidentiality of Alcohol and Drug Abuse Patient Records regulations: The Federal rules restrict any use of the information to criminally investigate or prosecute any alcohol or drug abuse patient.[facility] HospitalIn the event this information is protected by the Federal Confidentiality of Alcohol and Drug Abuse Patient Records regulations: The Federal rules restrict any use of the information to criminally investigate or prosecute any alcohol or drug abuse patient.[facility] HospitalIn the event this information is protected by the Federal Confidentiality of Alcohol and Drug Abuse Patient Records regulations: The Federal rules restrict any use of the information to criminally investigate or prosecute any alcohol or drug abuse patient.[facility] HospitalIn the event this information is protected by the Federal Confidentiality of Alcohol and Drug Abuse Patient Records regulations: The Federal rules restrict any use of the information to criminally investigate or prosecute any alcohol or drug abuse patient.[facility] HospitalIn the event this information is protected by the Federal Confidentiality of Alcohol and Drug Abuse Patient Records regulations: The Federal rules restrict any use of the information to criminally investigate or prosecute any alcohol or drug abuse patient.[facility] HospitalIn the event this information is protected by the Federal Confidentiality of Alcohol and Drug Abuse Patient Records regulations: The Federal rules restrict any use of the information to criminally investigate or prosecute any alcohol or drug abuse patient.[facility] HospitalIn the event this information is protected by the Federal Confidentiality of Alcohol and Drug Abuse Patient Records regulations: The Federal rules restrict any use of the information to criminally investigate or prosecute any alcohol or drug abuse patient.[facility] HospitalIn the event this information is protected by the Federal Confidentiality of Alcohol and Drug Abuse Patient Records regulations: The Federal rules restrict any use of the information to criminally investigate or prosecute any alcohol or drug abuse patient.[facility] HospitalIn the event this information is protected by the Federal Confidentiality of Alcohol and Drug Abuse Patient Records regulations: The Federal rules restrict any use of the information to criminally investigate or prosecute any alcohol or drug abuse patient.[facility] HospitalIn the event this information is protected by the Federal Confidentiality of Alcohol and Drug Abuse Patient Records regulations: The Federal rules restrict any use of the information to criminally investigate or prosecute any alcohol or drug abuse patient.[facility] HospitalIn the event this information is protected by the Federal Confidentiality of Alcohol and Drug Abuse Patient Records regulations: The Federal rules restrict any use of the information to criminally investigate or prosecute any alcohol or drug abuse patient.[facility] HospitalIn the event this information is protected by the Federal Confidentiality of Alcohol and Drug Abuse Patient Records regulations: The Federal rules restrict any use of the information to criminally investigate or prosecute any alcohol or drug abuse patient.[facility] Care Teams (unrecognized sec tion and content) Glass Driller Relationship Specialty Start Date End Date Stone Castillo, DO [address] [place] [address] PCP - General Family Practice 09/14/13 Wilmer Rodríguez [address] [place] [address] Cardiology 02/02/20 Gopal Bullard MD [address] [place] [address] [place] [address] Home Care Physician Cardiothoracic Surgery 04/10/20 Christine Parks APRN.[employer] [address] [place] [address] Referring Cardiac Surg 04/10/20 Glass Driller Relationship Specialty Start Date End Date Stone Castillo DO [address] [place] [address] PCP - General Family Practice 09/14/13 Wilmer Rodríguez[address] [place] [address] Cardiology 02/02/20 Gopal Bullard MD [address] [place] [address] [place] [address] Home Care Physician Cardiothoracic Surgery 04/10/20 Christine Parks, BONE COOKING OPERATOR.PIPE FITTINGS MOLDER [address] [place] [address] Referring Cardiac Surg 04/10/20 Glass Driller Relationship Specialty Start Date End Date Stone Castillo, DO [address] [place] [address] PCP - General Family Practice 09/14/13 Wilmer Rodríguez [address] [place] [address] Cardiology 02/02/20 Gopal Bullard MD [address] [place] [address] [place] [address] Home Care Physician Cardiothoracic Surgery 04/10/20 Christine Parks, BONE COOKING OPERATOR.PIPE FITTINGS MOLDER [address] [place] [address] Referring Cardiac Surg 04/10/20 Glass Driller Relationship Specialty Start Date End Date Stone Castillo, DO [address] [place] [address] PCP - General Family Practice 09/14/13 Wilmer Rodríguez [address] [place] [address] Cardiology 02/02/20 Gopal Bullard MD [address] [place] [address] [place] [address] Home Care Physician Cardiothoracic Surgery 04/10/20 Christine Parks, BONE COOKING OPERATOR.PIPE FITTINGS MOLDER [address] [place] [address] Referring Cardiac Surg 04/10/20 Glass Driller Relationship Specialty Start Date End Date Stone Castillo, DO [address] [facility] [place] [address] PCP - General Family Medicine 09/14/13 Wilmer Rodríguez [address] [place] [address] Cardiology 02/02/20 Gopal Bullard MD [address] [place] [address] [place] [address] Home Care Provider Cardiothoracic Surgery 04/10/20 Christine Parks, BONE COOKING OPERATOR.PIPE FITTINGS MOLDER [address] [place] [address] Referring Cardiac Surg 04/10/20 Glass Driller Relationship Specialty Start Date End Date Stone Castillo, DO [address] [facility] [place] [address] PCP - General Family Medicine 09/14/13 Wilmer Rodríguez [address] [facility] [address] Cardiology 02/02/20 Gopal Bullard MD [address] [place] [address] [place] [address] Home Care Provider Cardiothoracic Surgery 04/10/20 Christine Parks, BONE COOKING OPERATOR.PIPE FITTINGS MOLDER [address] [place] [address] Referring Cardiac Surg 04/10/20 Glass Driller Relationship Specialty Start Date End Date Stone Castillo, DO [address] [facility] [place] [address] PCP - General Family Medicine 09/14/13 Wilmer Rodríguez [address] [facility] [address] Cardiology 02/02/20 Gopal Bullard MD [address] [place] [address] [place] [address] Home Care Provider Cardiothoracic Surgery 04/10/20 Christine Parks, BONE COOKING OPERATOR.PIPE FITTINGS MOLDER [address] [place] [address] Referring Cardiac Surg 04/10/20 Glass Driller Relationship Specialty Start Date End Date Stone Castillo, DO [address] [place] [address] PCP - General Family Medicine 09/14/13 Wilmer Rodríguez [address] [facility] [place] [address] Cardiology 02/02/20 Gopal Bullard MD [address] [place] [address] [place] [address] Home Care Provider Cardiothoracic Surgery 04/10/20 Christine Parks, BONE COOKING OPERATOR.PIPE FITTINGS MOLDER [address] [facility] [facility] [address] [place] [address] Referring Cardiac Surg 04/10/20 Glass Driller Relationship Specialty Start Date End Date Stone Castillo, DO [address] [place] [address] PCP - General Family Medicine 09/14/13 Wilmer Rodríguez [address] [facility] [place] [address] Cardiology 02/02/20 Gopal Bullard MD [address] [address] [place] [address] Home Care Provider Cardiothoracic Surgery 04/10/20 Christine Parks, BONE COOKING OPERATOR.PIPE FITTINGS MOLDER [address] [facility] [address] [place] [address] Referring Cardiac Surg 04/10/20 Glass Driller Relationship Specialty Start Date End Date Stone Castillo, DO [address] [place] [address] PCP - General Family Medicine 09/14/13 Wilmer Rodríguez [address] [place] [address] Cardiology 02/02/20 Gopal Bullard MD [address] [address] [place] [address] Home Care Provider Cardiothoracic Surgery 04/10/20 Christine Parks, BONE COOKING OPERATOR.PIPE FITTINGS MOLDER [address] [facility] [address] [place] [address] Referring Cardiac Surg 04/10/20 Glass Driller Relationship Specialty Start Date End Date Stone Castillo, DO [address] [place] [address] PCP - General Family Medicine 09/14/13 Wilmer Rodríguez [address] [place] [address] Cardiology 02/02/20 Gopal Bullard MD [address] [place] [address] [place] [address] Home Care Provider Cardiothoracic Surgery 04/10/20 Christine Parks, BONE COOKING OPERATOR.PIPE FITTINGS MOLDER [address] [facility] [address] [place] [address] Referring Cardiac Surg 04/10/20 Glass Driller Relationship Specialty Start Date End Date Stone Castillo, DO [address] [place] [address] PCP - General Family Medicine 09/14/13 Wilmer Rodríguez [address] [place] [address] Cardiology 02/02/20 Gopal Bullard MD [address] [address] [place] [address] Home Care Provider Cardiothoracic Surgery 04/10/20 Christine Parks, BONE COOKING OPERATOR.PIPE FITTINGS MOLDER [address] [facility] [address] [place] [address] Referring Cardiac Surg 04/10/20 Glass Driller Relationship Specialty Start Date End Date Stone Castillo, DO [address] [place] [address] PCP - General Family Medicine 09/14/13 Wilmer Rodríguez [address] [place] [address] Cardiology 02/02/20 Gopal Bullard MD [address] [address] [place] [address] Home Care Provider Cardiothoracic Surgery 04/10/20 Christine Parks, BONE COOKING OPERATOR.PIPE FITTINGS MOLDER [address] [facility] [address] [place] [address] Referring Cardiac Surg 04/10/20 Glass Driller Relationship Specialty Start Date End Date Stone Castillo, DO [address] [place] [address] PCP - General Family Medicine 09/14/13 Wilmer Rodríguez [address] [place] [address] Cardiology 02/02/20 Gopal Bullard MD [address] [address] [place] [address] Home Care Provider Cardiothoracic Surgery 04/10/20 Christine Parks, BONE COOKING OPERATOR.PIPE FITTINGS MOLDER [address] [facility] [address] [place] [address] Referring Cardiac Surg 04/10/20 Glass Driller Relationship Specialty Start Date End Date Stone Castillo, DO [address] [place] [address] PCP - General Family Medicine 09/14/13 Wilmer Rodríguez [address] [place] [address] Cardiology 02/02/20 Gopal Bullard MD [address] [address] [place] [address] Home Care Provider Cardiothoracic Surgery 04/10/20 Christine Parks, BONE COOKING OPERATOR.PIPE FITTINGS MOLDER [address] [facility] [address] [place] [address] Referring Cardiac Surg 04/10/20 Glass Driller Relationship Specialty Start Date End Date Stone Castillo, DO [address] [place] [address] PCP - General Family Medicine 09/14/13 Wilmer Rodríguez [address] [place] [address] Cardiology 02/02/20 Gopal Bullard MD [address] [address] [place] [address] Home Care Provider Cardiothoracic Surgery 04/10/20 Christine Parks, BONE COOKING OPERATOR.PIPE FITTINGS MOLDER [address] [facility] [address] [place] [address] Referring Cardiac Surg 04/10/20 Glass Driller Relationship Specialty Start Date End Date Stone Castillo DO [address] [place] [address] PCP - General Family Medicine 09/14/13 Wilmer Rodríguez [address] [facility] [place] [address] Cardiology 02/02/20 Gopal Bullard MD [address] [address] [place] [address] Home Care Provider Cardiothoracic Surgery 04/10/20 Christine Parks, BONE COOKING OPERATOR.PIPE FITTINGS MOLDER [address] [facility] [address] [place] [address] Referring Cardiac Surg 04/10/20 Glass Driller Relationship Specialty Start Date End Date Stone Castillo DO [address] [place] [address] PCP - General Family Medicine 09/14/13 Wilmer Rodríguez [address] [facility] [place] [address] Cardiology 02/02/20 Gopal Bullard MD [address] [address] [place] [address] Home Care Provider Cardiothoracic Surgery 04/10/20 Christine Parks, BONE COOKING OPERATOR.PIPE FITTINGS MOLDER [address] [facility] [address] [place] [address] Referring Cardiac Surg 04/10/20 Glass Driller Relationship Specialty Start Date End Date Stone Castillo DO [address] [place] [address] PCP - General Family Medicine 09/14/13 Wilmer Rodríguez [address] [facility] [place] [address] Cardiology 02/02/20 Gopal Bullard MD [address] [place] [address] [place] [address] Home Care Provider Cardiothoracic Surgery 04/10/20 Christine Parks, ALIA.PIPE FITTINGS MOLDER [address] [facility] [address] [place] [address] Referring Cardiac Surg 04/10/20 Glass Driller Relationship Specialty Start Date End Date Stone Castillo DO [address] [facility] [place] [address] PCP - General Family Medicine 09/14/13 Wilmer Rodríguez [address] [place] [address] Cardiology 02/02/20 Gopal Bullard MD [address] [place] [address] Home Care Provider Cardiothoracic Surgery 04/10/20 Christine Parks, BONE COOKING OPERATOR.PIPE FITTINGS MOLDER [address] [facility] [address] [place] [address] Referring Cardiac Surg 04/10/20 Glass Driller Relationship Specialty Start Date End Date Stone Castillo DO [address] [place] [address] PCP - General Family Medicine 09/14/13 Wilmer Rodríguez MD [address] [place] [address] Cardiology 02/02/20 Gopal Bullard MD [address] [place] [address] Home Care Provider Cardiothoracic Surgery 04/10/20 Christine Parks, BONE COOKING OPERATOR.PIPE FITTINGS MOLDER [address] [facility] [address] [place] [address] Referring Cardiac Surg 04/10/20 Glass Driller Relationship Specialty Start Date End Date Stone Castillo DO [address] [place] [address] PCP - General Family Medicine 09/14/13 Wilmer Rodríguez MD [address] [place] [address] Cardiology 02/02/20 Gopal Bullard MD [address] [address] [place] [address] Home Care Provider Cardiothoracic Surgery 04/10/20 Christine Parks, BONE COOKING OPERATOR.PIPE FITTINGS MOLDER [address] [facility] [address] [place] [address] Referring Cardiac Surg 04/10/20 Glass Driller Relationship Specialty Start Date End Date Stone Castillo DO [address] [place] [address] PCP - General Family Medicine 09/14/13 Wilmer Rodríguez MD [address] [place] [address] Cardiology 02/02/20 Gopal Bullard MD [address] [place], [place] [id number] Home Care Provider Cardiothoracic Surgery 04/10/20 Christine Parks APRN.PIPE FITTINGS MOLDER [address] [facility] [address] [place], [place] [id number] Referring Cardiac Surg 04/10/20 Glass Driller Relationship Specialty Start Date End Date Stone Castillo DO [address] [place], [place] [address] PCP - General Family Medicine 09/14/13 Wilmer Rodríguez MD [facility] [place] [address] Cardiology 02/02/20 Gopal Bullard MD [address] [place], [place] [address] Home Care Provider Cardiothoracic Surgery 04/10/20 Christine Parks, BONE COOKING OPERATOR.PIPE FITTINGS MOLDER [address] [facility] [address] [place], [place] [id number] Referring Cardiac Surg 04/10/20 Antonella Law BONE COOKING OPERATOR.PIPE FITTINGS MOLDER [address] [place] [address] Sql Report Developer Family Medicine 08/15/24 Reece Mendez BONE COOKING OPERATOR.PIPE FITTINGS MOLDER [address] [place] [address] Sql Report Developer Family [facility] 08/15/24 Glass Driller Relationship Specialty Start Date End Date Stone Castillo DO [address] [place] [address] PCP - General Family Medicine 09/14/13 Wilmer Rodríguez MD [address] [place] [address] Cardiology 02/02/20 Gopal Bullard MD [address] [place], [place] [address] [phone] Home Care Provider Cardiothoracic Surgery 04/10/20 Christine Parks BONE COOKING OPERATOR.PIPE FITTINGS MOLDER [address] [place] [address] Referring Cardiac Surg 04/10/20 Antonella Law, BONE COOKING OPERATOR.PIPE FITTINGS MOLDER [address] [place] [address] Sql Report Developer Family Medicine 08/15/24 Reece Mendez BONE COOKING OPERATOR.PIPE FITTINGS MOLDER [address] [place] [address] Sql Report Developer Family Medicine 08/15/24 Glass Driller Relationship Specialty Start Date End Date Stone Castillo DO [address] [place] [address] PCP - General Family Medicine 09/14/13 Wilmer Rodríguez MD [address] [place] [address] Cardiology 02/02/20 Gopal Bullard MD [address] [address] [place] [address] Home Care Provider Cardiothoracic Surgery 04/10/20 Christine Parks, ALIA.PIPE FITTINGS MOLDER [address] [place], [place] [id number] [phone] Referring Cardiac Surg 04/10/20 Reece Mendez, BONE COOKING OPERATOR.PIPE FITTINGS MOLDER [address] [place] [address] Sql Report Developer Family Medicine 08/15/24 Glass Driller Relationship Specialty Start Date End Date Stone Castillo DO [address] [place] [address] PCP - General Family Medicine 09/14/13 Wilmer Rodríguez MD [address] [place] [address] Cardiology 02/02/20 Gopal Bullard MD [address] [address] [place] [address] Home Care Provider Cardiothoracic Surgery 04/10/20 Christine Parks APRN.PIPE FITTINGS MOLDER [address] [place] [address] Referring Cardiac Surg 04/10/20 Reece Mendez APRN.PIPE FITTINGS MOLDER [address] [place] [address] Sql Report Developer Family Medicine 08/15/24 Team Status: Active Member Role/Relationship Status Dates Dr. Stone Castillo DO Family Provider Active Dr. Stone Castillo DO Primary Care Provider Active Team Status: Inactive Member Role/Relationship Status Dates Dr. Stone Castillo DO Primary Care Provider Active Start: December 28, 2024 End: December 28, 2024 Dr. Manny Kemp MD Attending Provider Active S tart: December 28, 2024 End: December 28, 2024 Team Status: Active Member Role/Relationship Status Dates Dr. Stone Castillo DO Primary Care Provider Active Start: March 23, 2025 Dr. Stone Castillo DO Referring Provider Active Start: March 23, 2025 Katerine Whelan Attending Provider Active Start: 2024 Team Status: Inactive Member Role/Relationship Status Dates Dr. Stone Castillo DO Primary Care Provider Active Start: March 23, 2025 End: March 23, 2025 Dr. Stone Castillo DO Referring Provider Active Start: March 23, 2025 End: March 23, 2025 KATHLEEN Hannah Attending Provider Active St art: March 23, 2025 End: March 23, 2025 Team Status: Inactive Member Role/Relationship Status Dates Dr. Stone Castillo DO Primary Care Provider Active Start: March 23, 2025 End: March 23, 2025 Dr. Stone Castillo DO Referring Provider Active Start: March 23, 2025 End: March 23, 2025 Katerine Whelan Attending Provider Active Start: 2024 End: March 23, 2025 Team Status: Active Member Role/Relationship Status Dates Dr. Stone Castillo DO Primary Care Provider Active Team Status: Inactive Member Role/Relationship Status Dates Dr. Stone Castillo DO Primary Care Provider Active Start: March 23, 2025 End: March 23, 2025 Dr. Manny Kemp MD Attending Provider Active S tart: March 23, 2025 End: March 23, 2025 Team Status: Inactive Member Role/Relationship Status Dates Dr. Stone Castillo DO Primary Care Provider Active Start: March 23, 2025 End: March 23, 2025 Dr. Stone Castillo DO Referring Provider Active Start: March 23, 2025 End: March 23, 2025 Katerine Whelan Attending Provider Active Start: 2024 End: March 23, 2025 Team Status: Inactive Member Role/Relationship Status Dates Dr. Stone Castillo DO Primary Care Provider Active Start: March 23, 2025 End: March 23, 2025 Dr. Stone Castillo DO Referring Provider Active Start: March 23, 2025 End: March 23, 2025 KATHLEEN Hannah Attending Provider Active St art: March 23, 2025 End: March 23, 2025 FOR RECORDS PERTAINING TO PATIENTS WHO ARE OR HAVE BEEN ENROLLED IN A CHEMICAL DEPENDENCY/SUBSTANCEABUSE PROGRAM, SOME INFORMATION MAY BE OMITTED. This clinical summary was aggregated from multiple sources. Caution should be exercised in using it in the provision of clinical care. This summary normalizes information from multiple sources, and as a consequence, information in this document may materially change the coding, format and clinical context of patient data. In addition, data may be omitted in some cases. CLINICAL DECISIONS SHOULD BE BASED ON THE PRIMARY CLINICAL RECORDS. [facility] [employer], [facility]. provides no warranty or guarantee of the accuracy or completeness of information in this document.
--- NOTE | 2025-04-05 06:51 | ECHOD_ITS ---
Reason For Study Reason For Study: LVH, TAA, AVR Procedure This was a 2D Doppler, Color Flow transthoracic echocardiogram. Unable to use Definity due to previous reaction. Exam performed in department. Left Ventricle Normal LV size. Moderate concentric left ventricular hypertrophy. The left ventricular ejection fraction is 55 %. Stage 1 diastolic dysfunction. Right Ventricle Normal right ventricle. Atria The left atrium is mildly enlarged. Normal right atrium. Mitral Valve Trivial mitral valve insufficiency. Tricuspid Valve Mild tricuspid valve insufficiency. Right ventricular systolic pressure estimated to be 41 mmHg. Aortic Valve Bioprosthetic aortic valve mean peak gradient 16.5 mmHg. Previously 13 mmHg from the study from 04/2024. Pulmonic Valve Trivial pulmonic valve insufficiency. Great Vessels Ascending aorta moderately dilated at 4.4 cm. Pericardium/Pleural No pericardial effusion. MMode/2D Measurements & Calculations LVIDd: 4.5 cm IVSd: 1.6 cm LVOT diam: 2.1 cm LVIDs: 2.4 cm LVPWd: 1.5 cm LVOT area: 3.4 cm2 RVDd: 3.9 cm FS: 46.5 % Ao root diam: 4.4 cm LAV(MOD-bp): 59.7 ml LA A4 area: 19.9 cm2 LA dimension: 4.3 cm LAV(MOD-bp) Indexed: 21.8 ml/m2 LAV(MOD-sp2): 61.9 ml LAV(MOD-sp4): 55.3 ml TAPSE: 2.2 cm RA A4 area: 14.4 cm2 Time Measurements MV dec time: 0.16 sec Doppler Measurements & Calculations MV E max hugh: 87.0 cm/sec Lat Peak E' Hugh: 10.8 cm/sec Med Peak E' Hugh: 8.2 cm/sec MV A max hugh: 72.0 cm/sec E/E' lat: 8.0 E/E' med: 10.6 MV E/A: 1.2 MV dec slope: 543.1 cm/sec2 Ao V2 max: 260.5 cm/sec LV V1 max: 105.4 cm/sec Ao max P.2 mmHg LV V1 max P.6 mmHg Ao V2 mean: 194.2 cm/sec LV V1 mean P.1 mmHg Ao mean P.5 mmHg LV V1 mean: 84.2 cm/sec Ao V2 VTI: 54.0 cm LV V1 VTI: 25.4 cm AV (velocity ratio): 0.47 HEATHER(I,D): 1.6 cm2 HEATHER(V,D): 1.4 cm2 SV(LVOT): 86.1 ml PA V2 max: 101.4 cm/sec PI end-d hugh: 101.4 cm/sec TR max hugh: 257.6 cm/sec TR max P.5 mmHg ECHO/Echo Complete Interpretation Summary Moderate concentric left ventricular hypertrophy. The left ventricular ejection fraction is 55 %. Stage 1 diastolic dysfunction. The left atrium is mildly enlarged. Mild tricuspid valve insufficiency. Right ventricular systolic pressure estimated to be 41 mmHg. Bioprosthetic aortic valve mean peak gradient 16.5 mmHg. Previously 13 mmHg fro m the study from 04/2024. Ascending aorta moderately dilated at 4.4 cm. Ordering Physician: Lester Larios Referring Physician: Stone Castillo Performed By: Sola Cazares RVT, RDCS and Student
== END | disposition home or self-care (01) ==
PROVIDERS: PCP Student in an Organized Health Care Education/Training Program; Referring Provider Student in an Organized Health Care Education/Training Program; Visit Provider Student in an Organized Health Care Education/Training Program
DX: I51.7 Cardiomegaly (principal); I10 Essential (primary) hypertension; I35.0 Nonrheumatic aortic (valve) stenosis; Z95.3 Presence of xenogenic heart valve
CPT/HCPCS: 93306

== ENCOUNTER → 2025-04-13 | Outpatient (CLI) | payer MEDICARE, MEDICAID, SELFPAY ==
--- NOTE | 2025-04-13 14:57 | CT_ITS ---
PROCEDURE: CTA CHEST W/WO CONTRAST 04/13/2025 REASON FOR EXAM: ASCENDING AORTIC ANEURYSM TECHNIQUE: CTA CHEST W/WO CONTRAST Multiplanar Sagittal and Coronal images were obtained. CONTRAST: Isovue 370 VOLUME: 100 mL One or more dose reduction techniques were used (e.g., Automated exposure control, adjustment of the mA and/or kV according to patient size, use of iterative reconstruction technique). RADIATION DOSE SUMMARY: CTDlvol: 42 mGy DLP: 599 mGycm COMPARISON: 05/26/2024 FINDINGS: Unremarkable base of neck and axilla. Status post CABG. Thoracic spine degeneration. Normal esophagus. Normal heart size. LVH. Status post AVR. At the junction of the ascending aorta, and thoracic arch, cross-sectional diameter measures up to 4.2 cm, previously 4 cm. The aorta is otherwise nondistended. Bovine arch. No calcified plaque. Mild tortuosity. No acute chest wall findings. Unremarkable cardiac device. Diffuse hepatic steatosis. No acute upper abdominal findings. Central airways are patent. Dependent atelectasis. No consolidation, effusion, or pneumothorax. CT/CTA Chest W/WO Contrast IMPRESSION: Dilated thoracic aorta, junction of ascending aorta and arch, 4.2 cm maximum cr oss-section, previously 4 cm. No acute findings. Reading Location: [place] [address]
== END | disposition home or self-care (01) ==
LOC: CT 14:56
PROVIDERS: PCP Student in an Organized Health Care Education/Training Program; Referring Provider Student in an Organized Health Care Education/Training Program; Visit Provider Student in an Organized Health Care Education/Training Program
DX: I71.21 Aneurysm of the ascending aorta, without rupture (principal)
CPT/HCPCS: 71275; Q9967

== ENCOUNTER → 2025-04-25 | Outpatient (CLI) | payer MEDICARE, MEDICAID, SELFPAY ==
[2025-04-25 16:34] LABS: Hematocrit 42.7 % (40-54); Hemoglobin 14.1 g/dL (13.0-16.5); Immature Granulocytes Count 0.050 X10^3/uL (0.0-0.0); Mean Corp Hgb Conc 33.0 g/dL (32-36); Mean Corpuscular Volume 89.7 fL (80-94); Mean Platelet Vol. 9.2 fl (6.2-12.0); NRBC Flagged by Analyzer 0 % (0-5); Platelet Count 375 K/mm3 (150-450); RBC Distribution Width CV 14.0 % (11.6-14.6); RBC Distribution Width SD 45.8 fl (35.1-43.9); Red Blood Count 4.76 M/mm3 (4.6-6.2); White Blood Count 10.8 K/mm3 (4.4-11.0)
[2025-04-25 17:16] LABS: AST(SGOT) 32 U/L (<=37); Alanine Aminotransfer ALT/SGPT 19 U/L (<=46); Albumin, Serum 4.0 g/dL (3.5-5.0); Alkaline Phosphatase 71 U/L (40-129); Amylase 24 U/L (28-100); Anion Gap 11 (5-15); BUN 10 mg/dL (4-19); BUN/Creat Ratio 10.8 RATIO (10-20); Calcium,Total 9.1 mg/dL (7.6-11.0); Carbon Dioxide 24.8 mmol/L (21.0-32.0); Chloride 104 mmol/L (98-108); Globulin 3.3 g/dL (2.2-4.2); Glucose 95 mg/dL (70-99); Lipase 24 U/L (13-75); Potassium 4.2 mmol/L (3.3-5.1); Pro- Brain NATRIURETIC PEPTIDE 468 pg/mL (<=450)
--- OUTSIDE RECORDS SUMMARY | 2025-04-25 23:46 | XMS RPT_ITS | CCD ---
Author Organization [facility] Care Team Providers Care Lead Painter Name Role Phone DAVID LESTER Unavailable Unavailable [...] Rodríguez Unavailable Gopal Bullard MD Unavailable Kasey SENIOR MANAGER ASSET PROTECTION.Zackary MOSELEYa Unavailable Dr. Stone Castillo Primary Care Provider Dr. Stone Castillo Referring Provider Katerine Whelan Attending Provider Unavailable Stone Castillo DO Primary Care Provider Wilmer Rodríguez Unavailable Gopal Bullard MD Unavailable Kasey SENIOR MANAGER ASSET PROTECTION.PRADIP, Weina Unavailable Dr. Stone Castillo Primary Care Provider Dr. Stone Castillo Referring Provider Dr. Wilmer Rodríguez Attending Provider [facility] MEDICAL ASSISTANT INTERNAL MEDICINE, NEELA Manrique Attending Provider Stone Castillo DO Primary Care Provider Wilmer Rodríguez Unavailable Gopal Bullard MD Unavailable Stone Castillo DO Primary Care Provider Wilmer Rodríguez Unavailable Gopal Bulladr MD Unavailable Kasey SENIOR MANAGER ASSET PROTECTION.PRADIP, Zackarymayur Unavailable YANNA GONZALEZ Attending Unavailable STONE CASTILLO Primary Care Unavailable Wilmer Rodríguez Unavailable Wilmer Rodríguez MD Unavailable Stone Castillo DO Primary Care Provider Wilmer Rodríguez MD Unavailable Law SENIOR MANAGER ASSET PROTECTION.FOUNTAIN ATTENDANT, Antonella Zhou Unavailable Marga SENIOR MANAGER ASSET PROTECTION.Reece MOSELEY Unavailable Kasey SENIOR MANAGER ASSET PROTECTION.PRADIPZackarymayur Unavailable REECE MENDEZ Attending Unavailable SELF Referring Unavailable STONE CASTILLO Primary Care Unavailable Dr. Stone Castillo DO Primary Care Provider [phone] Dr. Manny Kemp MD Attending Provider Dr. Stone Castillo DO Referring Provider Katerine Whelan Attending Provider Unavailable Lester Denny Attending Provider Lester Denny Referring Provider Dr. Ross Kenney MD Attending Provider Monroe SENIOR MANAGER ASSET PROTECTION.Adrianna MOSELEY Unavailable Castillo, Stone Primary Care Unavailable Roof MEDICAL ASSISTANT INTERNAL MEDICINE, Vin H Referring Unavailable Roof MEDICAL ASSISTANT INTERNAL MEDICINE, Vin H Attending Unavailable Roof MEDICAL ASSISTANT INTERNAL MEDICINE, Vin H Referring Unavailable Roof MEDICAL ASSISTANT INTERNAL MEDICINE, Vin H Attending Unavailable Castillo, Stone Primary Care Unavailable Demiter, Lester Referring Unavailable Demiter, Lester Attending Unavailable Castillo, Stone Primary Care Unavailable Castillo, Stone Referring Unavailable Mak MEDICAL ASSISTANT INTERNAL MEDICINE, Julee Attending Unavailable Castillo, Stone Primary Care Unavailable Castillo, Stone Referring Unavailable Pablito, Ross Attending Unavailable Castillo, Stone Primary Care Unavailable Castillo, Stone Primary Care Unavailable Viridiana, Flushing Attending Unavailable Castillo, Stone Referring Unavailable Castillo, Stone Primary Care Unavailable Viridiana, Flushing Attending Unavailable Castillo, Stone Referring Unavailable Demiter, Lester Attending Unavailable Castillo, Stone Primary Care Unavailable Viridiana, Manny Attending Unavailable Castillo, Stone Primary Care Unavailable Castillo, Stone Referring Unavailable Demiter, Lester Attending Unavailable Castillo, Stone Primary Care Unavailable Castillo, Stone Primary Care Unavailable Viridiana, Manny Attending Unavailable Castillo, Stone Primary Care Unavailable Viridiana, Manny Attending Unavailable Roof MEDICAL ASSISTANT INTERNAL MEDICINE, Vin H Attending Unavailable Castillo, Stone Primary Care Unavailable Castillo, Stone Primary Care Unavailable Pablito, Ross Attending Unavailable Castillo, Stone Primary Care Unavailable Pablito, Ross Attending Unavailable Castillo, Stone Primary Care Unavailable Demiter, Lester Referring Unavailable Demiter, Lester Attending Unavailable Allergies Allergy Classification Reported Allergen(s) Allergy Type Date of Onset Reaction(s) Facility (20 sources) Adhesive agent; Translations: [ADHESIVE] Propensity to adverse reactions to drug (disorder) 6 Rash, Itching [facility] Other [facility] (8 sources) *ADHESIVE TAPE Propensity to adverse reactions 6 Itching, Rash [facility] Work Phone: (20 sources) ceFAZolin; Translations: [CEFAZOLIN] Drug Allergy 0 Anaphylaxis, Angioedema [facility] Work Phone: (20 sources) FLUoxetine; Translations: [FLUOXETINE] Drug Allergy 9 Other: See Comments [facility] Work Phone: (20 sources) Sertraline; Translations: [SERTRALINE] Drug Allergy 9 Rash [facility] Work Phone: (1 source) ceFAZolin Drug Allergy 5 [facility] Rep[facility] (1 source) FLUoxetine Drug Allergy 5 [facility] (1 source) Sertraline Drug Allergy 5 [facility] Medications Current Medications Medication Drug Class(es) [...] on above: Take 1,000 mg by dunia once daily. aspirin 81 mg delayed release oral tablet (20 sources) Platelet Aggregation Inhibitor, Nonsteroidal Anti-inflammatory Drug Start: 05-16-2020 End: 02-20-2021 take 1 tablet by mouth once daily aspirin, enteric coated (ECOTRIN LOW STRENGTH) 81 mg EC tablet Take 1 tablet by mouth once daily. 90 tablet 3 05/16/2020 Active Start: 04-19-2020 End: 06-20-2020 take 2 tablets [...] release (DR/EC) Discontinued 81 mg PO DAILY December 31, 2019 12:00am April 19, 2020 8:34am Comment on above: Take 1 tablet by dunia th once daily. docosahexaenoic acid 1000 mg / omega-3 acid ethyl esters (group home) 300 mg delayed release oral capsule (6 sources) Fish Oil [address] (2 sources) furosemide 20 mg oral tablet (20 sources) Loop Diuretic Start: take 1 tablet by mouth once daily as needed for edema Furosemide 20 mg tablet Active 20 mg PO DAILY 90 3 March 23, 2025 2:14pm edema May take addition 20mg PRN for edema and SOB; Start: 03-19-2021 End: 03-23-2025 take 1 tablet by mouth once daily as needed for edema Furosemide 40 mg tablet Discontinued 40 mg PO DAILY 90 3 October 22, 2024 4:49pm March 23, 2025 [...] DAILY December 31, 2019 12:00am Multivitamin tablet (7 sources) Start: 12-31-2019 Multivitamin tablet Active 1 [...] a total of three tablets twice daily. [place]-3 Fatty Acids (Fish Oil Concentrate) 1,000 mg capsule (11 sources) Start: 03-20-2021 take 1 capsule by mouth once daily [place]-3 Fatty Acids (Fish Oil Concentrate) 1,000 mg capsule Active 1000 MG PO DAILY March 20, 2021 11:40am Start: 03-20-2021 take 1 capsule by mo uth once daily [place]-3 Fatty Acids (Fish Oil Concentrate) 1,000 mg capsule Active 1000 mg PO DAILY March 20, 2021 12:00am Start: 03-20-2021 take 1 capsule by mo uth once daily [place]-3 Fatty Acids (Fish Oil Concentrate) 1,000 mg capsule Active 1000 MG PO DAILY March 20, 2021 12:00am Audjf-9-OKP-EPA-Fish Oil 1,0 00 mg (120 mg-180 mg) cap (20 sources) take 1 capsule by mouth twice daily Mrsvx-8-TEX-EPA-Fish Oil 1,000 mg (120 mg-180 mg) cap Take 2 g by mouth twice daily. Active take 1 capsule by mouth twice da alex Badbc-0-ZWX-EPA-Fish Oil 1,000 mg (120 mg- 180 mg) cap Take 2 g by mouth twice daily. 0 Active Comment on above: Take 2 g by mouth tw ice daily. omeprazole 20 mg delayed release oral capsule (20 sources) Proton Pump Inhibitor Start: 8 End: 5 take 1 capsule by mouth once daily omeprazole (PRILOSEC) 20 mg capsule Indications: GERD without esophagitis Take 1 capsule by mouth once daily. 30 capsule 3 04/21/2025 Active Comment on above: Take 1 capsule by mo [facility] daily before breakfast. 1/2 hr before meal. traMADol hydrochloride 50 mg oral tablet (7 sources) Opioid Agonist Start: 5 take 1 [...] above: Take by mouth once d aily. cholecalciferol 1.25 mg oral capsule (20 sources) Vitamin D Start: 1 End: take 1 capsule by mouth every [...] a week. gabapentin 100 mg oral capsule (11 sources) Anti-epileptic Agent Start: 04-14-2020 End: 05-17-2020 take 2 tablets by mouth twice daily Gabapentin 100 mg tablet Discontinued 200 mg PO TWICE A DAY April 14, 2020 12:00am May 17, 2020 9:29am magnesium oxide 400 mg oral tablet (11 sources) Start: 04-14-2020 End: 05-17-2020 take 1 [...] 25 mg PO TWICE A DAY 60 12 June 13, 2020 10:15am June 27, 2020 [...] 1 tablet by dunia th once daily. [place]-3 Fatty Acids-Fish Oil (4 sources) Start: 01-02-2018 End: 04-14-2020 [place]-3 Fatty Acids-Fish Oil Discontinued 1 EACH PO DAILY January 02, 2018 8:47am April 14, 2020 11:47am Start: 01-02-2018 End: 04-14-2020 [place]-3 Fatty Acids-Fish Oil Discontinued 1 EACH PO DAILY January 02, 2018 12:00am April 14, 2020 11:47am [place]-3 Fatty Acids-Fish Oil 1 EACH capsule (7 sources) Start: 01-02-2018 End: 04-14-2020 [place]-3 Fatty Acids-Fish Oil 1 EACH capsule Discontinued 1 NMA PO DAILY January 02, 2018 12:00am April 14, 2020 11:47am Iftnm-5-LBU-EPA-Fish Oil (FISH OIL) 1,000 mg (120 mg-180 mg) cap (5 sources) take 1 capsule by mouth twice daily Xarnc-1-YTF-EPA-Fis h Oil (FISH OIL) 1,000 mg (120 mg-180 mg) cap Take 2 g by mouth twice daily. 0 Active Comment on above: Take 2 g by mouth tw ice daily. oxyCODONE hydrochloride 5 mg oral tablet (11 sources) Opioid Agonist Start: 04-14-2020 End: 05-17-2020 take 1 tablet by mouth every six hours as needed Oxycodone 5 mg tablet Discontinued 5 mg PO EVERY 6 HOURS as needed 0 April 14, 2020 12:00am May 17, 2020 9:29am polyethylene glycol 3350 42121 mg powder for oral solution (11 sources) Osmotic Laxative Start: 04-14-2020 End: 05-17-2020 [...] (19 sources) Corticosteroid Start: 05-06-20 End: 11-05-19 triamcinolone acetonide (KENALOG) 0.1 % cream Indications: [...] Classification Problem Date Documented Da te Episodic/Chronic Acquired foot deformities (1 source) Talipes planus; [...] esophagitis] Onset: 1 01-03-2021 Chronic Essential hypertension (20 sources) Essential hypertension; Translations: [Essential (primary) hypertension] Onset: 9 05-13-2019 Chronic Heart valve disorders (20 sources) Aortic valve stenosis; Translations: [Aortic stenosis, non-rheumatic ] Onset: 4 05-15-2018 Chronic Comment on above: 23mm Inspiris Biopro sthesis @ [facility] by Dr. Bullard 04/04/20 Immunizations and screening for infectious disease (3 sources) Viral screening status; Translations: [Encounter for screening for other viral diseases] Episodic Nonspecific chest pain (19 sources) Atypical chest pain; Translations: [Chest pain] Onset: 9 11-11-2018 Episodic Nutritional deficiencies (20 sources) Vitamin D deficiency; Translations: [Vitamin D deficiency, unspecified] Onset: 7 07-23-2017 Chronic Osteoarthritis (1 source) Bilateral arthritis of subtalar joint; Translations: [Primary osteoarthritis, right ankle and foot] 06-02-2023 Chronic Other and ill-defined heart disease (1 source) Cardiomegaly; Translations: [Cardiomegaly] Onset: 5 Chronic Other [...] Onset: 2 Chronic Other lower respiratory disease (13 sources) Dyspnea on exertion; Translations: [Dyspnea, unspecified] [...] conditions (not mental disorders or infectious disease) (14 sources) Other specified abnormal findings of blood chemistry; Translations: [Elevated liver function tests] Episodic Residual codes; unclassified (20 sources) Obstructive sleep apnea syndrome; Translations: [Obstructive sleep apnea (adult) (pediatric)] 04-13-2021 Chronic Residual codes; unclassified (11 sources) Hypersomnia; Translations: [Hypersomnia, unspecified] 03-20-2021 Chronic Residual codes; unclassified (1 source) Obstructive sleep apnea (adult) (pediatric); Translations: [Obstructive sleep apnea (adult)(pediatric)] Chronic Screening and history of mental health and substance abuse codes (1 source) Patient encounter status; Translations: [Encounter for screening examination for other mental health and behavioral disorders] 12-08-2024 Episodic Unclassified (2 sources) Breathing Problem; Translations: [Breathing Problem] Onset: 9 Unclassified (5 sources) Body mass index 40+ - severely obese; Translations: [Body mass index (BMI) greater than 40] Unclassified (1 source) Aneurysm of the ascending aorta, without rupture; Translations: [Aneurysm of the ascending aorta, without rupture] Onset: 5 Unclassified (1 source) Thoracic aortic aneurysm, without rupture, unspecified; Translations: [Thoracic aortic aneurysm, without rupture, unspecified] Onset: 4 Viral infection (10 sources) Disease caused by 2019-nCoV; Translations: [COVID-19] Episodic Past or Other Problems Problem Classification Problem Date Documented Date Episodic/Chronic Abdominal hernia (20 sources) Umbilical hernia; Translations: [Umbilical hernia without obstruction or gangrene] Onset: 09-14-2013 07-23-2017 Episodic Administrative/social admission (15 sources) Encounter for administrative examinations, unspecified; Translations: [Discharge status] Onset: 12-27-2016 Resolved: 05-20-2018 07-23-2017 Episodic Allergic reactions (7 sources) Anaphylaxis; Translations: [Anaphylactic shock, unspecified, initial encounter] Onset: 04-04-2020 Resolved: 04-10-2020 04-10-2020 Episodic Cardiac dysrhythmias (9 sources) Palpitations; Translations: [Bradycardia] Onset: 11-11-2018 Resolved: 04-10-2020 04-10-2020 Episodic Deficiency and other anemia (15 sources) Anemia; Translations: [Anemia, unspecified] Onset: 11-05-2022 [...] 05-07-2022 Episodic Diseases of white blood cells (7 sources) Leukocytosis; Translations: [Elevated white blood cell count, unspecified] Onset: 04-07-2020 Resolved: 04-10-2020 04-10-2020 Chronic Heart valve disorders (20 sources) Heart murmur; Translations: [Cardiac murmur, unspecified] Onset: 09-14-2013 07-23-2017 Episodic Malaise and fatigue (20 sources) Fatigue; Translations: [Other fatigue] Onset: 01-03-2021 01-03-2021 Episodic Other injuries and conditions due to external causes (7 sources) Angioedema; Translations: [Angioneurotic edema, initial encounter] Onset: 04-04-2020 Resolved: 04-10-2020 04-10-2020 Episodic Other lower respiratory disease (7 sources) Dyspnea; Translations: [Shortness of breath] Onset: 11-11-2018 11-11-2018 Episodic Other non-traumatic joint disorders (13 sources) Pain in right knee; Translations: [Pain in joint, lower leg] Onset: 05-05-2023 05-05-2023 Episodic Other non-traumatic joint disorders (13 sources) Ankle pain; Translations: [Pain in right [...] [Edema] Onset: 05-14-2018 Episodic Residual codes; unclassified (11 sources) History of cardiac catheterization; Translations: [Other specified postprocedural states] Onset: 01-07-2020 01-07-2020 Episodic Comment on above: Normal coronary lizett jessica. Aortic Valve Calcification- Severe. Aortic Root dilated. Risk factor modification. Surgery consult for valvular disease. 01/07/2020 per PFM @ [facility] Syncope (20 sources) Syncope and collapse; Translations: [Near syncope] Onset: 10-16-2015 11-13-2017 Episodic Results Test Name Value Interpretation Reference Range Facility CTA Chest W/WO Contraston CTA Chest W/WO Contrast [facility] Imaging Services [address] [place] [address] [id number] CTA Chest W/WO Contrast MR#: [id number] Acct: [id number] Name: ERLINDA DE LEÓN Rep #: [id number] : 1975 M 50 From: Trevor Carlton MD PCP: Dr. Stone Castillo, DO Status: REG CLI Study: CTA Chest W/WO Contrast Date of Exam: 04/13/25 Exam# [id number] Ordering Dr: Lester Larios PROCEDURE: CTA CHEST W/WO CONTRAST 04/13/2025 REASON FOR EXAM: ASCENDING AORTIC ANEURYSM TECHNIQUE: CTA CHEST W/WO CONTRAST Multiplanar Sagittal and Coronal images were obtained. CONTRAST: Isovue 370 VOLUME: 100 mL One or more dose reduction techniques were used (e.g., Automated exposure control, adjustment of the mA and/or kV according to patient size, use of iterative reconstruction technique). RADIATION DOSE SUMMARY: CTDlvol: 42 mGy DLP: 599 mGycm COMPARISON: 05/26/2024 FINDINGS: Unremarkable base of neck and axilla. Status post CABG. Thoracic spine degeneration. Normal esophagus. Normal heart size. LVH. Status post AVR. At the junction of the ascending aorta, and thoracic arch, cross-sectional diameter measures up to 4.2 cm, previously 4 cm. The aorta is otherwise nondistended. Bovine arch. No calcified plaque. Mild tortuosity. No acute chest wall findings. Unremarkable cardiac device. Diffuse hepatic steatosis. No acute upper abdominal findings. Central airways are patent. Dependent atelectasis. No consolidation, effusion, or pneumothorax. CT/CTA Chest W/WO Contrast IMPRESSION: Dilated thoracic aorta, junction of ascending aorta and arch, 4.2 cm maximum cross-section, previously 4 cm. No acute findings. Reading Location: [place] [address] CC: Dr. Stone Castillo DO; KATHLEEN Hannah Nursery Manager: Signed Normal [facility] Echo Completeon 04-05-2025 Echo Complete [facility] [address] [place] [address] Echo Complete 04/05/25 0707 MR#: [id number] Acct: [id number] Name: ERLINDA DE LEÓN Rep #: [id number] : 1975 50 From: Ross Kenney MD Attending Dr: KATHLEEN Hannah Status: REG CL I Ordering Dr: Lester Larios Date: 04/05/25 Location: [facility] Sex: M C Admitted: Reason For Study Reason For Study: LVH, TAA, AVR Procedure This was a 2D Doppler, Color Flow transthoracic echocardiogram. Unable to use Definity due to previous reaction. Exam performed in department. Left Ventricle Normal LV size. Moderate concentric left ventricular hypertrophy. The left ventricular ejection fraction is 55 %. Stage 1 diastolic dysfunction. Right Ventricle Normal right ventricle. Atria The left atrium is mildly enlarged. Normal right atrium. Mitral Valve Trivial mitral valve insufficiency. Tricuspid Valve Mild tricuspid valve insufficiency. Right ventricular systolic pressure estimated to be 41 mmHg. Aortic Valve Bioprosthetic aortic valve mean peak gradient 16.5 mmHg. Previously 13 mmHg from the study from 04/2024. Pulmonic Valve Trivial pulmonic valve insufficiency. Great Vessels Ascending aorta moderately dilated at 4.4 cm. Pericardium/Pleural No pericardial effusion. MMode/2D Measurements Calculations LVIDd: 4.5 cm IVSd: 1.6 cm LVOT diam: 2.1 cm LVIDs: 2.4 cm LVPWd: 1.5 cm LVOT area: 3.4 cm2 RVDd: 3.9 cm FS: 46.5 % Ao root diam: 4.4 cm LAV(MOD-bp): 59.7 ml LA A4 area: 19.9 cm2 LA dimension: 4.3 cm LAV(MOD-bp) Indexed: 21.8 ml/m2 LAV(MOD-sp2): 61.9 ml LAV(MOD-sp4): 55.3 ml TAPSE: 2.2 cm RA A4 area: 14.4 cm2 Time Measurements MV dec time: 0.16 sec Doppler Measurements Calculations MV E max mickey: 87.0 cm/sec Lat Peak E' Mickey: 10.8 cm/sec Med Peak E' Mickey: 8.2 cm/sec MV A max mickey: 72.0 cm/sec E/E' lat: 8.0 E/E' med: 10.6 MV E/A: 1.2 MV dec slope: 543.1 cm/sec2 Ao V2 max: 260.5 cm/sec LV V1 max: 105.4 cm/sec Ao max P.2 mmHg LV V1 max P.6 mmHg Ao V2 mean: 194.2 cm/sec LV V1 mean P.1 mmHg Ao mean P.5 mmHg LV V1 mean: 84.2 cm/sec Ao V2 VTI: 54.0 cm LV V1 VTI: 25.4 cm AV (velocity ratio): 0.47 HEATHER(I,D): 1.6 cm2 HEATHER(V,D): 1.4 cm2 SV(LVOT): 86.1 ml PA V2 max: 101.4 cm/sec PI end-d mickey: 101.4 cm/sec TR max mickey: 257.6 cm/sec TR max P.5 mmHg ECHO/Echo Complete Interpretation Summary Moderate concentric left ventricular hypertrophy. The left ventricular ejection fraction is 55 %. Stage 1 diastolic dysfunction. The left atrium is mildly enlarged. Mild tricuspid valve insufficiency. Right ventricular systolic pressure estimated to be 41 mmHg. Bioprosthetic aortic valve mean peak gradient 16.5 mmHg. Previously 13 mmHg from the study from 04/2024. Ascending aorta moderately dilated at 4.4 cm. Ordering Physician: Lester Larios Referring Physician: Stone Castillo Performed By: [facility], Sola and Student 04/05/25939 Date Ross Kenney MD CC: Dr. Stone Castillo, DO; KATHLEEN Hannah Date Dictated: 04/05/25706 Date Transcribed: 04/05/25939 Nursery Manager: Signed Normal [facility] Echocardiogram study reportO rdered By: Ross Kenney on 04-05-2025 Study report [facility] [address] [place] [address] Echo Complete 04/05/25706 MR#: [id number] Acct: [id number] Name: ERLINDA DE LEÓN Rep #:[id number] : 1975 50 From: Ross Kenney MD Attending Dr: KATHLEEN Hannah atus: REG CLI Ordering Dr: Lester Larios Date: 04/05/25 Location: [facility] Sex: M C Admitted: Reason For Study Reason For Study: LVH, TAA, AVR Procedure This was a 2D Doppler, Color Flow transthoracic echocardiogram. Unable to use Definity due to previous reaction. Exam performed in department. Left Ventricle Normal LV size. Moderate concentric left ventricular hypertrophy. The left ventricular ejection fraction is 55 %. Stage 1 diastolic dysfunction. Right Ventricle Normal right ventricle. Atria The left atrium is mildly enlarged. Normal right atrium. Mitral Valve Trivial mitral valve insufficiency. Tricuspid Valve Mild tricuspid valve insufficiency. Right ventricular systolic pressure estimated to be 41 mmHg. Aortic Valve Bioprosthetic aortic valve mean peak gradient 16.5 mmHg. Previously 13 mmHg fromthe study from 04/2024. Pulmonic Valve Trivial pulmonic valve insufficiency. Great Vessels Ascending aorta moderately dilated at 4.4 cm. Pericardium/Pleural No pericardial effusion. MMode/2D Measurements & Calculations LVIDd: 4.5 cm IVSd: 1.6 cm LVOT diam: 2.1 cm LVIDs: 2.4 cm LVPWd: 1.5 cm LVOT area: 3.4 cm2 RVDd: 3.9 cm FS: 46.5 % Ao root diam: 4.4 cm LAV(MOD-bp): 59.7 ml LA A4 area: 19.9 cm2 LA dimension: 4.3 cm LAV(MOD-bp) Indexed: 21.8 ml/m2 LAV(MOD-sp2): 61.9 ml LAV(MOD-sp4): 55.3 ml TAPSE: 2.2 cm RA A4 area: 14.4 cm2 Time Measurements MV dec time: 0.16 sec Doppler Measurements & Calculations MV E max mickey: 87.0 cm/sec Lat Peak E' Mickey: 10.8 cm/sec Med Peak E' Mickey: 8.2 cm/sec MV A max mickey: 72.0 cm/sec E/E' lat: 8.0 E/E' med: 10.6 MV E/A: 1.2 __ MV dec slope: 543.1 cm/sec2 Ao V2 max: 260.5 cm/sec LV V1 max: 105.4 cm/sec Ao max P.2 mmHg LV V1 max P.6 mmHg Ao V2 mean: 194.2 cm/sec LV V1 mean P.1 mmHg Ao mean P.5 mmHg LV V1 mean: 84.2 cm/sec Ao V2 VTI: 54.0 cm LV V1 VTI: 25.4 cm AV (velocity ratio): 0.47 HEATHER(I,D): 1.6 cm2 HEATHER(V,D): 1.4 cm2 __ SV(LVOT): 86.1 ml PA V2 max: 101.4 cm/sec PI end-d mickey: 101.4 cm/sec __ TR max mickey: 257.6 cm/sec TR max P.5 mmHg ECHO/Echo Complete Interpretation Summary Moderate concentric left ventricular hypertrophy. The left ventricular ejection fraction is 55 %. Stage 1 diastolic dysfunction. The left atrium is mildly enlarged. Mild tricuspid valve insufficiency. Right ventricular systolic pressure estimated to be 41 mmHg. Bioprosthetic aortic valve mean peak gradient 16.5 mmHg. Previously 13 mmHg fromthe study from 04/2024. Ascending aorta moderately dilated at 4.4 cm. Ordering Physician: Lester Larios Referring Physician: Stone Castillo Performed By: [facility] KELLEY, Sola and Student 04/05/25939 Date _ Ross Kenney MD CC: Dr. Stone Castillo DO; KATHLEEN Hannah ~ Date Dictated: 04/05/25706 Date Transcribed: 04/05/25939 Nursery Manager: Signed [facility] Work Phone: Cardiology Visit Reporton Cardiology Visit Report [facility] [address] [place] [address] OFFICE VISIT Date of Service: 03/23/25 MR#: [id number] Acct: [id number] Name: ERLINDA DE LEÓN Rep #: [id number] : 1975 Provider: KATHLEEN Hannah Age/Sex: 49/M Location: [facility] Status: Signed HPI HPI History of Present Illness Details: Erlinda De León is a 49-year-old male who presents to our office today for monitoring of his cardiovascular health. He has a history of bicuspid aortic valve status post aortic valve replacement, AV conduction block status post permanent pacemaker placement, hypertension and seizure disorder. Upon presentation today, patient reports when it is hot out, he notices activity intolerance. He notices increase in fatigue and weakness along with sweating and nausea with elevated temperatures. He has headaches that occurs off and on noticed to be fluctuating for some time now. He reports lightheaded and dizziness that appears to be worse recently. When the temperature is cooler, he denies noticing fatigue, weakness, or nausea. He finds himself short of breath with minimal activity, specifically walking from parking lot to door at stores but once in the store, he feels his SOB resolves. His SOB has been noticed for >1 year now and directly worsens with elevated temperatures. Further ROS below. Intake Vital Signs 10/06/24 08:32 03/23/25 07:19 03/23/25 13:41 Height 6 ft 2 in 6 ft 2 in 6 ft 2 in Weight: 359 lb 352 lb BMI 46.0 45.1 BP 122/78 H 109/45 L Blood Pressure Location Lt brachial Lt brachial Position Sitting Sitting Respiration 18 18 Pulse 79 72 Pulse Source NIBP Monitor Intake Visit Reasons: 6 M FU (MASTER 1:30) Quality Assurance Associate Required: No Is patient in pain?: No Allergies adhesive Allergy (Severe, Verified 03/23/25 13:41) Rash cefazolin (From Ancef) Allergy (Severe, Verified 03/23/25 13:41) Anaphylaxis, Angioedema sertraline (From Zoloft) Allergy (Severe, Verified 03/23/25 13:41) Itching fluoxetine (From Prozac) Adverse Reaction (Severe, Verified 03/23/25 13:41) Heart Racing, SOB Medications ???Medication ???Instructions ???Recorded ???Confirmed ???Type omeprazole 20 mg capsule,delayed 20 mg PO DAILY 01/02/18 03/23/25 H istory release cholecalciferol (vitamin D3) 50 50 mcg PO DAILY 12/29/19 03/23/25 History mcg (2,000 unit) capsule multivitamin 1 tab PO DAILY 12/31/19 03/23/25 H istory lamotrigine 200 mg tablet 200 mg PO DAILY 05/17/20 03/23/25 History aspirin 81 mg tablet,delayed 81 mg PO DAILY #90 tabs 02/20/21 0 03/23/25 Rx release ascorbic acid (vitamin C) 500 mg 1 g PO DAILY 03/20/21 03/23/25 His tory tablet omega-3 fatty acids 1,000 mg 1,000 mg PO DAILY 03/20/21 5 History capsule (Fish Oil Concentrate) hydroxyzine pamoate 25 mg capsule 50 mg PO QHS PRN Anxiety 04/04/22 03/23/25 History metoprolol tartrate 50 mg tablet 50 mg PO BID #180 tabs 04/02/24 Rx potassium chloride 20 mEq 20 meq PO DAILY #90 tabs 04/02/24 03/23/25 Rx tablet,extended release tramadol 50 mg tablet 50 mg PO QHS 10/06/24 03/23/25 His tory furosemide 20 mg tablet 20 mg PO DAILY edema #90 tabs 03/0803/23/25 Rx Ejection fraction %: 65 PFSH Medical History Elevated liver function tests JUANIS on CPAP Arrhythmia AV block, complete Presence of permanent cardiac pacemaker ( 04/07/20) Status post placement of implantable loop recorder ( 10/23/16) Syncope Essential hypertension Dyslipidemia Cerebral edema LBBB (left bundle branch block) Thoracic aortic aneurysm without rupture Nonrheumatic aortic (valve) stenosis Bicuspid aortic valve Surgical History History of aortic valve replacement with bioprosthetic valve ( 04/04/20) History of left heart catheterization (01/07/20) History of carpal tunnel surgery History of umbilical hernia repair Brain tumor Family History Mother Hypertension Father Cardiac murmur Social History Smoking Status: Former smoker Tobacco: How many years used: 1 how long ago did patient quit smokin + years ago alcohol intake: never substance use type: does not use caffeine: Yes Type: carbonated beverages Number of servings: 2 ROS Const Const: Positive for fatigue, weakness and headache(s); Negative for frequent falls Eyes Eyes: Negative for blurry vision ENT ENT: Positive for headache(s) and dizziness; Negative for Nosebleed/epistaxis Cardio Chest Pain: No Palpitations: No Edema: None Muscle aches with walking: None Resp Respiratory: Positive for SOB with ac (more content not included)... Normal [facility] Pacemaker Checkon 03-23-2025 Pacemaker Check [facility] [address] [place], [place] [address] Pacemaker Check Date of Service: 03/23/25 1630 MR#: [id number] Acct: [id number] Name: ERLINDA DE LEÓN Rep #: [id number] : 1975 From: Katerine Whelan Age/Sex: 49/M Location: [facility] Status: Signed Billing Codes PM Device Codes: 03619 PM Dev Prog Eval, Dual Assessment and Plan Assessment and Plan (1) AV block, complete: Status: Acute (2) Presence of permanent cardiac pacemaker: Status: Chronic 03/23/25 1630 Date Katerine Whelan Cosigner Signature: Date (if applicable) CC: Normal [facility] Pacemaker Check [facility] [place] [address] [place] [address] Pacemaker Check Date of Service: 03/23/25 1629 MR#: [id number] Acct: [id number] Name: ERLINDA DE LEÓN Rep #: [id number] : 1975 From: Katerine Whelan Age/Sex: 49/M Location: [facility] Status: Signed Billing Codes PM Device Codes: 76233 PM Dev Prog Eval, Dual Assessment and Plan Assessment and Plan (1) AV block, complete: Status: Acute (2) Presence of permanent cardiac pacemaker: Status: Chronic 03/23/25 1630 Date Katerine Whelan Cosigner Signature: Date (if applicable) CC: Normal [facility] CNOVon 12-08-2024 CNOV Office Visit (FAMPWS ) -- ERLINDA DE LEÓN ([id number]) 1975 M Date Time Provider Department 12/08/24 1:40 PM [facility] During your visit today, we recorded the following information about you: Pulse Blood pressure Weight Height 73/minute 116/77 162.7 kg 1.83 m Reece Mendez APRN.FOUNTAIN ATTENDANT 12/08/2024 6:22 PM Signed Chief Complaint Patient presents with: Yearly Exam HPI Erlinda De León is a 49 year old male who presents here today for Above Complaints.. Heart history- well managed, Sees engineering production liaison regularly Weight- Patient states that his engineering production liaison recommended him to start taking a weight [...] 05/27/2018 Right CTR PACEMAKER IMPLANT Left 04/07/2020 [employer] dual chamber pacemaker for CHB following AVR; Dr. Dewey at [facility] REMOVAL; CARDIAC LOOP RECORDER Left 04/07/2020 ILR removed at time of pacemaker implantation; Dr. Dewey at [facility] REPAIR UMBILICAL HERNIA 02/27/15 RPLCMT PROST AORTIC [...] mEq packet Take by mouth twice daily. Fzzvp-6-KFA-EPA-Fish Oil 1,000 mg (120 mg-180 mg) cap [...] soft, non-tende (more content not included)... [facility] -- ERLINDA DE LEÓN ([id number]) 1975 M Date Time Provider Department 12/08/24 [facility] During your visit today, we recorded the following information about you: Reece Mendez APRN.CNP 12/08/2024 6:09 PM Signed Patient sees Vin Cazares with [facility], states he was told to ask me for a weight loss pill, he states is Adipex. I suspect Vin does not want him to be on this with his extensive cardiac hx? Please check with him for me. Reece Mendez APRN.Earlene Melissa, KAY 12/09/2024 10:04 AM Signed Called and had to leave a msg for nurse Sloane at [facility]. Left detailed msg asking if provider there has recommended pt to take a weight loss medication. If provider has mentioned that to the patient and engineering production liaison is okay with this, we would need documentation stating this from them. Priti Ignacio RN 12/09/2024 10:51 AM Signed Sloane with [facility] calls to report that there is no documentation in Dr. Kenney's recent notes that mentions weight loss medication and with patient's extensive cardiac history it would not be recommended. KAY Maciel Rebekah, APRN.PRADIP 12/09/2024 11:19 AM Signed Please let patient know this. Reece Mendez APRN.Peg Alarcon MA 12/09/2024 11:24 AM Signed Pt informed via [facility] message since active Peg Greene MA Allergies [...] packet Take by mouth twice daily. - Srtuk-5-ZLP-EPA-Fish Oil 1,000 mg (120 mg-180 mg) cap [...] Iron malabso (more content not included)... Normal [facility] Cardiology Visit Reporton Cardiology Visit Report [facility] [address] [place], [place] [address] OFFICE VISIT Date of Service: 10/06/24 MR#: [id number] Acct: [id number] Name: ERLINDA DE LEÓN Rep #: [id number] : 1975 Provider: Dr. Ross Kenney MD Age/Sex: 49/M Location: [facility] Status: Signed HPI HPI History of Present Illness Details: This gentleman with history of bicuspid aortic valve status post aortic valve replacement with bioprosthetic valve, AV conduction block status post permanent pacemaker placement, hypertension and seizure disorder is here for follow-up visit. Denies any chest pains or shortness of breath. Denies orthopnea or PND. No ankle edema. Intake Vital Signs 04/02/24 15:50 01/29/25 08:32 Height 6 ft 2 in 6 ft 2 in Weight: 359 lb BMI 46.0 BP 122/78 H Blood Pressure Location Lt brachial Position Sitting Respiration 18 Pulse 79 Pulse Source NIBP Intake Visit Reasons: 6 M FU Quality Assurance Associate Required: No Accompanied by: Friend Is patient [...] (none with major injury; related to snow/ice) [facility] Medical History Arrhythmia AV block, complete Bicuspid [...] Const Appea (more content not included)... Normal [facility] CTA Chest W/WO Contraston CTA Chest W/WO Contrast [facility] Imaging Services [address] [place], [place] [id number] CTA Chest W/WO Contrast MR#: [id number] Acct: [id number] Name: ERLINDA DE LEÓN Rep #: [id number] : 1975 M 49 From: Kalen lomas MD PCP: Dr. Stone Castillo, DO Status: REG CLI Study: CTA Chest W/WO Contrast Date of Exam: 05/26/24 Exam# [id number] Ordering Dr: Vin Cazares NP MEDICAL ASSISTANT INTERNAL MEDICINE-C [id number] STUDY: CTA CHEST REASON FOR EXAM: Male, [...] Bess MD at 14:15 EDT , CC: JACKIEC Vin Cazares; Dr. Stone Castillo DO Nursery Manager: Signed Normal [facility] Echo Completeon 05-03-2024 Echo Complete [facility] [address] [place] [address] Echo Complete 05/03/24 1116 MR#: [id number] Acct: [id number] Name: ERLINDA DE LEÓN Rep #: [id number] : 1975 49 From: Ross Kenney MD Attending Dr: NEELA Rosas Status: REG CLI Ordering Dr: Vin Cazares NP MEDICAL ASSISTANT INTERNAL MEDICINE-C Date: 05/03/24 Location: [facility] Sex: M C [...] Dictated: 05/03/24 1116 Date Transcribed: 05/04/24 1000 Nursery Manager: Signed Normal [facility] XR Ankle - bilateral AP and Lateral and obliqueon 05-07-2023 IMPRESSION: No acute abnormalities seen in the bilateral ankles. Other findings as described above. Nursery Manager: PSCB Transcribe Date/Time: May 07 2023 3:56P Dictated by : SELIN HUERTAS MD This examination was interpreted and the report reviewed and electronically signed by: SELIN HUERTAS MD on May 07 2023 3:59PM [facility] DIVISION OF RADIOLOGY * * *Final Report* [...] soft tissue swelling. DIVISION OF RADIOLOGY Provider, [facility] - 05/07/2023 * * *Final Report* * [...] bilateral ankles. Other findings as described above. Nursery Manager: NILDA Transcribe Date/Time: May 07 2023 3:56P Dictated by : SELIN HUERTAS MD This examination was interpreted and the report reviewed and electronically signed by: SELIN HUERTAS MD on May 07 2023 3:59PM EST [facility] XR Knee - bilateral 4 Viewso n 05-07-2023 IMPRESSION: Mild osteoarthritis. Nursery Manager: NILDA Transcribe Date/Time: May 07 2023 8:30P [...] No joint effusions. DIVISION OF RADIOLOGY Provider, Danielle Cassy [facility] - 05/07/2023 * * *Final Report* * [...] No joint effusions. IMPRESSION IMPRESSION: Mild osteoarthritis. Nursery Manager: NILDA Transcribe Date/Time: May 07 2023 8:30P Dictated by : TONI SCHAFFER MD This examination was interpreted and the report reviewed and electronically signed by: TONI SCHAFFER MD on May 07 2023 8:31PM EST [facility] XR Knee - bilateral 4 ViewsO rdered By: Cc Provider on 05-07-2023 [facility] No Panel Informationon 05-05 Radiology Study observation (narrative) [facility] Leeann 10-23-2022 CNPN Telephone (AGGASTACC ) -- ERLINDA DE LEÓN ([id number]) 1975 M Date Time Provider Department 10/23/22 YANNA GONZALEZ During your visit today, we [...] by mouth one time a week. - Byezp-4-NIH-EPA-Fish Oil 1,000 mg (120 mg-180 mg) cap [...] Encounter Status:Closed by KARELY PANTOJA on 10/23/22 [facility] CBC W Auto Differential pane l (Bld)on 07-08-2022 Basophils (Bld) [#/Vol] 0.08 10*3/uL <0.11 k/uL [facility] Basophils/100 WBC (Bld) 0.9 % [facility] Differential cell count method Nom (Bld) Auto [facility] Eosinophils (Bld) [#/Vol] 0.39 10*3/uL <0.46 k/uL [facility] Eosinophils/100 WBC (Bld) 4.5 % [facility] Erythrocyte distribution width (RBC) [Ratio] 22.2 % High 11.5 - 15.0 % [facility] Hematocrit (Bld) [Volume fraction] 36.8 % Low 39.0 - 51.0 % [facility] Hemoglobin (Bld) [Mass/Vol] 10.7 g/dL Low 13.0 - 17.0 g/dL [facility] Immature granulocytes (Bld) [#/Vol] 0.06 10*3/uL <0.10 k/uL [facility] Immature granulocytes/100 WBC (Bld) 0.7 % [facility] Lymphocytes (Bld) [#/Vol] 1.44 10*3/uL 1.00 - 4.00 k/uL [facility] Lymphocytes/100 WBC (Bld) 16.4 % [facility] MCH (RBC) [Entitic mass] 23.0 pg Low 26.0 - 34.0 pg [facility] MCHC (RBC) [Mass/Vol] 29.1 g/dL Low 30.5 - 36.0 g/dL [facility] MCV (RBC) [Entitic vol] 79.1 fL Low 80.0 - 100.0 fL [facility] Monocytes (Bld) [#/Vol] 0.56 10*3/uL <0.87 k/uL [facility] Monocytes/100 WBC (Bld) 6.4 % [facility] Neutrophils (Bld) [#/Vol] 6.23 10*3/uL 1.45 - 7.50 k/uL [facility] Neutrophils/100 WBC (Bld) 71.1 % [facility] Nucleated RBC (Bld) [#/Vol] <0.01 k/uL [facility] Nucleated RBC/100 WBC (Bld) [Ratio] 0.0 /100 WBC [facility] Platelet mean volume (Bld) [Entitic vol] 8.8 fL Low 9.0 - 12.7 fL [facility] Platelets (Bld) [#/Vol] 346 10*3/uL 150 - 400 k/uL [facility] RBC (Bld) [#/Vol] 4.65 10*6/uL 4.20 - 6.0 0 m/uL [facility] WBC (Bld) [#/Vol] 8.76 10*3/uL 3.70 - 11. 00 k/uL [facility] CNOVon 06-20-2022 CNOV Office Visit (AGGAST ACC) -- ERLINDA DE LEÓN ([id number]) 1975 M Date Time Provider Department 06/20/22 [...] capsule by mouth one time a week. Bqmpi-4-ZEA-EPA-Fish Oil 1,000 mg (120 mg-180 mg) cap [...] 05/27/2018 Right CTR PACEMAKER IMPLANT Left 04/07/2020 [employer] dual chamber pacemaker for CHB following AVR; Dr. Dewey at [facility] REMOVAL; CARDIAC LOOP RECORDER Left 04/07/2020 ILR removed at time of pacemaker implantation; Dr. Dewey at [facility] REPAIR UMBILICAL HERNIA 02/27/15 RPLCMT PROST AORTIC [...] diarrhea MUSCULO (more content not included)... Normal [facility] 06-20-2022 [facility] Telephone (AGGASTACC ) -- ERLINDA DE LEÓN ([id number]) 1975 M Date Time Provider Department 06/20/22 CESAR FARLEY AGGASTACC During your visit today, we recorded the following information about you: Skye Devlin 06/20/2022 11:36 AM Signed Surgery Checklist Type: colon/egd Admission Type: outpatient Anesthesia: MAC Date: 11/04/2022 Arrival Time: 7:00am Surgery Time: 8:30am Location: [facility] Given colon/egd prep instruction at the time [...] by mouth one time a week. - Yltaf-6-SLU-EPA-Fish Oil 1,000 mg (120 mg-180 mg) cap [...] Status:Closed by SKYE DEVLIN on 06/20/22 Normal [facility] CBC W Auto Differential pane l (Bld)on 05-16-2022 Abs Immature Gran 0.12 k/uL High <0.10 k/uL [facility] Basophils (Bld) [#/Vol] 0.06 10*3/uL <0.11 k/uL [facility] Basophils/100 WBC (Bld) 0.6 % [facility] Differential cell count method Nom (Bld) Auto [facility] Eosinophils (Bld) [#/Vol] 0.41 10*3/uL <0.46 k/uL [facility] Eosinophils/100 WBC (Bld) 4.2 % [facility] Erythrocyte distribution width (RBC) [Ratio] 14.6 % 11.5 - 15.0 % [facility] Hematocrit (Bld) [Volume fraction] 30.6 % Low 39.0 - 51.0 % [facility] Hemoglobin (Bld) [Mass/Vol] 9.1 g/dL Low 13.0 - 17.0 g/dL [facility] Immature Gran % 1.2 % [facility] Lymphocytes (Bld) [#/Vol] 1.71 10*3/uL 1.00 - 4.00 k/uL [facility] Lymphocytes/100 WBC (Bld) 17.4 % [facility] MCH (RBC) [Entitic mass] 24.9 pg Low 26.0 - 34.0 pg [facility] MCHC (RBC) [Mass/Vol] 29.7 g/dL Low 30.5 - 36.0 g/dL [facility] MCV (RBC) [Entitic vol] 83.8 fL 80.0 - 100.0 fL [facility] Monocytes (Bld) [#/Vol] 0.61 10*3/uL <0.87 k/uL [facility] Monocytes/100 WBC (Bld) 6.2 % [facility] Neutrophils (Bld) [#/Vol] 6.91 10*3/uL 1.45 - 7.50 k/uL [facility] Neutrophils/100 WBC (Bld) 70.4 % [facility] Nucleated RBC (Bld) [#/Vol] 0.02 10*3/uL High <0.01 k/uL [facility] Nucleated RBC/100 WBC (Bld) [Ratio] 0.2 /100 WBC [facility] Platelet mean volume (Bld) [Entitic vol] 8.8 fL Low 9.0 - 12.7 fL [facility] Platelets (Bld) [#/Vol] 362 10*3/uL 150 - 400 k/uL [facility] RBC (Bld) [#/Vol] 3.65 10*6/uL Low 4.20 - 6.0 0 m/uL [facility] WBC (Bld) [#/Vol] 9.82 10*3/uL 3.70 - 11. 00 k/uL [facility] Iron measurement (mass/mass) on 05-16-2022 Iron (Unsp spec) [Mass/Mass] 18 ug/dL 65-175 [facility] Work Phone: No Panel Informationon 05-16 Total Iron Binding Capacity 372 ug/dL 250-450 [facility] Work Phone: Serum or plasma ferritin steven surement (mass/volume)on 05-16-2022 Ferritin [Mass/Vol] 19 ng/mL 26-388 [facility] Work Phone: Absolute lymphocyte counton 04-24-2022 Lymphocytes Auto (Unsp spec) [#/Vol] 0.73 10*3/uL 0.83-4.51 [facility] Work Phone: Basophil percentageon 2021 Basophils/100 WBC (Bld) 0.7 % 0-1 [facility] Work Phone: Bilirubin [Mass/Vol] 0.50 mg/dL 0.20-1.00 [facility] Work Phone: Comment on above: For patients on eltr ombopag therapy, use of Dimension [place] TBIL is not recommended. Chloride [Moles/Vol] 109 mmol/L 98-107 [facility] Work Phone: Eosinophils/100 WBC (Bld) 3.8 % 0-5 [facility] Work Phone: Glucose [Mass/Vol] 117 mg/dL 74-106 [facility] Work Phone: [phone] Comment on above: Fasting Glucose resu lt from 100 to 125 mg/dL suggests IMPAIRED HOMEOSTASIS per A.D.A. criteria. Neutrophils (Bld) [#/Vol] 7.8 10*3/uL 2.0-7.7 [facility] Work Phone: Neutrophils/100 WBC (Bld) 79.8 % 47-70 [facility] Work Phone: Potassium [Moles/Vol] 3.7 mmol/L 3.5-5.1 [facility] Work Phone: Protein [Mass/Vol] 7.2 g/dL 6.4-8.2 [facility] Work Phone: Sodium [Moles/Vol] 142 mmol/L 136-145 [facility] Work Phone: WBC (Bld) [#/Vol] 9.8 10*3/uL 4.4-11.0 [facility] Work Phone: Blood erythrocytes count (nu mber/volume)on 04-24-2022 RBC (Bld) [#/Vol] 3.74 10*6/uL 4.6-6.2 [facility] Work Phone: Blood hemoglobin measurement (mass/volume)on 04-24-2022 Hemoglobin (Bld) [Mass/Vol] 10.2 g/dL 13.0-16.5 [facility] Work Phone: [phone] Blood lymphocytes/100 leukoc yteson 04-24-2022 Lymphocytes/100 WBC (Bld) 7.5 % 19-41 [facility] Work Phone: [phone] Blood monocytes/100 leukocyt eson 04-24-2022 Monocytes/100 WBC (Bld) 7.7 % 0-10 [facility] Work Phone: Blood platelet mean volumeon 04-24-2022 Platelet mean volume (Bld) [Entitic vol] 8.5 fL 6.2-12.0 [facility] Work Phone: Determination of erythrocyte mean corpuscular volume (MCV)on 04-24-2022 MCV (RBC) [Entitic vol] 85.6 fL 80-94 [facility] Work Phone: Hematocrit Auto (Bld) [Volum e fraction]on 04-24-2022 Hematocrit (Bld) [Volume fraction] 32.0 % 40-54 [facility] Work Phone: Laboratory - Chemistry and C hemistry - challengeon 04-24-2022 ALP [Catalytic activity/Vol] 61 U/L 45-117 [facility] Work Phone: ALT [Catalytic activity/Vol] 27 U/L 16-61 [facility] Work Phone: CO2 [Moles/Vol] 27.0 mmol/L 21.0-32.0 [facility] Work Phone: Globulin (S) [Mass/Vol] 4.2 g/dL 2.2-4.2 [facility] Work Phone: Urea nitrogen/Creatinin e [Mass ratio] 9.2 mg/mg 10-20 [facility] Work Phone: Laboratory - Hematology and Cell countson 04-24-2022 Erythrocyte distribution width (RBC) [Entitic vol] 39.5 fL 35.1-43.9 [facility] Work Phone: Erythrocyte distribution width (RBC) [Ratio] 12.7 % 11.6-14.6 [facility] Work Phone: Immature granulocytes/100 WBC (Bld) 0.500 % 0.0-0.9 [facility] Work Phone: Comment on above: IG% - Immature Granu locytes (promyelocytes, myelocytes and metamyelocytes) > 1% indicates that a LEFT SHIFT is Present. MCH (RBC) [Entitic mass] 27.3 pg 27.0-32.0 [facility] Work Phone: Nucleated RBC/100 WBC (Bld) [Ratio] 0 % 0-5 [facility] Work Phone: MCHC Auto (RBC) [Mass/Vol]on 04-24-2022 MCHC (RBC) [Mass/Vol] 31.9 g/dL 32-36 [facility] Work Phone: No Panel Informationon 04-24 Estimated Creatinine Clearance Calc 99.50 ml/min [facility] Work Phone: Estimated GFR (MDRD) Amer 94 mL/min >60 [facility] Work Phone: Comment on above: GFR Calc Estimated GFR (MDRD) Non-Af Amer 78 mL/min >60 [facility] Work Phone: Comment on above: Non- GFR Calc Platelets bldon 04-24-2022 Platelets (Bld) [#/Vol] 334 10*3/uL 150-450 [facility] Work Phone: Serum or plasma albumin cate urement (mass/volume)on 04-24-2022 Albumin [Mass/Vol] 3.0 g/dL 3.2-5.0 [facility] Work Phone: Serum or plasma albumin/glob ulin mass ratioon 04-24-2022 Albumin/Globulin [Mass ratio] 0.7 {ratio} 0.9-2.4 [facility] Work Phone: Serum or plasma calcium cate urement (mass/volume)on 04-24-2022 Calcium [Mass/Vol] 8.6 mg/dL 8.5-10.1 [facility] Work Phone: Serum or plasma creatinine m easurement (mass/volume)on 04-24-2022 Creatinine [Mass/Vol] 1.09 mg/dL 0.70-1.30 [facility] Work Phone: Comment on above: The validity of the calculated GFR & GFRAA in patients over 70 years has not been determined. Clinical correlation is essential. Serum or plasma urea nitroge n measurement (mass/volume)on 04-24-2022 Urea nitrogen [Mass/Vol] 10 mg/dL 7-18 [facility] Work Phone: Thin prep Papanicolaou smear with manual screeningon 04-24-2022 Thin prep Papanicolaou smear with manual screening 16 U/L 15-37 [facility] Work Phone: Thin prep Papanicolaou smear with manual screening 6 5-15 [facility] Work Phone: Basophil percentageon 2021 Bilirubin [Mass/Vol] 0.50 mg/dL 0.20-1.00 [facility] Work Phone: Comment on above: For patients on eltr ombopag therapy, use of Dimension [place] TBIL is not recommended. Protein [Mass/Vol] 7.7 g/dL 6.4-8.2 [facility] Work Phone: Direct bilirubinon 2 Bilirubin.direct [Mass/Vol] 0.18 mg/dL 0.00-0.30 [facility] Work Phone: Laboratory - Chemistry and C hemistry - challengeon 11-30-2021 ALP [Catalytic activity/Vol] 68 U/L 45-117 [facility] Work Phone: ALT [Catalytic activity/Vol] 56 U/L 16-61 [facility] Work Phone: Globulin (S) [Mass/Vol] 4.3 g/dL 2.2-4.2 [facility] Work Phone: Serum or plasma albumin cate urement (mass/volume)on 11-30-2021 Albumin [Mass/Vol] 3.4 g/dL 3.2-5.0 [facility] Work Phone: Thin prep Papanicolaou smear with manual screeningon 11-30-2021 Thin prep Papanicolaou smear with manual screening 31 U/L 15-37 [facility] Work Phone: Basophil percentageon 2021 Bilirubin [Mass/Vol] 0.60 mg/dL 0.20-1.00 [facility] Work Phone: Comment on above: For patients on eltr ombopag therapy, use of Dimension [place] TBIL is not recommended. Cholesterol [Mass/Vol] 159 mg/dL <200 [facility] Work Phone: Comment on above: <200 mg/dL Desirable 200-240 mg/dL Borderline >240 mg/dL High Risk Protein [Mass/Vol] 8.0 g/dL 6.4-8.2 [facility] Work Phone: Triglyceride [Mass/Vol] 143 mg/dL [facility] Work Phone: Comment on above: The drugs N-Acetylcy steine and Metamizole may falsely depress this assay.Serum Triglycerides Reference Interval Normal <150 mg/dL Borderline high 150 - 199 mg/dL High 200 - 499 mg/dL Very High > or = 500 mg/dL Direct bilirubinon 2 Bilirubin.direct [Mass/Vol] 0.17 mg/dL 0.00-0.30 [facility] Work Phone: Laboratory - Chemistry and C hemistry - challengeon 10-09-2021 ALP [Catalytic activity/Vol] 69 U/L 45-117 [facility] Work Phone: ALT [Catalytic activity/Vol] 69 U/L 16-61 [facility] Work Phone: Globulin (S) [Mass/Vol] 4.5 g/dL 2.2-4.2 [facility] Work Phone: Serum or plasma albumin cate urement (mass/volume)on 10-09-2021 Albumin [Mass/Vol] 3.5 g/dL 3.2-5.0 [facility] Work Phone: Serum or plasma cholesterol in HDL measurement (mass/volume)on 10-09-2021 Cholesterol in HDL [Mass/Vol] 36 mg/dL [facility] Work Phone: Comment on above: The drugs N-Acetylcy steine and Metamizole may falsely depress this assay. Reference Range HDL <40 mg/dL Low HDL Cholesterol HDL >or= 60 mg/dL High HDL Cholesterol Serum or plasma cholesterol in VLDL measurement (mass/volume)on 10-09-2021 Cholesterol in VLDL [Mass/Vol] 29 mg/dL 5-40 [facility] Work Phone: Serum or plasma low density lipoprotein (LDL) cholesterol measurement (mass/volume)on 10-09-2021 Cholesterol in LDL [Mass/Vol] 94 mg/dL 0-130 [facility] Work Phone: Thin prep Papanicolaou smear with manual screeningon 10-09-2021 Thin prep Papanicolaou smear with manual screening 41 U/L 15-37 [facility] Work Phone: XR Chest PA and Lateralon IMPRESSION: There is a patchy infiltrate in the right mid and lower lung suggesting infectious or inflammatory pneumonia. Recommend follow-up to clearing. Nursery Manager: NILDA Transcribe Date/Time: May 25 2021 5:06P Dictated by : JEY PENNINGTON MD This examination was interpreted and the report reviewed and electronically signed by: JEY PENNINGTON MD on May 25 2021 5:08PM [facility] DIVISION OF RADIOLOGY * * *Final Report* [...] thorax appear intact. DIVISION OF RADIOLOGY Provider, Evelyn Madera [facility] - 05/25/2021 * * *Final Report* * [...] or inflammatory pneumonia. Recommend follow-up to clearing. Nursery Manager: PSCKarin Transcribe Date/Time: May 25 2021 5:06P Dictated by : JEY PENNINGTON MD This examination was interpreted and the report reviewed and electronically signed by: JEY PENNINGTON MD on May 25 2021 5:08PM EST [facility] Radiology Study observation (narrative) [facility] XR Chest PA and LateralOrder ed By: Ccf Provider on 05-25-2021 [facility] XR CHEST 2V FRONTAL/LATon XR CHEST 2V [...] tissues: Unremarkable. IMPRESSION: Small left pleural effusion. Nursery Manager: NILDA Transcribe Date/Time: May 16 2020 12:51P Dictated by : LEV BURNETT MD This examination was interpreted and the report reviewed and electronically signed by: LEV BURNETT MD on May 16 2020 12:52PM EST Normal [facility] ANES Anup 05-27-2018 ANES POST HNO ID: [id number] thor: Mahsa Stephenservice: AnesthesiologyAuthor Type: AnesthesiologistType: Anesthesia PostOpFiled: 05/27/2018 11:22 AMNote Text:POST ANESTHESIA EVALUATION NOTESERVICE DATE: 05/27/2018SERVICE TIME: 11:22 AMDOB: 1975Vitals: 05/27/1809Temp: 36.8 ?C (98.2 ?F) 36.6 ?C (97.9 ?F) 05/27/1809BP: 124/83 104/62 104/52 103/55 05/27/1809Pulse: 86 92 88 84 05/27/1809Resp: 16 16 16 18 05/27/1809SpO2: 98% 94% 94% 96%Validated Vital Signs: YesPOST [...] 27, 2018 : 11:22 AM PAGER/CONTACT #: [id number] [facility] ANES PREOPon 05-27-2018 ANES PREOP HNO ID: [id number] thor: Mahsa Stephenservice: AnesthesiologyAuthor Type: AnesthesiologistType: Anesthesia [...] May 27, 2018 : 8:29 AM CSN: [id number] [facility] OPERATIVE NOon 05-27-2018 OPERATIVE NO HNO ID: [id number] thor: David LesterService: Orthopaedic SurgeryAuthor Type: PhysicianType: Operative ReportFiled: 05/27/2018 9:43 AMNote Text:[facility] [address] [place]OPERATIVE REPORTNAME:Erlinda De León [id number]: May 27, 2018 AGE: 43 year oldSURGEON [...] anyresistance. Subsequently, I selected a mini meniscotome [place] blade andslid this in the protective guide, completely dividing the transversecarpal ligament. Sulema rakes were used to view up the wound to visualizefor complete release and a Stanley elevator was used to palpate for completerelease. [...] BLOOD LOSS: None.DRAINS: NoneSPECIMENS: None.David Lester M.D. [facility] PT EDon 05-27-2018 PT ED HNO ID: [id number] thor: Becky PeñalozaRn) Sheldon Preciadoice: (none)Author Type: [...] Signed By: Becky Preciado RN [facility] PT ED HNO ID: [id number] thor: Sheldon Velez Rnice: NursingAuthor Type: Registered NurseType: Patient EducationFiled: 05/27/2018 8:32 AMNote Text:PRE OP LEARNING ASSESSMENTPROCEDURE/SURGER Y: SURGERY:READINESS TO LEARNCOGNITIVE ABILITY: Alert and orientedMOTIVATION TO LEARN: InterestedFAMILY SUPPORT: High - Very involved in pt carePATIENT LEARNS BEST BY: Verbal InstructionFACTORS AFFECTING LEARNING: NonePHYSICAL LIMITATIONS AFFECTING LEARNING: NoneElectronically Signed By: Avtar Patel RN In Department: [facility] NURSING PROGon 05-19-2018 Protein mass conc HNO ID: [id number] thor: Eileen PeñalozaRnGABRIEL Moeervice: NursingAuthor Type: Registered NurseType: Nursing Progress NoteFiled: 05/26/2018 10:12 AMNote Text:PACC Nurse Progress NoteHistory AND Physical:PACC Visit Date: 05/15/[id number] HANDP Date: 05/15/2018ED visit Date: N/AOutside HANDP [...] on caloricrestriction and weight loss.Miguel Angel Watt, 05/14/2018 2:43 PMAnesthesia Review:N/ANarrative:N/APre -op Considerations:Dr. Watt's [...] LBBB-pt withHX. Chart check complete KAY Horta [facility] HOSPon 04-15-2018 HOSP Patient:Rohit De León lisette LMRN: Height:6' 2(1.88 m)Weight:321 lb (145.605 kg)Outpatient [...] notes entered within the past 30 days [facility] No Panel Information SARS-CoV-2 & FLU Antigen (Rapid) SARS-CoV-2 (COVID 19) [facility] Work Phone: Vital Signs Date Time Vital Sign Value Performing Clinician Facility 03-23-2025 13:41-0400 Body height 187.[address] Stone Castillo DO Work Phone: [facility] 03-23-2025 13:41-0400 Body mass index (BMI) [Ratio] 45.1 kg/m2 Dr. Stone Castillo DO Work Phone: [facility] 03-23-2025 13:41-0400 Body weight 159.[address] Stone Castillo DO Work Phone: [facility] 03-23-2025 13:41-0400 Diastolic blood pressure 45 mm[Hg] Dr. Stone Castillo DO Work Phone: [facility] 03-23-2025 13:41-0400 Heart rate 72 /min Dr. Stone Castillo DO Work Phone: [facility] 03-23-2025 13:41-0400 Respiratory rate 18 /min Dr. Stone Castillo DO Work Phone: [facility] 03-23-2025 13:41-0400 Systolic blood pressure 109 mm[Hg] Dr. Stone Castillo DO Work Phone: [facility] 12-08-2024 13:34-0400 Body height 183 cm Reece Mendez APRN.[employer] ATT[employer] Work Phone: [facility] 12-08-2024 13:34-0400 Body mass index (BMI) [Ratio] 48.57 kg/m2 Reece Mendez APRN.[employer]OUNTAIN ATTENDANT Work Phone: [facility] 12-08-2024 13:34-0400 Body weight 162.66 kg Reece Mendez APRN.[employer]OUNTAIN ATTENDANT Work Phone: [facility] 12-08-2024 13:34-0400 Diastolic blood pressure 77 mm[Hg] Reece Mendez APRN.[employer]OUNTAIN ATTENDANT Work Phone: [facility] Comment on above: bp machine 12-08-2024 13:34-0400 Heart rate 73 /min Reece Mendez APRN.[employer]OUNTAIN ATTENDANT Work Phone: [facility] 12-08-2024 13:34-0400 SaO2% (BldA) [Mass fraction] 97 % Reece Mendez APRN.[employer]OUNTAIN ATTENDANT Work Phone: [facility] 04-02-2025 13:34-0400 Systolic blood pressure 116 mm[Hg] Reece Mendez APRNVegaFOUNTAIN ATTENDANT Work Phone: [facility] Comment on above: bp machine 05-05-2023 12:24-0400 Body height 188 cm Stone Castillo DO Work Phone: [facility] 05-05-2023 12:24-0400 Body temperature 97 [degF] Stone Castillo DO Work Phone: [facility] 05-05-2023 12:24-0400 Body weight 155.58 kg Stone Castillo DO Work Phone: [facility] 05-05-2023 12:24-0400 Diastolic blood pressure 82 mm[Hg] Stone Castilol DO Work Phone: [facility] 05-05-2023 12:24-0400 Heart rate 64 /min Stone Castillo DO Work Phone: [facility] 05-05-2023 12:24-0400 Respiratory rate 20 /min Stone Castillo DO Work Phone: [facility] 05-05-2023 12:24-0400 Systolic blood pressure 126 mm[Hg] Stone Castillo DO Work Phone: [facility] 11-05-2022 13:34-0500 Body weight 157.85 kg Stone Castillo DO Work Phone: [facility] 11-05-2022 13:34-0500 Diastolic blood pressure 78 mm[Hg] Stone Castillo DO Work Phone: [facility] 11-05-2022 13:34-0500 Heart rate 89 /min Stone Castillo DO Work Phone: [facility] 11-05-2022 13:34-0500 Respiratory rate 18 /min Stone Castillo DO Work Phone: [facility] 11-05-2022 13:34-0500 SaO2% (BldA) [Mass fraction] 99 % Stone Castillo DO Work Phone: [facility] 11-05-2022 13:34-0500 Systolic blood pressure 112 mm[Hg] Stone Castillo DO Work Phone: [facility] 08-26-2022 15:28-0500 Body temperature 97 [degF] Treatment Wstr Work Phone: [facility] 08-26-2022 15:28-0500 Diastolic blood pressure 82 mm[Hg] Treatment Wstr Work Phone: [facility] 08-26-2022 15:28-0500 Respiratory rate 16 /min Treatment Wstr Work Phone: [facility] 08-26-2022 15:28-0500 Systolic blood pressure 124 mm[Hg] Treatment Wstr Work Phone: [facility] 08-20-2022 14:35-0500 Body temperature 97.5 [degF] Treatment Wstr Work Phone: [facility] 08-20-2022 14:35-0500 Diastolic blood pressure 72 mm[Hg] Treatment Wstr Work Phone: [facility] 08-20-2022 14:35-0500 Heart rate 88 /min Treatment Wstr Work Phone: [facility] 08-20-2022 14:35-0500 Systolic blood pressure 138 mm[Hg] Treatment Wstr Work Phone: [facility] 08-15-2022 14:38-0500 Body temperature 97.2 [degF] Treatment Wstr Work Phone: [facility] 08-15-2022 14:38-0500 Diastolic blood pressure 72 mm[Hg] Treatment Wstr Work Phone: [facility] 08-15-2022 14:38-0500 Heart rate 84 /min Treatment Wstr Work Phone: [facility] 08-15-2022 14:38-0500 Systolic blood pressure 136 mm[Hg] Treatment Wstr Work Phone: [facility] 07-01-2022 14:36-0400 Body temperature 97.7 [degF] Treatment Wstr Work Phone: [facility] 07-01-2022 14:36-0400 Diastolic blood pressure 61 mm[Hg] Treatment Wstr Work Phone: [facility] 07-01-2022 14:36-0400 Heart rate 71 /min Treatment Wstr Work Phone: [facility] 07-01-2022 14:36-0400 Respiratory rate 16 /min Treatment Wstr Work Phone: [facility] 07-01-2022 14:36-0400 Systolic blood pressure 125 mm[Hg] Treatment Wstr Work Phone: [facility] 06-27-2022 15:20-0400 Diastolic blood pressure 64 mm[Hg] Treatment Wstr Work Phone: [facility] 06-27-2022 15:20-0400 Heart rate 70 /min Treatment Wstr Work Phone: [facility] 06-27-2022 15:20-0400 Systolic blood pressure 109 mm[Hg] Treatment Wstr Work Phone: [facility] 06-27-2022 14:26-0400 Body temperature 97.3 [degF] Treatment Wstr Work Phone: [facility] 06-20-2022 10:17-0400 Body height 188 cm Yanna Talamantesis PA-C Work Phone: [facility] 06-20-2022 10:17-0400 Body weight 155.13 kg Yanna Talamantesis PA-C Work Phone: [facility] 06-20-2022 10:17-0400 Diastolic blood pressure 78 mm[Hg] Yanna Talamantesis PA-C Work Phone: [facility] 06-20-2022 10:17-0400 Heart rate 79 /min Yanna Lisa PA-C Work Phone: [facility] 06-20-2022 10:17-0400 Systolic blood pressure 123 mm[Hg] Yanna Talamantesis PA-C Work Phone: [phone] [place] [address] 06-07-2022 13:54-0400 Body temperature 97.5 [degF] Dr. Stone Castillo Work Phone: [facility] Work Phone: 06-07-2022 13:54-0400 Diastolic blood pressure 62 mm[Hg] Dr. Stone Castillo Work Phone: [facility] Work Phone: 06-07-2022 13:54-0400 Heart rate 76 /min Dr. Stone Castillo Work Phone: [facility] Work Phone: 06-07-2022 13:54-0400 Respiratory rate 16 /min Dr. Stone Castillo Work Phone: [facility] Work Phone: 06-07-2022 13:54-0400 SaO2% (BldA) [Mass fraction] 99 % Dr. Stone Castillo Work Phone: [facility] Work Phone: 06-07-2022 13:54-0400 Systolic blood pressure 105 mm[Hg] Dr. Stone Castillo Work Phone: [facility] Work Phone: 06-07-2022 09:12-0400 Body height 187.[address] Stone Castillo Work Phone: [facility] Work Phone: 06-07-2022 09:12-0400 Body mass index (BMI) [Ratio] 41.1 kg/m2 Dr. Stone Castillo Work Phone: [facility] Work Phone: 06-07-2022 09:12-0400 Body weight 145.[address] Stone Castillo Work Phone: [facility] Work Phone: 05-06-2022 12:00-0400 Body temperature 98.2 [degF] Stone Castillo DO Work Phone: [facility] 05-06-2022 12:00-0400 Body weight 151.5 kg Stone Castillo DO Work Phone: [facility] 05-06-2022 12:00-0400 Diastolic blood pressure 60 mm[Hg] Stone Castillo DO Work Phone: [facility] 05-06-2022 12:00-0400 Heart rate 76 /min Stone Castillo DO Work Phone: [facility] 05-06-2022 12:00-0400 Respiratory rate 24 /min Stone Castillo DO Work Phone: [facility] 05-06-2022 12:00-0400 Systolic blood pressure 116 mm[Hg] Stone Castillo DO Work Phone: [facility] 04-24-2022 16:14-0400 Heart rate 98 /min Dr. Stone Castillo Work Phone: [facility] Work Phone: 04-24-2022 16:14-0400 SaO2% (BldA) [Mass fraction] 99 % Dr. Stone Castillo Work Phone: [facility] Work Phone: 04-24-2022 15:38-0400 Body temperature 99.4 [degF] Dr. Stone Castillo Work Phone: [facility] Work Phone: 04-24-2022 15:38-0400 Diastolic blood pressure 79 mm[Hg] Dr. Stone Castillo Work Phone: [facility] Work Phone: 04-24-2022 15:38-0400 Respiratory rate 18 /min Dr. Stone Castillo Work Phone: [facility] Work Phone: 04-24-2022 15:38-0400 Systolic blood pressure 132 mm[Hg] Dr. Stone Castillo Work Phone: [facility] Work Phone: 04-24-2022 14:31-0400 Body height 187.[address] Stone Castillo Work Phone: [facility] Work Phone: 04-24-2022 14:31-0400 Body mass index (BMI) [Ratio] 45 kg/m2 Dr. Stone Castillo Work Phone: [facility] Work Phone: 04-24-2022 14:31-0400 Body weight 159.[address] Stone Castillo Work Phone: [facility] Work Phone: 04-04-2022 14:23-0400 Body mass index (BMI) [Ratio] 43.1 kg/m2 Dr. Stone Castillo Work Phone: [facility] Work Phone: 04-04-2022 14:23-0400 Body weight 152.[address] Stone Castillo Work Phone: [facility] Work Phone: 04-04-2022 14:23-0400 Diastolic blood pressure 68 mm[Hg] Dr. Stone Castillo Work Phone: [facility] Work Phone: 04-04-2022 14:23-0400 Heart rate 68 /min Dr. Stone Castillo Work Phone: [facility] Work Phone: 04-04-2022 14:23-0400 Respiratory rate 20 /min Dr. Stone Castillo Work Phone: [facility] Work Phone: 04-04-2022 14:23-0400 SaO2% (BldA) [Mass fraction] 97 % Dr. Stone Castillo Work Phone: [facility] Work Phone: 04-04-2022 14:23-0400 Systolic blood pressure 103 mm[Hg] Dr. Stone Castillo Work Phone: [facility] Work Phone: 10-03-2021 12:59-0500 Body height 187.[address] Stone Castillo Work Phone: [facility] Work Phone: 10-03-2021 12:59-0500 Body weight 153.[address] Stone Castillo Work Phone: [facility] Work Phone: 10-03-2021 12:59-0500 Diastolic blood pressure 68 mm[Hg] Dr. Stone Castillo Work Phone: [facility] Work Phone: 10-03-2021 12:59-0500 Heart rate 72 /min Dr. Stone Castillo Work Phone: [facility] Work Phone: 10-03-2021 12:59-0500 Respiratory rate 16 /min Dr. Stone Castillo Work Phone: [facility] Work Phone: 10-03-2021 12:59-0500 Systolic blood pressure 100 mm[Hg] Dr. Stone Castillo Work Phone: [facility] Work Phone: 08-22-2021 04:47-0500 Body mass index (BMI) [Ratio] 43.6 kg/m2 Dr. Stone Castillo Work Phone: [facility] Work Phone: 08-22-2021 04:47-0500 Body temperature 97.3 [degF] Dr. Stone Castillo Work Phone: [facility] Work Phone: 08-22-2021 04:47-0500 Body weight 154.[address] Stone Castillo Work Phone: [facility] Work Phone: 08-22-2021 04:47-0500 Diastolic blood pressure 66 mm[Hg] Dr. Stone Castillo Work Phone: [facility] Work Phone: 08-22-2021 04:47-0500 Heart rate 66 /min Dr. Stone Castillo Work Phone: [facility] Work Phone: 08-22-2021 04:47-0500 Respiratory rate 18 /min Dr. Stone Castillo Work Phone: [facility] Work Phone: 08-22-2021 04:47-0500 SaO2% (BldA) [Mass fraction] 96 % Dr. Stone Castillo Work Phone: [facility] Work Phone: 08-22-2021 04:47-0500 Systolic blood pressure 98 mm[Hg] Dr. Stone Castillo Work Phone: [facility] Work Phone: 11-16-2020 14:50-0500 Body mass index (BMI) [Ratio] 42.2 kg/m2 Dr. Stone Castillo Work Phone: [facility] Work Phone: 05-13-2019 13:04-0400 BMI (Body Mass Index) 41.78 kg/m2 [facility] [employer] [employer] 05-13-2019 13:04-0400 Body weight 143.65 kg [facility] [employer] 05-13-2019 13:04-0400 BP Diastolic 80 mm[Hg] [facility] [employer] 05-13-2019 13:04-0400 BP Systolic 152 mm[Hg] [facility] [employer] 05-13-2019 13:04-0400 Height 185.4 cm [facility] [employer] 05-13-2019 13:04-0400 Pulse (Heart Rate) 81 /min [facility] [employer] 05-13-2019 13:04-0400 Pulse Oximetry 98 % [facility] [employer] 05-13-2019 13:04-0400 Respiratory Rate 16 /min [facility] 11-11-2018 13:13-0500 BP Diastolic 82 mm[Hg] [facility] 11-11-2018 13:13-0500 BP Systolic 110 mm[Hg] [facility] 11-11-2018 13:08-0500 BMI (Body Mass Index) 43.27 kg/m2 [facility] 11-11-2018 13:08-0500 Height 185.4 cm [facility] 11-11-2018 13:08-0500 Pulse (Heart Rate) 81 /min [facility] 11-11-2018 13:08-0500 Pulse Oximetry 98 % [facility] 11-11-2018 13:08-0500 Respiratory Rate 16 /min [facility] 11-11-2018 13:08-0500 Weight 148.78 kg [facility] Encounters Encounter Date Encounter Type Care Provider Facility Start: 04-21-2025 End: 04-21-2025 Refill Stone Castillo DO Work Phone: [facility] Comment on above: Refill Request Start: 04-13-2025 End: 04-13-[address] Stone Castillo DO Work Phone: -[facility] Start: 04-13-2025 End: 04-13-2025 Patient encounter procedure Lester Larios PA -[facility] Work Phone: Start: 04-13-2025 End: 04-13-2025 ambulatory Stone Castillo Facility:[facility] Start: 04-06-2025 End: 04-06-2025 Patient encounter procedure Lester Larios PA -[facility] Work Phone: Start: 04-06-2025 End: 04-06-[address] Stone Castillo DO Work Phone: -[facility] Start: 04-05-2025 Non-patient / Non-visit Dr. Ross gonzalez MD -[facility] Start: 04-05-2025 End: 04-05-[address] Stone Castillo DO Work Phone: -[facility] Services Start: 04-05-2025 End: 04-05-2025 Patient encounter procedure Lester WANG -[facility] Work Phone: Start: 04-05-2025 End: 04-05-2025 ambulatory Lester Larios Facility:[facility] Start: 03-29-2025 End: 03-29-[address] Stone Castillo DO Work Phone: -[facility] Start: 03-29-2025 End: 03-29-[address] M[facility] Work Phone: Start: 03-23-2025 End: 03-23-[address] Stone Castillo DO Work Phone: -[facility] Start: 03-23-2025 End: 03-23-2025 Patient encounter procedure Lester WANG -[facility] Work Phone: Start: 12-28-2024 End: 12-28-2024 ambulatory Stone Catsillo Facility:[facility] Start: 12-28-2024 End: 12-28-[address] Manny Kemp [facility] -[facility] Work Phone: Start: 12-08-2024 End: 12-09-2024 Telephone encounter Reece Mendez APRN.[employer]OUNT[employer] ATTENDANT Work Phone: [facility] Comment on above: contact outside prov ider (re: weight loss med) Start: 12-08-2024 End: 12-08-2024 ambulatory REECE MENDEZ Facility:[facility] Start: 12-08-2024 End: 12-08-2024 Office outpatient visit 40 minutes Reece Mendez APRN.CNP Work Phone: [facility] Comment on above: Well adult exam (Emerald bradford Dx); Dyslipidemia; Hyperglycemia; Obesity, Class III, BMI 40-49.9 (morbid obesity) (HCC); Vitamin D deficiency; Screening for diabetes mellitus; Encounter for vitamin deficiency screening; Encounter for screening examination for other mental health and behavioral disorders Start: 12-08-2024 End: 12-08-2024 Patient encounter status Reece Mendez ALIA.FOUNTAIN ATTENDANT Work Phone: [facility] Work Phone: Start: 11-14-2024 End: 11-15-2024 Refill Antonella Law SENIOR MANAGER ASSET PROTECTION.FOUNTAIN ATTENDANT Work Phone: [facility] Comment on above: Refill Request Start: 10-06-2024 End: 10-06-2024 ambulatory Stone Castillo [facility] Start: 09-28-2024 End: 09-28-2024 ambulatory Stone Castillo [facility] Start: 08-25-2024 End: 08-25-2024 ambulatory Catarina Persaud [facility] Start: 08-25-2024 End: 08-25-2024 Patient encounter procedure Catarina Persaud [facility] Comment on above: Population Health Na vigation Outreach (ACO WORKBENC [facility]/) Start: 08-18-2024 ambulatory Stone Castillo Facilit y:[facility] Start: 05-26-2024 ambulatory Vin Cazares MEDICAL ASSISTANT INTERNAL MEDICINE Facility :[facility] Start: 05-26-2024 End: 05-26-2024 ambulatory Vin Cazares MEDICAL ASSISTANT INTERNAL MEDICINE Facility:[facility] Start: 05-03-2024 ambulatory Stone Castillo Facilit y:[facility] Start: 05-03-2024 End: 05-03-2024 ambulatory Stone Castillo Facility:[facility] Start: 11-27-2023 Refill Antonella Law SENIOR MANAGER ASSET PROTECTION.FOUNTAIN ATTENDANT Work Phone: [facility] Comment on above: Refill Request Start: 06-02-2023 End: 06-02-2023 Patient encounter procedure Rajiv Ribeiro Work Phone: Podiatry Comment on above: Pes planus of both f eet (Primary Dx); Arthritis of both subtalar joints; Calcaneal spur of both feet Start: 05-07-2023 Telephone encounter Stone christensen DO Work Phone: [facility] Comment on above: Results Start: 05-05-2023 End: 05-05-2023 Subsequent hospital visit by physician Xr [facility] Work Phone: Radiology Comment on above: Chronic pain of both knees [M25.561, M25.562, G89.29] Start: 05-05-2023 End: 05-05-2023 Patient encounter procedure [facility] Comment on above: Iron deficiency anem ia [...] 11-20-2022 Refill Antonella Law APRN.CNP Work Phone: [facility] Comment on above: Refill Request Start: 11-06-2022 Telephone encounter Stone christensen DO Work Phone: [facility] Comment on above: Results Start: 11-05-2022 End: 11-05-2022 Patient encounter procedure Stone Salomon Castillo DO Work Phone: [facility] Comment on above: Other iron deficienc y anemia (Primary Dx); Vitamin D deficiency; Dyslipidemia; Fatigue, unspecified type; Aortic valve replaced; Ascending aorta dilatation (HCC); Presence of cardiac pacemaker; JUANIS (obstructive sleep apnea) Start: 10-23-2022 Telephone encounter Yanna Gonzalez PA-C Work Phone: [facility] Comment on above: Procedure Changes Start: 10-08-2022 Orders Only Wilmer Oden Work Phone: Hematology/Oncology Comment on above: Iron deficiency anem ia secondary to inadequate dietary iron intake (Primary Dx); Iron malabsorption Start: 08-26-2022 End: 08-26-2022 ambulatory Treatment Rm 9 Paco [facility] Work Phone: Hematology/Oncology Comment on above: Iron deficiency anem ia secondary to inadequate dietary iron intake (Primary Dx); Iron malabsorption Start: 08-20-2022 End: 08-20-2022 ambulatory Treatment Rm 2 [facility] Work Phone: Hematology/Oncology Comment on above: Iron deficiency anem ia secondary to inadequate dietary iron intake (Primary Dx); Iron malabsorption Start: 08-15-2022 End: 08-15-2022 ambulatory Treatment Rm 4 [facility] Work Phone: Hematology/Oncology Comment on above: [...] 07-08-2022 End: 07-08-2022 ambulatory Treatment Rm 9 [facility] Work Phone: Hematology/Oncology Comment on above: Iron deficiency anem ia secondary to inadequate dietary iron intake (Primary Dx); Iron malabsorption Start: 07-05-2022 Orders Only Wilmer Oden Work Phone: Hematology/Oncology Comment on above: Iron deficiency anem ia secondary to inadequate dietary iron intake (Primary Dx); Iron malabsorption Start: 07-01-2022 End: 07-01-2022 ambulatory Treatment Rm 3 [facility] Work Phone: Hematology/Oncology Comment on above: Iron deficiency anem ia secondary to inadequate dietary iron intake (Primary Dx); Iron malabsorption Start: 06-27-2022 End: 06-27-2022 ambulatory Treatment Rm 6 [facility] Work Phone: Hematology/Oncology Comment on above: Iron deficiency anem ia secondary to inadequate dietary iron intake (Primary Dx); Iron malabsorption Start: 06-20-2022 Telephone encounter Cesar gutierrez MD Work Phone: [facility] Comment on above: Appointment Start: 06-20-2022 End: 06-20-2022 ambulatory YANNA GONZALEZ Facility:[facility] Start: 06-20-2022 End: 06-20-2022 Patient encounter procedure Yanna A Lisa PA-C Work Phone: [facility] Comment on above: Iron deficiency anem ia, unspecified iron deficiency anemia type (Primary Dx) Start: 06-17-2022 Telephone encounter Financial Navigator Paco Work Phone: Financial Services Comment on above: Benefits Investigati on Start: 06-12-2022 Telephone encounter Stone christensen DO Work Phone: [facility] Comment on above: Results Start: 06-07-2022 End: 06-07-[address] Stone Castillo Work Phone: [facility] Work Phone: Start: 06-07-2022 End: 06-07-[address] Stone Castillo Work Phone: [facility] Start: 06-05-2022 Telephone encounter Stone christensen DO Work Phone: [facility] Comment on above: Results Start: 05-16-2022 End: 05-16-[address] Stone Castillo Work Phone: [facility] Work Phone: Start: 05-16-2022 End: 05-16-[address] Stone Castillo Work Phone: [facility]-Laboratory, Specimen Start: 05-15-2022 Telephone encounter Stone christensen DO Work Phone: [facility] Comment on above: Orders Start: 05-06-2022 End: 05-06-2022 Patient encounter procedure Stone Castillo DO Work Phone: [facility] Comment on above: Dyslipidemia (Primar y Dx); Screening for colon cancer; Aortic valve replaced; Ascending aorta dilatation (HCC); Vitamin D deficiency; Obesity, Class III, BMI 40-49.9 (morbid obesity) (HCC); Fatigue, unspecified type; Hyperglycemia; Need for hepatitis C screening test; Need for hepatitis B screening test; Psoriasis; Screening for HIV (human immunodeficiency virus) Start: 04-25-2022 End: 04-25-2022 ambulatory Reece Mendez APRNVegaFOUNTAIN ATTENDANT Work Phone: [facility] Comment on above: COVID (Primary Dx) Start: 04-25-2022 End: 04-25-2022 Telemedicine consultation with patient Reece Mendez APRDAVE Work Phone: [facility] Start: 04-24-2022 End: 04-24-2022 Emergency department patient visit Dr. Stone Castillo Work Phone: [facility] Start: 04-04-2022 End: 04-04-[address] Stone Castillo Work Phone: [facility] Start: 03-27-2022 End: 03-27-[address] Stone Castillo Work Phone: [facility] Start: 01-04-2022 Telephone encounter Stone christensen DO Work Phone: [facility] Comment on above: Patient Update Start: 01-01-2022 Non-patient / Non-visit Dr. Tanya Castillo Work Phone: [facility] Start: 01-01-2022 End: 01-01-[address] Stone Castillo Work Phone: [facility] Start: 12-19-2021 End: 12-19-[address] Stone Castillo Work Phone: [facility] Start: 11-30-2021 End: 11-30-[address] Stone Castillo Work Phone: [facility] Start: 10-09-2021 End: 10-09-[address] [facility] Start: 10-03-2021 End: 10-03-[address] Stone Castillo Work Phone: [facility] Start: 09-14-2021 End: 09-14-[address] Stone Castillo Work Phone: [facility] Start: 08-22-2021 End: 08-22-[address] [facility]illo [facility] Start: 05-25-2021 End: 05-25-2021 Subsequent hospital visit by physician Xr [facility] Work Phone: Radiology Comment on above: Community acquired p neumonia, unspecified laterality [J18.9] Start: 05-13-2019 End: 05-13-2019 Refill Tiffanie [facility] Comment on above: SVT (supraventricula r tachycardia) (Primary Dx) Start: 05-13-2019 End: 05-13-2019 Office outpatient visit 15 minutes Miguel Angel Watt Work Phone: [facility] Card[facility] Comment on above: Severe aortic stenos is (Primary Dx); Bicuspid aortic valve; Ascending aorta dilatation; Essential hypertension; Shortness of breath; Morbid obesity Start: 04-19-2019 End: 04-19-2019 Telephone encounter Alexus Anthony [facility] Cardiology Comment on above: Error Start: 11-16-2018 End: 11-16-2018 Telephone encounter Tiffanie [facility] Comment on above: Other Start: 11-11-2018 Patient encounter procedure MIGUEL ANGEL WATT [facility] Start: 11-11-2018 End: 11-11-2018 Letter encounter Provider Aelxey Talamantes [facility] Start: 11-11-2018 End: 11-11-2018 Office outpatient visit 15 minutes Miguel Angel Watt Work Phone: [facility] Comment on above: Severe aortic stenos is (Primary Dx); Shortness of breath; Atypical chest pain; Bicuspid aortic valve; Left bundle-branch block; History of syncope; Noncompliance Start: 10-12-2018 End: 10-12-2018 Telephone encounter Shital Markham [facility]iology Comment on above: Other Start: 09-14-2018 End: 09-14-2018 Patient encounter procedure Unique Pierce [facility] Cardiology Comment on above: Other (Work excuse) Start: 05-27-2018 End: 05-27-2018 Patient encounter DAVID [facility] Start: 05-14-2018 Patient encounter procedure MIGUEL ANGEL WATT [facility] Start: 11-13-2017 Patient encounter procedure MIGUEL ANGEL WATT [facility] Start: 12-27-2016 End: 05-20-2018 Patient encounter status Xr [place] Work Phone: [facility] Procedures Date Procedure Procedure Detail Performing Clinician Start: 04-13-2025 CT angiography of ch est with contrast Dr. 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 Alice Castillo Work Phone: Start: 05-25-2021 Radiologic exam ches t 2 views Bart Cerda SENIOR MANAGER ASSET PROTECTION.FOUNTAIN ATTENDANT Work Phone: Start: 11-11-2018 Follow-up visit Follow-up MIGUEL ANGEL WATT SARS-CoV-2 & FLU Ant igen (Rapid) Dr. Stone Castillo Work Phone: Plan of Treatment Date Care Activity Detail Author Start: 05-04-2029 Urine microalbumin profile [facility] Start: 06-09-2028 Lipid panel Lipid Screening [facility] Start: 05-10-2027 Lipid 1996 panel - Serum or Plasma Lipid Screening [facility] Start: 05-10-2027 LIPID SCREEN LIPID SCREEN [facility] Start: 06-09-2026 Diabetes Screening Diabetes Screening [facility] Start: 12-08-2025 Anxiety Screening Anxiety Screening [facility] Start: 11-05-2025 DIABETES SCREEN DIABETES SCREEN [facility] Start: 11-05-2025 Diabetes Screening Diabetes Screening [facility] Start: 05-22-2025 COLOGUARD (FIT-DNA) COLOGUARD (FIT-DNA) [facility] Start: 05-22-2025 COLORECTAL CANCER SCREENING COLORECTAL CANCER SCREENING [facility] Start: 05-22-2025 Screening for malignant neoplasm of colon [facility] Start: 05-10-2025 DIABETES SCREEN DIABETES SCREEN [facility] Start: 05-09-2025 Influenza vaccination Influenza Vaccine (#1) [facility] Start: 12-08-2024 End: 03-09-2025 25-hydroxyvitamin D3 [Mass/volume] in Serum or Plasma VITAMIN D 25 HYDROXY Lab Routine Well adult exam Obesity, Class III, BMI 40-49.9 (morbid obesity) (HCC) Vitamin D deficiency Expected: 12/08/2024, Expires: 03/09/2025 [facility] Comment on above: Expected: 12/08/2024, Expires: Start: 12-08-2024 End: 03-09-2025 CBC panel - Blood by Automated count COMPLETE BLOOD COUNT Lab Routine Well adult exam Obesity, Class III, BMI 40-49.9 (morbid obesity) (HCC) Expected: 12/08/2024, Expires: 03/09/2025 [facility] Comment on above: Expected: 12/08/2024, Expires: Start: 12-08-2024 End: 03-09-2025 Cobalamin (Vitamin B12) [Mass/volume] in Serum or Plasma VITAMIN B12 Lab Routine Well adult exam Obesity, Class III, BMI 40-49.9 (morbid obesity) ([facility]) Encounter for vitamin deficiency screening Expected: 12/08/2024, Expires: 03/09/2025 [facility] Comment on above: Expected: 12/08/2024, Expires: Start: 12-08-2024 End: 03-09-2025 Comprehensive metabolic 2000 panel - Serum or Plasma COMPREHENSIVE METABOLIC PANEL Lab Routine Well adult exam Hyperglycemia Obesity, Class III, BMI 40-49.9 (morbid obesity) ([facility]) Screening for diabetes mellitus Expected: 12/08/2024, Expires: 03/09/2025 [facility] Comment on above: Expected: 12/08/2024, Expires: Start: 12-08-2024 End: 03-09-2025 Hemoglobin A1c in Blood HEMOGLOBIN A1C Lab Routine Well adult exam Hyperglycemia Obesity, Class III, BMI 40-49.9 (morbid obesity) ([facility]) Screening for diabetes mellitus Expected: 12/08/2024, Expires: 03/09/2025 [facility] Work Phone: Comment on above: Expected: 12/08/2024, Expires: Start: 12-08-2024 End: 03-09-2025 Lipid 1996 panel - Serum or Plasma LIPID PANEL, FASTING Lab Routine Well adult exam Dyslipidemia Obesity, Class III, BMI 40-49.9 (morbid obesity) (HCC) Expected: 12/08/2024, Expires: 03/09/2025 [facility] Comment on above: Expected: 12/08/2024, Expires: Start: 12-01-2024 End: 12-01-2024 Patient encounter procedure 12/01/2024 1:20 PM EDT Office Visit [facility] [address] [place] [id number] Stone Castillo DO [address] [place], [place] [id number] [facility] Comment on above: [facility] Start: 11-05-2024 LIPID SCREEN LIPID SCREEN [facility] Start: 05-09-2024 Covid-19 Vaccine ( season) Covid-19 Vaccine () [facility] Start: 05-09-2024 Covid-19 Vaccine () Covid-19 Vaccine () [facility] Start: 05-09-2024 Influenza vaccination Influenza Vaccine (#1) [facility] Start: 06-30-2023 DIABETES SCREEN DIABETES SCREEN [facility] Start: 05-22-2023 FECAL OCCULT BLOOD FECAL OCCULT BLOOD [facility] Start: 05-22-2023 Screening for malignant neoplasm of colon Fecal Occult Blood [facility] Start: 05-09-2023 Covid-19 Vaccine ( season) Covid-19 Vaccine () [facility] Start: 05-09-2023 Influenza vaccination [facility] Start: 05-06-2023 COVID-19 VACCINE (#1) COVID-19 VACCINE (#1) [facility] Comment on above: Postponed from 1977 (Declined at t his time) Start: 05-05-2023 End: 07-05-2023 25-hydroxyvitamin D3 [Mass/volume] in Serum or Plasma VITAMIN D 25 HYDROXY Lab Routine Vitamin D deficiency Expected: 05/05/2023, Expires: 07/05/2023 [facility] Work Phone: Comment on above: Expected: 05/05/2023, Expires: 3 Start: 05-05-2023 End: 07-05-2023 CBC W Auto Differential panel - Blood CBC + DIFF Lab Routine Iron deficiency anemia secondary to inadequate dietary iron intake Other iron deficiency anemia Dyslipidemia Expected: 05/05/2023, Expires: 07/05/2023 [facility] Work Phone: Comment on above: Expected: 05/05/2023, Expires: 3 Start: 05-05-2023 End: 07-05-2023 Cobalamin (Vitamin B12) [Mass/volume] in Serum or Plasma VITAMIN B12 BLOOD Lab Routine Other iron deficiency anemia Hyperglycemia Fatigue, unspecified type Expected: 05/05/2023, Expires: 07/05/2023 [facility] Work Phone: Comment on above: Expected: 05/05/2023, Expires: Start: 05-05-2023 End: 07-05-2023 Comprehensive metabolic 2000 panel - Serum or Plasma COMP METABOLIC PANEL Lab Routine Dyslipidemia Expected: 05/05/2023, Expires: 07/05/2023 [facility] Work Phone: Comment on above: Expected: 05/05/2023, Expires: Start: 05-05-2023 End: 07-05-2023 Hemoglobin A1c in Blood HGB A1C Lab Routine Other iron deficiency anemia Hyperglycemia Expected: 05/05/2023, Expires: 07/05/2023 [facility] Work Phone: Comment on above: Expected: 05/05/2023, Expires: Start: 05-05-2023 End: 07-05-2023 Iron and Iron binding capacity panel - Serum or Plasma IRON + TIBC Lab Routine Iron deficiency anemia secondary to inadequate dietary iron intake Other iron deficiency anemia Expected: 05/05/2023, Expires: 07/05/2023 [facility] Work Phone: Comment on above: Expected: 05/05/2023, Expires: Start: 05-05-2023 End: 07-05-2023 Lipid 1996 panel - Serum or Plasma LIPID PANEL BASIC Lab Routine Dyslipidemia Expected: 05/05/2023, Expires: 07/05/2023 [facility] Work Phone: Comment on above: Expected: 05/05/2023, Expires: Start: 05-05-2023 End: 07-05-2023 Thyrotropin [Units/volume] in Serum or Plasma TSH BLD Lab Routine Other iron deficiency anemia Hyperglycemia Fatigue, unspecified type Expected: 05/05/2023, Expires: 07/05/2023 [facility] Work Phone: Comment on above: Expected: 05/05/2023, Expires: Start: 05-05-2023 End: 07-05-2023 Thyroxine (T4) free [Mass/volume] in Serum or Plasma T4 FREE/FREE THYROX Lab Routine Hyperglycemia Fatigue, unspecified type Expected: 05/05/2023, Expires: 07/05/2023 [facility] Work Phone: Comment on above: Expected: 05/05/2023, Expires: 3 Start: 11-05-2022 End: 01-05-2023 25-hydroxyvitamin D3 [Mass/volume] in Serum or Plasma [facility] Work Phone: Comment on above: Expected: 11/05/2022, Expires: 3 Start: 11-05-2022 End: 01-05-2023 Cobalamin (Vitamin B12) [Mass/volume] in Serum or Plasma [facility] Work Phone: Comment on above: Expected: 11/05/2022, Expires: 3 Start: 11-05-2022 End: 01-05-2023 Comprehensive metabolic 2000 panel - Serum or Plasma [facility] Work Phone: Comment on above: Expected: 11/05/2022, Expires: 3 Start: 11-05-2022 End: 01-05-2023 Thyrotropin [Units/volume] in Serum or Plasma [facility] Work Phone: Comment on above: Expected: 11/05/2022, Expires: 3 Start: 11-05-2022 End: 01-05-2023 Thyroxine (T4) free [Mass/volume] in Serum or Plasma [facility] Work Phone: Comment on above: Expected: 11/05/2022, Expires: 3 Start: 11-05-2022 End: 01-05-2023 Triiodothyronine (T3) Free [Mass/volume] in Serum or Plasma [facility] Work Phone: Comment on above: Expected: 11/05/2022, Expires: 3 Start: 10-09-2022 End: 12-09-2022 CBC W Auto Differential panel - Blood CBC + DIFF Lab STAT 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 Expected: 10/09/2022, Expires: 12/09/2022 [facility] Work Phone: Comment on above: Expected: 10/09/2022, Expires: 3 Start: 10-09-2022 End: 12-09-2022 Ferritin [Mass/volume] in Serum or Plasma FERRITIN BLD Lab Routine 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 Expected: 10/09/2022, Expires: 12/09/2022 [facility] Work Phone: Comment on above: Expected: 10/09/2022, Expires: 3 Start: 10-09-2022 End: 12-09-2022 Iron and Iron binding capacity panel - Serum or Plasma IRON + TIBC Lab Routine 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 Expected: 10/09/2022, Expires: 12/09/2022 [facility] Work Phone: Comment on above: Expected: 10/09/2022, Expires: 3 Start: 08-09-2022 End: 10-09-2022 CBC W Auto Differential panel - Blood CBC + DIFF Lab STAT 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 Expected: 08/09/2022, Expires: 10/09/2022 [facility] Work Phone: Comment on above: Expected: 08/09/2022, Expires: 3 Start: 08-09-2022 End: 10-09-2022 Ferritin [Mass/volume] in Serum or Plasma FERRITIN BLD Lab Routine 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 Expected: 08/09/2022, Expires: 10/09/2022 [facility] Work Phone: Comment on above: Expected: 08/09/2022, Expires: 3 Start: 08-09-2022 End: 10-09-2022 Iron and Iron binding capacity panel - Serum or Plasma IRON + TIBC Lab Routine 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 Expected: 08/09/2022, Expires: 10/09/2022 [facility] Work Phone: Comment on above: Expected: 08/09/2022, Expires: 3 Start: 07-08-2022 End: 09-07-2022 CBC W Auto Differential panel - Blood CBC + DIFF Lab STAT 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 Expected: 07/08/2022, Expires: 09/07/2022 [facility] Work Phone: Comment on above: Expected: 07/08/2022, Expires: 2 Start: 07-08-2022 End: 09-07-2022 Ferritin [Mass/volume] in Serum or Plasma [facility] Work Phone: Comment on above: Expected: 07/08/2022, Expires: 2 Start: 07-08-2022 End: 09-07-2022 Iron and Iron binding capacity panel - Serum or Plasma [facility] Work Phone: Comment on above: Expected: 07/08/2022, Expires: 2 Start: 06-05-2022 End: 08-05-2022 Cobalamin (Vitamin B12) [Mass/volume] in Serum or Plasma [facility] Work Phone: Comment on above: Expected: 06/05/2022, Expires: 2 Start: 06-05-2022 End: 08-05-2022 Ferritin [Mass/volume] in Serum or Plasma [facility] Work Phone: Comment on above: Expected: 06/05/2022, Expires: 2 Start: 06-05-2022 End: 08-05-2022 Iron and Iron binding capacity panel - Serum or Plasma [facility] Work Phone: Comment on above: Expected: 06/05/2022, Expires: 2 Start: 05-15-2022 End: 07-15-2022 CBC W Auto Differential panel - Blood CBC + DIFF Lab STAT Anemia, unspecified type Expected: 05/15/2022, Expires: 07/15/2022 [facility] Work Phone: Comment on above: Expected: 05/15/2022, Expires: 2 Start: 05-15-2022 End: 07-15-2022 Ferritin [Mass/volume] in Serum or Plasma FERRITIN BLD Lab Routine Anemia, unspecified type Expected: 05/15/2022, Expires: 07/15/2022 [facility] Work Phone: Comment on above: Expected: 05/15/2022, Expires: 2 Start: 05-15-2022 End: 07-15-2022 Iron and Iron binding capacity panel - Serum or Plasma IRON + TIBC Lab Routine Anemia, unspecified type Expected: 05/15/2022, Expires: 07/15/2022 [facility] Work Phone: Comment on above: Expected: 05/15/2022, Expires: 2 Start: 05-09-2022 Influenza vaccination [facility] Start: 05-07-2022 End: 07-07-2022 HIV 1+2 Ab [Presence] in Serum or Plasma by Immunoassay HIV 1 2 COMBO(AG/AB),WITH REFLEX TO DIFFERENTIATION Lab Routine Screening for HIV (human immunodeficiency virus) Expected: 05/07/2022, Expires: 07/07/2022 [facility] Work Phone: Comment on above: Expected: 05/07/2022, Expires: 2 Start: 05-06-2022 End: 07-06-2022 25-hydroxyvitamin D3 [Mass/volume] in Serum or Plasma VITAMIN D 25 HYDROXY Lab Routine Vitamin D deficiency Fatigue, unspecified type Expected: 05/06/2022, Expires: 07/06/2022 [facility] Work Phone: Comment on above: Expected: 05/06/2022, Expires: 2 Start: 05-06-2022 End: 07-06-2022 CBC W Auto Differential panel - Blood CBC + DIFF Lab Routine Fatigue, unspecified type Expected: 05/06/2022, Expires: 07/06/2022 [facility] Work Phone: Comment on above: Expected: 05/06/2022, Expires: 2 Start: 05-06-2022 End: 07-06-2022 Cobalamin (Vitamin B12) [Mass/volume] in Serum or Plasma VITAMIN B12 BLOOD Lab Routine Fatigue, unspecified type Expected: 05/06/2022, Expires: 07/06/2022 [facility] Work Phone: Comment on above: Expected: 05/06/2022, Expires: 2 Start: 05-06-2022 End: 07-06-2022 Comprehensive metabolic 2000 panel - Serum or Plasma COMP METABOLIC PANEL Lab Routine Fatigue, unspecified type Expected: 05/06/2022, Expires: 07/06/2022 [facility] Work Phone: Comment on above: Expected: 05/06/2022, Expires: 2 Start: 05-06-2022 End: 07-06-2022 Hemoglobin A1c in Blood HGB A1C Lab Routine Hyperglycemia Expected: 05/06/2022 (Approximate), Expires: 07/06/2022 [facility] Work Phone: Comment on above: Expected: 05/06/2022 (Approximate), Expi res: 07/06/2022 Start: 05-06-2022 End: 07-06-2022 Hepatitis B virus surface Ab [Presence] in Serum HEP B SURF AB QUAL Lab Routine Need for hepatitis B screening test Expected: 05/06/2022, Expires: 07/06/2022 [facility] Work Phone: Comment on above: Expected: 05/06/2022, Expires: 2 Start: 05-06-2022 End: 07-06-2022 Hepatitis C virus Ab [Presence] in Serum HEP C AB IA W/CONF SCRN Lab Routine Need for hepatitis C screening test Expected: 05/06/2022, Expires: 07/06/2022 [facility] Work Phone: Comment on above: Expected: 05/06/2022, Expires: 2 Start: 05-06-2022 End: 07-06-2022 Lipid 1996 panel - Serum or Plasma LIPID PANEL BASIC Lab Routine Obesity, Class III, BMI 40-49.9 (morbid obesity) (HCC) Expected: 05/06/2022, Expires: 07/06/2022 [facility] Work Phone: Comment on above: Expected: 05/06/2022, Expires: 2 Start: 05-06-2022 End: 07-06-2022 Thyrotropin [Units/volume] in Serum or Plasma TSH BLD Lab Routine Dyslipidemia Obesity, Class III, BMI 40-49.9 (morbid obesity) (HCC) Fatigue, unspecified type Expected: 05/06/2022, Expires: 07/06/2022 [facility] Work Phone: Comment on above: Expected: 05/06/2022, Expires: 2 Start: 04-24-2022 [facility] Work Phone: Start: 2022 COLOGUARD (FIT-DNA) COLOGUARD (FIT-DNA) [facility] Start: 2022 Colonoscopy COLONOSCOPY [facility] Start: 2022 COLORECTAL CANCER SCREENING COLORECTAL CANCER SCREENING [facility] Start: [address] COLONOGRAPHY [facility] Start: 2022 FECAL OCCULT BLOOD FECAL OCCULT BLOOD [facility] Start: 2022 Screening for malignant neoplasm of colon [facility] Start: 2022 SIGMOIDOSCOPY SIGMOIDOSCOPY [facility] Start: 12-07-2021 Medicare Annual Wellness Visit Medicare Annual Wellness Visit [facility] Start: 05-13-2019 End: 05-13-2019 Office Visit 05/13/2019 Office Visit Cardiovascular Medicine Miguel Angel Watt, [address] [place] [address] [phone] [facility] Start: 05-09-2019 Influenza vaccination INFLUENZA VACCINE (#1) [facility] Start: 11-11-2018 End: 11-11-2018 Ambulatory 11/11/2018 Office Visit Cardiovascular Medicine Miguel Angel Watt, DO [address] [place] [address] [phone] [facility] Start: 05-09-2018 Influenza vaccination INFLUENZA VACCINE (#1) [facility] Work Phone: Start: 2017 Fasting lipid profile LIPID SCREENING [facility] Work Phone: Start: 1996 Hepatitis B Vaccine (1 of 3 - 19+ 3-dose series) Hepatitis B Vaccine (1 of 3 - 19+ 3-dose series) [facility] Start: 1996 Third diphtheria, tetanus and acellular pertussis (DTaP) vaccination TDAP (ADULT) [facility] Work Phone: Start: 1995 Anxiety Screening Anxiety Screening [facility] Start: 1995 HEPATITIS C SCREENING HEPATITIS C SCREENING [facility] Start: 1995 HIV SCREENING HIV SCREENING [facility] Start: 1995 Tetanus vaccination TETANUS [facility] Work Phone: Start: 1990 HIV screening HIV SCREENING DISCUSSION [facility] Work Phone: Start: 1982 COVID-19 VACCINE (1) COVID-19 VACCINE (1) [facility] Start: 1977 COVID-19 VACCINE (#1) COVID-19 VACCINE (#1) [facility] Start: 1977 HEPATITIS B (1 of 3 - 3-dose series) HEPATITIS B (1 of 3 - 3-dose series) [facility] Start: 1977 Hepatitis B Vaccine (1 of 3 - 3-dose series) Hepatitis B Vaccine (1 of 3 - 3-dose series) [facility] COLOGUARD COLOGUARD Lab Ro utine Screening for colon cancer Ordered: 05/06/2022 [facility] Work Phone: Comment on above: Ordered: 05/06/2022 End: 06-20-2023 EGD DIAGNOSTIC EGD DIAGNOSTIC Endoscopy Routine Iron deficiency anemia, unspecified iron deficiency anemia type 1 Occurrences starting 06/20/2022 until 06/20/2023 [facility] Work Phone: Comment on above: 1 Occurrences starting 06/20/2022 until 06/20/2023 Hemoglobin.gastroint estin al.lower [Presence] in Stool by Immunoassay FECAL OCCULT BLOOD TEST Lab Routine Anemia, unspecified type Ordered: 05/15/2022 [facility] Work Phone: Comment on above: Ordered: 05/15/2022 Patient Education Coronavirus Di chris 2019 (COVID-19): Caring for Yourself or Others [facility] Work Phone: Patient referral [facility] Work Phone: End: 06-20-2023 Screening colonoscopy COLONOSCOPY SCREENING Endoscopy Routine Iron deficiency anemia, unspecified iron deficiency anemia type 1 Occurrences starting 06/20/2022 until 06/20/2023 [facility] Work Phone: Comment on above: 1 Occurrences starting 06/20/2022 until 06/20/2023 Transthoracic echocardiography ECHOCARDIOGRAM Echocardiography Routine Severe aortic stenosis Ordered: 11/11/2018 [facility] Comment on above: Ordered: 11/11/2018 [facility] End: 06-03-2024 XR ANKLE GENERAL 3V AP/LAT/OBL BILATERAL XR ANKLE GENERAL 3V AP/LAT/OBL BILATERAL Radiology Routine Chronic pain of both ankles 1 Occurrences starting 05/05/2023 until 06/03/2024 [facility] Work Phone: Comment on above: 1 Occurrences starting 05/05/2023 until 06/03/2024 XR ANKLE GENERAL 3V AP/LAT/OBL BILATERAL XR ANKLE GENERAL 3V AP/LAT/OBL BILATERAL Radiology Routine Chronic pain of both ankles 05/05/2023 1:26 PM EDT [facility] Work Phone: End: 06-03-2024 XR KNEE GENERAL 4V AP BOTH/PA BOTH/LAT/MERC BILATERAL XR KNEE GENERAL 4V AP BOTH/PA BOTH/LAT/MERC BILATERAL Radiology Routine Chronic pain of both knees 1 Occurrences starting 05/05/2023 until 06/03/2024 [facility] Work Phone: Comment on above: 1 Occurrences starting 05/05/2023 until 06/03/2024 XR KNEE GENERAL 4V A P BOTH/PA BOTH/LAT/MERC BILATERAL XR KNEE GENERAL 4V AP BOTH/PA BOTH/LAT/MERC BILATERAL Radiology Routine Chronic pain of both knees 05/05/2023 1:26 PM EDT [facility] Work Phone: [facility] Immunizations Immunization Date Immunization Notes Care Provider Ayan redding 05-04-2019 tetanus toxoid, redu nathan diphtheria toxoid, and acellular pertussis vaccine, adsorbed Stone Castillo DO Work Phone: [facility] Work Phone: 10-28-2017 influenza virus vaccine, unspecified formulation Rajiv Quintin Work Phone: [facility] Payers Date Payer Category Payer Self-pay [id number] 2021 Medicare MEDICARE MEDICAR E A AND B [id number] 2021-Present [phone] [place] [address] Medicare [id number] 2021 Medicare [id number] 2021 Medicare [id number] 2021 Medicaid MEDICAID [facility] MEDICAID [id number] 2021-Present [phone] [address] [place] [address] Medicaid [id number] 2021 Medicaid [id number] 2017 Unknown BOBBI SHAH xxxxxxxxxxx 2017-Present [id number] 2017 Medicaid [id number] 2016 Private Health Insurance [id number] Unknown [id number] Unknown [id number]. 462 Unknown [id number] 2.16.840.1.645136.3.579.2. 462 Unknown [id number] 2.16.840.1.670353.3.579.2. 462 Unknown [id number] 2.16.840.1.888137.3.579.2. 462 Unknown [id number] 2.16.840.1.592256.3.579.2. 462 Unknown [id number] 2.16.840.1.308229.3.579.2. 462 Unknown [id number] 2.16.840.1.300746.3.579.2. 462 Unknown [id number] 2.16.840.1.786232.3.579.2. 462 Unknown [id number] 2.16.840.1.520541.3.579.2. 462 Unknown [id number] 2.16.840.1.092480.3.579.2. 462 Unknown [id number] 2.16.840.1.519800.3.579.2. 462 Unknown [id number] 2.16.840.1.844249.3.579.2. 462 Unknown [id number] 2.16.840.1.440749.3.579.2. 462 Unknown [id number] 2.16.840.1.151239.3.579.2. 462 Unknown [id number] 2.16.840.1.343676.3.579.2. 462 Unknown [id number] [id number]. 462 Social History Date Type Detail Facility Start: 05-14-2018 End: 08-20-2023 Tobacco smoking status NHIS Former smoker [facility] History of tobacco use Cigarette Smoker [facility] Work Phone: Start: 1975 Sex Assigned At Not on file [facility] Work Phone: Start: 11-13-2017 Tobacco Comment quit in 1997 [facility] Start: 05-13-2019 End: 05-05-2023 Alcohol intake No [facility] Start: 10-03-2021 End: 04-24-2022 Tobacco smoking status NHIS Unknown if ever smoked [facility] Work Phone: Start: 1975 Sex Assigned At Male [facility] Start: 10-13-2015 Tobacco smoking stat us NHIS Never smoked tobacco [facility] Start: 10-13-2015 Tobacco use and exposure Smoke less tobacco non-user [facility] Start: 01-04-2022 End: 12-08-2024 Alcohol intake Current non-drinker of alcohol (finding) [facility] Start: 06-20-2020 History SDOH Financial 5 [facility] Start: 06-20-2020 End: 11-04-2022 History SDOH Food Worry 1 [facility] Start: 06-20-2020 End: 11-04-2022 History SDOH Transport Med 2 [facility] Start: 04-05-2020 Education 11 [facility] Start: 12-25-2021 End: 06-20-2022 Exposure to SARS-CoV-2 (event) Not sure [facility] Start: 04-25-2022 End: 11-04-2022 History SDOH Alcohol Std Drinks 0 [facility] Start: 04-25-2022 History SDOH Social Connections Living 7 [facility] Start: 04-25-2022 End: 11-04-2022 History SDOH Financial 4 [facility] Start: 11-04-2022 History SDOH Social Connections Living 8 [facility] Start: 11-04-2022 History SDOH Food Worry 3 [facility] Start: 11-04-2022 End: 05-05-2023 History of Social function [facility] Do you belong to any clubs or organizations such as protestant groups, unions, fraternal or athletic groups, or school groups? No [facility] Are you now , , , , never or living with a partner? Living with partner [facility] How often to you hav e a drink containing alcohol? Never [facility] Start: 08-09-[address] inks containing alcohol do you have on a typical day? Patient does not drink [facility] Do you feel stress - tense, restless, nervous, or anxious, or unable to sleep at night because your mind is troubled all the time - these days [OSQ] Only a little [facility] (I/We) worried wheth er (my/our) food would run out before (I/we) got money to buy more. Often true [facility] At any time in the p ast 12 months, were you homeless or living in [place] [facility] [including now]? Yes [facility] (I/We) worried wheth er (my/our) food would run out before (I/we) got money to buy more. Never true [facility] Start: 04-03-2021 End: 05-03-2021 Exposure to SARS-CoV-2 (event) Unable to assess [facility] Are you now , , , , never or living with a partner? Never [facility] How hard is it for y ou to pay for the very basics like food, housing, medical care, and heating Somewhat hard [facility] Do you feel stress - tense, restless, nervous, or anxious, or unable to sleep at night because your mind is troubled all the time - these days [OSQ] Very much [facility] (I/We) worried mason er (my/our) food would run out before (I/we) got money to buy more. Sometimes true [facility] Medical Equipment Procedure Code Equipment Code Equipment Original Text Equipment Identifier Dates Graft Duragen Pl us Bovine Collagen Matrix 3x3in Soft Tissue Patch - [id number] Start: 10-25-2015 [place] Thk1.65mm R ectangle Ptfe 4.5x6mm Cardiovascular [place] - [id number] Start: 04-04-2020 [place] Thk1.65mm R ectangle Ptfe 4.5x6mm Cardiovascular [place] - [id number] Start: 04-04-2020 System Reveal Li nq Rotor Casting Machine Operator Insertable Automatically Activate - [id number] Start: 10-23-2016 Lead-04/07/2020 [id number] Start: 04-07-2020 Lead-04/07/2020 [id number] Start: 04-07-2020 Mesh Standard Go ld Titanium 90x90x.6mm Dynamic Craniomaxillofacial - [id number] Start: 10-25-2015 Pacemaker-04/07/2020 [id number] Star t: 04-07-2020 Comment on above: Description: Accolade MRI Plate Sternalock Herbert Bone 8 Hole Sternum - [id number] Start: 04-04-2020 Screw 1.5mm 4mm Bone Self Drill Cross Pin Craniomaxillofacial - [id number] Start: 10-25-2015 Screw Sternalock Herbert 2.4mm Gold 12mm Bone Self Drill Lock Primary Closure - [id number] Start: 04-04-2020 Screw Sternalock Herbert 2.4mm Gold 14mm Bone Self Drill Lock Primary Closure - [id number] Start: 04-04-2020 Valve Solorzano In spiris Resilia 23mm Pericardial Aortic Bioprosthesis - [id number] Start: 04-04-2020 Loop Recorder-Ln q11 Reveal [id number] Start: 10-23-2016 Functional Status Date Assessment Result Facility 12-08-2024 Total score [AUDIT-C] 0 12/09/19 3:14 AM EDT UserYoly [facility] 12-08-2024 Within the last year , have you been humiliated or emotionally abused in other ways by your partner or ex-partner? No 12/08/2024 3:14 AM EDT User, Francist No [facility] 12-08-2024 Within the last year , have you been afraid of your partner or ex-partner? No 12/08/2024 3:14 AM EDT [facility] 12-08-2024 Within the last year , have you been raped or forced to have any kind of sexual activity by your partner or ex-partner? No 12/08/2024 3:14 AM EDT User, Francist No [facility] 12-08-2024 Within the last year , have you been kicked, hit, slapped, or otherwise physically hurt by your partner or ex-partner? No 12/08/2024 3:14 AM EDT User, Francist No [facility] 12-08-2024 How often to you hav e a drink containing alcohol? Never 12/08/2024 3:14 AM EDT UserFrancist Never [facility] 12-08-2024 Functional status Patient does n ot drink 12/08/2024 3:14 AM EDT User, [facility] Patient does not drink [facility] 12-08-2024 How often do you hav e 6 or more drinks on 1 occasion? Never 12/08/2024 3:14 AM EDT User, Francist Never [facility] 04-10-2020 Are you deaf, or do you have serious difficulty hearing No 04/10/2020 12:58 PM Sola Alcantara RN No [facility] 04-10-2020 Are you blind, or do you have serious difficulty seeing, even when wearing glasses No 04/10/2020 12:58 PM Sola Alcantara RN No [facility] 04-10-2020 Do you have serious difficulty walking or climbing stairs No 04/10/2020 12:58 PM Sola Alcantara, RN No [facility] 04-10-2020 Do you have difficul ty dressing or bathing No 04/10/2020 12:58 PM EDT Sola Arevalo RN No [facility] 04-10-2020 Because of a physica l, mental, or emotional condition, do you have difficulty doing errands alone such as visiting a physician's office or shopping No 04/10/2020 12:58 PM EDT Sola Arevalo RN No [facility] Mental Status Date Assessment Result Facility 06-07-2022 Cognitive function Voice/Name [facility] Work Phone: 04-10-2020 Because of a physica l, mental, or emotional condition, do you have serious difficulty concentrating, remembering, or making decisions No 04/10/2020 12:58 PM EDT Sola Arevalo RN No [facility] Clinical Notes 03-08-2020 to 04-21-2025 Telephone Encounter - Poly Francisco - 04/21/2025 2:49 PM EDTTelephone Encounter - Poly Francisco - 04/21/2025 2:49 PM EDT Note Date & Type Note Facility 04-21-2025 Telephone encount er Note Prescription Refill Information The patient has been identified by name and date of : Yes Caregiver verified no other encounters exist for this prescription request: Yes Caregiver confirmed with patient/requestor that no other refills are due, in the near future, with this provider at this time: Yes The last office visit in the department: 12/08/2024 Does the patient have a future office visit with this provider/department: Yes Requested Prescriptions Pending Prescriptions Disp Refills omeprazole (PRILOSEC) 20 mg capsule 30 capsule 3 Sig: Take 1 capsule by mouth once daily. Poly Holt April 21, 2025 2:50 PM [facility] 04-21-2025 Miscellaneous Notes Formattin g of this note is different from the original. Prescription Refill Information The patient has been identified by name and date of : Yes Caregiver verified no other encounters exist for this prescription request: Yes Caregiver confirmed with patient/requestor that no other refills are due, in the near future, with this provider at this time: Yes The last office visit in the department: 12/08/2024 Does the patient have a future office visit with this provider/department: Yes Requested Prescriptions Pending Prescriptions Disp Refills omeprazole (PRILOSEC) 20 mg capsule 30 capsule 3 Sig: Take 1 capsule by mouth once daily. Poly Holt April 21, 2025 2:50 PM documented in this encounter [facility] 04-14-2025 Radiology Diagnostic study note [facility] Imaging Services [address] [place], [place] [address] CTA Chest W/WO Contrast MR#: [id number] Acct: [id number] Name: ERLINDA DE LEÓN Rep #: [id number] : 1975 M 50 From: Alicia Carlton MD PCP: Dr. Stone Castillo, Status: RE G CLI Study:CTA Chest W/WO Contrast Date of Exam: 04/13/25 Exam# [id number] Ordering Dr: Lester Larios PROCEDURE: CTA CHEST W/WO CONTRAST 04/13/2025 REASON FOR EXAM: ASCENDING AORTIC ANEURYSM TECHNIQUE: CTA CHEST W/WO CONTRAST Multiplanar Sagittal and Coronal images were obtained. CONTRAST: Isovue 370 VOLUME: 100 mL One or more dose reduction techniques were used (e.g., Automated exposure control, adjustment of the mA and/or kV according to patient size, use of iterative reconstruction technique). RADIATION DOSE SUMMARY: CTDlvol: 42 mGy DLP: 599 mGycm COMPARISON: 05/26/2024 FINDINGS: Unremarkable base of neck and axilla. Status post CABG. Thoracic spine degeneration. Normal esophagus. Normal heart size. LVH. Status post AVR. At the junction of the ascending aorta, and thoracic arch, cross-sectional diameter measures up to 4.2 cm, previously 4 cm. The aorta is otherwise nondistended. Bovine arch. No calcified plaque. Mild tortuosity. No acute chest wall findings. Unremarkable cardiac device. Diffuse hepatic steatosis. No acute upper abdominal findings. Central airways are patent. Dependent atelectasis. No consolidation, effusion,or pneumothorax. CT/CTA Chest W/WO Contrast IMPRESSION: Dilated thoracic aorta, junction of ascending aorta and arch, 4.2 cm maximum cross-section, previously 4 cm. No acute findings. Reading Location: [place] [address] CC: Dr. Stone Castillo DO; KATHLEEN Hannah ~ Nursery Manager: Signed [facility] 03-23-2025 Procedure note [facility] 03-23-2025 Procedure note [facility] 03-23-2025 Evaluation note Diagnosis Onset Date Resolution AV block, complete acute March 23, 2025 1:25pm Presence of permanent cardiac pacemaker March,March 23, 2025 1:25pm [facility] Work Phone: 1(963) 365-719507-16-2025 Evaluation note* Diagnosis Onset Date Resolution Status Admit Date AV block, complete acute March 082024 1:25pm Presence of permanent cardia c pacemaker March, chronic March 23, 2025 1:25pm Bicuspid aortic valve chronic Mar 1:32pm History of aortic valve replacement with bioprosthetic valve March, chronic March 23, 2025 1:32pm Hypertension chronic March 23, 025 1:32pm LBBB (left bundle branch block) 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 March 23, 2025 1:32pm Presence of permanent cardia c pacemaker March, chronic March 23, 2025 1:32pm Thoracic aortic aneurysm wit hout rupture chronic March 23, 2025 1:32pm [facility] Work Phone: [phone]) 178-994504-03-2025 Telephone encounter Note* Telephone Encounter - Peg Greene MA - 12/09/2024 11:24 AM EDT Pt informed via [place] message since active Peg Greene MA [facility]04-03-2025 Miscellaneous Notes* Telephone Encounter - Peg Greene MA - 12/09/2024 11:24 AM EDT Pt informed via [facility] message since active Peg Greene MA * Telephone Encounter - Reece Mendez APRN.CNP - 12/09/2024 11:19 AM EDT Please let patient know this. Reece Mendez APRN.PRADIP * Telephone Encounter - Priti Ignacio RN - 12/09/2024 10:46 AM EDT Sloane with [facility] calls to report that there is no documentation in Dr. Kenney's recent notes that mentions weight loss medication and with patient's extensive cardiac history it would notbe recommended. Priti Ignacio RN * Telephone Encounter - Earlene Anders RN - 12/09/2024 10:02 AM EDT Called and had to leave a msg for nurse Sloane at [facility]. Left detailed msg asking if provider there has recommended pt to take a weight loss medication. If provider has mentioned that to the patient and engineering production liaison is okay with this, we would need documentation stating this from them. * Telephone Encounter - Reece Mendez APRN.CNP - 12/08/2024 6:08 PM EDT Patient sees Vin Cazares with [facility], states he was told to ask me for a weight loss pill, he states is Adipex. I suspect Vin does not want him to be on this with his extensive cardiac hx?Please check with him for me. Reece Mendez APRN.CNP documented in this encounter[facility] Telephone encounter Note * Telephone Encounter - Reece Mendez APRN.CNP - 12/09/2024 11:19 AM EDT Please let patient know this. Reece Mendez APRN.CNP [facility]04-03-2025 Telephone encounter Note* Telephone Encounter - Priti Ignacio RN - 12/09/2024 10:46 AM EDT Sloane with [facility] calls to report that there is no documentation in Dr. Kenney's recent notes that mentions weight loss medication and with patient's extensive cardiac history it would notbe recommended. Priti Ignacio RN [facility]04-03-2025 Telephone encounter Note* Telephone Encounter - Earlene Anders RN - 12/09/2024 10:02 AM EDT Called and had to leave a msg for nurse Anton at [facility]. Left detailed msg asking if provider there has recommended pt to take a weight loss medication. If provider has mentioned that to the patient and engineering production liaison is okay with this, we would need documentation stating this from them. [facility]04-02-2025 Telephone encounter Note* Telephone Encounter - Reece Mendez APRN.CNP - 12/08/2024 6:08 PM EDT Patient sees Vin Cazares with [facility], states he was told to ask me for a weight loss pill, he states is Adipex. I suspect Vin does not want him to be on this with his extensive cardiac hx?Please check with him for me. Reece Mendez APRN.CNP [facility]04-02-2025 NoteHNO ID: [id number] Author: REECE MENDEZ APRN.CNP Service: ? Author Type: Nurse Practitioner Type: Progress Notes Filed: 12/08/2024 18:22 Note Text: Chief Complaint Patient presents with: Yearly Exam HPI Erlinda De eLón is a 49 year old male who presents here today for Above Complaints.. Heart history- well managed, Sees engineering production liaison regularly Weight- Patient states that his engineering production liaison recommended him to start taking a weight [...] 05/27/2018 Right CTR PACEMAKER IMPLANT Left 04/07/2020 [employer] dual chamber pacemaker for CHB following AVR; Dr. Dewey at [facility] REMOVAL; CARDIAC LOOP RECORDER Left 04/07/2020 ILR removed at time of pacemaker implantation; Dr. Dewey at [facility] REPAIR UMBILICAL HERNIA 02/27/15 RPLCMT PROST AORTIC [...] mEq packet Take by mouth twice daily. Xczuv-6-NFR-EPA-Fish Oil 1,000 mg (120 mg-180 mg) cap [...] Psychiatric: pleasant, cooperative Healt (more content not included)...[facility]04-02-2025 History of Present illness Narrative* Reece Mendez APRN.FOUNTAIN ATTENDANT - 12/08/2024 1:44 PM EDT Chief Complaint Patient presents with: Yearly Exam HPI Erlinda De León is a 49 year old male who presents here today for Above Complaints.. Heart history- well managed, Sees engineering production liaison regularly Weight- Patient states that his engineering production liaison recommended him to start taking a weight [...] 05/27/2018 Right CTR PACEMAKER IMPLANT Left 04/07/2020 [employer] dual chamber pacemaker for CHB following AVR; Dr. Dewey at [facility] REMOVAL; CARDIAC LOOP RECORDER Left 04/07/2020 ILR removed at time of pacemaker implantation; Dr. Dewey at [facility] REPAIR UMBILICAL HERNIA 02/27/15 RPLCMT PROST AORTIC [...] mEq packet Take by mouth twice daily. Jyyib-4-ALO-EPA-Fish Oil 1,000 mg (120 mg-180 mg) cap [...] capillary refill. . Peripheral Pulses: Normal. Psychiatric: [facility], cooperative Health Maintenance List Anxiety Screening Never done Hepatitis B Vaccine(1 of 3 - 19+ 3-dose series) Never done Influenza Vaccine(1) due on 05/09/2024 Covid-19 Vaccine(1 - 2023- season) Never done Colorectal Cancer [...] E66.01 Weight increasing - Sending message to engineering production liaison for approval of starting Adipex - HEMOGLOBIN [...] which included preparing to see the patient, nvtr-we-rwem patient care, completing clinical documentation, obtaining and/or reviewing separately obtained history, performing a medically appropriate examination, counseling and educating the pat ient/family/caregiver, and ordering medications, tests, or procedures. documented in this encounterSelect [facility]03-[facility]-2025 Telephone encounter Note * Telephone Encounter - [...] Please advise. Thank you. Erika Elizabeth LPN. [facility]03-10-2025 Miscellaneous Notes* Telephone Encounter - Erika Flores [...] you. Erika Elizabeth LPN. documented in this encounterSelect [facility]12-18-2024 NoteHNO ID: [id number] Author: CATARINA PERSAUD MA Service: ? Author Type: Banana Carrier Type: Progress Notes Filed: 08/25/2024 13:56 Note Text: POPULATION HEALTH NAVIGATION OUTREACH Action/FYI HCC Spoke [...] orders: Medicare Annual Wellness Visit 12/01/2024 in [facility] with STONE CASTILLO [facility] related Navigation Signature: Catarina Persaud MA August 25, 2024 1:51 [facility]12-18-2024 History of Present illness Narrative* Catarina Persaud [...] orders: Medicare Annual Wellness Visit 12/01/2024 in [facility] with STONE CASTILLO related Navigation Signature: Catarina Persaud MA August 25, 2024 1:51 PM documented in this encounterSelect [facility]12-18-2024 NotePatient Outreach (NETNAV) ERLINDA DE LEÓN ([id number]) 1975 M Date Time Provider Department 08/25/24 CATARINA PERSAUD During your visit today, we recorded the following information about you: Catarina Persaud MA 08/25/2024 1:56 PM Signed POPULATION HEALTH NAVIGATION OUTREACH Action/ABHAYI [facility] Spoke to patient and scheduled Medicare Wellness [...] orders: Medicare Annual Wellness Visit 12/01/2024 in [facility] with STONE CASTILLO [facility] related Navigation Signature: Catarina Persaud MA August 25, 2024 1:51 PM Allergies As [...] Population Health Navigation Outreach [[id number]] Cmt: AUGUSTA OJEDA [place] Prescriptions as of 08/25/2024 - omeprazole (PRILOSEC) [...] by mouth one time a week. - Ddzih-0-DGE-EPA-Fish Oil 1,000 mg (120 mg-180 mg) cap [...] knees [M25.561, M25.562 (more content not included)... [facility]03-21-2024 Miscellaneous Notes* Telephone Encounter - Belkis [...] you. Belkis Mendoza LPN. documented in this encounterSelect [facility]09-25-2023 History of Present illness Narrative* Mela Mendoza RN - 06/02/2023 1:32 PM EDT Per Erlinda Angelo was provided with Powerstep inserts, size 12-13 [...] mEq packet Take by mouth twice daily. Ploqn-7-VRU-EPA-Fish Oil 1,000 mg (120 mg-180 mg) cap [...] 05/27/2018 Right CTR PACEMAKER IMPLANT Left 04/07/2020 [employer] dual chamber pacemaker for CHB following AVR; Dr. Dewey at [facility] REMOVAL; CARDIAC LOOP RECORDER Left 04/07/2020 ILR removed at time of pacemaker implantation; Dr. Dewey at [facility] REPAIR UMBILICAL HERNIA 02/27/15 RPLCMT PROST AORTIC [...] inserts Rajiv Ribeiro DPM Podiatry [address] [facility] [address] Dept: [phone] Dept * Mela Mendoza, KAY - 06/02/2023 12:56 PM EDT AMB ROOMING [...] that Rest sometimes helps. documented in this encounterSelect Medical [facility]09-25-2023 Instructions* Patient Instructions* Rajiv Ribeiro - 06/02/2023 1:18 PM EDT Powerstep Original Full length. Can purchase at [employer] here in [place], [employer] in [place] or [place]. Also can find in [employer] in [place]. Powersteps can also be purchased online, starting [...] everything fits well together documented in this encounterSelect Medical [facility]08-31-2023 Miscellaneous Notes* Telephone Encounter - Antonella Law APRN.CNP - 05/08/2023 1:42 PM EDT Orders placed. Please schedule. Antonella Law APRN.CNP * Telephone Encounter - Mela Humphrey RN [...] he has heel spurs. Can consider seeing Client Services Coordinator for recommendations. Need for rest of feet, icing heels and consideration of orthotics. Stone Castillo DO documented in this encounterSelect Medical [facility]08-28-2023 History of Present illness Narrative* Stone Castillo [...] replacement surgery 03/2020. Overall doing well. Sees Mushroom Press Operator regularly. Denies recent chest pressure or pain. Does still struggle with fatigue and dyspnea with long distance walk such as from parking lot of store No leg edema, rare use of diuretics. Depression,anxiety, seeing Psychiatry FOUNTAIN ATTENDANT Liborio Khan at [facility]. Stable, taking medications as prescribed. At follow up appt on 05/06/22 Mood, overall stable, taking medications per Psychiatrist as prescribed. Has support from girlfriend and family Hx of complete heart block, pacemaker placement, aortic valve replacement surgery 03/2020. Overall doing well. Sees Mushroom Press Operator regularly. Denies recent chest pressure or pain. [...] replacement surgery 03/2020. Overall doing well. Sees Mushroom Press Operator regularly. Denies recent chest pressure or pain. [...] replacement surgery 03/2020. Overall doing well. Sees Mushroom Press Operator regularly. Denies recent chest pressure or pain. [...] 05/27/2018 Right CTR PACEMAKER IMPLANT Left 04/07/2020 [employer] dual chamber pacemaker for CHB following AVR; [facility]; CARDIAC LOOP RECORDER Left 04/07/2020 ILR removed at time of pacemaker implantation; Dr. Dewey at [facility] REPAIR UMBILICAL HERNIA 02/27/15 RPLCMT PROST AORTIC [...] capsule by mouth one time a week. Xgwjs-2-VHC-EPA-Fish Oil 1,000 mg (120 mg-180 mg) cap [...] ICD9: V45.01, ICD10: Z95.0 - f/u with Mushroom Press Operator, no recent symptoms. 6. Hyperglycemia - ICD9: [...] ICD9: V43.3, ICD10: Z95.2 - f/u with Mushroom Press Operator 12. JUANIS (obstructive sleep apnea) - ICD9: [...] with the plan. Stone Castillo DO [address] [place] [address] documented in this encounterSelect Medical [facility]08-28-2023 History of Present illness Narrative* Iram Olguin, [...] 05, 2023 1:08 PM documented in this encounterSelect Medical [facility]03-15-2023 Miscellaneous Notes* Telephone Encounter - AMBROCIO Aguirre [...] Thank you. AMBROCIO Aguirre documented in this encounterSelect Medical [facility]03-02-2023 Miscellaneous Notes* Telephone Encounter - Kamryn Cerda Cma - 11/07/2022 8:36 AM EST Patient notified and verbalized understanding Kamryn Cerda Cma * Telephone Encounter - Stone Castillo DO - 11/06/2022 8:16 PM EST Please inform patient that his labs are overall improved and stable. Continue same routine Stone Castillo DO documented in this encounterSelect Medical Specialty [facility]02-28-2023 History of Present illness Narrative* Stone Castillo DO - 11/05/2022 2:33 PM EST CC: [...] replacement surgery 03/2020. Overall doing well. Sees Mushroom Press Operator regularly. Denies recent chest pressure or pain. Does still struggle with fatigue and dyspnea with long distance walk such as from parking lot of store No leg edema, rare use of diuretics. Depression,anxiety, seeing Psychiatry FOUNTAIN ATTENDANT Liborio Khan at [facility]. Stable, taking medications as prescribed. At follow up appt on 05/06/22 Mood, overall stable, taking medications per Psychiatrist as prescribed. Has support from girlfriend and family Hx of complete heart block, pacemaker placement, aortic valve replacement surgery 03/2020. Overall doing well. Sees Mushroom Press Operator regularly. Denies recent chest pressure or pain. [...] replacement surgery 03/2020. Overall doing well. Sees Mushroom Press Operator regularly. Denies recent chest pressure or pain. [...] 05/27/2018 Right CTR PACEMAKER IMPLANT Left 04/07/2020 [employer] dual chamber pacemaker for CHB following AVR; Dr. Dewey at [facility] REMOVAL; CARDIAC LOOP RECORDER Left 04/07/2020 ILR removed at time of pacemaker implantation; Dr. Dewey at [facility] REPAIR UMBILICAL HERNIA 02/27/15 RPLCMT PROST AORTIC [...] capsule by mouth one time a week. Frijp-7-UJD-EPA-Fish Oil 1,000 mg (120 mg-180 mg) cap [...] ICD9: V43.3, ICD10: Z95.2 Follow up with Mushroom Press Operator, symptoms are stable. Needs to be avoiding salt in his diet. 6. Ascending aorta dilatation (HCC) - ICD9: 447.71, ICD10: I77.810 Follow up with Mushroom Press Operator, symptoms are stable. Needs to be avoiding salt in his diet. 7. Presence of cardiac pacemaker - ICD9: V45.01, ICD10: Z95.0 Follow up with Mushroom Press Operator, symptoms are stable. Needs to be avoiding [...] plan. See patient instructions. Stone Castillo DO [address] [place] [address] documented in this encounterSelect Medical Specialty [facility]02-15-2023 Miscellaneous Notes* Telephone Encounter - Karely Pantoja - 10/23/2022 10:23 AM EST Spoke to the patient and he is aware that his procedure on 11/04/22 has been moved per his request to 06/16/23 09:30 am ACC with . Karely Pantoja documented in this encounterSelect Medical Specialty [facility]12-19-2022 History of Present illness Narrative* Corinne Fitzpatrick [...] continue at this time. documented in this encounterSelect Medical Specialty [facility], [facility]12-05-2022 Miscellaneous Notes* Telephone Encounter - Corinne Vera [...] meantime. Wilmer Puente DO documented in this encounterSelect Medical Specialty [facility], [facility]10-13-2022 NoteHNO ID: [id number] Author: Yanna Gonzalez PA-C Service: ? Author Type: Physician Rivet Sticker Type: Progress Notes Filed: 06/20/2022 11:08 AM [...] capsule by mouth one time a week. Kvcfi-0-YCD-EPA-Fish Oil 1,000 mg (120 mg-180 mg) cap [...] 05/27/2018 Right CTR PACEMAKER IMPLANT Left 04/07/2020 [employer] dual chamber pacemaker for CHB following AVR; Dr. Dewey at [facility] REMOVAL; CARDIAC LOOP RECORDER Left 04/07/2020 ILR removed at time of pacemaker implantation; Dr. Dewey at [facility] REPAIR UMBILICAL HERNIA 02/27/15 RPLCMT PROST AORTIC [...] (6' 2) Wt (more content not included)... [facility] [id number] Miscellaneous Notes* Telephone Encounter - Skye Devlin - 06/20/2022 11:34 AM EDT Surgery Checklist Type: colon/egd Admission Type: outpatient Anesthesia: MAC Date: 11/04/2022 Arrival Time: 7:00am Surgery Time: 8:30am Location: [facility] Given colon/egd prep instruction at the time of appointment Skye Devlin documented in this encounterSelect Medical Specialty [facility]10-13-2022 History of Present illness Narrative* Yanna Gonzalez [...] capsule by mouth one time a week. Kngkf-3-HLE-EPA-Fish Oil 1,000 mg (120 mg-180 mg) cap [...] 05/27/2018 Right CTR PACEMAKER IMPLANT Left 04/07/2020 [employer] dual chamber pacemaker for CHB following AVR; Dr. Dewey at [facility] REMOVAL; CARDIAC LOOP RECORDER Left 04/07/2020 ILR removed at time of pacemaker implantation; Dr. Dewey at [facility] REPAIR UMBILICAL HERNIA 02/27/15 RPLCMT PROST AORTIC [...] which included preparing to see the patient, cpfx-ue-lyfy patient care, completing clinical documentation, performing a medically appropriate examination, counseling and educating the patient/family/caregiver, and ordering medications, tests,or procedures. documented in this encounterSelect Medical Specialty [facility], [facility]10-10-2022 Miscellaneous Notes* Telephone Encounter - Dustin Guzman - 06/17/2022 3:28 PM EDT 1st time treatment report- non oncology regimen. No assistance to support Venofer drug for insured patients. No further assistance from at this time. documented in this encounterSelect Medical Specialty [facility], [facility]10-06-2022 Miscellaneous Notes* Telephone Encounter - Corinne Vera [...] review. Stone Castillo DO documented in this encounterSelect Medical Specialty [facility], [facility]09-28-2022 Miscellaneous Notes* Telephone Encounter - Erika Elizabeth LPN - 06/05/2022 4:56 PM EDT [facility] contacted he is to have lab drawn tomorrow at [facility] and will be transfused on Friday. Orders [...] cardiac patient. Please set this up at [facility] Stone Castillo DO documented in this encounterCleveland [id number] Miscellaneous Notes* Telephone Encounter - Miguel Angel [...] The rest of the results received from [facility] Iron: 18, TIBC: 372, Ferritin: 19. Per JG results need to be reviewed by provider consultant nurse. Please see JG note below. Peg Mathis [...] ready Stone Castillo DO documented in this encounterSelect Medical Specialty [facility], [facility]08-29-2022 History of Present illness Narrative* Stone Castillo [...] replacement surgery 03/2020. Overall doing well. Sees Mushroom Press Operator regularly. Denies recent chest pressure or pain. Does still struggle with fatigue and dyspnea with long distance walk such as from parking lot of store No leg edema, rare use of diuretics. Depression,anxiety, seeing Psychiatry PRADIP Khan at [facility]. Stable, taking medications as prescribed. Currently Mood, overall stable, taking medications per Psychiatrist as prescribed. Has support from girlfriend and family Hx of complete heart block, pacemaker placement, aortic valve replacement surgery 03/2020. Overall doing well. Sees Mushroom Press Operator regularly. Denies recent chest pressure or pain. [...] 05/27/2018 Right CTR PACEMAKER IMPLANT Left 04/07/2020 [employer] dual chamber pacemaker for CHB following AVR; Dr. Dewey at [facility] REMOVAL; CARDIAC LOOP RECORDER Left 04/07/2020 ILR removed at time of pacemaker implantation; Dr. Dewey at [facility] REPAIR UMBILICAL HERNIA 02/27/15 RPLCMT PROST AORTIC [...] capsule by mouth one time a week. Aiyks-1-FHN-EPA-Fish Oil (FISH OIL) 1,000 mg (120 mg-180 [...] ICD9: V76.51, ICD10: Z12.11 (primary diagnosis) - COLOGAGUILA 2. Aortic valve replaced - ICD9: V43.3, ICD10: Z95.2 F/u with Mushroom Press Operator, need for weight loss. Has good BLOOD PRESSURE control 3. Ascending aorta dilatation (HCC) - ICD9: 447.71, ICD10: I77.810 F/u with Mushroom Press Operator, need for weight loss. Has good BLOOD [...] today . He isn't interested in seeing Steel Estimator at this time. - TRIAMCINOLONE ACETONIDE 0.1 [...] plan. See patient instructions. Stone Castillo DO [address] [place] [address] documented in this encounterSelect Medical Specialty [facility]08-18-2022 Instructions* Patient Instructions* Reece Mendez APRN.FOUNTAIN ATTENDANT - 04/25/2022 1:45 PM EDT FACT SHEET FOR PATIENTS, PARENTS, AND CAREGIVERS EMERGENCY USE AUTHORIZATION (EUA) OF PAXLOVID FOR CORONAVIRUS DISEASE 2019 (COVID-19) You are being given this Fact Sheet because your healthcare provider believes it is necessary to provide you with PAXLOVID for the treatment of mwml-tn-pgcvvegr coronavirus disease (COVID-19) caused by the SARS-CoV-2 [...] virus. COVID-19 illnesses have ranged from very kamr-bw-xmugmy, including illness resulting in . While information [...] is an investigational medicine used to treat igfl-iw-icgcunbj COVID-19 in adults and children [12 years [...] of using PAXLOVID to treat people with pyoi-yq-uxfvdewu COVID-19. The FDA has authorized the emergency use of PAXLOVID for the treatment of rknd-xw-lzkuthwz COVID-19in adults and children [12 years of [...] the medicines you take, including prescription and uaye-con-dbpnsgx medicines, vitamins, and herbal supplements. Some medicines [...] (remdesivir) is FDA-approved for the treatment of lmsv-yw-qtqxcxms COVID-19 in certain adults and children. Talk with your doctor to see if Veklury is appropriate for you. Like PAXLOVID, FDA may also allow for the emergency use of other medicines to treat people with COVID-19. Go to https://www.fda.gov/orzdvxxvl-szgewurikehc-qlmfvnabatl/wvi-obehg-rfpqdyicgs-and- policy-framework/vqsncveox-lya-dcosiggqcrumd for information on the emergency use of [...] if I am or ? There is tenoner operator treating women or mothers with PAXLOVID. For [...] not go away. Report side effects to FDA [employer] at www.fda.gov/medwatch or call 1-078-CMU0036 or you can reportside effects to [address]. at the contact information provided below. Website Fax number Telephone number [employer] How should I store PAXLOVID? Store PAXLOVID [...] (EUA). The EUA is supported by a [employer] of Health and Human Service (HHS) declaration that circumstances exist to justify the emergency use of drugs and biological productsduring the COVID-19 pandemic. PAXLOVID for the treatment of pyax-fq-bjgrkeul COVID-19 in adults and children [12 years [...] telephone number provided below. Website Telephone number www.J[employer]DLS75nmvqLwW[employer] (7-125-H01-SXWW) You can also go to www.[employer] or call for more information. Pfizer Distributed by [employer] [address] [place] [address] LAB-1494-2.1 Revised: 23 November 2021 documented in this encounterSelect Medical Specialty [facility]08-18-2022 History of Present illness Narrative* Reece Mendez APRN.CNP - 04/25/2022 12:55 PM EDT VIRTUAL VISIT PROGRESS NOTE This is a virtual visit using [employer] video visit. It required patient-provider interaction for themedical decision making as documented below. Erlinda De León is a 47 year old male seen for COVID concerns. Today: COVID-Sx began-2 days ago-cough, SOB, chest tightness, fever-then went to [facility] 1 day ago. Contact with COVID + person 3x Positive test-04/24 in [facility] ED Had a breathing treatment, blood work, [...] 05/27/2018 Right CTR PACEMAKER IMPLANT Left 04/07/2020 [employer] dual chamber pacemaker for CHB following AVR; Dr. Dewey at [facility] REMOVAL; CARDIAC LOOP RECORDER Left 04/07/2020 ILR removed at time of pacemaker implantation; Dr. Dewey at [facility] REPAIR UMBILICAL HERNIA 02/27/15 RPLCMT PROST AORTIC [...] (Patient not taking: Reported on 01/04/2022 ) Zkevu-8-MVE-EPA-Fish Oil (FISH OIL) 1,000 mg (120 mg-180 [...] APRN.PRADIP Nirmatrelvir/Ritonavir (Paxlovid) Eligibility and Patient Discussion [facility] Formulary Restriction Criteria: Adult outpatients 18 years [...] 25, 2022 1:46 PM documented [facility] Miscellaneous Notes* Telephone Encounter - Antonella Aaron [...] - 01/04/2022 2:35 PM EDT Please call [facility] to get copy of his most recent labs drawn Stone Castillo DO documented in this encounter[facility]09[facility]17-[facility]21 History of Present illness Narrative* Isi Earl [...] IV DATA: Not applicable SIGNED BY: RT Rabia(Anmol) May 25, 2021 4:59 PM documented in this encounter[facility] History of Past illness Narrative* Problem Noted Date Resolved Date Bradycardia 04/08/2020 04/10/2020 Complete heart block 04/07/2020 04/10/2020 Leukocytosis 04/07/2020 04/10/2020 Angioedema 04/04/2020 04/10/2020 Anaphylaxis 04/04/2020 04/10/2020 Discharge planning issues 12/27/20162017 Overview: This is a 41 yr old male from [facility] here for OHS tht may benefit from [facility] Preop testing 12/27/2016 05/20/2018 Overview: [...] of this encounter (statuses as of 01/04/2022) [facility] History of Past illness Narrative* Problem Noted Date Resolved Date Bradycardia 04/08/2020 04/10/2020 Complete heart block 04/07/2020 04/10/2020 Leukocytosis 04/07/2020 04/10/2020 Angioedema 04/04/2020 04/10/2020 Anaphylaxis 04/04/2020 04/10/2020 Discharge planning issues 12/27/20162017 Overview: This is a 41 yr old male from [facility] here for OHS tht may benefit from [facility] Preop testing 12/27/2016 05/20/2018 Overview: [...] of this encounter (statuses as of 04/26/2022) [facility] History of Past illness Narrative* Problem Noted Date Resolved Date Bradycardia 04/08/2020 04/10/2020 Complete heart block 04/07/2020 04/10/2020 Leukocytosis 04/07/2020 04/10/2020 Angioedema 04/04/2020 04/10/2020 Anaphylaxis 04/04/2020 04/10/2020 Discharge planning issues 12/27/20162017 Overview: This is a 41 yr old male from [facility] here for OHS tht may benefit from [facility] Preop testing 12/27/2016 05/20/2018 Overview: [...] of this encounter (statuses as of 05/07/2022) [facility] History of Past illness Narrative* Problem Noted Date Resolved Date Bradycardia 04/08/2020 04/10/2020 Complete heart block 04/07/2020 04/10/2020 Leukocytosis 04/07/2020 04/10/2020 Angioedema 04/04/2020 04/10/2020 Anaphylaxis 04/04/2020 04/10/2020 Discharge planning issues 12/27/20162017 Overview: This is a 41 yr old male from [facility] here for OHS tht may benefit from [facility] Preop testing 12/27/2016 05/20/2018 Overview: [...] of this encounter (statuses as of 05/16/2022) [facility] History of Past illness Narrative* Problem Noted Date Resolved Date Bradycardia 04/08/2020 04/10/2020 Complete heart block 04/07/2020 04/10/2020 Leukocytosis 04/07/2020 04/10/2020 Angioedema 04/04/2020 04/10/2020 Anaphylaxis 04/04/2020 04/10/2020 Discharge planning issues 12/27/20162017 Overview: This is a 41 yr old male from [facility] here for OHS tht may benefit from [facility] Preop testing 12/27/2016 05/20/2018 Overview: [...] of this encounter (statuses as of 06/05/2022) [facility] History of Past illness Narrative* Problem Noted Date Resolved Date Bradycardia 04/08/2020 04/10/2020 Complete heart block 04/07/2020 04/10/2020 Leukocytosis 04/07/2020 04/10/2020 Angioedema 04/04/2020 04/10/2020 Anaphylaxis 04/04/2020 04/10/2020 Discharge planning issues 12/27/20162017 Overview: This is a 41 yr old male from [facility] here for OHS tht may benefit from [facility] Preop testing 12/27/2016 05/20/2018 Overview: [...] of this encounter (statuses as of 06/13/2022) [facility] History of Past illness Narrative* Problem Noted Date Resolved Date Bradycardia 04/08/2020 04/10/2020 Complete heart block 04/07/2020 04/10/2020 Leukocytosis 04/07/2020 04/10/2020 Angioedema 04/04/2020 04/10/2020 Anaphylaxis 04/04/2020 04/10/2020 Discharge planning issues 12/27/20162017 Overview: This is a 41 yr old male from [facility] here for OHS tht may benefit from [facility] Preop testing 12/27/2016 05/20/2018 Overview: [...] of this encounter (statuses as of 06/17/2022) [facility] History of Past illness Narrative* Problem Noted Date Resolved Date Bradycardia 04/08/2020 04/10/2020 Complete heart block 04/07/2020 04/10/2020 Leukocytosis 04/07/2020 04/10/2020 Angioedema 04/04/2020 04/10/2020 Anaphylaxis 04/04/2020 04/10/2020 Discharge planning issues 12/27/20162017 Overview: This is a 41 yr old male from [facility] here for OHS tht may benefit from [facility] Preop testing 12/27/2016 05/20/2018 Overview: [...] of this encounter (statuses as of 06/20/2022) [facility] History of Past illness Narrative* Problem Noted Date Resolved Date Bradycardia 04/08/2020 04/10/2020 Complete heart block 04/07/2020 04/10/2020 Leukocytosis 04/07/2020 04/10/2020 Angioedema 04/04/2020 04/10/2020 Anaphylaxis 04/04/2020 04/10/2020 Discharge planning issues 12/27/20162017 Overview: This is a 41 yr old male from [facility] here for OHS tht may benefit from [facility] Preop testing 12/27/2016 05/20/2018 Overview: [...] of this encounter (statuses as of 06/20/2022) [facility] History of Past illness Narrative* Problem Noted Date Resolved Date Bradycardia 04/08/2020 04/10/2020 Complete heart block 04/07/2020 04/10/2020 Leukocytosis 04/07/2020 04/10/2020 Angioedema 04/04/2020 04/10/2020 Anaphylaxis 04/04/2020 04/10/2020 Discharge planning issues 12/27/20162017 Overview: This is a 41 yr old male from [facility] here for OHS tht may benefit from [facility] Preop testing 12/27/2016 05/20/2018 Overview: [...] of this encounter (statuses as of 06/27/2022) [facility] History of Past illness Narrative* Problem Noted Date Resolved Date Bradycardia 04/08/2020 04/10/2020 Complete heart block 04/07/2020 04/10/2020 Leukocytosis 04/07/2020 04/10/2020 Angioedema 04/04/2020 04/10/2020 Anaphylaxis 04/04/2020 04/10/2020 Discharge planning issues 12/27/20162017 Overview: This is a 41 yr old male from [facility] here for OHS tht may benefit from [facility] Preop testing 12/27/2016 05/20/2018 Overview: [...] of this encounter (statuses as of 07/01/2022) [facility] History of Past illness Narrative* Problem Noted Date Resolved Date Bradycardia 04/08/2020 04/10/2020 Complete heart block 04/07/2020 04/10/2020 Leukocytosis 04/07/2020 04/10/2020 Angioedema 04/04/2020 04/10/2020 Anaphylaxis 04/04/2020 04/10/2020 Discharge planning issues 12/27/20162017 Overview: This is a 41 yr old male from [facility] here for OHS tht may benefit from [facility] Preop testing 12/27/2016 05/20/2018 Overview: [...] of this encounter (statuses as of 07/06/2022) [facility] History of Past illness Narrative* Problem Noted Date Resolved Date Bradycardia 04/08/2020 04/10/2020 Complete heart block 04/07/2020 04/10/2020 Leukocytosis 04/07/2020 04/10/2020 Angioedema 04/04/2020 04/10/2020 Anaphylaxis 04/04/2020 04/10/2020 Discharge planning issues 12/27/20162017 Overview: This is a 41 yr old male from [facility] here for OHS tht may benefit from [facility] Preop testing 12/27/2016 05/20/2018 Overview: [...] of this encounter (statuses as of 07/08/2022) [facility] History of Past illness Narrative* Problem Noted Date Resolved Date Bradycardia 04/08/2020 04/10/2020 Complete heart block 04/07/2020 04/10/2020 Leukocytosis 04/07/2020 04/10/2020 Angioedema 04/04/2020 04/10/2020 Anaphylaxis 04/04/2020 04/10/2020 Discharge planning issues 12/27/20162017 Overview: This is a 41 yr old male from [facility] here for OHS tht may benefit from [facility] Preop testing 12/27/2016 05/20/2018 Overview: [...] of this encounter (statuses as of 08/08/2022) [facility] History of Past illness Narrative* Problem Noted Date Resolved Date Bradycardia 04/08/2020 04/10/2020 Complete heart block 04/07/2020 04/10/2020 Leukocytosis 04/07/2020 04/10/2020 Angioedema 04/04/2020 04/10/2020 Anaphylaxis 04/04/2020 04/10/2020 Discharge planning issues 12/27/20162017 Overview: This is a 41 yr old male from [facility] here for OHS tht may benefit from [facility] Preop testing 12/27/2016 05/20/2018 Overview: [...] of this encounter (statuses as of 08/12/2022) [facility] History of Past illness Narrative* Problem Noted Date Resolved Date Bradycardia 04/08/2020 04/10/2020 Complete heart block 04/07/2020 04/10/2020 Leukocytosis 04/07/2020 04/10/2020 Angioedema 04/04/2020 04/10/2020 Anaphylaxis 04/04/2020 04/10/2020 Discharge planning issues 12/27/20162017 Overview: This is a 41 yr old male from [facility] here for OHS tht may benefit from [facility] Preop testing 12/27/2016 05/20/2018 Overview: [...] of this encounter (statuses as of 08/15/2022) [facility] History of Past illness Narrative* Problem Noted Date Resolved Date Bradycardia 04/08/2020 04/10/2020 Complete heart block 04/07/2020 04/10/2020 Leukocytosis 04/07/2020 04/10/2020 Angioedema 04/04/2020 04/10/2020 Anaphylaxis 04/04/2020 04/10/2020 Discharge planning issues 12/27/20162017 Overview: This is a 41 yr old male from [facility] here for OHS tht may benefit from [facility] Preop testing 12/27/2016 05/20/2018 Overview: [...] DM: No Cardiac Surgical prep: No SIGNATURE: Lauire Pennington RN CHECKED BY: DATE of SERVICE: 12/27/2016 TIME of SERVICE: 7:44 AM documented as of this encounter (statuses as of 08/20/2022) [facility] History of Past illness Narrative* Problem Noted Date Resolved Date Bradycardia 04/08/2020 04/10/2020 Complete heart block 04/07/2020 04/10/2020 Leukocytosis 04/07/2020 04/10/2020 Angioedema 04/04/2020 04/10/2020 Anaphylaxis 04/04/2020 04/10/2020 Discharge planning issues 12/27/20162017 Overview: This is a 41 yr old male from [facility] here for OHS tht may benefit from [facility] Preop testing 12/27/2016 05/20/2018 Overview: [...] of this encounter (statuses as of 08/26/2022) [facility] History of Past illness Narrative* Problem Noted Date Resolved Date Bradycardia 04/08/2020 04/10/2020 Complete heart block 04/07/2020 04/10/2020 Leukocytosis 04/07/2020 04/10/2020 Angioedema 04/04/2020 04/10/2020 Anaphylaxis 04/04/2020 04/10/2020 Discharge planning issues 12/27/20162017 Overview: This is a 41 yr old male from [facility] here for OHS tht may benefit from [facility] Preop testing 12/27/2016 05/20/2018 Overview: [...] of this encounter (statuses as of 10/09/2022) [facility] History of Past illness Narrative* Problem Noted Date Resolved Date Bradycardia 04/08/2020 04/10/2020 Complete heart block 04/07/2020 04/10/2020 Leukocytosis 04/07/2020 04/10/2020 Angioedema 04/04/2020 04/10/2020 Anaphylaxis 04/04/2020 04/10/2020 Discharge planning issues 12/27/20162017 Overview: This is a 41 yr old male from [facility] here for OHS tht may benefit from [facility] Preop testing 12/27/2016 05/20/2018 Overview: [...] of this encounter (statuses as of 10/23/2022) [facility] History of Past illness Narrative* Problem Noted Date Resolved Date Bradycardia 04/08/2020 04/10/2020 Complete heart block 04/07/2020 04/10/2020 Leukocytosis 04/07/2020 04/10/2020 Angioedema 04/04/2020 04/10/2020 Anaphylaxis 04/04/2020 04/10/2020 Discharge planning issues 12/27/20162017 Overview: This is a 41 yr old male from [facility] here for OHS tht may benefit from [facility] Preop testing 12/27/2016 05/20/2018 Overview: [...] of this encounter (statuses as of 11/05/2022) [facility] History of Past illness Narrative* Problem Noted Date Resolved Date Bradycardia 04/08/2020 04/10/2020 Complete heart block 04/07/2020 04/10/2020 Leukocytosis 04/07/2020 04/10/2020 Angioedema 04/04/2020 04/10/2020 Anaphylaxis 04/04/2020 04/10/2020 Discharge planning issues 12/27/20162017 Overview: This is a 41 yr old male from [facility] here for OHS tht may benefit from [facility] Preop testing 12/27/2016 05/20/2018 Overview: [...] of this encounter (statuses as of 11/07/2022) [facility] History of Past illness Narrative* Problem Noted Date Resolved Date Bradycardia 04/08/2020 04/10/2020 Complete heart block 04/07/2020 04/10/2020 Leukocytosis 04/07/2020 04/10/2020 Angioedema 04/04/2020 04/10/2020 Anaphylaxis 04/04/2020 04/10/2020 Discharge planning issues 12/27/20162017 Overview: This is a 41 yr old male from [facility] here for OHS tht may benefit from [facility] Preop testing 12/27/2016 05/20/2018 Overview: [...] of this encounter (statuses as of 11/20/2022) [facility] History of Past illness Narrative* Problem Noted Date Diagnosed Date Resolved Date Bradycardia 04/08/2020 04/10/2020 Complete heart block 04/07/2020 020 Leukocytosis 04/07/2020 04/10/2020 Angioedema 04/04/2020 04/10/2020 Anaphylaxis 04/04/2020 04/10/2020 Discharge planning issues 12/27/2016 Overview: This is a 41 yr old male from [facility] here for OHS tht may benefit from [facility] Preop testing 12/27/2016 05/20/2018 Overview: [...] of this encounter (statuses as of 05/06/2023) [facility] History of Past illness Narrative* Problem Noted Date Diagnosed Date Resolved Date Bradycardia 04/08/2020 04/10/2020 Complete heart block 04/07/2020 08 020 Leukocytosis 04/07/2020 04/10/2020 Angioedema 04/04/2020 04/10/2020 Anaphylaxis 04/04/2020 04/10/2020 Discharge planning issues 12/27/2016 Overview: This is a 41 yr old male from [facility] here for OHS tht may benefit from [facility] Preop testing 12/27/2016 05/20/2018 Overview: [...] of this encounter (statuses as of 05/16/2023) [facility] History of Past illness Narrative* Problem Noted Date Diagnosed Date Resolved Date Bradycardia 04/08/2020 04/10/2020 Complete heart block 04/07/2020 020 Leukocytosis 04/07/2020 04/10/2020 Angioedema 04/04/2020 04/10/2020 Anaphylaxis 04/04/2020 04/10/2020 Discharge planning issues 12/27/2016 Overview: This is a 41 [address] old male from [facility] here for OHS tht may benefit from [facility] Preop testing 12/27/2016 05/20/2018 Overview: Images from the original note were not included. HEART and VASCULAR [place] PRE-OP CHECKLIST Surgeon: Sebastián Kessler M.D. Informed [...] of this encounter (statuses as of 06/02/2023) [facility] History of Past illness Narrative* Problem Noted Date Diagnosed Date Resolved Date Bradycardia 04/08/2020 04/10/2020 Complete heart block 04/07/2020 020 Leukocytosis 04/07/2020 04/10/2020 Angioedema 04/04/2020 04/10/2020 Anaphylaxis 04/04/2020 04/10/2020 Discharge planning issues 12/27/2016 Overview: This is a 41 yr old male from [facility] here for OHS tht may benefit from [facility] Preop testing 12/27/2016 05/20/2018 Overview: [...] of this encounter (statuses as of 11/28/2023) [facility] Evaluation note* Diagnosis Onset Date Resolution Status [...] March, chronic Thoracic aortic aneurysm without rupture [facility] Work Phone: 1(897) 937-720007-01-2020 Evaluation note* Diagnosis Onset Date Resolution Status AV block, complete acute Presence of permanent cardiac pacemaker March, chronic Dyslipidemia chronic History of aortic valve repl acement with bioprosthetic valve March, chronic Presence of permanent cardiac pacemaker March, chronic Thoracic aortic aneurysm without rupture chronic AV block, complete acute LBBB (left bundle branch block) chronic Presence of permanent cardiac pacemaker March, [facility] Work Phone: 1(253) 927-900407-01-2020 Evaluation note* Diagnosis Onset Date Resolution Status AV block, complete acute Syncope acute Presence of permanent cardiac pacemaker March, chronic Dyslipidemia chronic History of aortic valve repl acement with bioprosthetic valve March, chronic Presence of permanent cardiac pacemaker March, chronic Thoracic aortic aneurysm without rupture [facility] Work Phone: Evaluation note* Diagnosis COVID- Primary documented in this encounter [facility] [place] [facility]* Diagnosis Dyslipidemia- Primary Other and unspecified [...] specified viral diseases [facility] Anemia, unspecified type- Primary [facility] Diagnosis Anemia, unspecified type- Primary [facility] Diagnosis Other iron deficiency anemia- Primary 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 Other specified intestinal malabsorption [facility] Diagnosis Iron deficiency anemia, unspecified iron deficiency anemia type- Primary [facility] Iron deficiency anemia secondary to inadequate dietary iron intake- Primary Iron malabsorption Other specified intestinal malabsorption [facility] Diagnosis Iron deficiency anemia secondary [...] specified intestinal malabsorption [facility] Diagnosis Iron deficiency anemia secondary to inadequate dietary iron intake- Primary Iron malabsorption Other specified intestinal malabsorption [facility] Iron deficiency anemia secondary to inadequate dietary iron intake- Primary Iron malabsorption Other specified intestinal malabsorption [facility] Diagnosis Iron deficiency anemia secondary to inadequate dietary iron intake- Primary Iron malabsorption Other specified intestinal malabsorption [facility] Diagnosis Other iron deficiency anemia- Primary Vitamin D deficiency Unspecified vitamin D deficiency Dyslipidemia Other and unspecified hyperlipidemia Fatigue, unspecified type Aortic valve replaced Heart valve replaced by other means Ascending aorta dilatation (HCC) Thoracic aortic ectasia Presence of cardiac pacemaker Cardiac pacemaker in situ JUANIS (obstructive sleep apnea) Obstructive sleep apnea (adult) (pediatric) documented [facility] [place] [facility]* Diagnosis GERD without esophagitis Esophageal reflux documented in this encounter [facility] note* Diagnosis Iron deficiency anemia secondary to [...] Psoriasis Other psoriasis documented in this encounter [facility] note* Diagnosis Chronic pain of both knees- Primary Chronic pain of both ankles Calcaneal spur, unspecified laterality [facility] this [facility] [place] [facility]* Diagnosis Pes planus of both feet- Primary Arthritis of both subtalar joints Calcaneal spur of both feet documented in this encounter [facility] note* Diagnosis GERD without esophagitis Esophageal reflux [facility] [place] [facility]* Diagnosis Chronic pain of both knees Chronic pain of both ankles [facility] [place] [facility]* Diagnosis GERD without esophagitis Esophageal reflux documented in this encounter [facility] note* Diagnosis Well adult exam- Primary Routine [...] and behavioral disorders documented in this encounter [facility] noteNo assessment information availableL[facility] Work Phone: Evaluation note* Diagnosis GERD without esophagitis Esophageal reflux documented in this encounter [facility] for referral (narrative)* Outpatient Procedure (Routine) - Pending Review Specialty Diagnoses / Procedures Referred By Jack t Referred To Contact [facility] Diagnoses Iron deficiency anemia, unspecified iron deficiency anemia type Procedures EGD DIAGNOSTIC EGD DIAGNOSTIC ESOPHAGOGASTRODUODENOSC OPY TRANSORAL DIAGNOSTIC Yanna Gonzalez PA-C [address] [place] [address] [facility] [address] [place] [address] Referral ID Status Reason Start Date Expiration Date Visits Requested Visits Authorized [id number] Pending Review Auto-Generat ed Referral 2 06/20/2023 1 1 * Outpatient Procedure (Routine) - Pending Review Specialty Diagnoses / Procedures Referred By Contac t Referred To Contact [facility] Diagnoses Iron deficiency anemia, unspecified iron deficiency anemia type Procedures COLONOSCOPY SCREENING COLONOSCOPY SCREENING COLONOSCOPY FLX DX W/COLLJ SPEC WHEN PFRMD Yanna Gonzalez PA-C [address] [place] [address] [facility] [id number] [place] [address] Referral ID Status Reason Start Date Expiration Date Visits Requested Visits Authorized [id number] Pending Review Auto-Generat ed Referral 2 06/20/2023 1 1 [facility] for referral (narrative)* Diagnostic Procedure Only (Routine) - Closed Specialty Diagnoses / Procedures Referred By Contac t Referred To Contact [facility] Diagnoses Chronic pain of both ankles Procedures XR ANKLE GENERAL 3V AP/LAT/OBL BILATERAL RADEX ANKLE COMPLETE MINIMUM 3 VIEWS Stone Castillo, [address] [place] [address] [place] [address] Referral ID Status Reason Start Date Expiration Date V isits Requested Visits Authorized [id number] Closed Auto-Generate d Referral 05/05/2023 06/03/2024 1 1 * Diagnostic Procedure Only (Routine) - Closed Specialty Diagnoses / Procedures Referred By Contac t Referred To Contact XR IMAGING Diagnoses Chronic pain of both knees Procedures XR KNEE GENERAL 4V AP BOTH/PA BOTH/LAT/MERC BILATERAL RADIOLOGIC EXAM KNEE COMPLETE 4/MORE VIEWS Stone Castillo DO [address] [place] [address] [place] [address] Referral ID Status Reason Start Date Expiration Date V isits Requested Visits Authorized [id number] Closed Auto-Generate d Referral 05/05/2023 06/03/2024 1 1 [facility] for referral (narrative)* Diagnostic Procedure Only (Routine) - Closed Specialty Diagnoses / Procedures Referred By Contac t Referred To Contact XR IMAGING Diagnoses Chronic pain of both ankles Procedures XR ANKLE GENERAL 3V AP/LAT/OBL BILATERAL RADEX ANKLE COMPLETE MINIMUM 3 VIEWS Stone Castillo DO [address] [place] [address] [place] [address] Referral ID Status Reason Start Date Expiration Date V isits Requested Visits Authorized [id number] Closed Auto-Generate d Referral 05/05/2023 06/03/2024 1 1 * Diagnostic Procedure Only (Routine) - Closed Specialty Diagnoses / Procedures Referred By Contac t Referred To Contact XR IMAGING Diagnoses Chronic pain of both knees Procedures XR KNEE GENERAL 4V AP BOTH/PA BOTH/LAT/MERC BILATERAL RADIOLOGIC EXAM KNEE COMPLETE 4/MORE VIEWS Stone Castillo DO [address] [place] [address] [place] [address] Referral ID Status Reason Start Date Expiration Date V isits Requested Visits Authorized [id number] Closed Auto-Generate d Referral 05/05/2023 06/03/2024 1 1 [facility] for referral (narrative)No reason for referral information [facility] Work Phone: Reason for visit Narrative* Diagnostic Procedure Only (Routine) - Closed Specialty Diagnoses / Procedures Referred By Contac t Referred To Contact XR IMAGING Diagnoses Chronic pain of both ankles Procedures XR ANKLE GENERAL 3V AP/LAT/OBL BILATERAL RADEX ANKLE COMPLETE MINIMUM 3 VIEWS Stone Castillo, DO [address] [facility] [place] [address] [place] [address] Referral ID Status Reason Start Date Expiration Date V isits Requested Visits Authorized [id number] Closed Auto-Generate d Referral 05/05/2023 06/03/2024 1 1 [facility] Summary Purpose Family History No Family History Records Found Relationship Condition Age at Onset Recorded Date/T brenda mother Hypertension Unknown father Heart murmur Unknown Advance Directives No Advanced Directives Records Found Advance Directive Response Recorded Date/ Time Advance Directives No January 07, 2020 8:30am Living Will No March 28, 2021 3:11pm Power of Desktop Specialist No March 28 3:11pm Documents on File Type Date Recorded Patient Creative/Art Director Expl anation Advance Directive(s) 04/04/2020 6:28 AM [...] No April 24 2 3:20pm Power of Desktop Specialist No April 24, 2 022 3:20pm Latest [...] Procedures ECHOCARDIOGRAM Miguel Angel Watt, DO [address] [place] [address] Specialty Diagnoses / Procedures Referred By Contac t Referred To Contact General Surgery Diagnoses Anemia, unspecified type Procedures CONSULT TO GENERAL SURGERY OFFICE/OUTPATIENT [facility] 60-74 MINUTES Stone Castillo, DO [address] [place] [address] Referral ID Status Reason Start Date Expiration Date Visits Requested Visits Authorized [id number] Authorized PCP Requested Referral 06/05/2022 06/05/2023 1 1 Specialty Diagnoses / Procedures Referred By Contac t Referred To Contact General Surgery Diagnoses Other iron deficiency anemia Procedures CONSULT TO GENERAL SURGERY OFFICE/OUTPATIENT [facility] 60-74 MINUTES Stone Castillo, DO [address] [place] [address] Referral ID Status Reason Start Date Expiration Date Visits Requested Visits Authorized [id number] Authorized PCP Requested Referral 06/12/2022 06/12/2023 1 1 Specialty Diagnoses / Procedures Referred By Contac t Referred To Contact [facility] Diagnoses Chronic pain of both knees Procedures CONSULT TO PHYSICAL THERAPY PHYSICAL THERAPY EVALUATION HIGH COMPLEX 45 MINS Antonella Law, SENIOR MANAGER ASSET PROTECTION.FOUNTAIN ATTENDANT [address] [place] [address] [facility] [place] [address] [place] [id number] Referral ID Status Reason Start Date Expiration Date Visits Requested Visits Authorized [id number] Authorized PCP Requested Referral Auto-Generate d Referral 05/08/2023 05/07/2024 99 99 Specialty Diagnoses / Procedures Referred By Contac t Referred To Contact Podiatry Diagnoses Chronic pain of both ankles Calcaneal spur, unspecified laterality Procedures CONSULT TO PODIATRY OFFICE/OUTPATIENT [facility] 60-74 MINUTES Antonella Law APRN.FOUNTAIN ATTENDANT [address] [place] [address] Referral ID Status Reason Start Date Expiration Date Visits Requested Visits Authorized [id number] Authorized PCP Requested Referral 05/08/2023 05/07/2024 1 [...] trauma with child support issues and threatened assisted time. He was on disability due to his severe aortic stenosis. Allergies Allergen Reactions *Adhesive Tape Itching and Rash Patient states when he wore Holter electrodes, he broke out in rash and itching Outpatient Medications Prior to Visit Medication Sig Dispense Refill [place]-3 Fatty Acids (FISH OIL) 1000 MG Cap [...] file Gets together: Not on file Attends quaker service: Not on file Active member of [...] trauma with child support issues and threatened assisted time. He has had recent lower extremity edema without PND or orthopnea. He does consume significant fluids. He was placed on a diuretic this has resolved. He has a courtdate for Social Security and then he states he will proceed with his AVR. I stated he will need repeat catheterization. For convenience I suggested that this could be performed at [facility] along with [facility] since transportation here is an issue Allergies Allergen Reactions *Adhesive Tape Itching and Rash Patient states when he wore Holter electrodes, he broke out in rash and itching Outpatient Medications Prior to Visit Medication Sig Dispense Refill metoprolol succinate 25 MG tablet XL Take 1 tablet by mouth daily. 30 tablet 11 [place]-3 Fatty Acids (FISH OIL) 1000 MG Cap [...] file Gets together: Not on file Attends quaker service: Not on file Active member of [...] aneurysm without rupture March 23, 2025 1:32pm Chief Complaint Admit Date Pacer Check Remote December 28, 2024 7:1 5am Pacer Check Remote March 23, 2025 9:00 am Annual in-clinic f/u(SD 2PM) March 23, 2025 1:25pm 6 M FU (MASTER 1:30) March 23, 2025 1:32 pm CARDIOMEGALY April 05, 2025 6:47 am BP CHECK April 06, 2025 1:31 pm Chief Complaint Admit Date Pacer Check Remote December 28, 2024 7:1 5am Pacer Check Remote March 23, 2025 9:00 am Annual in-clinic f/u(SD 2PM) March 23, 2025 1:25pm 6 M FU (MASTER 1:30) March 23, 2025 1:32 pm CARDIOMEGALY April 05, 2025 6:47 am BP CHECK April 06, 2025 1:31 pm Aneurysm of the ascending aorta, without rupture April 13, 2025 2:54pm Chief Complaint Admit Date Pacer Check Remote December 28, 2024 7:1 5am Pacer Check Remote March 23, 2025 9:00 am Annual in-clinic f/u(SD 2PM) March 23, 2025 1:25pm 6 M FU (MASTER 1:30) March 23, 2025 1:32 pm Pacer Check Remote March 29, 2025 4:41 am CARDIOMEGALY April 05, 2025 6:47 am BP CHECK April 06, 2025 1:31 pm Aneurysm of the ascending aorta, without rupture April 13, 2025 2:54pm Medications Administered Section Inactive Administered Medications - up to 3 most recent administrations Medication Order MAR Action Action Date Dose Rate Site iron sucrose 200 mg in NaCl 0.9% 100ml (VENOFER) 200 mg, INTRAVENOUS, at 400 mL/hr, Administer over 15 Minutes, ONCE, 1 dose, On Deena 06/27/22 at 1430, Please conduct a 30 minute post dose observation. New Bag/Syringe/Bottle 06/27/2022 2:30 PM EDT 200 mg 400 mL/hr Inactive Administered Medications - up to 3 most recent administrations Medication Order MAR Action Action Date Dose Rate Site iron sucrose 200 mg in NaCl 0.9% 100ml (VENOFER) 200 mg, INTRAVENOUS, at 400 mL/hr, Administer over 15 Minutes, ONCE, 1 dose, On 07/01/22 at 1500, Please conduct a 30 minute post dose observation. New Bag/Syringe/Bottle 07/01/2022 3:00 PM EDT 200 mg 400 mL/hr Inactive Administered Medications - up to 3 most recent administrations Medication Order MAR Action Action Date Dose Rate Site iron sucrose 200 mg in NaCl 0.9% 100ml (VENOFER) 200 mg, INTRAVENOUS, at 400 mL/hr, Administer over 15 Minutes, ONCE, 1 dose, On 07/08/22 at 1500, Please conduct a 30 minute post dose observation. New Bag/Syringe/Bottle 07/08/2022 3:00 PM EDT 200 mg 400 mL/hr Inactive Administered Medications - up to 3 most recent administrations Medication Order MAR Action Action Date Dose Rate Site iron sucrose 200 mg in NaCl 0.9% 100ml (VENOFER) 200 mg, INTRAVENOUS, at 400 mL/hr, Administer over 15 Minutes, ONCE, 1 dose, On Deena 08/15/22 at 1500, Please conduct a 30 minute [...] section and content) DATE CREATED AUTHOR 06/22/2018 [facility] DATE CREATED AUTHOR AUTHOR'S ORGANIZ ATION 11/12/2018 [facility] DATE CREATED AUTHOR AUTHOR'S ORGANIZ ATION 05/15/2021 [facility] DATE CREATED AUTHOR AUTHOR'S ORGANIZ ATION 10/25/2022 [facility] DATE CREATED AUTHOR AUTHOR'S ORGANIZ ATION 12/11/2024 [facility] DATE CREATED AUTHOR AUTHOR'S ORGANIZ ATION 04/22/2025 [facility] Reason for Visit (unrecogniz ed section [...] inadequate dietary iron intake Iron malabsorption Wilmer Puente, DO [address] [place] [address] [facility] [address] [place] [address] Referral ID Status Reason Start Date Expiration Date V isits Requested Visits Authorized [id number] Authorized 06/12/2022 09/10/2022 99 99 Specialty Diagnoses / Procedures Referred By Contac t Referred To Contact Diagnoses 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 Wilmer Puente, DO [address] [place] [address] [facility] [address] [place] [address] Reason Comments Results CBC and iron results Reason Comments Procedure Changes Reason Comments F/U 6 months Reason Comments Results Reason Onset Date Comments Refill Request 11/20/2022 Reason Comments Yearly Exam Reason Comments Results Reason Comments New Pain Specialty Diagnoses / Procedures Referred By Contac t Referred To Contact Podiatry Diagnoses Chronic pain of both ankles Calcaneal spur, unspecified laterality Procedures CONSULT TO PODIATRY OFFICE/OUTPATIENT NEW [facility]IGH [facility] 60-74 MINUTES Antonella Law APRN.FOUNTAIN ATTENDANT [address] [place] [address] Referral ID Status Reason Start Date Expiration Date V isits Requested Visits Authorized [id number] Closed PCP Requested Referral 05/08/2023 05/07/2024 1 1 Reason Onset Date Comments Refill Request 11/27/2023 Reason Onset Date Comments Population Health Navigation Outreach 08/25/2024 [facility] Reason Comments Refill Request Reason Comments [...] or prosecute any alcohol or drug abuse patient.[facility], IncIn the event this information is protected by the Federal Confidentiality of Alcohol and Drug Abuse Patient Records regulations: The Federal rules restrict any use of the information to criminally investigate or prosecute any alcohol or drug abuse patient.[facility], IncIn the event this information is protected by the Federal Confidentiality of Alcohol and Drug Abuse Patient Records regulations: The Federal rules restrict any use of the information to criminally investigate or prosecute any alcohol or drug abuse patient.[facility], IncIn the event this information is protected by the Federal Confidentiality of Alcohol and Drug Abuse Patient Records regulations: The Federal rules restrict any use of the information to criminally investigate or prosecute any alcohol or drug abuse patient.[facility] IncIn the event this information is protected by the Federal Confidentiality of Alcohol and Drug Abuse Patient Records regulations: The Federal rules restrict any use of the information to criminally investigate or prosecute any alcohol or drug abuse patient.[facility] IncIn the event this information is protected by the Federal Confidentiality of Alcohol and Drug Abuse Patient Records regulations: The Federal rules restrict any use of the information to criminally investigate or prosecute any alcohol or drug abuse patient.[facility] IncIn the event this information is protected by the Federal Confidentiality of Alcohol and Drug Abuse Patient Records regulations: The Federal rules restrict any use of the information to criminally investigate or prosecute any alcohol or drug abuse patient.[facility] IncIn the event this information is protected by the Federal Confidentiality of Alcohol and Drug Abuse Patient Records regulations: The Federal rules restrict any use of the information to criminally investigate or prosecute any alcohol or drug abuse patient.[facility] IncIn the event this information is protected by the Federal Confidentiality of Alcohol and Drug Abuse Patient Records regulations: The Federal rules restrict any use of the information to criminally investigate or prosecute any alcohol or drug abuse patient.[facility] IncIn the event this information is protected by the Federal Confidentiality of Alcohol and Drug Abuse Patient Records regulations: The Federal rules restrict any use of the information to criminally investigate or prosecute any alcohol or drug abuse patient.[facility] IncIn the event this information is protected by the Federal Confidentiality of Alcohol and Drug Abuse Patient Records regulations: The Federal rules restrict any use of the information to criminally investigate or prosecute any alcohol or drug abuse patient.[facility], IncIn the event this information is protected by the Federal Confidentiality of Alcohol and Drug Abuse Patient Records regulations: The Federal rules restrict any use of the information to criminally investigate or prosecute any alcohol or drug abuse patient.[facility], IncIn the event this information is protected by the Federal Confidentiality of Alcohol and Drug Abuse Patient Records regulations: The Federal rules restrict any use of the information to criminally investigate or prosecute any alcohol or drug abuse patient.[facility], IncIn the event this information is protected by the Federal Confidentiality of Alcohol and Drug Abuse Patient Records regulations: The Federal rules restrict any use of the information to criminally investigate or prosecute any alcohol or drug abuse patient.[facility], IncIn the event this information is protected by the Federal Confidentiality of Alcohol and Drug Abuse Patient Records regulations: The Federal rules restrict any use of the information to criminally investigate or prosecute any alcohol or drug abuse patient.[facility], IncIn the event this information is protected by the Federal Confidentiality of Alcohol and Drug Abuse Patient Records regulations: The Federal rules restrict any use of the information to criminally investigate or prosecute any alcohol or drug abuse patient.[facility], IncIn the event this information is protected by the Federal Confidentiality of Alcohol and Drug Abuse Patient Records regulations: The Federal rules restrict any use of the information to criminally investigate or prosecute any alcohol or drug abuse patient.[facility], IncIn the event this information is protected by the Federal Confidentiality of Alcohol and Drug Abuse Patient Records regulations: The Federal rules restrict any use of the information to criminally investigate or prosecute any alcohol or drug abuse patient.[facility] IncIn the event this information is protected by the Federal Confidentiality of Alcohol and Drug Abuse Patient Records regulations: The Federal rules restrict any use of the information to criminally investigate or prosecute any alcohol or drug abuse patient.[facility] IncIn the event this information is protected by the Federal Confidentiality of Alcohol and Drug Abuse Patient Records regulations: The Federal rules restrict any use of the information to criminally investigate or prosecute any alcohol or drug abuse patient.[facility] IncIn the event this information is protected by the Federal Confidentiality of Alcohol and Drug Abuse Patient Records regulations: The Federal rules restrict any use of the information to criminally investigate or prosecute any alcohol or drug abuse patient.[facility], IncIn the event this information is protected by the Federal Confidentiality of Alcohol and Drug Abuse Patient Records regulations: The Federal rules restrict any use of the information to criminally investigate or prosecute any alcohol or drug abuse patient.[facility] IncIn the event this information is protected by the Federal Confidentiality of Alcohol and Drug Abuse Patient Records regulations: The Federal rules restrict any use of the information to criminally investigate or prosecute any alcohol or drug abuse patient.[facility] IncIn the event this information is protected by the Federal Confidentiality of Alcohol and Drug Abuse Patient Records regulations: The Federal rules restrict any use of the information to criminally investigate or prosecute any alcohol or drug abuse patient.[facility] IncIn the event this information is protected by the Federal Confidentiality of Alcohol and Drug Abuse Patient Records regulations: The Federal rules restrict any use of the information to criminally investigate or prosecute any alcohol or drug abuse patient.[facility] IncIn the event this information is protected by the Federal Confidentiality of Alcohol and Drug Abuse Patient Records regulations: The Federal rules restrict any use of the information to criminally investigate or prosecute any alcohol or drug abuse patient.[facility] IncIn the event this information is protected by the Federal Confidentiality of Alcohol and Drug Abuse Patient Records regulations: The Federal rules restrict any use of the information to criminally investigate or prosecute any alcohol or drug abuse patient.[facility] IncIn the event this information is protected by the Federal Confidentiality of Alcohol and Drug Abuse Patient Records regulations: The Federal rules restrict any use of the information to criminally investigate or prosecute any alcohol or drug abuse patient.[facility] IncIn the event this information is protected by the Federal Confidentiality of Alcohol and Drug Abuse Patient Records regulations: The Federal rules restrict any use of the information to criminally investigate or prosecute any alcohol or drug abuse patient.[facility] IncIn the event this information is protected by the Federal Confidentiality of Alcohol and Drug Abuse Patient Records regulations: The Federal rules restrict any use of the information to criminally investigate or prosecute any alcohol or drug abuse patient.[facility] IncIn the event this information is protected by the Federal Confidentiality of Alcohol and Drug Abuse Patient Records regulations: The Federal rules restrict any use of the information to criminally investigate or prosecute any alcohol or drug abuse patient.[facility] IncIn the event this information is protected by the Federal Confidentiality of Alcohol and Drug Abuse Patient Records regulations: The Federal rules restrict any use of the information to criminally investigate or prosecute any alcohol or drug abuse patient.[facility], IncIn the event this information is protected by the Federal Confidentiality of Alcohol and Drug Abuse Patient Records regulations: The Federal rules restrict any use of the information to criminally investigate or prosecute any alcohol or drug abuse patient.[facility], IncIn the event this information is protected by the Federal Confidentiality of Alcohol and Drug Abuse Patient Records regulations: The Federal rules restrict any use of the information to criminally investigate or prosecute any alcohol or drug abuse patient.[facility] Care Teams (unrecognized sec tion and content) Lead Painter Relationship Specialty Start Date End Date Stone Castillo, DO [address] [place] [address] PCP - General Family Practice 09/14/13 Wilmer Rodríguez [address] [place] [address] Cardiology 02/02/20 Gopal Bullard MD [address] [place] [address] [place] [address] Home Care Physician Cardiothoracic Surgery 04/10/20 Christine Parks, ALIA.FOUNTAIN ATTENDANT [address] [place] [address] Referring Cardiac Surg 04/10/20 Lead Painter Relationship Specialty Start Date End Date Stone Castillo DO [address] [place] [address] PCP - General Family Practice 09/14/13 Wilmer Rodríguez [address] [place] [address] Cardiology 02/02/20 Gopal Bullard MD [address] [address] [place] [address] Home Care Physician Cardiothoracic Surgery 04/10/20 Christine Parks, SENIOR MANAGER ASSET PROTECTION.FOUNTAIN ATTENDANT [address] [place] [address] Referring Cardiac Surg 04/10/20 Lead Painter Relationship Specialty Start Date End Date Stone Castillo, DO [address] [place] [address] PCP - General Family Practice 09/14/13 Wilmer Rodríguez [address] [facility] [place] [address] Cardiology 02/02/20 Gopal Bullard MD [address] [place] [address] [place] [address] Home Care Physician Cardiothoracic Surgery 04/10/20 Christine Parks, SENIOR MANAGER ASSET PROTECTION.FOUNTAIN ATTENDANT [address] [place] [address] Referring Cardiac Surg 04/10/20 Lead Painter Relationship Specialty Start Date End Date Stone Castillo, DO [address] [place] [address] PCP - General Family Practice 09/14/13 Wilmer Rodríguez [address] [facility] [place] [address] Cardiology 02/02/20 Gopal Bullard MD [address] [address] [place] [address] Home Care Physician Cardiothoracic Surgery 04/10/20 Christine Parks, SENIOR MANAGER ASSET PROTECTION.FOUNTAIN ATTENDANT [address] [place] [address] Referring Cardiac Surg 04/10/20 Lead Painter Relationship Specialty Start Date End Date Stone Castillo, DO [address] [place] [address] PCP - General Family Medicine 09/14/13 Wilmer Rodríguez [address] [place] [address] Cardiology 02/02/20 Gopal Bullard MD [address] [place] [address] [place] [address] Home Care Provider Cardiothoracic Surgery 04/10/20 Christine Parks, SENIOR MANAGER ASSET PROTECTION.FOUNTAIN ATTENDANT [address] [place] [address] Referring Cardiac Surg 04/10/20 Lead Painter Relationship Specialty Start Date End Date Stone Castillo, DO [address] [place] [address] PCP - General Family Medicine 09/14/13 Wilmer Rodríguez [address] [facility] [place] [address] Cardiology 02/02/20 Gopal Bullard MD [address] [place] [address] [place] [address] Home Care Provider Cardiothoracic Surgery 04/10/20 Christine Parks, SENIOR MANAGER ASSET PROTECTION.FOUNTAIN ATTENDANT [address] [place] [address] Referring Cardiac Surg 04/10/20 Lead Painter Relationship Specialty Start Date End Date Stone Castillo, DO [address] [place] [address] PCP - General Family Medicine 09/14/13 Wilmer Rodríguez [address] [place] [address] Cardiology 02/02/20 Gopal Bullard MD [address] [address] [place] [address] Home Care Provider Cardiothoracic Surgery 04/10/20 Christine Parks, SENIOR MANAGER ASSET PROTECTION.FOUNTAIN ATTENDANT [address] [place] [address] Referring Cardiac Surg 04/10/20 Lead Painter Relationship Specialty Start Date End Date Stone Castillo, DO [address] [place] [address] PCP - General Family Medicine 09/14/13 Wilmer Rodríguez [address] [place] [address] Cardiology 02/02/20 Gopal Bullard MD [address] [place] [address] [place] [address] Home Care Provider Cardiothoracic Surgery 04/10/20 Christine Parks, SENIOR MANAGER ASSET PROTECTION.FOUNTAIN ATTENDANT [address] [place] [address] Referring Cardiac Surg 04/10/20 Lead Painter Relationship Specialty Start Date End Date Stone Castillo, DO [address] [place] [address] PCP - General Family Medicine 09/14/13 Wilmer Rodríguez [address] [place] [address] Cardiology 02/02/20 Gopal Bullard MD [address] [address] [place] [address] Home Care Provider Cardiothoracic Surgery 04/10/20 Christine Parks, SENIOR MANAGER ASSET PROTECTION.FOUNTAIN ATTENDANT [address] [place] [address] Referring Cardiac Surg 04/10/20 Lead Painter Relationship Specialty Start Date End Date Stone Castillo, DO [address] [place] [address] PCP - General Family Medicine 09/14/13 Wilmer Rodríguez [address] [place] [address] Cardiology 02/02/20 Gopal Bullard MD [address] [address] [place] [address] Home Care Provider Cardiothoracic Surgery 04/10/20 Christine Parks, SENIOR MANAGER ASSET PROTECTION.FOUNTAIN ATTENDANT [address] [place] [address] Referring Cardiac Surg 04/10/20 Lead Painter Relationship Specialty Start Date End Date Stone Castillo, DO [address] [place] [address] PCP - General Family Medicine 09/14/13 Wilmer Rodríguez [address] [place] [address] Cardiology 02/02/20 Gopal Bullard MD [address] [address] [place] [address] Home Care Provider Cardiothoracic Surgery 04/10/20 Christine Parks, SENIOR MANAGER ASSET PROTECTION.FOUNTAIN ATTENDANT [address] [place] [address] Referring Cardiac Surg 04/10/20 Lead Painter Relationship Specialty Start Date End Date Stone Castillo, DO [address] [place] [address] PCP - General Family Medicine 09/14/13 Wilmer Rodríguez [address] [place] [address] Cardiology 02/02/20 Gopal Bullard MD [address] [address] [place] [address] Home Care Provider Cardiothoracic Surgery 04/10/20 Christine Parks, SENIOR MANAGER ASSET PROTECTION.FOUNTAIN ATTENDANT [address] [place] [address] Referring Cardiac Surg 04/10/20 Lead Painter Relationship Specialty Start Date End Date Stone Castillo, DO [address] [facility] [place] [address] PCP - General Family Medicine 09/14/13 Wilmer Rodríguez [address] [facility] [place] [address] Cardiology 02/02/20 Gopal Bullard MD [address] [address] [place] [address] Home Care Provider Cardiothoracic Surgery 04/10/20 Christine Parks, SENIOR MANAGER ASSET PROTECTION.FOUNTAIN ATTENDANT [address] [place] [address] Referring Cardiac Surg 04/10/20 Lead Painter Relationship Specialty Start Date End Date Stone Castillo, DO [address] [facility] [address] PCP - General Family Medicine 09/14/13 Wilmer Rodríguez [address] [facility] [place] [address] Cardiology 02/02/20 Gopal Bullard MD [address] [address] [place] [address] Home Care Provider Cardiothoracic Surgery 04/10/20 Christine Parks, SENIOR MANAGER ASSET PROTECTION.FOUNTAIN ATTENDANT [address] [place] [address] Referring Cardiac Surg 04/10/20 Lead Painter Relationship Specialty Start Date End Date Stone Castillo, DO [address] [place] [address] PCP - General Family Medicine 09/14/13 Wilmer Rodríguez [address] [place] [address] Cardiology 02/02/20 Gopal Bullard MD [address] [address] [place] [address] Home Care Provider Cardiothoracic Surgery 04/10/20 Christine Parks, SENIOR MANAGER ASSET PROTECTION.FOUNTAIN ATTENDANT [address] [place] [address] Referring Cardiac Surg 04/10/20 Lead Painter Relationship Specialty Start Date End Date Stone Castillo, DO [address] [place] [address] PCP - General Family Medicine 09/14/13 Wilmer Rodríguez [address] [place] [address] Cardiology 02/02/20 Gopal Bullard MD [address] [address] [place] [address] Home Care Provider Cardiothoracic Surgery 04/10/20 Christine Parks, SENIOR MANAGER ASSET PROTECTION.FOUNTAIN ATTENDANT [address] [place] [address] Referring Cardiac Surg 04/10/20 Lead Painter Relationship Specialty Start Date End Date Stone Castillo DO [address] [facility] [address] PCP - General Family Medicine 09/14/13 Wilmer Rodríguez [address] [facility] [place] [address] Cardiology 02/02/20 Gopal Bullard MD [address] [address] [place] [address] Home Care Provider Cardiothoracic Surgery 04/10/20 Christine Parks, SENIOR MANAGER ASSET PROTECTION.FOUNTAIN ATTENDANT [address] [place] [address] Referring Cardiac Surg 04/10/20 Lead Painter Relationship Specialty Start Date End Date Stone Castillo DO [address] [place] [address] PCP - General Family Medicine 09/14/13 Wilmer Rodríguez [address] [place] [address] Cardiology 02/02/20 Gopal Bullard MD [address] [place] [address] Home Care Provider Cardiothoracic Surgery 04/10/20 Christine Parks, SENIOR MANAGER ASSET PROTECTION.FOUNTAIN ATTENDANT [address] [place] [address] Referring Cardiac Surg 04/10/20 Lead Painter Relationship Specialty Start Date End Date Stone Castillo DO [address] [place] [address] PCP - General Family Medicine 09/14/13 Wilmer Rodríguez [address] [place] [address] Cardiology 02/02/20 Gopal Bullard MD [address] [place] [address] [place] [address] Home Care Provider Cardiothoracic Surgery 04/10/20 Christine Parks, SENIOR MANAGER ASSET PROTECTION.FOUNTAIN ATTENDANT [address] [place] [address] Referring Cardiac Surg 04/10/20 Lead Painter Relationship Specialty Start Date End Date Stone Castillo DO [address] [place] [address] PCP - General Family Medicine 09/14/13 Wilmer Rodríguez [address] [place] [address] Cardiology 02/02/20 Gopal Bullard MD [address] [place] [address] Home Care Provider Cardiothoracic Surgery 04/10/20 Christine Parks, SENIOR MANAGER ASSET PROTECTION.FOUNTAIN ATTENDANT [address] [place] [address] Referring Cardiac Surg 04/10/20 Lead Painter Relationship Specialty Start Date End Date Stone Castillo DO [address] [place] [address] PCP - General Family Medicine 09/14/13 Wilmer Rodríguez MD [address] [place] [address] Cardiology 02/02/20 Gopal Bullard MD [address] [place] [address] Home Care Provider Cardiothoracic Surgery 04/10/20 Christine Parks, ALIA.FOUNTAIN ATTENDANT [address] [place] [address] Referring Cardiac Surg 04/10/20 Lead Painter Relationship Specialty Start Date End Date Stone Castillo DO [address] [place] [address] PCP - General Family Medicine 09/14/13 Wilmer Rodríguez MD [address] [place] [address] Cardiology 02/02/20 Gopal Bullard MD [address] [address] [place] [address] Home Care Provider Cardiothoracic Surgery 04/10/20 Christine Parks, SENIOR MANAGER ASSET PROTECTION.FOUNTAIN ATTENDANT [address] [place] [address] Referring Cardiac Surg 04/10/20 Lead Painter Relationship Specialty Start Date End Date Stone Castillo DO [address] [place] [address] PCP - General Family Medicine 09/14/13 Wilmer Rodríguez MD [address] [place] [address] Cardiology 02/02/20 Gopal Bullard MD [address] [place], [place] [address] Home Care Provider Cardiothoracic Surgery 04/10/20 Christine Parks, SENIOR MANAGER ASSET PROTECTION.FOUNTAIN ATTENDANT [address] [place] [phone] Referring Cardiac Surg 04/10/20 Lead Painter Relationship Specialty Start Date End Date Stone Castillo DO [address] [place], [place] [address] PCP - General Family Medicine 09/14/13 Wilmer Rodríguez MD [address] [place] [address] Cardiology 02/02/20 Gopal Bullard MD [address] [place], [place] [address] Home Care Provider Cardiothoracic Surgery 04/10/20 Christine Parks, SENIOR MANAGER ASSET PROTECTION.FOUNTAIN ATTENDANT [address] [place] [address] Referring Cardiac Surg 04/10/20 Antonella Law, SENIOR MANAGER ASSET PROTECTION.FOUNTAIN ATTENDANT [address] [place] [address] [employer] Controller Family Medicine 08/15/24 Reece Mendez, SENIOR MANAGER ASSET PROTECTION.FOUNTAIN ATTENDANT [address] [place] [address] [employer] Controller Family Medicine 08/15/24 Lead Painter Relationship Specialty Start Date End Date Stone Castillo DO [address] [facility] [address] PCP - General Family Medicine 09/14/13 Wilmer Rodríguez MD [address] [facility] [address] Cardiology 02/02/20 Gopal Bullard MD [address] [address] [place], [place] [id number] Home Care Provider Cardiothoracic Surgery 04/10/20 Christine Parks, SENIOR MANAGER ASSET PROTECTION.FOUNTAIN ATTENDANT [address] [place], [place] [id number] Referring Cardiac Surg 04/10/20 Antonella Law, SENIOR MANAGER ASSET PROTECTION.FOUNTAIN ATTENDANT [address] [place] [address] [employer] Controller Family Medicine 08/15/24 Reece Mendez, SENIOR MANAGER ASSET PROTECTION.FOUNTAIN ATTENDANT [address] [place] [address] [employer] Controller Family Medicine 08/15/24 Lead Painter Relationship Specialty Start Date End Date Stone Castillo DO [address] [place] [address] PCP - General Family Medicine 09/14/13 Wilmer Rodríguez MD [address] [facility] [address] Cardiology 02/02/20 Gopal Bullard MD [address] [address] [place] [address] Home Care Provider Cardiothoracic Surgery 04/10/20 Christine Parks, SENIOR MANAGER ASSET PROTECTION.FOUNTAIN ATTENDANT [address] [place] [address] Referring Cardiac Surg 04/10/20 Reece Mendez, SENIOR MANAGER ASSET PROTECTION.FOUNTAIN ATTENDANT [address] [place] [address] [employer] Controller Family Medicine 08/15/24 Lead Painter Relationship Specialty Start Date End Date Stone Castillo DO [address] [place], [place] [address] PCP - General Family Medicine 09/14/13 Wilmer Rodríguez MD [address] [place] [address] Cardiology 02/02/20 Gopal Bullard MD [address] [place] [address] Home Care Provider Cardiothoracic Surgery 04/10/20 Christine Parks, SENIOR MANAGER ASSET PROTECTION.FOUNTAIN ATTENDANT [address] [place] [address] Referring Cardiac Surg 04/10/20 Reece Mendez, SENIOR MANAGER ASSET PROTECTION.FOUNTAIN ATTENDANT [address] [place] [address] [employer] Controller Family Medicine 08/15/24 Team Status: Active Member [...] 2025 End: March 23, 2025 Team Status: Active Member Role/Relationship Status Dates Dr. Stone Castillo DO Primary Care Provider Active Start: April 05, 2025 KATHLEEN Hannah Attending Provider Active St art: April 05, 2025 KATHLEEN Hannah Referring Provider Active St art: April 05, 2025 Team Status: Active Member Role/Relationship Status Dates Dr. Stone Castillo DO Primary Care Provider Active Start: April 05, 2025 Dr. Ross Kenney MD Attending Provider Active Start: April 05, 2025 Team Status: Inactive Member Role/Relationship Status Dates Dr. Stone Castillo DO Primary Care Provider Active Start: April 06, 2025 End: April 06, 2025 Dr. Stone Castillo DO Referring Provider Active Start: April 06, 2025 End: April 06, 2025 KATHLEEN Hannah Attending Provider Active St art: April 06, 2025 End: April 06, 2025 Team Status: Inactive Member Role/Relationship Status Dates Dr. Stone Castillo DO Primary Care Provider Active Start: April 05, 2025 End: April 05, 2025 KATHLEEN Hannah Attending Provider Active St art: April 05, 2025 End: April 05, 2025 KATHLEEN Hannah Referring Provider Active St art: April 05, 2025 End: April 05, 2025 Team Status: Active Member Role/Relationship Status Dates Dr. Stone Castillo DO Primary Care Provider Active Start: April 13, 2025 Lester Demiter , PA Attending Provider Active St art: April 13, 2025 Lesteranmol Larios , PA Referring Provider Active St art: April 13, 2025 Team Status: Inactive Member Role/Relationship Status Dates Dr. Stone Castillo DO Primary Care Provider Active Start: April 13, 2025 End: April 13, 2025 Lester Larios PA Attending Provider Active St art: April 13, 2025 End: April 13, 2025 Lesteranmol Larios , PA Referring Provider Active St art: April 13, 2025 End: April 13, 2025 Team Status: Inactive Member Role/Relationship Status Dates Dr. Stone Castillo DO Primary Care Provider Active Start: March 29, 2025 End: March 29, 2025 Dr. Manny Kemp MD Attending Provider Active S tart: March 29, 2025 End: March 29, 2025 Team Status: Inactive Member Role/Relationship Status Dates Dr. Stone Castillo DO Primary Care Provider Active Start: April 05, 2025 End: April 05, 2025 KATHLEEN Hannah Attending Provider Active St art: April 05, 2025 End: April 05, 2025 Lester Larios PA Referring Provider Active St art: April 05, 2025 End: April 05, 2025 Team Status: Active Member Role/Relationship Status Dates Dr. Stone Castillo DO Primary Care Provider Active Start: April 05, 2025 Dr. Ross Kenney MD Attending Provider Active Start: April 05, 2025 Team Status: Inactive Member Role/Relationship Status Dates Dr. Stone Castillo DO Primary Care Provider Active Start: April 06, 2025 End: April 06, 2025 Dr. Stone Castillo DO Referring Provider Active Start: April 06, 2025 End: April 06, 2025 Lester Larios PA Attending Provider Active St art: April 06, 2025 End: April 06, 2025 Team Status: Inactive Member Role/Relationship Status Dates Dr. Stone Castillo DO Primary Care Provider Active Start: April 13, 2025 End: April 13, 2025 Lester Larios , PA Attending Provider Active St art: April 13, 2025 End: April 13, 2025 Lesteranmol Larios PA Referring Provider Active St art: April 13, 2025 End: April 13, 2025 Lead Painter Relationship Specialty Start Date End Date Stone Castillo DO [address] [place], [place] [address] PCP - General Family Medicine 09/14/13 Wilmer Rodríguez MD [address] [place] [address] Cardiology 02/02/20 Gopal Bullard MD [address] [place], [place] [id number] Home Care Provider Cardiothoracic Surgery 04/10/20 Christine Parks APRN.FOUNTAIN ATTENDANT [address] [place], [place] [id number] Referring Cardiac Surg 04/10/20 Reece Mendez SENIOR MANAGER ASSET PROTECTION.FOUNTAIN ATTENDANT [address] [place], [place] [address] [employer] Controller [facility] Medicine 08/15/24 Adrianna Childress, SENIOR MANAGER ASSET PROTECTION.FOUNTAIN ATTENDANT [address] [place], [place] [id number] [employer] ControllerNational [facility] 02/21/25 FOR RECORDS PERTAINING TO PATIENTS WHO ARE [...] BE BASED ON THE PRIMARY CLINICAL RECORDS. [employer] provides no warranty or guarantee of the accuracy or completeness of information in this document.
== END | disposition home or self-care (01) ==
LOC: LAB 15:50
PROVIDERS: PCP Student in an Organized Health Care Education/Training Program; Referring Provider Nurse Practitioner Gerontology; Visit Provider Nurse Practitioner Gerontology
DX: R60.0 Localized edema (principal); R06.00 Dyspnea, unspecified; R10.9 Unspecified abdominal pain; R19.7 Diarrhea, unspecified; R79.89 Other specified abnormal findings of blood chemistry
CPT/HCPCS: 36415; 80053; 82150; 83690; 83880; 85025

== ENCOUNTER → 2025-08-11 | Outpatient (CLI) | payer MEDICARE, MEDICAID, SELFPAY ==
[2025-08-11 12:31] LABS: Hematocrit 45.9 % (40-54); Hemoglobin 14.6 g/dL (13.0-16.5); Immature Granulocytes Count 0.060 X10^3/uL (0.0-0.0); Mean Corp Hgb Conc 31.8 g/dL (32-36); Mean Corpuscular Volume 88.4 fL (80-94); Mean Platelet Vol. 9.4 fl (6.2-12.0); NRBC Flagged by Analyzer 0 % (0-5); Platelet Count 351 K/mm3 (150-450); RBC Distribution Width CV 13.8 % (11.6-14.6); RBC Distribution Width SD 44.4 fl (35.1-43.9); Red Blood Count 5.19 M/mm3 (4.6-6.2); White Blood Count 11.7 K/mm3 (4.4-11.0)
[2025-08-11 13:22] LABS: Pro- Brain NATRIURETIC PEPTIDE 412 pg/mL (<=450)
[2025-08-11 13:25] LABS: Anion Gap 8 (5-15); BUN 15 mg/dL (4-19); BUN/Creat Ratio 14.5 RATIO (10-20); Calcium,Total 9.5 mg/dL (7.6-11.0); Carbon Dioxide 30.2 mmol/L (21.0-32.0); Chloride 103 mmol/L (98-108); Glucose 102 mg/dL (70-99); Potassium 4.5 mmol/L (3.3-5.1)
== END | disposition home or self-care (01) ==
LOC: LAB 11:41
PROVIDERS: PCP Student in an Organized Health Care Education/Training Program; Referring Provider Nurse Practitioner Gerontology; Visit Provider Nurse Practitioner Gerontology
DX: R06.00 Dyspnea, unspecified (principal); R06.09 Other forms of dyspnea
CPT/HCPCS: 36415; 80048; 83880; 85025